=== PATIENT | male | born 1930 | race Caucasian/White ===

== ENCOUNTER 2016-12-07 09:03 | Inpatient (IN) | payer BC ==
[~2016-12-07] VITALS: Ht 180.3 cm; Wt 75.2 kg
[~2016-12-07 09:03] MED LIST: ACAR25TA7 PO; ALLO100T PO; ALLO300T2 PO; ATOR20TA38 PO; CLON-379 PO; COU5 PO; CYAN100080 PO; FERR-55 PO; OMEP20CA16 PO; OXCA150T43 PO; POTA8CAP PO; TRIA1CAP PO; WARF6TAB35 PO; [UNRECOGNIZED DRUG - CODE] PO; [UNRECOGNIZED DRUG - CODE] PO
[2016-12-07] MEDS ORDERED: ONDANSETRON (ODT) 4 MG TAB ODT STA (09:20)
[2016-12-07] MEDS ORDERED: traMADol 50 MG TAB PO ONE (09:30)
[2016-12-07] MEDS ORDERED: LOSA50TA6 PO (09:57)
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
[2016-12-07 11:30] LABS: ADD SCAN DIFF NO
[2016-12-07 11:34] LABS: ABNORMAL IP MESSAGE 1; HEMATOCRIT 34.5 % (42.0-52.0); MEAN CORPUSCULAR HEMOGLOBIN 31.6 pg (29.0-33.0); MEAN CORPUSCULAR HGB CONC 31.9 g/dl (32.0-37.0); MEAN CORPUSCULAR VOLUME 99.1 fl (82.0-101.0); MEAN PLATELET VOLUME 8.6 fl (7.4-10.4); PLATELET COUNT 335 10^3/UL (140-415); RED BLOOD COUNT 3.48 10^6/ul (4.70-6.10); RED CELL DISTRIBUTION WIDTH 13.6 % (11.5-14.5); WHITE BLOOD COUNT 8.9 10^3/ul (4.8-10.8)
[2016-12-07 11:46] LABS: INR 1.03; PROTIME 13.5 Sec (12.2-14.2); PT RATIO 1.1
[2016-12-07 11:47] LABS: ANION GAP 11 (8-16); BLOOD UREA NITROGEN 33 mg/dl (7-20); CARBON DIOXIDE 30 mmol/L (21-31); CHLORIDE 103 mmol/L (97-110); CREATININE 1.83 mg/dl (0.61-1.24); GLUCOSE 109 mg/dl (70-220); PARTIAL THROMBOPLASTIN TIME 32.3 Sec (25.0-35.0); POTASSIUM 4.9 mmol/L (3.5-5.1); SODIUM 139 mmol/L (135-144)
[2016-12-07 12:00] LABS: TROPONIN-I < 0.012 ng/ml (0.00-0.12)
[2016-12-07] MEDS ORDERED: ACETAMINOPHEN 325 MG TAB PO PRN (12:30)
[2016-12-07] MEDS ORDERED: ONDANSETRON 4 MG INJ IV PRN (12:30)
[2016-12-07] MEDS ORDERED: SOD CHLORIDE 0.9% 1,000 ML IV STA (12:33)
[2016-12-07 12:40] LABS: EOSINOPHILS # 0.3 10^3/ul (0.0-0.5); LYMPHOCYTES # 0.4 10^3/ul (0.8-2.9); MONOCYTE # 0.7 10^3/ul (0.3-0.9); NEUTROPHIL # 7.5 10^3/ul (1.6-7.5)
[2016-12-07] MEDS ORDERED: SOD CHLORIDE 0.9% 100 ML ONE (12:43)
[2016-12-07] MEDS ORDERED: IODIXANOL LOCM 100 ML BTL ONE (12:43)
--- NOTE | 2016-12-07 12:48 | RADRPT ---
PROCEDURE: XR 1 view Chest. CLINICAL INDICATION: Abdominal pain. TECHNIQUE: Portable Single frontal view of the chest was obtained. COMPARISON: May 10, 2015. FINDINGS: The heart is normal in size. There are moderate aortic calcifications. There is no focal consolidation. There are chronic interstitial markings. There is a probable 2 mm r ight upper lobe granuloma. There is no pleural effusion. No pneumothorax is identified. The osseous structures are intact.There are mild degenerative changes within the thoracic spine. IMPRESSION: No significant change. No evidence for acute cardiopulmonary disease. Aortic calcifications. Probable 2 mm right upper lobe granuloma. Further findings as detailed above. RPTAT: PP .Dario Turner MD, MD Date Time Electronically viewed and signed by .Dario Turner MD, on 12/07/2016 12:48 .F/
--- NOTE | 2016-12-07 13:21 | ERA ---
ER Documentation Chief Complaint Date/Time DATE: 12/07/16 TIME: 13:16 Chief Complaint NECK PAIN POSSIBLY SLEPT WRONG PER PT HPI Patient is a 86-year-old male with hypertension and diabetes who presents with back pain. The patient says that he fell asleep last night while watching TV sitting up and that his head fell down and touched his chest. When he woke up he had neck pain. The neck pain persisted today. He feels bilateral neck pain in the posterior portion of his neck. He denies chest pain. He has had no treatment as of yet. Upon review of old medical records the patient has multiple visits to the ER for various complaints. His primary doctor is Dr. Ruth Dennison. ROS All systems reviewed and are negative except as per history of present illness. Medications Home Meds Reported Medications Losartan Potassium* (Losartan Potassium*) 50 Mg Tablet, 50 MG PO DAILY, TAB 12/07/16 Diltiazem Hcl* (Cartia XT*) 180 Mg Cap.sr.24h, 180 MG PO BID, CAP 05/10/15 Acarbose* (Acarbose*) 25 Mg Tablet, 25 MG PO TID, TAB 05/10/15 Potassium Chloride* (Potassium Chloride*) 8 Meq Capsule.er, 8 MEQ PO DAILY, CAP 01/24/15 Allopurinol* (Allopurinol*) 300 Mg Tablet, 300 MG PO AM, TAB 01/24/15 Triamterene-HCTZ* (Triamterene-HCTZ*) 37.5 - 25 Mg Capsule, 1 CAP PO DAILY, CAP 01/24/15 Nitroglycerin* (Nitroglycerin*) 6.5 Mg Capsr, 6.5 MG PO BID, CAP 01/24/15 Cyanocobalamin* (Vitamin B-12*) 1,000 Mcg Tablet.sa, 1000 MCG PO DAILY, TAB 01/24/15 Oxcarbazepine* (Oxcarbazepine*) 150 Mg Tablet, 150 MG PO BID, TAB 01/24/15 Omeprazole* (Omeprazole*) 20 Mg Capsule.dr, 20 MG PO DAILY, CAP 05/30/14 Atorvastatin Calcium* (Atorvastatin Calcium*) 20 Mg Tablet, 20 MG PO HS, TAB 05/30/14 Discontinued Reported Medications Clonidine Hcl* (Clonidine Hcl*) 0.1 Mg Tab, 0.1 MG PO Q4H Y for BLOOD PRESSURE SUPPORT, TAB 05/10/15 Allopurinol* (Allopurinol*) 100 Mg Tablet, 100 MG PO PM, TAB 05/10/15 Warfarin Sodium* (Warfarin Sodium*) 6 Mg Tablet, 6 MG PO MON/SAT/SAT/SAT/SUN, TAB 01/24/15 Warfarin Sod (Coumadin) 5 Mg Tablet, 5 MG PO THURS/SAT, TAB 01/24/15 Ferrous Sulfate* (Ferrous Sulfate*) 325 Mg Tablet, 325 MG PO DAILY, TAB 01/24/15 Allergies Allergies: Coded Allergies: morphine (Verified Allergy, Mild, N&V, 05/10/15) Penicillins (Verified Allergy, Unknown, DOES NOT FEEL LIKED, 01/24/15) PMhx/Soc History of Surgery: Yes Anesthesia Reaction: No Hx Neurological Disorder: No Hx Respiratory Disorders: Yes (COPD) Hx Cardiac Disorders: Yes Hx Psychiatric Problems: No Hx Miscellaneous Medical Probl: Yes (cataract,COPD, GERD) Hx Alcohol Use: No Hx Substance Use: No Hx Tobacco Use: Yes Smoking Status: Former smoker FmHx Family History: No diabetes Physical Exam Vitals Vital Signs Date Time Temp Pulse Resp B/P Pulse Ox O2 Delivery O2 Flow Rate FiO2 12/07/16 11:55 98.0 64 18 134/63 99 Room Air 12/07/16 09:07 98.0 78 18 107/60 99 Physical Exam Const: Mild distress secondary to pain Head: Atraumatic Eyes: Normal Conjunctiva ENT: Normal External Ears, Nose and Mouth. Neck: Patient has pain over the strap muscles of the posterior neck bilaterally Resp: Clear to auscultation bilaterally Cardio: Regular rate and rhythm, no murmurs Abd: Soft, non tender, non distended. Normal bowel sounds Skin: No petechiae or rashes Back: No midline or flank tenderness Ext: No cyanosis, or edema Neur: Awake and alert, excellent rn informatics strength bilaterally, strength is 5 out of 5 in the upper and lower extremities bilaterally, able to give a thumbs up and okay sign bilaterally Psych: Normal Mood and Affect Result Diagram: 12/07/16 1120 12/07/16 1120 Results 24 hrs Laboratory Tests Test 12/07/16 11:20 White Blood Count 8.910^3/ul Red Blood Count 3.4810^6/ul Hemoglobin 11.0g/dl Hematocrit 34.5% Mean Corpuscular Volume 99.1fl Mean Corpuscular Hemoglobin 31.6pg Mean Corpuscular Hemoglobin Concent 31.9g/dl Red Cell Distribution Width 13.6% Platelet Count 53686^3/UL Mean Platelet Volume 8.6fl Neutrophils % 84.0% Lymphocytes % 5.0% Monocytes % 8.0% Eosinophils % 3.0% Neutrophils # 7.510^3/ul Lymphocytes # 0.410^3/ul Monocytes # 0.710^3/ul Eosinophils # 0.310^3/ul Differential Comment MANUAL DIFF Prothrombin Time 13.5Sec Prothrombin Time Ratio 1.1 INR International Normalized Ratio 1.03 Activated Partial Thromboplast Time 32.3Sec Sodium Level 139mmol/L Potassium Level 4.9mmol/L Chloride Level 103mmol/L Carbon Dioxide Level 30mmol/L Anion Gap 11 Blood Urea Nitrogen 33mg/dl Creatinine 1.83mg/dl Glucose Level 109mg/dl Calcium Level 10.0mg/dl Troponin I < 0.012ng/ml Current Medications Medications (Trade) Dose Ordered Sig/Jimenez Route PRN Reason Start Time Stop Time Status Last Admin Dose Admin Tramadol HCl (Ultram) 50 mg ONCE ONCE PO 12/07/16 09:30 12/07/16 09:31 DC 12/07/16 09:35 Ondansetron HCl (Zofran Odt) 4 mg ONCE STAT ODT 12/07/16 09:20 12/07/16 09:21 DC 12/07/16 09:34 Ondansetron HCl (Zofran Inj) 4 mg BRIDGE ORDER PRN IV NAUSEA AND/OR VOMITING 12/07/16 12:30 12/08/16 12:29 Acetaminophen 650 mg 650 mg ER BRIDGE PRN PO MILD PAIN/FEVER 12/07/16 12:30 12/08/16 12:29 Sodium Chloride (NS) 1,000 ml @ 1,000 mls/hr Q1H STAT IV 12/07/16 12:33 12/07/16 13:32 12/07/16 12:38 IV Flush 10 ml 10 ml STK-MED ONCE .ROUTE 12/07/16 12:43 12/07/16 12:44 DC Sodium Chloride (NS) 100 ml @ ud STK-MED ONCE .ROUTE 12/07/16 12:43 12/07/16 12:44 DC Iodixanol (Visipaque Locm) 100 ml STK-MED ONCE .ROUTE 12/07/16 12:43 12/07/16 12:44 DC Procedures/MDM EKG read by me: Rate/Rhythm: Regular rate and rhythm at a rate of 60 Intervals: Normal Impression: No evidence of ischemia or arrhythmia Chest x-ray shows chronic changes per radiology. CT of the head is negative per radiology. CT of the cervical spine shows type II odontoid fracture with lytic lesion per radiology. Patient is a 86-year-old male with hypertension and diabetes who presents with a type II odontoid fracture. The patient has a lytic lesion and will need further workup for this. I spoke with Dr. Gannon who is the neurosurgeon extension service specialist. He will see the patient in consultation. A c-collar was placed. The patient is neurologically intact at this time. MRI of the cervical spine was ordered by Dr. Gannon with contrast. The patient's creatinine was elevated at 1.8 and I spoke with Dr. Gannon who want to continue with the contrast study given the concern for possible cancer. I have ordered 1 L of normal saline for fluid resuscitation to protect the kidneys. The patient will be admitted to the care of Dr. Ruth Dennison who is the patient's primary doctor. The patient will be admitted to a medical surgical bed. Critical Care: Time: 35 minutes excluding all billable procedures. Treatments/Evaluations: Close monitoring and treatment of unstable vital signs, cardiorespiratory, and neurologic status, while maintaining tight balance of fluid, respiratory, and cardiac interventions. Departure Diagnosis: Primary Impression: Odontoid fracture Qualified Code: S12.100A - Odontoid fracture, closed, initial encounter Additional Impressions: Neck pain Anemia Qualified Code: D64.9 - Anemia, unspecified type Renal failure Condition: Serious LEN LOPEZ MD Dec 07, 2016 13:21
[2016-12-07] MEDS ORDERED: ONDANSETRON 4 MG INJ IV STA (13:57)
[2016-12-07] MEDS ORDERED: HYDROmorphONE 1 MG/ML SYG IV STA (13:57)
--- NOTE | 2016-12-07 13:58 | RADRPT ---
PROCEDURE: CT Chest abdomen and pelvis with contrast. CLINICAL INDICATION: ruloe out mets TECHNIQUE: CT scan of the chest abdomen pelvis with contrast was performed on a multidetector high -resolution CT scan. The patient was scanned chest abdomen pelvis following the uncomplicated intra venous administration of 100 ml of Visipaque 320. Coronal and sagittal reformatted images were obtai rena from the axial source images. CT chest abdomen pelvis with contrast protocols were performed. The total exam CTDI equals 13.90 mGy and the total exam DLP equals 1068.85 mGy-cm. One or more of the following dose reduction techniques were used: - Automated exposure control. - Adjustment of the mA and/or kV according to patient size. Use of iterative reconstruction technique. COMPARISON: None. FINDINGS: In the left upper lobe is a 2.3 x 1.4 x 1.7 cm spiculated mass consistent with malignancy. There ar e no other pulmonary masses bilaterally. There is minimal chronic basilar and apical interstitial l edwige disease. There is bilateral minimal apical pleural thickening. No evidence of pleural or peric ardial effusions . No evidence pneumothorax. No evidence of mediastinal, hilar or axillary lymphad enopathy. The heart is within normal limits in size. There is coronary artery disease present. The patient is status post prostatectomy with numerous surgical clips along the inferior right left urinary bladder region. Urinary bladder is there is no evidence of pelvic mass. The urinary bladde r is distended but otherwise unremarkable. The kidneys are normal in size without hydronephrosis bilaterally. There are numerous bilateral mya al cysts the largest involving the inferior left kidney measuring 3 cm. No solid intra renal masses bilaterally. The liver spleen pancreas and adrenal glands are normal in size configuration without focal lesions. The gallbladder is distended but otherwise unremarkable. No evidence of biliary ductal dilation. The stomach, small bowel and large bowel are unremarkable. The appendix is unremarkable. Negative for intra-abdominal free air, free fluid or lymphadenopathy. There is extends atherosclerotic vascular disease of the aorta but no aneurysm or dissection. No pe riaortic fluid collections. There is a mild S-shaped thoracic lumbar scoliosis. There is extensive degenerative changes of the lower cervical thoracic and lumbar spine. Note that the bones are diffu sely inhomogeneously demineralized. In the right L2 vertebral body is a more localized approximatel y 2.5 cm low with occlusion. In the superior T9 vertebral body is an ill-defined approximately 1.5 cm loose lesion that may represent a lytic metastasis. There is destructive lytic lesion of the mid to posterior T4 vertebral body and left T4 pedicle and transverse process. There is patchy lytic l esions involving the T3 vertebral body. There is 2.6-1.5 cm lytic lesion involving the right ilium. There is a lytic lesion involving the left posterior acetabulum. IMPRESSION: 1. In the left upper lobe there is a 2.3 x 1.4 x 1.7 cm spiculated mass consistent with malignancy. No other pulmonary masses. 2. Numerous lytic lesions involving the thoracic and lumbar spine and pelvis as described above con sistent with metastatic disease. A bone scan is suggested for further evaluation. 3. Status post previous prostatectomy. 4. No evidence of thoracic abdominopelvic lymphadenopathy. 6. No evidence of thoracic effusions or intra-abdominal free air fluid. 7. Multiple bilateral renal cysts. No obstructive uropathy. RPTAT:AAJJ Physician Samantha Date Time Electronically viewed and signed by Physician Samantha on 12/07/2016 13:57 /
[2016-12-07 15:09] VITALS: TEMP 98.7
[2016-12-07 15:43] VITALS: Ht 180.3 cm; Wt 75.2 kg
[2016-12-07 16:01] VITALS: BP 147/65; PULSE 58; RESP 18
[2016-12-07] MEDS: DEXTROSE 5%-0.45% NACL 1,000 ML IV SCH (16:30)
--- NOTE | 2016-12-07 18:22 | HP ---
DATE OF ADMISSION: 12/07/2016 CHIEF COMPLAINT: Neck pain and discomfort. HISTORY OF PRESENT ILLNESS: This 86-year-old man with history of hypertension, coronary artery disease, prostate cancer, and skin cancer has been having progressive and intermittent neck discomfort for about 4 weeks after falling without head trauma about 4 weeks ago. However, all night last night, the patient has been having trouble finding a comfortable spot on his pillow for his head to rest and came in today for neck discomfort. X-rays in the emergency room showed a pathological fracture of the C2 vertebra at the odontoid process, and subsequent chest, abdominal, and pelvic CT showed multiple lesions in vertebral body of thoracic spine, lumbar spine, pelvis, and hip. The patient is thus admitted for further workup of possible metastatic lung cancer as well as a fracture of the cervical vertebra. PAST MEDICAL HISTORY: 1. Coronary artery disease. 2. Hypertension. 3. Prediabetes. 4. Remote history of prostate cancer. 5. Precancerous lesions of the skin/actinic keratoses. 6. GERD. 7. Generalized anxiety disorder. 8. Gouty arthropathy. 9. Single episode of epilepsy many decades ago. 10. Single episode of atrial fibrillation during pneumonia many years ago. 11. Chronic anemia 12. Stage 1 chronic kidney disease. ALLERGIES: 1. MORPHINE. 2. PENICILLIN. MEDICATIONS: 1. Losartan 100 mg daily. 2. Diltiazem ER 180 mg p.o. daily. 3. Dyazide 37.5/25 p.o. every day. 4. Allopurinol 300 mg p.o. at bedtime. 5. Acarbose 25 mg p.o. b.i.d. 6. Paroxetine 20 mg p.o. every day. 7. Atorvastatin 20 mg p.o. daily. 8. Nitroglycerin 0.3 mg as needed sublingually. 9. Omeprazole 20 mg p.o. q. a.m. 10. Gemfibrozil 600 mg p.o. b.i.d. SOCIAL HISTORY: The patient used to smoke 1 to 2 packs a day for 40+ years. He quit when he was 62 years old. He now only drinks beer or wine occasionally. 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 He is and lives alone. REVIEW OF SYSTEMS: GENERAL: Denies any fever, chills, fatigue, or headache. HEENT: The patient denies any blurry vision, double vision, eye pain, congestion of the nose, or sore throat. RESPIRATORY: No coughing, wheezing, or shortness of breath. CARDIOVASCULAR: No chest pain, palpitation, no edema. GASTROINTESTINAL: No abdominal pain, nausea, vomiting, diarrhea, or constipation. MUSCULOSKELETAL: Neck discomfort as above. EXTREMITIES: No other joint pain or inflammation. SKIN: No itching or rashes. NEUROLOGIC: Denies any blackouts, fainting spells, or loss of consciousness. PSYCHIATRIC: The patient does have persistent nervousness and anxiety. Denies current depression or behavior changes. GENITOURINARY: The patient does have nocturia but no pain on urination, no blood in the urine. No penile discharge. PHYSICAL EXAMINATION: GENERAL: Well developed, well nourished white male lying in bed in no acute distress VITAL SIGNS: Temperature 97.0, blood pressure 147/65, pulse of 58, respiration rate 18, O2 saturation 99% on room air. HEENT: Pupils equally round, reactive to light. Oropharynx clear. LUNGS: Clear to auscultation anteriorly. CARDIAC: Regular rate and rhythm. Normal S1, S2. ABDOMEN: Active bowel sounds, soft, nondistended, nontender. EXTREMITIES: No clubbing, cyanosis, or edema. LABORATORY: WBC 8.9, hemoglobin 11.0, hematocrit 34.5, platelet count 335,000. Sodium 139, potassium 4.9, chloride 103, carbon dioxide 30, BUN 33, creatinine 1.83, glucose 109. PT 13.5, PTT 32.3. RADIOLOGY: The patient's chest x-ray shows probable 2 mm right upper lobe granuloma, no pleural effusion, no pneumothorax. The head CT shows no intracranial hemorrhage or abnormality. The cervical spine CT shows a lytic lesion within the odontoid and body of C2 with nondisplaced pathological fracture through the base of the odontoid compatible with type II fracture. There is mild prevertebral soft tissue swelling anterior to the fracture. There is marked multilevel degenerative disk disease throughout the cervical spine without foraminal or S1 central canal stenosis. The chest, abdominal, and pelvic CT scan shows a left upper lobe spiculated mass consistent with malignancy. There are numerous lytic lesions involving the thoracic and lumbar spine, hip and pelvis consistent with metastatic disease. A bone scan is suggested for further evaluation. There is evidence of previous prostatectomy. No evidence of thoracic, abdominal, or pelvic lymphadenopathy. No evidence of thoracic effusion or intra-abdominal free air or fluid. There are multiple bilateral renal cysts and no obstructive uropathy. ASSESSMENT AND PLAN: 1. C2 cervical fracture. Place the patient on cervical spine neck brace and consult Neurosurgery Dr. Gannon for further management. Obtain MRI of the neck, thoracic and lumbar spine to clarify extent of lesions. Obviously, another relevant question is the possible cause of his pathologic fracture, especially in light of multiple other lytic lesions that are quite suggestive of metastatic disease. I have consulted manager of distribution/oncologist, Dr. Sharma also for further workup and management of possible metastatic disease. 2. Hypertension, stable. Continue current medications. 3. Gastroesophageal reflux disease. Continue PPI. 4. Hyperlipidemia. Continue statin. 5. Generalized anxiety disorder. Continue paroxetine. The patient may need Clonazepam as needed for anxiety, particularly as he is going through this new workup for cancer. Dictated By: DESI MCLAIN MD DP/MARTINA Conf#: [id number] DID#: [id number]
--- NOTE | 2016-12-07 19:03 | RADRPT ---
PROCEDURE: MRI thoracic spine without contrast CLINICAL INDICATION: Back pain and follow-up type 2 odontoid fracture TECHNIQUE: An MRI of the thoracic spine was performed on a hi-definition high-resolution 3.0 [place] MR scanner utilizing the following sequences: Sagittal T1 weighted, sagittal and axial T2 weighted , axial GRE, and sagittal T2 fat saturation. COMPARISON: No prior thoracic spine MRIs or CTs available for comparison. FINDINGS: There is a normal kyphosis of the thoracic spine. Heterogeneous lesions are noted throughout the cer vical spine compatible with diffuse metastatic disease. Small subtle lesions are noted in the T1, T2 , at T6 through T8, T10 through T12 levels. Right pedicular lesion is noted at the T12 level. Larg er metastatic foci are noted in the posterior T3, T4, and T7, T9 and, and the L1 vertebral bodies. Complete marrow replacement is noted at the T4 vertebral level with pathologic compression fracture noted at this level and approximately 60% vertebral body height loss. Retropulsion into the spinal canal is noted at this level and moderate canal stenosis and cord compression is noted. The cord is compressed along its anterior portion without evidence for abnormal cord signal at this time. The i ntervertebral discs demonstrate diffuse disk desiccation throughout the thoracic spine with severe d isk space height loss at T2-3 and T3-4 levels as well as T6-7 through T8-9 levels. Other than at the T4 , the remainder of the thoracic cord is normal with normal conus termination at T12-L1. The bilateral paravertebral soft tissues imaged appear normal. The specific axial levels are as follow s: C7-T1: Disk desiccation is present. The central canal, subarticular recess and neural foramen are patent. T1-2: Disk desiccation is present. The central canal, subarticular recess and neural foramen are p atent. T2-3: Disk desiccation is present. The appearance of the involvement of the right T3 vertebral bod y and pedicle is noted with appearance of soft tissue neoplastic extension into the right subarticul ar recess at this level. The remainder of the central canal , left subarticular recess and bilateral neural foramen are patent . T3-4: Appearance of soft tissue neoplastic extension is noted in the anterior epidural space at thi s level. Mild central canal stenosis is present with bilateral subarticular recess stenosis. The r ight neural foramen is patent. However, the left neural foramen demonstrates mild to moderate left neural foraminal stenosis secondary to the appearance of soft tissue neoplastic extension from the s uperior facet of the inferior T4 level. Contrast would help further evaluate neoplastic bony expansi on from soft-tissue neoplastic extension. T4-5: Complete marrow replacement with metastatic involvement of the T4 vertebral body at this leve l is noted with involvement of the left pedicle and transverse process and posterior element. Soft- tissue neoplastic extension is noted and suspected into the anterior epidural space at this level. AP canal dimension is 7.7 mm contributing to a moderate central, bilateral subarticular recess steno sis and moderate bilateral neural foraminal stenosis. No abnormal cord signal is noted. T5-6: Disk desiccation and mild disk space height loss is present at this level. A small 1 mm cent ral disk protrusion is present at this level. The central canal, subarticular recess and neural for amen are patent. T6-7: Severe disk space height loss and disk desiccation is present. A mild annular bulge is prese nt. The central canal, subarticular recess and neural foramen are patent. T7-8: Severe disk space height loss and disk desiccation is present. A metastasis again noted of t he right posterior vertebral body with either a mild annular bulge and soft tissue neoplastic extens ion into the spinal canal anteriorly and the right subarticular recess. The central canal, subartic ular recess and neural foramen are patent. T8-9: Severe disk space height loss and disk desiccation is present. The central canal, subarticul ar recess and neural foramen are patent. T9-10: Mild disk desiccation and disk space height loss is present. A mild annular bulge is presen t. The central canal, subarticular recess and neural foramen are patent. T10-11: Disk desiccation is present. The central canal, subarticular recess and neural foramen are patent. T11-12: The intervertebral discs is normal. The central canal, subarticular recess and neural fora men are patent. T12-L1: A mild annular bulge is present. The central canal, subarticular recess and neural foramen are patent. A large 1 cm right perineural cyst is present. Mild bilateral facet arthropathy and f acet effusions are present. IMPRESSION: 1. Diffuse metastatic disease throughout the thoracic spine as described above. Recommend follow-up thoracic spine MRI with contrast to better evaluate soft-tissue neoplastic extension into the epidu ral space at the T3 and T4 levels. 2. Retropulsion of pathologic T4 vertebral body compression fracture with soft-tissue neoplastic ex tension suspected in the anterior epidural space and cord compression without abnormal cord signal a t this level. Moderate stenosis is present at this level. 3. Normal conus termination. 4. Mild subarticular recess and neural foraminal stenosis as indicated above at the T2-3, T3-4, and T4-5. A call report was made to Carmine Rhodes at 12/07/2016 6:44:43 PM following the completion of th e examination by the undersigned. RPTAT: [facility] Critical finding: Cord compression .Virginia Torrez MD, MD Date Time Electronically viewed and signed by .Virginia Torrez MD, MD on 12/07/2016 19:02 .C/
--- NOTE | 2016-12-07 19:24 | RADRPT ---
PROCEDURE: MRI Cervical Spine. CLINICAL INDICATION: Type 2 odontoid fracture TECHNIQUE: An MRI of the cervical spine was performed on a hi-definition high-resolution MRI scanbanner utilizing the following sequences: Sagittal T1 weighted, sagittal and axial T2 weighted, sagittal STIR, sagittal T2 weighted with fat saturation, and axial GRE. COMPARISON: CT cervical spine dated 12/07 FINDINGS: There is straightening of the normal cervical lordosis. Again noted is a type 2 odontoid fracture w hich appears pathologic with a 2 cm lesion noted in the C2 vertebral body. No significant retropuls ion into the spinal canal is noted at this time. The remainder of the vertebral bodies demonstrate chronic appearing compression fracture deformities with approximately 25% vertebral body height loss at C5 and C6 levels. Again noted is approximately 4 mm anterior subluxation of C4 on C5, 3 mm post erior subluxation of C5 and C6 and 2 mm anterior subluxation of C7 on T1. The remainder of the vert ebral bodies demonstrate T1 hypointensity corresponding to T2 hyperintensity and STIR hyperintensity in the posterior T3 and T4 vertebral bodies and left pedicles and posterior elements . An acute pa thologic compression fracture of T4 is noted with approximately 60% vertebral body height loss. Ret ropulsion of the spinal canal is noted with moderate central canal stenosis and cord compression at the T4 level. No abnormal cord signal is present. The appearance of soft tissue neoplastic extensi on into the epidural space is noted at the T3 and T4 levels. Follow-up MRI is recommended with cont rast. The signal intensities of the discs are remarkable for disk desiccation throughout the cervi lidia and thoracic spine with the exception of the C3-4 level which demonstrates disk edema at this le jovanna. The cervical cord is normal in caliber and signal intensity. The thoracic cord image demonstrat es cord compression at T4 level without definite evidence for abnormal cord signal. The visualized p aravertebral soft tissues are unremarkable. The specific axial levels are as follows: Occiput to C2: The visualized posterior fossa demonstrates age appropriate volume loss. Degenerati ve changes are noted of the atlanto-axial articulation. Again noted is the pathologic lytic lesion previously described in the C2 vertebral body with a type 2 odontoid nondisplaced fracture. Posteri or soft tissue measuring 6 mm in thickness is noted posterior to the dens and contributing to a mild canal stenosis. This may represent soft-tissue neoplastic extension or pannus formation. C2-3: Disk desiccation is present. A mild annular bulge is present. The central canal, subarticula r recess and neural foramen are patent. Mild bilateral facet arthropathy and uncovertebral osteophy chantal are present padmini C3-4: Edema is noted within the discs with marked disk space height loss. The central canal, subart icular recess and neural foramen are patent. Moderate to severe right greater than left facet arthr opathy is present. C4-5: Disk desiccation is present with anterior subluxation of C4 and C5. Moderate disk space height loss and mild osteophytic bar and bulge is present measuring 2 mm. Mild bilateral uncovertebral ost eophytes and facet arthropathy is present. AP canal dimension is 9.3 mm. Mild central canal stenosi s is present with mild bilateral subarticular recess stenosis and moderate to severe right and moder ate left neural foraminal stenosis is present. Mild bilateral facet arthropathy is present. C5-6: Severe disk space height loss degenerative plate changes and posterior subluxation of 3 mm is again noted. Moderate broad-based bulge and osteophyte is present. Mild bilateral uncovertebral os teophytes and facet arthropathy is present. AP canal dimension is 9.5 mm. This results in a mild c entral canal stenosis without subarticular recess stenosis. Severe bilateral neural foraminal steno sis is present. C6-7: Severe disk space height loss and degenerative changes are present. Mild broad-based bulge is present. The central canal, subarticular recess, and neural foramen are patent. Moderate to sever e left facet arthropathy is present. C7-T1: Disk desiccation and severe degenerative endplate changes and disk disease is noted with 2 mm anterior subluxation. A mild broad-based bulge is present. The central canal, subarticular recess and neural foramen demonstrate mild left neural foraminal stenosis and patent right neural foramen. IMPRESSION: 1. Pathologic nondisplaced type 2 odontoid and C2 fracture. 2. Metastatic disease involving the cervical and thoracic spine as noted above. 3. T4 cord compression without evidence for abnormal cord signal at this time. 4. Multilevel broad-based disk bulges at the C2-3, C4-5 through C7-T1 levels with mild central aleida l stenosis at C4-5 and C5-6 5. Multilevel subarticular recess and neural foraminal stenosis at the C4-5, C5-6, and C7-T1 levels as indicated above. A call report was made to Carmine Rhodes at 12/07/2016 6:44: 43 p.m. PM following the completion of the examination by the undersigned. Critical finding: Cord compression without cord hyperintensity at this time. RPTAT: [facility] .Virginia Torrez MD, MD Date Time Electronically viewed and signed by .Virginia Torrez MD, on 12/07/2016 19:23 .C/
[2016-12-07 19:28] VITALS: BP 158/67; RESP 18
[2016-12-07 19:58] LABS: ALBUMIN 3.9 g/dl (3.3-4.9); POTASSIUM 4.7 mmol/L (3.5-5.1)
[2016-12-07 20:00] LABS: ALBUMIN/GLOBULIN RATIO 1.34; BILIRUBIN,INDIRECT 0.2 mg/dl (0-1.1); BILIRUBIN,TOTAL 0.2 mg/dl (0.2-1.3); CREATININE 1.59 mg/dl (0.61-1.24); TOTAL PROTEIN 6.8 g/dl (6.1-8.1)
[2016-12-07 20:01] LABS: CALCIUM 9.8 mg/dl (8.4-10.2)
[2016-12-07 20:29] LABS: CARCINOEMBRYONIC ANTIGEN 10.9 ng/ml (0.0-5.0)
--- NOTE | 2016-12-07 20:56 | RADRPT ---
PROCEDURE: MRI lumbar spine CLINICAL INDICATION: Low back pain and history of metastasis. TECHNIQUE: An MRI of the lumbar spine was performed on a high resolution high definition, MRI scan ner utilizing the following sequences: Sagittal T1 weighted, sagittal and dual echo axial T2 weighte d, and sagittal T2 weighted with fat saturation. COMPARISON: No relevant priors other than cervical and thoracic spine MRI on same date. And CT abd omen and pelvis on 09/22/2013 FINDINGS: Straightening of the normal lumbar lordosis is present. The vertebral body heights are well maintai rena. T1 hypointensity corresponding to T2 and T2 fat saturation hyperintensity is noted in the T11 through sacral levels compatible with diffuse metastatic disease. the most significant lesion is in the L2 vertebral body. No definite evidence for acute pathologic compression fractures or retropul mikey into the spinal canal is noted. Degenerative ankylosis or effusion is noted of the L4-5 verteb ral bodies. The remainder of the intervertebral discs demonstrate disk desiccation from the T10-11 through to the L5-S1 levels with severe disk space height loss at the L1-2 through L3-4 levels and m oderate disk space height loss at L5-S1. Degenerative appearing grade 1 spondylolisthesis of L5 on S1 is present without evidence for spondylolysis. The visualized thoracic cord is normal and termin ates at the T12-L1 level. The visualized paravertebral soft tissues imaged demonstrates bilateral renal cortical cysts. The s pecific axial levels are as follows: T12 - L1: Disk desiccation is present without disk space height loss. The central canal, subarticu lar recess, and neural foramen are patent. A 1 cm right perineural cyst is present. L1 - L2: Disk desiccation is present with severe disk space height loss . A mild osteophytic bar an d bulge is present. Mild bilateral facet arthropathy and facet effusions are present. The central c anal, bilateral subarticular recesses are patent. Mild bilateral neural foraminal stenosis is prese nt. L2 - L3: Disk desiccation is present with severe disk space height loss. A mild eccentric osteophy tic bar and bulge to the left is present. This contributes to a moderate to severe left subarticula r recess stenosis and posterior displacement of the left L3 nerve root within the lateral recess. R ecommend correlation with the left L3 radiculopathy. Moderate to severe left and mild to moderate r ight neural foraminal stenosis is present. L3 - L4: Severe degenerative endplate and disk desiccation is present with a 5 mm moderate osteophy tic bar and bulge. Mild bilateral facet arthropathy and facet effusions are present. The central c anal, bilateral subarticular recesses are patent. Mild bilateral neural foraminal stenosis is prese nt. L4 - L5: Complete loss of disk bias height is noted at this level secondary to ankylosis which appe ars degenerative and etiology. A mild 3 mm broad-based bulge is present with bilateral facet arthro mary and ligamentum hypertrophy. The central canal, bilateral subarticular recesses are patent. M ild bilateral neural foraminal stenosis is present. L5 - S1: Grade 1 spondylolisthesis of L5 and S1 without evidence for spondylolysis is noted. A 4 m m eccentric bulge to the left is present. Mild bilateral facet arthropathy is present. The centra l canal, bilateral subarticular recesses are patent. Moderate to severe left and mild right neural f oraminal stenosis is present. Recommend correlation with a left greater than right L5 radiculopathy . IMPRESSION: 1. Diffuse metastatic disease as described above without evidence for acute pathologic compression fractures. 2. Multilevel broad-based disk osteophyte complexes at the L1-2 through L5-S1 levels without centra l canal stenosis. 3. Multilevel neural foraminal stenosis at the L1-2 through L5-S1 levels and correlate with respect parth radiculopathy. 4. Multilevel facet osteoarthropathy as noted . A call report was made to Carmnie Rhodes at 12/07/2016 at approximately 06:44 PM following the c ompletion of the examination by the undersigned. RPTAT: [facility] .Virginia Torrez MD, MD Date Time Electronically viewed and signed by .Virginia Torrez MD, on 12/07/2016 20:56 .C/
[2016-12-07] MEDS: NITROGLYCERIN 6.5 MG PO SCH (21:00)
[2016-12-07] MEDS: ATORVASTATIN 20 MG TAB PO SCH (21:10)
[2016-12-07] MEDS: HYDROCODONE/APAP (10/325) TAB PO PRN (21:11)
[2016-12-07] MEDS: DILTIAZEM (CD) 180 MG CAP PO SCH (21:13)
[2016-12-08] MEDS: DEXTROSE 5%-0.45% NACL 1,000 ML IV SCH ×3 (02:30→22:30)
[2016-12-08] MEDS: PANTOPRAZOLE (EC) 40 MG TAB PO SCH (05:58)
[2016-12-08 07:00] VITALS: BP 129/61; RESP 20
[2016-12-08] MEDS: DILTIAZEM (CD) 180 MG CAP PO SCH ×2 (08:57→20:50)
[2016-12-08] MEDS: TRIAMTERENE/HCTZ (37.5-25) CAP PO SCH (08:58)
[2016-12-08] MEDS: LOSARTAN 50 MG TAB PO SCH (08:58)
[2016-12-08] MEDS: NITROGLYCERIN 6.5 MG PO SCH ×2 (09:00→21:00)
[2016-12-08] MEDS ORDERED: NON-FORMULARY/PATIENT OWN MED (Omeprazole* 20 MG) PO SCH (09:00)
[2016-12-08] MEDS: HYDROCODONE/APAP (10/325) TAB PO PRN ×2 (10:07→14:01)
[2016-12-08] MEDS ORDERED: DEXAMETHASONE 4 MG TAB PO ONE (11:00)
--- NOTE | 2016-12-08 12:05 | CONS ---
DATE OF ADMISSION: 12/07/2016 DATE OF CONSULTATION: 12/08/2016 TYPE OF CONSULTATION: Medical Oncology REQUESTING PHYSICIAN: Ruth Dennison MD. REASON FOR CONSULTATION: Metastatic carcinoma. Dear Dr. Dennison: Thank you very much for asking me to see this very interesting and pleasant gentleman in oncologic c onsultation. As you may be aware, I am somewhat familiar with Mr. 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 The patient is now admitted to [facility] with complaints of some neck discomfort for approximately the past week. The patient did have studies in the emergency room, which included a CT of the cervical spine which did show evidence of a lytic lesion within the odontoid process of C2. This appeared to be a pathologic fracture. There were other changes, however, found on lumbar and thoracic spine MRIs which did reveal further evidence of bone metastases. This includes an are a of T4 in which there is complete marrow replacement of the T4 vertebral body. Soft tissue neoplas tic extension is noted in the anterior epidural space. There is some cord compression in this area. The cord itself, however, is intact. A CT scan of the chest has also demonstrated numerous lytic lesions along the thoracic and lumbar sp ine and pelvis consistent with metastatic disease. There was no evidence of thoracic or abdominopel gabriele lymphadenopathy. There was, however, a 2.3 x 1.4 x 1.7 cm spiculated mass in the left upper lob e. There were no hepatic, splenic, pancreatic or adrenal abnormalities noted. On further questioning, the patient denies any cough or shortness of breath. He does state, howeve r, that he has had some generalized body aching. He does feel that this is related to a fall that h e took 2 or 3 weeks ago. The patient apparently has had a few falls in the past 2 or 3 weeks. He d enies any numbness or tingling in the lower extremities. He denies any difficulty with urination or bowel movements. Laboratory on admission includes a white count of 8900, hemoglobin 11, hematocrit 35.5, and platelet count 355,000. Pro time 13.5 seconds, INR 1.03, PTT 32.3 seconds. Chemistry panel includes a sodi um 140, potassium 4.7, creatinine 1.59, BUN 30, total bilirubin 0.2, direct bilirubin 0, AST 16, ALT 22, and alkaline phosphatase 190. PAST MEDICAL HISTORY: The patient's past history does include a history of hypertension. The patie nt has also had a history of coronary artery disease. Has had gouty arthropathy. Also has had an e pisode of atrial fibrillation in the past. Also had a grand mal seizure in the past. The patient d oes also have a history of prostatic carcinoma in the past, which was treated by radical prostatecto my. This was greater than 10 years ago. The patient has never had any known recurrences. MEDICATIONS: Include: 1. Atorvastatin 20 mg daily. 2. Paroxetine 20 mg daily. 3. Omeprazole 30 mg every morning. 4. Gemfibrozil 600 mg. 5. Allopurinol 300 mg. 6. Diltiazem 180 mg daily. 7. Losartan 100 mg daily. 8. Dyazide 37.5/25 mg every day. 9. Acarbose 25 mg twice a day. ALLERGIES 1. MORPHINE. 2. PENICILLIN. SOCIAL HISTORY: The patient is . He previously worked at [employer] in [employer]. He has not knowingly been exposed to any industrial toxins or ionizing radiation. The patient state s he has not smoked now for at least 20 years, but does admit to having been a greater than 50-year pack smoker prior to that. He does drink beer or wine occasionally. PHYSICAL EXAMINATION: GENERAL: At this time reveals a well-developed, well-nourished male who is in no acute distress. VITAL SIGNS: Temperature 97.8, pulse 60 per minute and regular, respirations 20, blood pressure 129 /61, and pulse oximetry is 97% on room air. SKIN: No ecchymoses, petechiae or rashes except for 1 ecchymotic area just under the left orbit. HEENT: Evidence of recent fall with a small laceration on the left frontal area and ecchymosis over the zygomatic arch of the face on the left side. Pupils equal, round, reactive to light and accomm odation. Sclerae nonicteric. Oral mucosa is moist without lesions. Tongue is well papillated. No gingival hyperplasia, no hypertrophy of Waldeyer's ring, no mucosal telangiectasias. NECK: Supple, no jugular venous distention or thyroid enlargement. CHEST: Clear to auscultation and percussion. No rhonchi, wheezes, rales or rubs. NODES: No palpable lymphadenopathy in lymph node bearing area. No pain on percussion of the sternu m, clavicles or ribs. BREASTS: No gynecomastia. HEART: Regular sinus rhythm. No S3, S4 or murmurs. ABDOMEN: Soft. No masses or ascites. Bowel sounds are active. EXTREMITIES: Good range of motion, no clubbing, edema or cyanosis. No palpable cords or Homans sig n. NEUROLOGIC: Normal except for very brisk reflexes of the lower extremities. There is no clonus not ed. There is a marked difference between reflexes in the upper extremities versus lower numbers low er extremities. DISCUSSION: This patient has metastatic lesions which are likely related to the spiculated mass in the left upper lobe, which is likely lung primary. The patient has been a smoker in the past with a greater than 40-[id number] smoking history, although has not smoked now in 20 years. 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 The patient does have a history of prostatic carcinoma. We will r equest a PSA. Also, a CEA and CA 19-9, but it should be noted that there are no subdiaphragmatic ab normalities other than the bony abnormalities. Although this patient's disease is not curable, his main symptom at this time are the symptoms which I feel are caused by the T4 lesion. If this is not corrected, I fear the patient will develop para plegia and therefore any other treatment would become less practical. I do feel that decompression is indicated. The patient, of course, will require radiation therapy a s well as systemic therapy following this. The decompression will also likely provide us with tissue in order to determine the actual primary t ype and perhaps do other genomic studies. I do feel the patient should be started on dexamethasone at this time to help relieve some of the co rd compression symptoms. Once again, thank you very much for the opportunity of participating in the medical care of this terry y interesting and pleasant patient. I will be happy to follow this patient with you and assist in h is oncologic evaluation and followup as necessary. Dictated By: JENNIFFER PEREZ MD, SR/MARTINA Conf#: [id number] [facility]#: [id number]
[2016-12-08] MEDS: DEXAMETHASONE 4 MG TAB PO SCH ×2 (16:30→20:49)
[2016-12-08 19:20] VITALS: BP 131/61; RESP 18
[2016-12-08] MEDS: ATORVASTATIN 20 MG TAB PO SCH (20:49)
--- NOTE | 2016-12-08 21:08 | CONS ---
DATE OF ADMISSION: 12/07/2016 DATE OF CONSULTATION: 12/08/2016 REQUESTING PHYSICIAN: Vinay Diana MD/Emergency Department. CONSULTING SERVICE: Neurosurgery. HISTORY OF PRESENT ILLNESS: This is an 86-year-old male with past medical history significant for h ypertension, coronary artery disease, gout, atrial fibrillation, reported history of seizure episode in the past, as well as history of prostate cancer treated with radical prostatectomy in the past, without known recurrences, approximately 10 years ago, who presented to the emergency department for mild neck pain. The patient apparently had a very soft fall from his chair approximately 2-3 days ago. Upon asking the patient further questions, initially the patient denied any prior falls, but o nce I asked him several more detailed questions, he tells me that he has actually had multiple falls in the past month to month and a half. The patient lives on his own, he is , he enjoys chen ening, and he tells me that he has had several falls. As a matter of fact, the patient has started using a cane for the past month because of decreased balance. The patient has been attributing this mostly to his older age. The patient does complain of feeling fatigued overall. He denies any foc al weakness of his upper or lower extremities. He also denies any numbness of his upper or lower ex tremities. He denies bowel or bladder incontinence. He denies any pain throughout his spine, excep t the mild neck pain that he is having. He has not had any new loss of consciousness. He denies an y diplopia. SOCIAL HISTORY: Of note, the patient had a [id number] history of smoking cigarettes, but quit smo dana 20 years ago. The patient denies use of illicit or recreational drugs. He does drink alcoholi c beverages occasionally. The patient is . PAST MEDICAL/SURGICAL HISTORY: As noted above. ALLERGIES: 1. MORPHINE? 2. PENICILLIN. REVIEW OF SYSTEMS: Please see above. The patient denies shortness of breath or chest pain. He den ies coughing. MEDICATIONS: The patient's medications have been reviewed and attached to the chart. PHYSICAL EXAMINATION: The patient is a very pleasant, elderly male, who is lying in bed. He is com fortable. He is awake, alert, oriented x4. His language is fluent. His face is symmetric. Tongue is midline. Extraocular movements are intact. Pupils are equally round and reactive to light. To ngue is midline. Muscle bulk is normal, bilateral upper and lower extremities. Muscle tone is incr eased, bilateral lower extremities, when compared to bilateral upper extremities. Deep tendon refle xes are 1+, bilateral upper extremities, and 3+ bilateral lower extremities. The patient has 4-beat ankle clonus bilaterally. There is no pronator drift. Motor strength is of 5-/5, bilateral upper extremities proximally and distally. Motor strength bilateral lower extremities is 4+/5, proximally and distally. The patient does not have gross saddle anesthesia. Rectal examination has been defe rred per patient request. The gait testing has also been deferred per patient request. The patient has mild tenderness involving the posterior part of his neck diffusely. The patient is able to fle x and extend his neck, and rotate his neck from [id number] with mild discomfort only. His range o f motion in all 4 directions is limited by about 25% compared to normal. The patient does not have gross tenderness involving the thoracic or lumbar spine. IMAGING STUDIES: The patient has received a CT of the head, as well as a CT of the cervical spine w ithout contrast, as well as an MRI of the cervical, thoracic, and lumbar spine; that was ordered at my request with and without contrast, but contrast could not be given, give the patient's elevated c reatinine. The imaging study does not reveal a gross intracranial lesion. The CT does show lucency and hypodensity within the C2 vertebral body and the odontoid process, and an anterior and posterio r linear defect in the cortex that is consistent with a lytic lesion secondary to a mass. The C1-C2 facets are completely inline and there is no subluxation noted. The area of the osteolysis of the odontoid process does not show any evidence of displacement of the odontoid process. Also, it does not appear that the transverse ligament has been disrupted, as best as I can see on the MRI of the c ervical spine that was done. The MRI of the cervical spine does show probably soft-tissue mass at t he area of the osteolysis with some extension posteriorly behind the odontoid process causing only m ild canal stenosis at best. The patient also has severe degenerative multilevel disease of the cerv ical spine with autofusion of the cervical facets below C2 and some listhesis that all appear chroni c in nature subaxially. The MRI of the thoracic and lumbar spine also shows multiple other areas of bone marrow replacement with what is most likely tumor secondary to metastases. Of most concern is the T4 vertebral body that has a soft tissue mass within it, extending posteriorly into the epidura l space causing at least moderate, if not severe, cord compression at T4 secondary to an extradural mass. There is no other cord compression throughout the cervical, thoracic, or lumbar spine. ASSESSMENT AND PLAN: This is an elderly male with a known history above, who has been developing mu ltiple falls in the past month or so, who presented for mild neck pain, and I was consulted for a carroll spected pathological odontoid fracture; however, after I had ordered further imaging studies of his spine, the area of more concern to me is the patient's T4 extradural mass that is most likely the sa me process that is causing the osteolysis at the C2 level. The T4 extradural mass is most likely wh at is responsible for the patient's symptoms of hypertonia, hyperreflexia, and his spasticity, and i s most likely also responsible for the patient's decreased balance and falls that have been happenin g to the patient most recently, also explaining why the patient is requiring the use of a cane more recently. In regard to the patient's C2 osteolytic lesion, what appears to have happened is that t his lesion has caused lysis of this odontoid process that has further extended into the anterior and posterior cortex of the odontoid process and the C2 vertebral body. I would not per say call this fracture rather than a defect within the odontoid process. The C1-C2 facets are completely intact, and to the best of what I can see, the transverse ligament is also intact. The fact that the patien t only has mild neck pain, also further indicates a low likelihood of significant cervical instabili ty. I have had a detailed discussion with Dr. Sharma, the oncologist who has been asked to consult on the patient, and he is also very concerned about the patient's T4 extradural mass, and I have as ked him whether he also believes that the patient would benefit from debulking and decompression of the thoracic tumor. Dr. Sharma also has told me that he also believes that the patient would benef it from the debulking, as he tells me that if the patient does develop further neurologic decline an d paraplegia, any type of treatment aimed at treating the underlying cancer, such as chemotherapy an d radiation, would be much less given the patient being paraplegic. Therefore, he also believes tory t surgical decompression would be of benefit to the patient. I also attempted to discuss this case with the patient's primary care physician, Dr. Ruth Dennison; however, Dr. Dennison, given the fact that i t is the weekend has another doctor covering for her, and I was unable to get a hold of Dr. Dennison mys elf. The patient may get out of bed with assistance or with physical therapy. I would like the pat ient to wear an Kirby collar, more for the fact that I feel that the patient may have further falls and may be in danger of hurting himself given the osteolytic lesion in the odontoid process. Theref ore, the Kirby collar should be worn when the patient is up and ambulating. Also, if the patient ag apryl to proceed with the decompression and debulking of the T4 tumor, we will obtain medical and car diac clearance for the patient given the fact that he also does have significant coronary artery dis ease history, and if the patient is cleared, and if the patient wishes to do so, we will schedule th e patient for T4 partial corpectomy and debulking of tumor, and the patient would most likely also r equire posterior stabilization and fusion given the fact that there is a significant ventral epidura l mass, which will require most likely significant resection of the thoracic facets and further dest abilization of the patient's thoracic spine by the T4 area. The area of stabilization will most lik sabino be from T2-T6. I will further discuss the risks and benefits of the above operation with the patient as well. In t he meantime, the patient has also been started on Decadron. Dictated By: RAHEL COELHO MD, SA/MARTINA Conf#: [id number] DID#: [id number]
[2016-12-09] MEDS ORDERED: HALOPERIDOL 5 MG INJ IM ONE ×2 (00:30→01:30)
[2016-12-09] MEDS ORDERED: HALOPERIDOL 1 MG TAB PO PRN (01:30)
--- NOTE | 2016-12-09 03:29 | RADRPT ---
PROCEDURE: CT Thoracic Spine without contrast. CLINICAL INDICATION: Trauma TECHNIQUE: Noncontrast CT of the thoracic spine was performed with axial images. Coronal and sagitta l images were also performed. The administered radiation dose was CTDI vol = 27 mGy, DLP = 1315 mG y-cm. COMPARISON: Prior MRI of 12/07/2016 FINDINGS: Lytic lesions are noted throughout the visualized osseous structures, compatible with metastatic dis ease. Again noted is a lytic lesion within the dens and C2 vertebral body with pathologic fracture. This is without displacement. There is moderate compression deformity of the T4 vertebral body with extensive tumor within the pos terior aspect of the vertebral body, extending into the pedicle. There is extensive epidural extens ion of tumor with spinal canal narrowing better seen on MRI. The degree of compression deformity is without change. A spiculated nodule within the left upper lobe is noted. There is trace left pleural effusion. IMPRESSION: Diffuse osseous metastatic disease. Pathologic fractures of C2 and T4 as described above. Contrast enhanced MRI is again suggested for f urther evaluation of the T4 lesion. RPTAT: HIKT .Magnus Zaragoza MD, MD Date Time Electronically viewed and signed by .Magnus Zaragoza MD, MD on 12/09/2016 03:28 .T/
[2016-12-09 04:09] LABS: PROTEIN, TOTAL 6.2 g/dL (6.1-8.1)
[2016-12-09] MEDS: clonAZEPAM 0.5 MG TAB PO PRN (05:27)
[2016-12-09] MEDS: PANTOPRAZOLE (EC) 40 MG TAB PO SCH (05:27)
[2016-12-09 05:58] LABS: ADD SCAN DIFF NO
[2016-12-09 06:21] LABS: ABNORMAL IP MESSAGE 1; HEMATOCRIT 33.8 % (42.0-52.0); HEMOGLOBIN 10.5 g/dl (14.0-18.0); LYMPHOCYTES # 0.2 10^3/ul (0.8-2.9); LYMPHOCYTES % 1.8 % (15.0-51.0); MEAN CORPUSCULAR HEMOGLOBIN 30.5 pg (29.0-33.0); MEAN CORPUSCULAR HGB CONC 31.1 g/dl (32.0-37.0); MEAN CORPUSCULAR VOLUME 98.3 fl (82.0-101.0); MEAN PLATELET VOLUME 9.8 fl (7.4-10.4); MONOCYTE # 0.2 10^3/ul (0.3-0.9); MONOCYTES % 1.6 % (0.0-11.0); NEUTROPHIL # 12.2 10^3/ul (1.6-7.5); NEUTROPHILS % 95.7 % (39.0-77.0); PLATELET COUNT 394 10^3/UL (140-415); RED BLOOD COUNT 3.44 10^6/ul (4.70-6.10); RED CELL DISTRIBUTION WIDTH 13.5 % (11.5-14.5); WHITE BLOOD COUNT 12.7 10^3/ul (4.8-10.8)
--- NOTE | 2016-12-09 06:29 | PN ---
DATE: 12/08/2016 SUBJECTIVE: I was called to the lizama today because the patient is very agitated and very paranoid. He felt that he was being held in the hospital just to make money from him. I have known this man for over 30 years, he is normally a very pleasant and cooperative gentleman, but he was given [place] this afternoon which is a possible cause of his psychosis or also, he has been placed on Decadron be cause of the metastatic tumor of the spine. He has a lesion at T4 which was compressing his thoraci c spine and neurosurgical consultation has been called. He may need a debulking procedure to preven t paraplegia if his physical condition allows. The patient now has been pacing the levine, he wants to go home. He does not believe this is [facility]. He thinks that everybody is ou t to just take his money away. The patient is having an acute psychotic episode which I feel is pro bably due to the Decadron, although the [place] can also do it or cerebral metastasis. However, a rec ent CAT scan of the brain revealed no evidence of metastases to the brain. So the most likely possi bility now is a psychotic reaction to steroids. The possibility of [place] being the cause must also be kept in mind and both medications will be discontinued, and we will consult with Dr. Sharma in t he morning as far what to give him to decompress his tumor partially. OBJECTIVE: GENERAL: The patient is a well-developed white male. HEART: Normal sinus rhythm. CHEST: Clear to A and P. ABDOMEN: Liver, kidneys, spleen are not palpable. Bowel sounds are normal. The patient is extremely agitated and suspicious. We have had to call security to keep him from wa lking off the lizama. He thinks he is near his home and has a friend outside waiting to pick him up a nd take him home. If the patient was given 3 mg of Haldol IM, if this is not sufficient another 2 m g will be given and the patient will be placed on Haldol 3 mg every 4 hours orally. If he will not take it orally then will be given IM. The patient will also need a sitter to see that he does not t ry to walk out of the hospital. VITAL SIGNS: Temperature is 98.7, blood pressure is 131/61, pulse is 60 per minute regular. INTAKE AND OUTPUT: Intake 630 mL, output 780 mL. LABORATORY DATA: White blood cell count 8900, hemoglobin 11, hematocrit 34.5%, platelet count is no rmal. INR is 1.03, PTT is 32.3. Electrolytes: Sodium is 140, potassium is 4.7, chloride is 101, c arbon dioxide is 29 and BUN is 30, creatinine is 1.59, calcium is 9.8, alkaline phosphatase is eleva ondina at 190. CEA is elevated at 10.9. CA 19-9 is elevated at 142. PSA is less than 0.1. The patient has a history of prostatic cancer. We will attempt to sedate the patient with Haldol if this is not sufficient, we will call 911 and have the patient transported to [facility]. Dictated By: AMANDA SIMON/MARTINA Conf#: [id number] DID#: [id number]
[2016-12-09 07:15] LABS: POTASSIUM 4.9 mmol/L (3.5-5.1)
[2016-12-09 07:18] LABS: CREATININE 2.01 mg/dl (0.61-1.24)
[2016-12-09 07:19] LABS: CALCIUM 10.1 mg/dl (8.4-10.2)
[2016-12-09] MEDS: DEXTROSE 5%-0.45% NACL 1,000 ML IV SCH ×2 (08:30→18:30)
[2016-12-09] MEDS: LOSARTAN 50 MG TAB PO SCH ×2 (09:00→13:13)
[2016-12-09] MEDS: DILTIAZEM (CD) 180 MG CAP PO SCH ×2 (09:00→20:53)
[2016-12-09] MEDS: NITROGLYCERIN 6.5 MG PO SCH ×2 (09:00→21:00)
[2016-12-09] MEDS: TRIAMTERENE/HCTZ (37.5-25) CAP PO SCH ×2 (09:00→13:14)
--- NOTE | 2016-12-09 10:34 | PN ---
DATE: 12/09/2016 MEDICAL ONCOLOGY PROGRESS NOTE SUBJECTIVE: The patient has no new complaints. Does not experience numbness or tingling in lower e xtremities. No difficulty with sphincter control. OBJECTIVE: VITAL SIGNS: Temperature 98.2, pulse 60, respirations 18, blood pressure 131/61, pulse oximetry 98% on room air. GENERAL: Otherwise unchanged. EXTREMITIES: Only finding is the hyperreflexia in the lower extremities. LABORATORY DATA: White count 12,700, hemoglobin 10.5, hematocrit 33.8, platelet count 294,000. Sod ium 136, potassium 4.9, creatinine 2.01, BUN 31, PSA is less than 0.1. ASSESSMENT: 1. Metastatic carcinoma of unknown primary. 2. Spinal cord compression secondary to #1. 3. Left upper lobe mass, probable lung carcinoma. PLAN: The patient has been seen by Dr. Gannon in neurosurgical consultation. He does agree that dec ompression of the T4 lesion is indicated. As noted, this will likely give information regarding the primary source of tumor and allow further genomic studies to help direct future therapy. Dictated By: JENNIFFER PEREZ MD SR/NTS Conf#: [id number] DID#: [id number]
[2016-12-09 13:17] VITALS: BP 127/61; PULSE 55; RESP 18
--- NOTE | 2016-12-09 16:13 | CONS ---
Date/Time of Note Date/Time of Note DATE: 12/09/16 TIME: 15:54 INPATIENT CONSULTATION REQUESTING PHYSICIAN: Dr. Dennison REASON FOR CONSULT: Preoperative clearance for cervical and thoracic spine surgery HISTORY OF PRESENT ILLNESS: Patient is an 86-year-old white male with: 1. Coronary artery disease status post 3.5 x 12 mm distal right coronary artery stenting in April 2010 with moderate disease in the proximal right coronary artery and LAD. Repeat angiography June 2010 patent stent and unchanged anatomy treated medically. 2. Hypertension. 3. Hyperlipidemia. 4. Type 2 diabetes. 5. Renal insufficiency. 6. Gout. 7. Gastroesophageal reflux disease. 8. Prostate cancer status post prostatectomy 10 years ago. 9. History of TIA 01/31 small meningioma incidentally noted. Patient admitted several days ago with significant neck pain and was found to have a pathologic fracture at C2 and also on workup to have left upper lung spiculated mass consistent with lung cancer and metastatic bone disease. He now is being scheduled for stabilization of his C2 fracture as well as resection of T4 lesion which is compressing his spine. The patient has been living alone is does care for himself walks about 4-5 blocks a day without any complaints of chest pain dyspnea palpitations denies any PND orthopnea syncope near syncope or leg edema. He is really not had any cardiac problems since 2009. RISK FACTORS Former smoker 50 pack years quit 20 years ago, coronary artery disease, age, hypertension, hyperlipidemia, type 2 diabetes, gout, there is no family history of early heart disease. PAST MEDICAL HISTORY: 1. As above PAST SURGICAL HISTORY: Radical prostatectomy in 2006, and coronary stent placement in the distal right coronary artery drug-eluting 2009. MEDICATIONS: Cozaar 50 mg a day, Dyazide once a day, Protonix 40 mg a day, Lipitor 20 mg a day, Cardizem CD 180 a day, nitroglycerin 6.5 long-acting twice daily, Dilaudid as needed. ALLERGIES: Penicillin and morphine SOCIAL HISTORY: , retired auto worker, lives alone without children but does have a sister and [place]. FAMILY HISTORY: Negative for premature coronary disease per patient. REVIEW OF SYSTEMS: Patient denied any fevers, chills, weight loss, nausea, vomiting, diarrhea, constipation, cough, hemoptysis, dysuria, hematuria, nocturia, any neurologic symptoms, headache, any chest pains, dyspnea, PND, orthopnea, leg edema, or palpitations. All other review of systems were normal. Is complaining of significant neck pain when he sits up even with neck brace on. PHYSICAL EXAMINATION: The patient appeared well nourished and normally developed. Patient with a soft neck brace in place Vital signs: as documented. Head exam: is unremarkable. No scleral icterus or corneal arcus noted. Neck: is without jugular venous distension, thyromegaly, or carotid bruits. Carotid upstrokes are brisk bilaterally. Lungs :are clear to auscultation and percussion. Cardiac; exam reveals the PMI to be normally sized and situated. Rhythm is regular. First and second heart sounds normal. 1/6sem, no rubs or gallops. Abdominal exam: reveals normal bowel sounds, no masses, no organomegaly and no aortic enlargement. Extremities :are nonedematous and both femoral and pedal pulses are normal. ADDITIONAL DATA: Hemoglobin 10.5, hematocrit 33.8, white count 12.7, platelets 394,000, electrolytes normal, BUN 37, creatinine 2.01, normal calcium level liver enzymes normal alkaline phosphatase elevated 190, elevated CA 19-9 142, elevated CEA, 10.9, PSA less than 0.1. Chest x-ray revealed no heart failure calcified aortic knob no cardiomegaly. CT of the chest revealed a left upper lung spiculated mass consistent with cancer. CT of the spine reveal T4 compression, metastatic disease, and C2 fracture. Prior echocardiogram from 2013 revealed preserved left ventricular function without any significant valvular disease with ejection fraction of 60%. EKG reviewed by myself today reveals sinus bradycardia at 60 normal tracing. ASSESSMENT: 1. 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 2. History of coronary artery disease distant distal right coronary artery stent drug-eluting in 2009 with patent stent 2 months later in June 2010. 3. Hypertension. 4. Hyperlipidemia. On statin 5. Gastroesophageal reflux disease. 6. Type 2 diabetes. 7. Gout. 8. History of prostate cancer with prostatectomy negative PSA this admission. 9. History of prior TIA 01/31 with small meningioma incidentally noted on workup. At this time the patient appears clinically stable from a cardiac standpoint clearly needs to have surgical intervention to prevent paraplegia and also for tissue diagnosis and better treatment of his metastatic cancer possibly bronchogenic in etiology. However we will check an echocardiogram on him prior to final clearance and patient should receive his Cardizem, nitroglycerin, and Cozaar with sips of water prior to surgery in the morning. It would be most prudent to monitor the patient postoperatively. Patient clearly at somewhat increased risk from a cardiac standpoint with age and multiple comorbidities but see little option and to proceed at some point with surgery once echocardiogram done and patient would not be candidate for stress testing at this point to postpone his surgery prognostically. PLAN: 1. Will check 2D echocardiogram without any new structural or valvular heart disease evaluate pulmonary pressures. 2. Patient to receive his Protonix, Cardizem and Cozaar and nitroglycerin with sips of water the morning of his surgery. 3. Patient to be cleared from a cardiac standpoint after echocardiogram done by my associate Dr. Powell in the morning. 4. Even with echocardiogram revealing no significant structural valvular heart disease patient clearly at increased risk of cardiac complications but see little option and to proceed with needed neurosurgical intervention to prevent paraplegia and also for tissue diagnosis for metastatic cancer possibly bronchogenic. COY MUELLER MD Dec 09, 2016 16:12
[2016-12-09 19:28] VITALS: BP 105/51; RESP 18
[2016-12-09 20:21] VITALS: BP 117/57; RESP 20
[2016-12-09] MEDS: ATORVASTATIN 20 MG TAB PO SCH (20:52)
--- NOTE | 2016-12-10 00:49 | PN ---
DATE: 12/09/2016 The patient now calm and is normal. No more paranoid delusions. The patient is lying in bed comfor tably without a neck brace on. It was felt that yesterday's episode of confusion, paranoia and agit ation was probably due to Decadron, and it is advisable that the patient not be placed on steroids i n the future. [place] is also a possibility as the cause of his temporary psychosis yesterday but is much less likely than the Decadron. PHYSICAL EXAMINATION: HEART: Normal sinus rhythm. Grade I/ systolic ejection murmur. CHEST: Clear to A and P. ABDOMEN: Liver, kidneys, spleen are not palpable. Bowel sounds are normal. IMPRESSION: 1. The patient has a fracture of C2 and also has a tumor at the T4 level. This will require debulk ing if the patient's physical condition allows. He is being worked up for cardiology consent for [facility] by his post partum nurse, Dr. Thorpe, and will undergo an echocardiogram tomorrow. It is felt th at even though he is at increased risk because of his heart problem that if something is not done ab out debulking the tumor at T4 he will become paraplegic, and so it is felt that the increased risk i s justified. The patient has metastatic bone tumor with T4 compression and a C2 fracture due to a f all. 2. He has a left upper lung mass. 3. He has a history of coronary artery disease, and he had a stent placed in 2009. 4. Hypertension. 5. Hyperlipidemia. 6. Gastroesophageal reflux disease. 7. Type 2 diabetes. 8. Gout. 9. History of prostate cancer. 10. History of transient ischemic attacks. VITAL SIGNS: He is afebrile. Blood pressure is 127/61, pulse is 60, respiratory rate is 20, pulse oximetry is 98%. INTAKE AND OUTPUT: Intake 2430, output 1450 mL. LABORATORY DATA: White blood cell count 12,700, hemoglobin 10.5, hematocrit 33.8, platelet count no rmal. INR 1.03, PTT 32.3. Electrolytes: Sodium 136, potassium 4.9, chloride 96, carbon dioxide 24 , BUN 37, creatinine 2.01, glucose 154, calcium 10.1. Serum immunofixation is pending. IMAGING: CAT scan of thoracic spine shows diffuse osseous metastatic disease; pathological fracture , C2; tumor invasion of T4. MRI of T4 is advised. Dictated By: AMANDA SIMON/MARTINA Conf#: [id number] DID#: [id number]
[2016-12-10] MEDS: DEXTROSE 5%-0.45% NACL 1,000 ML IV SCH ×2 (04:21→14:41)
[2016-12-10 05:13] LABS: ADD SCAN DIFF NO
[2016-12-10 05:22] LABS: ABNORMAL IP MESSAGE 1; BASOPHILS % 0.1 % (0.0-2.0); HEMATOCRIT 30.6 % (42.0-52.0); HEMOGLOBIN 9.8 g/dl (14.0-18.0); LYMPHOCYTES # 0.3 10^3/ul (0.8-2.9); LYMPHOCYTES % 1.8 % (15.0-51.0); MEAN CORPUSCULAR VOLUME 96.8 fl (82.0-101.0); MEAN PLATELET VOLUME 9.6 fl (7.4-10.4); MONOCYTE # 0.5 10^3/ul (0.3-0.9); MONOCYTES % 3.3 % (0.0-11.0); NEUTROPHIL # 15.3 10^3/ul (1.6-7.5); NEUTROPHILS % 94.3 % (39.0-77.0); PLATELET COUNT 342 10^3/UL (140-415); RED BLOOD COUNT 3.16 10^6/ul (4.70-6.10); RED CELL DISTRIBUTION WIDTH 13.6 % (11.5-14.5); WHITE BLOOD COUNT 16.2 10^3/ul (4.8-10.8)
[2016-12-10 05:33] LABS: CHOL/HDL RATIO 2.1 RATIO; MAGNESIUM 2.5 mg/dl (1.7-2.5)
[2016-12-10 05:36] LABS: CREATININE 1.93 mg/dl (0.61-1.24)
[2016-12-10 05:37] LABS: CALCIUM 9.2 mg/dl (8.4-10.2)
[2016-12-10] MEDS: PANTOPRAZOLE (EC) 40 MG TAB PO SCH (05:41)
[2016-12-10 07:53] VITALS: BP 128/60; RESP 18
[2016-12-10] MEDS: DILTIAZEM (CD) 180 MG CAP PO SCH ×2 (08:28→21:00)
[2016-12-10] MEDS: TRIAMTERENE/HCTZ (37.5-25) CAP PO SCH (08:29)
--- NOTE | 2016-12-10 08:54 | RADRPT ---
Echocardiogram Report Patient Name: ARABELLA CURRY Gender: Male Date: 1930 Study Date: 09-Dec-2016 Associate Pastor: AMEENA PASCAL Location: 429 Ref. Physician: COY MUELLER Quality: Adequate Procedures: Transthoracic echocardiogram with complete 2D, M-Mode, and doppler examination. Indications: Pre-op. 2D/M Mode Doppler Measurement Value Normal Ranges Measurement Value Normal Ranges LVIDd 2D 4.0 3.5 - 5.6 cm MARÍA Vmax 1.8 cm2 LVIDs 2D 3.0 2.1 - 4.1 cm MARÍA VTI 1.8 cm2 LVPWd 2D 1.0 0.6 - 1.1 cm AV Mean [place] 1.2 m/sec IVSd 2D 1.1 0.6 - 1.1 cm AV Mean PG 8.3 mmHg AoR Diam 2D 2.2 2.0 - 3.7 cm AV Peak [place] 2.3 m/sec EDV 2D 72.0 cm3 AV Peak PG 21.8 mmHg ESV 2D 27.1 cm3 AV VTI 46.0 cm LVOT Diam 2.0 cm LVOT Mean [place] 0.7 m/sec LVOT Mean PG 3.0 mmHg LVOT Peak [place] 1.4 m/sec LVOT Peak PG 7.7 mmHg LVOT VTI 29.9 cm MV E Peak [place] 1.0 m/sec MV A Peak [place] 1.2 m/sec MV E/A 0.9 MV Decel Time 387 msec MV Decel [place] 3 MV E/A 0.9 Findings Left Ventricle: Normal left ventricular systolic function. Normal left ventricular cavity size. Normal left ventricular wall thickness. Ejection fraction is visually estimated at 65 %. Tissue Doppler/Mitral Doppler indices are consistent with impaired relaxation (Stage I diastolic dysfunction). Right Ventricle: Normal right ventricular size. Normal right ventricular systolic function. Left Atrium: The left atrium is normal in size. Right Atrium: The right atrium is normal in size. RA Pressure=8. Mitral Valve: Mitral valve leaflets appear mildly thickened. Mild mitral annular calcification. Trace mitral regurgitation. Aortic Valve: Aortic valve not well visualized. Mild aortic stenosis. Aortic valve Max velocity 2.33 m/sec. Max PG 21.80 mmHg. Mean PG 8.30 mmHg. Aortic valve area 1.80 cm2. Aortic cusps appear moderately calcified. Tricuspid Valve: Tricuspid valve not well visualized. Unable to obtain RVSP due to minimal presence of tricuspid regurgitation. There is trace tricuspid regurgitation. Pulmonic Valve: Pulmonic valve not well visualized. Pericardium: Normal pericardium with no significant pericardial effusion. Aorta: Normal aortic root. IVC: Normal size and normal respiratory collapse consistent with normal right atrial pressure. Conclusions Very technically difficult study. Normal left ventricular systolic function. Normal left ventricular cavity size. Normal left ventricular wall thickness. Ejection fraction is visually estimated at 65 %. Tissue Doppler/Mitral Doppler indices are consistent with impaired relaxation (Stage I diastolic dysfunction). Normal right ventricular size. Normal right ventricular systolic function. The left atrium is normal in size. Aortic valve not well visualized. Mild aortic stenosis. Aortic valve Max velocity 2.33 m/sec. Max PG 21.80 mmHg. Mean PG 8.30 mmHg. Aortic valve area 1.80 cm2. Aortic cusps appear moderately calcified. Mitral valve leaflets appear mildly thickened. Mild mitral annular calcification. Trace mitral regurgitation. Tricuspid valve not well visualized. Unable to obtain RVSP due to minimal presence of tricuspid regurgitation. There is trace tricuspid regurgitation. Normal pericardium with no significant pericardial effusion. Normal size and normal respiratory collapse consistent with normal right atrial pressure. Electronically Signed By: Karthik Sterling 10-Dec-2016 08:54:23 -0700 Patient Name: ARABELLA CURRY Study Date: 09-Dec-2016 [id number]
--- NOTE | 2016-12-10 09:06 | CONS ---
Date/Time of Note Date/Time of Note DATE: 12/10/16 TIME: 09:00 Assessment/Plan Assessment/Plan Chief Complaint/Hosp Course ASSESSMENT: 1. 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 2. History of coronary artery disease distant distal right coronary artery stent drug-eluting in 2009 with patent stent 2 months later in June 2010. 3. Hypertension. 4. Hyperlipidemia. On statin 5. Gastroesophageal reflux disease. 6. Type 2 diabetes. 7. Gout. 8. History of prostate cancer with prostatectomy negative PSA this admission. 9. History of prior TIA 01/31 with small meningioma incidentally noted on workup. PLAN: 1. Patient is low to intermediate cardiac risk for intermediate risk urgent neurosurgical procedure of spine. Ok to proceed without further cardiac testing. echo with normal LVEF/systolic function, no significant valvular disease. continue statin in periop period to minimize cardiac risk, restart asa when safe from surgical perspective. Problems: Consultation Date/Type/Reason Admit Date/Time Dec 07, 2016 at 12:13 Initial Consult Date 12/09/2016 Type of Consultation: Cardiology Reason for Consultation Preop CV Exam Referring Provider: AMANDA PRATER MD 24 HR Interval Summary Free Text/Dictation no acute events. pt denies, cp/sob. has been in bed. has neck brace on, reports pain controlled. Constitutional: no complaints Detailed Summary Respiratory: no complaints Cardiovascular: no complaints Gastrointestinal: no complaints Exam/Review of Systems Vital Signs Vitals Vital Signs Date Time Temp Pulse Resp B/P Pulse Ox O2 Delivery O2 Flow Rate FiO2 12/10/16 07:53 97.6 63 18 128/60 96 12/09/16 13:17 Room Air Intake and Output 12/09/16 12/09/16 12/10/16 15:00 23:00 07:00 Intake Total 520 ml 400 ml Output Total 550 ml 250 ml Balance -30 ml 150 ml Exam Constitutional: alert, oriented, other (eledrly) Psych: nl mood/affect, no complaints Eyes: EOMI, nl lids ENMT: nl nasal mucosa & septum Neck: other (neck brace in place), No jvd Respiratory: clear to auscultation, normal air movement Cardiovascular: regular rate and rhythm, systolic murmur, No S3, No S4, No edema, No irregular rhythm, No jugular venous distention ( JVD) Gastrointestinal: non-tender, soft Musculoskeletal: nl extremities to inspection Extremities: normal pulses Neurological: other (see nsg evalutaion) Results Result Diagram: 12/10/1642412/10/16424 Results 24 hrs Laboratory Tests Test 12/10/16 04:25 White Blood Count 16.2 #H Red Blood Count 3.16 L Hemoglobin 9.8 L Hematocrit 30.6 L Mean Corpuscular Volume 96.8 Mean Corpuscular Hemoglobin 31.0 Mean Corpuscular Hemoglobin Concent 32.0 Red Cell Distribution Width 13.6 Platelet Count 342 Mean Platelet Volume 9.6 Neutrophils % 94.3 H Lymphocytes % 1.8 L Monocytes % 3.3 Eosinophils % 0.0 Basophils % 0.1 Nucleated Red Blood Cells % 0.0 Neutrophils # 15.3 H Lymphocytes # 0.3 L Monocytes # 0.5 Eosinophils # 0.0 Basophils # 0.0 Nucleated Red Blood Cells # 0.0 Sodium Level 135 Potassium Level 4.0 Chloride Level 98 Carbon Dioxide Level 27 Anion Gap 14 # Blood Urea Nitrogen 53 H Creatinine 1.93 H Glucose Level 141 Calcium Level 9.2 Magnesium Level 2.5 Triglycerides Level 73 Cholesterol Level 120 LDL Cholesterol, Calculated 50 HDL Cholesterol 55 Cholesterol/HDL Ratio 2.1 Medications Medications Current Medications Dextrose/Sodium Chloride (D5-1/2ns) 1,000 ml @ 100 mls/hr Q10H IV Last administered on 12/10/16 04:21; Admin Dose 100 MLS/HR; Start 12/07/16 at 16:30 Atorvastatin Calcium (Lipitor) 20 mg HS PO Last administered on 12/09/16 20:52 ; Admin Dose 20 MG; Start 12/07/16 at 21:00 Diltiazem HCl (Cardizem Cd) 180 mg BID PO Last administered on 12/10/16 08:28 ; Admin Dose 180 MG; Start 12/07/16 at 21:00 Losartan Potassium (Cozaar) 50 mg DAILY PO Last administered on 12/09/16 13:13 ; Admin Dose 50 MG; Start 12/08/16 at 09:00 Nitroglycerin (Nitroglycerin (Sr)) 6.5 mg BID PO ; Start 12/07/16 at 21:00 Triamterene/HCTZ (Dyazide) 1 cap DAILY PO Last administered on 12/10/16 08:29 ; Admin Dose 1 CAP; Start 12/08/16 at 09:00 Pantoprazole (Protonix Tab) 40 mg DAILY@06 PO Last administered on 12/10/16 05 :41; Admin Dose 40 MG; Start 12/08/16 at 06:00 Clonazepam (Klonopin) 1 mg Q8H PRN PO ANXIETY Last administered on 12/09/16 05 :27; Admin Dose 1 MG; Start 12/07/16 at 18:00 Hydromorphone HCl (Dilaudid) 2 mg Q4H PRN PO PAIN; Start 12/09/16 at 01:30 Haloperidol (Haldol) 3 mg Q4 PRN PO AGITATION; Start 12/09/16 at 01:30 Haloperidol (Haldol) 3 mg Q4 PRN IM AGITATION; Start 12/09/16 at 01:30 Procedures Procedures cxr images reviewed: no edema, moderate aortic calcifications ct reports reviewed in [facility] DONA LÓPEZ Dec 10, 2016 09:06
--- NOTE | 2016-12-10 10:19 | PN ---
DATE: 12/10/2016 SUBJECTIVE: The patient states that he is feeling well, is not complaining of any neck pain or numb ness or tingling in lower extremities. The agitation attributed to dexamethasone has resolved. OBJECTIVE: VITAL SIGNS: Temperature 97.6, pulse 63 per minute and regular, respirations 18, blood pressure 128 /60, pulse oximetry 96% on room air. SKIN: No petechiae or rashes. There is the fading ecchymotic area over the left zygomatic arch. HEENT: No mucosal lesions. No scleral icterus. NECK: Supple, no jugular venous distention or thyroid enlargement. He is in a soft cervical collar . CHEST: Clear to auscultation and percussion. No rhonchi, wheezes, rales or rubs. NODES: No palpable lymphadenopathy in any lymph node bearing area. ABDOMEN: Soft, no masses, no ascites. EXTREMITIES: No clubbing, edema or cyanosis. NEUROLOGIC: The patient is alert and oriented at this time. Still is hyporeflexic in the lower ext remities. LABORATORIES: White count 16,200, hemoglobin 9.8, hematocrit 30.6 and platelet count 342,000. Crea tinine 1.93, BUN 53, sodium 135, potassium 4. ASSESSMENT: 1. Metastatic carcinoma, probable lung primary. 2. Spinal cord compression secondary to #1. 3. Leukocytosis, likely attributable to the patient's recent use of corticosteroids. PLAN: Awaiting cardiac clearance for patient to undergo decompressive surgery. Dictated By: JENNIFFER PEREZ MD, SR/MARTINA Conf#: [id number] DID#: [id number]
[2016-12-10] MEDS: LOSARTAN 50 MG TAB PO SCH (12:27)
[2016-12-10] MEDS: NITROGLYCERIN 6.5 MG PO SCH ×2 (12:28→21:47)
[2016-12-10] MEDS: HYDROmorphONE 2 MG TAB PO PRN (17:10)
[2016-12-10] MEDS: POTASSIUM CHLORIDE 10 MEQ in SOD CHLORIDE 0.9% 1,000 ML IV SCH (18:52)
[2016-12-10 19:11] VITALS: BP 125/58; RESP 18
--- NOTE | 2016-12-10 19:28 | CONS ---
DATE OF ADMISSION: 12/07/2016 DATE OF CONSULTATION: 12/10/2016 The patient is neurologically unchanged. He is sitting in bed wearing a soft neck collar. When the patient is up and walking with physical therapy using a front-wheel walker, he is using the rigid A spen collar per my instructions. The patient has subsequently been seen by both oncology, Dr. Onelia albarado, as well as 2 different cardiologists for a preoperative cardiac clearance. The patient has been cleared from a cardiac standpoint and also from the point of internal medicine. I have discussed w ith the patient in detail about the T4 vertebral body tumor extending into the extradural space caus ing significant compression of his thoracic spinal cord leading to bilateral lower extremity spastic ity and most likely also the patient's decreased balance and reported falls. I have discussed with the patient, similar to what Dr. Sharma had explained to the patient, that he can benefit from isma shah a debulking operation done at the thoracic level. This operation is not curative in nature, but is done in order to allow the patient to maintain his ability to walk and move his legs. 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 The patient will require subsequent chemotherapy and/or radiation therapy depending on the pathology obtained during the surgery. I have also discussed the risks an d benefits of the above operation with the risks including bleeding, infection, weakness, numbness, paralysis, bowel or bladder dysfunction, cerebrospinal fluid leak, injury to nearby tissues includin g the lung, heart, great vessels, abdomen and intestine, and any of the other adjacent tissue struct ures as well as a chance of failure of improvement of symptoms or need for further surgeries includi ng redo decompression laminectomy or need for revision or extension of the fusion as well as those r isks associated with surgery and general anesthesia including deep venous thrombosis, pulmonary embo lism, pneumonia, heart attack, stroke, and . The operation would be multilevel thoracic jinny ctomy with partial T4 corpectomy for resection of the extradural tumor as well as posterior thoracic instrumented fusion, probably from T4 to T6, in order to prevent further instability of the patient 's upper thoracic spine, given the need for a decompressive surgery and probable need for facetectom ies bilaterally in order to debulk the ventral epidural space. I have also tried to update the sinan ent's sister, Catherine, who lives in [place]. Unfortunately, despite my attempt to talk to her, she h as a hard time hearing me and I have told her that we will try to call her from an outside number wi th the hopes that he will be able to hear me from a more quiet environment. The patient fully under stands the above operation and wishes to proceed with the surgery. We had initially made attempts t o add the patient on for surgery for today; however, given the fact that he is an add on surgery, th e time we were given and was later this afternoon. I would like to try to perform this operation as early in the day as possible in order to allow for the best outcome. The earliest time that I have been able to get is around 12 to 1 p.m. for this . The patient will be made n.p.o. ay and we will try to proceed with the surgery. Dictated By: RAHEL COELHO MD SA/NTS Conf#: [id number] DID#: [id number] CC: DESI MCLAIN MD;*EndCC*
--- NOTE | 2016-12-10 20:30 | PN ---
DATE: 12/10/2016 SUBJECTIVE: The patient awake, alert, oriented x4. Complains from mild occipital discomfort with the neck brace and left arm weakness and discomfort at the left shoulder with elevation. OBJECTIVE: VITAL SIGNS: Temperature 97.6, blood pressure 128/60, pulse of 63, respiration rate 18, O2 saturation 96% on room air. HEENT: Pupils equally round, reactive to light. Oropharynx clear. CHEST: Lungs are clear to auscultation. CARDIAC: Regular rate and rhythm. Normal S1, S2. ABDOMEN: Active bowel sounds. Soft, nondistended, nontender. EXTREMITIES: No clubbing, cyanosis or edema. Left shoulder without point tenderness. Good range of motion passively. Fair range of motion actively. LABORATORY DATA: WBC 16.2, hemoglobin 9.8, hematocrit 30.6, platelet count 342, 000. Sodium 135, potassium 4.0, chloride 98, carbon dioxide 27, BUN 53, creatinine 1.93. IMAGING: Thoracic spine CT shows diffuse osseous metastatic disease, pathologic fractures of C2 and T4 as described previously. ____ C2 and T4 lytic disease with spinal canal compression. ASSESSMENT AND PLAN: 1. 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 Cosmetics Supervisor has cleared the patient for surgery. Await T4 decompressive surgery per Dr. Mark Gannon. 2. Leukocytosis, most likely secondary to Decadron use recently. 3. Recent episode of altered mental status, also most likely due to psychosis from steroid. 4. Azotemia, BUN/ creatinine increased from baseline, may be due to dehydration. Start IV fluid hydration and follow BMP. 5. Anemia, worse than baseline and may be due to progressive oncologic disease. 6. Left shoulder pain. May be radiculopathy from C2 lesion. Add pain medicine Dilaudid IV. 7. Hypertension, GERD, stable at this time on current medications. Will continue. Dictated By: DESI MCLAIN MD DP/NTS Conf#: [id number] DID#: [id number] MTDD
[2016-12-10] MEDS: ATORVASTATIN 20 MG TAB PO SCH (21:47)
[2016-12-11] MEDS: POTASSIUM CHLORIDE 10 MEQ in SOD CHLORIDE 0.9% 1,000 ML IV SCH ×3 (01:50→21:23)
[2016-12-11 05:00] LABS: ABNORMAL IP MESSAGE 1; ADD SCAN DIFF NO; BASOPHILS % 0.1 % (0.0-2.0); EOSINOPHILS % 0.1 % (0.0-7.0); HEMATOCRIT 30.3 % (42.0-52.0); HEMOGLOBIN 9.8 g/dl (14.0-18.0); LYMPHOCYTES # 0.6 10^3/ul (0.8-2.9); MEAN CORPUSCULAR HEMOGLOBIN 31.5 pg (29.0-33.0); MEAN CORPUSCULAR HGB CONC 32.3 g/dl (32.0-37.0); MEAN CORPUSCULAR VOLUME 97.4 fl (82.0-101.0); MEAN PLATELET VOLUME 9.3 fl (7.4-10.4); MONOCYTE # 0.9 10^3/ul (0.3-0.9); MONOCYTES % 7.7 % (0.0-11.0); NEUTROPHILS % 86.6 % (39.0-77.0); PLATELET COUNT 372 10^3/UL (140-415); RED BLOOD COUNT 3.11 10^6/ul (4.70-6.10); RED CELL DISTRIBUTION WIDTH 13.7 % (11.5-14.5); WHITE BLOOD COUNT 11.5 10^3/ul (4.8-10.8)
[2016-12-11 05:24] LABS: POTASSIUM 3.9 mmol/L (3.5-5.1)
[2016-12-11 05:26] LABS: CREATININE 1.48 mg/dl (0.61-1.24)
[2016-12-11] MEDS: PANTOPRAZOLE (EC) 40 MG TAB PO SCH (05:37)
[2016-12-11 07:39] VITALS: BP 159/75; RESP 18
[2016-12-11] MEDS: DILTIAZEM (CD) 180 MG CAP PO SCH ×2 (09:00→21:22)
[2016-12-11] MEDS: LOSARTAN 50 MG TAB PO SCH (09:52)
[2016-12-11] MEDS: TRIAMTERENE/HCTZ (37.5-25) CAP PO SCH (09:52)
[2016-12-11] MEDS: NITROGLYCERIN 6.5 MG PO SCH ×2 (09:52→21:22)
[2016-12-11] MEDS: HYDROmorphONE 2 MG TAB PO PRN (10:30)
--- NOTE | 2016-12-11 13:34 | PN ---
Date/Time of Note Date/Time of Note DATE: 12/11/16 TIME: 13:29 Assessment/Plan VTE Prophylaxis VTE Prophylaxis Intervention: other (per primary) Lines/Catheters IV Catheter Type (from Nrs): Peripheral IV Urinary Cath still in place: No Assessment/Plan Assessment/Plan Surgical intervention at the cervical level is tentatively planned for 12/13. Continue current plans while awaiting the operation. Subjective 24 Hr Interval Summary Free Text/Dictation Pt is alert and conversant today. No changes that he is aware of. Exam/Review of Systems Vital Signs Vitals Vital Signs Date Time Temp Pulse Resp B/P Pulse Ox O2 Delivery O2 Flow Rate FiO2 12/11/16 07:39 97.4 61 18 159/75 98 12/09/16 13:17 Room Air Intake and Output 12/10/16 12/10/16 12/11/16 15:00 23:00 07:00 Intake Total 900 ml 1420 ml 1785 ml Output Total 1450 ml 800 ml Balance 900 ml -30 ml 985 ml Exam Constitutional: alert Head: normocephalic Neck: other (soft collar in place) Respiratory: clear to auscultation Cardiovascular: regular rate and rhythm Gastrointestinal: non-tender, soft Results Result Diagram: 12/11/16 0435 12/11/16 0435 Results 24 hrs Laboratory Tests Test 12/11/16 04:35 White Blood Count 11.5 #H Red Blood Count 3.11 L Hemoglobin 9.8 L Hematocrit 30.3 L Mean Corpuscular Volume 97.4 Mean Corpuscular Hemoglobin 31.5 Mean Corpuscular Hemoglobin Concent 32.3 Red Cell Distribution Width 13.7 Platelet Count 372 Mean Platelet Volume 9.3 Neutrophils % 86.6 H Lymphocytes % 5.0 L Monocytes % 7.7 Eosinophils % 0.1 Basophils % 0.1 Nucleated Red Blood Cells % 0.0 Neutrophils # 10.0 H Lymphocytes # 0.6 L Monocytes # 0.9 Eosinophils # 0.0 Basophils # 0.0 Nucleated Red Blood Cells # 0.0 Sodium Level 136 Potassium Level 3.9 Chloride Level 101 Carbon Dioxide Level 26 Anion Gap 13 Blood Urea Nitrogen 49 H Creatinine 1.48 H Glucose Level 108 Calcium Level 9.0 Medications Medications Current Medications Atorvastatin Calcium (Lipitor) 20 mg HS PO Last administered on 12/10/16t 21:47 ; Admin Dose 20 MG; Start 12/07/16 at 21:00 Diltiazem HCl (Cardizem Cd) 180 mg BID PO Last administered on 12/10/16 08:28 ; Admin Dose 180 MG; Start 12/07/16 at 21:00 Losartan Potassium (Cozaar) 50 mg DAILY PO Last administered on 12/11/16 09:52 ; Admin Dose 50 MG; Start 12/08/16 at 09:00 Nitroglycerin (Nitroglycerin (Sr)) 6.5 mg BID PO Last administered on 09:52; Admin Dose 6.5 MG; Start 12/07/16 at 21:00 Triamterene/HCTZ (Dyazide) 1 cap DAILY PO Last administered on 12/11/16 09:52 ; Admin Dose 1 CAP; Start 12/08/16 at 09:00 Pantoprazole (Protonix Tab) 40 mg DAILY@06 PO Last administered on 12/11/16 05 :37; Admin Dose 40 MG; Start 12/08/16 at 06:00 Clonazepam (Klonopin) 1 mg Q8H PRN PO ANXIETY Last administered on 12/09/16 05 :27; Admin Dose 1 MG; Start 12/07/16 at 18:00 Hydromorphone HCl (Dilaudid) 2 mg Q4H PRN PO PAIN Last administered on 10:30; Admin Dose 2 MG; Start 12/09/16 at 01:30 Haloperidol (Haldol) 3 mg Q4 PRN PO AGITATION; Start 12/09/16 at 01:30 Haloperidol 3 mg 3 mg Q4 PRN IM AGITATION; Start 12/09/16 at 01:30 Potassium Chloride/Sodium Chloride (KCl/NS) 1,005 ml @ 100 mls/hr Q10H3M IV Last administered on 12/11/16 12:09; Admin Dose 100 MLS/HR; Start 12/10/16 at 18:00 CASA ANAND MD Dec 11, 2016 13:34
--- NOTE | 2016-12-11 18:37 | PN ---
DATE: 12/11/2016 SUBJECTIVE: The patient is awake and alert, oriented to person, place and time, but is confused abo ut events. The patient thought that he has visitors and that he is going to visit someone in the spital. He also complained of right hip and back pain earlier this morning requiring a dose of Dila udid IV. OBJECTIVE: VITAL SIGNS: Temperature 97.4, blood pressure 159/75, pulse of 61, respiration rate 18, O2 saturati on 98% on room air. HEENT: Pupils equally round, reactive to light. Oropharynx clear. CHEST: Lungs are clear to auscultation. CARDIAC: Regular rate and rhythm, normal S1, S2. ABDOMEN: Active bowel sounds, soft, nondistended, nontender. EXTREMITIES: Good range of motion. Mild left posterior deltoid tenderness with left arm elevation. LABORATORY DATA: WBC 11.5, hemoglobin 9.8, hematocrit 30.3, platelet count 372,000. Sodium is 136, potassium 3.9, chloride 101, carbon dioxide 26, BUN 49, creatinine 1.48, glucose 108, calcium 9.0. PSA less than 0.1. Lipid panel shows low cholesterol of 120 with an LDL of 50, triglycerides of 73 . The carcinoembryonic antigen was elevated at 10.9 and CA 19-9 antigen was elevated at 142. His s vladimir immunofixation shows a normal pattern without monoclonal proteins detected. ASSESSMENT AND PLAN: 1. Compression deformity of T4 vertebral body due to extensive tumor. Await tumor debulking and la minectomy on under the direction of Dr. Mark Gannon. 2. Metastatic cancer. Continue workup per hematology/oncology and await biopsy of the thoracic reg ion. 3. Altered mental status may be due to medications versus hospital psychosis. The patient did have head CT on 12/07/2016 that did not show any acute intracranial pathology. The patient has been get ting clonazepam as needed for anxiety and the last use was 12/09/2016, and he got a dose of Dilaudid this morning at 10:30. 4. Dehydration. BUN and creatinine improving gradually on IV fluid. Continue gentle hydration. 5. Left shoulder pain may be radiculopathy from C2 lesion, but examination is more consistent with localized muscle strain. Continue symptomatic treatment with IV medication. 6. Right pelvis pain. This is consistent with previous report of a lytic lesion on the right ilium . Continue Dilaudid use for now. 7. Other problems stable at this time. Continue current meds. Dictated By: DESI MCLAIN MD DP/NTS Conf#: [id number] DID#: [id number]
[2016-12-11 19:18] VITALS: BP 114/56; RESP 18
[2016-12-11] MEDS: ATORVASTATIN 20 MG TAB PO SCH (21:22)
[2016-12-11] MEDS ORDERED: HYDROmorphONE 2 MG TAB PO PRN (21:30)
--- NOTE | 2016-12-11 22:00 | RADRPT ---
Vent Rate: 56 bpm RR Interval: 0 msec [place] Interval: 188 msec QRS Duration: 90 msec QT Interval: 416 msec QTC Interval: 401 msec P-R-T Girard: 85 - 62 - 67 degrees Sinus bradycardia Otherwise normal ECG Electronically Signed By: Ricardo Patino [id number]
[2016-12-11 22:58] LABS: ALBUMIN 3.6 g/dL (3.8-4.8)
[2016-12-12] MEDS: clonAZEPAM 0.5 MG TAB PO PRN (01:47)
[2016-12-12 05:19] LABS: ADD SCAN DIFF NO
[2016-12-12 05:20] LABS: BASOPHILS % 0.1 % (0.0-2.0); EOSINOPHILS # 0.1 10^3/ul (0.0-0.5); EOSINOPHILS % 0.8 % (0.0-7.0); HEMATOCRIT 32.3 % (42.0-52.0); HEMOGLOBIN 10.3 g/dl (14.0-18.0); LYMPHOCYTES # 0.6 10^3/ul (0.8-2.9); LYMPHOCYTES % 6.8 % (15.0-51.0); MEAN CORPUSCULAR HEMOGLOBIN 31.3 pg (29.0-33.0); MEAN CORPUSCULAR HGB CONC 31.9 g/dl (32.0-37.0); MEAN CORPUSCULAR VOLUME 98.2 fl (82.0-101.0); MEAN PLATELET VOLUME 9.5 fl (7.4-10.4); MONOCYTE # 0.9 10^3/ul (0.3-0.9); MONOCYTES % 9.3 % (0.0-11.0); NEUTROPHIL # 7.6 10^3/ul (1.6-7.5); NEUTROPHILS % 82.4 % (39.0-77.0); PLATELET COUNT 338 10^3/UL (140-415); RED BLOOD COUNT 3.29 10^6/ul (4.70-6.10); RED CELL DISTRIBUTION WIDTH 13.4 % (11.5-14.5); WHITE BLOOD COUNT 9.2 10^3/ul (4.8-10.8)
[2016-12-12 05:40] LABS: POTASSIUM 4.2 mmol/L (3.5-5.1)
[2016-12-12 05:43] LABS: CALCIUM 9.2 mg/dl (8.4-10.2); CREATININE 1.18 mg/dl (0.61-1.24)
[2016-12-12] MEDS: POTASSIUM CHLORIDE 10 MEQ in SOD CHLORIDE 0.9% 1,000 ML IV SCH ×2 (06:45→17:03)
[2016-12-12] MEDS: PANTOPRAZOLE (EC) 40 MG TAB PO SCH (06:45)
[2016-12-12 09:56] VITALS: BP 175/75; RESP 20
[2016-12-12] MEDS: DILTIAZEM (CD) 180 MG CAP PO SCH ×2 (10:00→20:13)
[2016-12-12] MEDS: NITROGLYCERIN 6.5 MG PO SCH ×2 (10:00→20:13)
[2016-12-12] MEDS: TRIAMTERENE/HCTZ (37.5-25) CAP PO SCH (10:01)
[2016-12-12] MEDS: LOSARTAN 50 MG TAB PO SCH (10:01)
--- NOTE | 2016-12-12 10:27 | CONS ---
DATE OF ADMISSION: 12/07/2016 DATE OF CONSULTATION: 12/12/2016 TYPE OF CONSULTATION: Medical oncology progress note. SUBJECTIVE: Mr. Fiore is basically unchanged. He is not complaining of any new weakness in lower e xtremities. He has had no difficulty with sphincter control. OBJECTIVE VITAL SIGNS: Temperature 97.6, pulse 71 per minute and regular, respirations 18, blood pressure is 114/56 and pulse oximetry 98% on room air. SKIN: No ecchymosis, no petechiae or rashes. HEENT: No mucosal lesions. No scleral icterus. NECK: Stabilized in a soft cervical collar. CHEST: Clear to auscultation and percussion. No rhonchi, wheezes, rales or rubs. NODES: No palpable lymphadenopathy in any lymph node bearing area. ABDOMEN: Soft, no masses, no ascites. Bowel sounds are active. EXTREMITIES: No clubbing, edema or cyanosis. No palpable cords or Homans sign. LABORATORY DATA: White count is 9200 with an absolute neutrophil count of 7600, hemoglobin 10.3 and hematocrit 23.3, and platelet count 338,000. BUN 37, creatinine 1.18, sodium 139, potassium 4.2. ASSESSMENT: 1. Metastatic carcinoma, probable lung primary, histology unknown. 2. Spinal cord compression at T4 level secondary to #1. PLAN: The patient is cleared from my standpoint for surgical decompression of the T4 lesion. This will also provide information regarding the histology of the tumor. If indicated other genomic studi es will be performed in order to help direct future chemotherapy. The patient will also require radiation therapy to the area of cord compression. Dictated By: JENNIFFER PEREZ MD SR/NTS Conf#: [id number] DID#: [id number]
[2016-12-12] MEDS ORDERED: LORAZEPAM 2 MG INJ IV PRN (18:00)
--- NOTE | 2016-12-12 18:06 | PN ---
DATE: 12/12/2016 SUBJECTIVE: The patient is awake and alert, appears anxious and confused as to the sequence of even ts. OBJECTIVE: VITAL SIGNS: Temperature 98.0, blood pressure was 175/75, pulse of 78, respiration rate 20, O2 satu ration 99% on room air. HEENT: Pupils equally round, reactive to light. Oropharynx clear. NECK: Stable in a neck brace. LUNGS: Clear to auscultation. CARDIAC: Regular rate and rhythm, normal S1, S2. ABDOMEN: Active bowel sounds. EXTREMITIES: No clubbing, cyanosis, or edema. LABORATORY DATA: WBC 9.2, hemoglobin 10.3, hematocrit 32.3, platelet count 338,000. His sodium is 139, potassium is 4.2, chloride 103, carbon dioxide 28, BUN 37, creatinine 1.18, glucose 95, calcium is 9.2. ASSESSMENT AND PLAN: 1. 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 Await surgical decompression, scheduled for tomorrow morning. T he patient has no complaints at this time. 2. Metastatic carcinoma. Await pathology from the surgical decompression of T4. 3. Hypertension may be related to patient's ongoing anxiety. I will add clonidine for when systoli c blood pressure is greater than 160. I will also change his Klonopin to Ativan IV in anticipation of surgery tomorrow. Dictated By: DESI MCLAIN MD DP/MARTINA Conf#: [id number] DID#: [id number]
[2016-12-12] MEDS: ATORVASTATIN 20 MG TAB PO SCH (20:13)
--- NOTE | 2016-12-12 20:21 | RADRPT ---
PROCEDURE: MRI thoracic spine with and without IV contrast CLINICAL INDICATION: Metastatic disease.. TECHNIQUE: An MRI of the thoracic spine was performed on a 1.5 sadi scanner utilizing the followi ng sequences: Pre and postcontrast sagittal and axial T1 weighted, sagittal and axial T2 weighted, a nd sagittal STIR. Postcontrast sagittal and axial fat suppressed T1 weighted images were performed w ith 10 ml Magnevist. intravenous contrast administered without complication. COMPARISON: Noncontrast MR thoracic spine 12/07/2016. FINDINGS: Vertebral body lesions throughout the entire visualized thoracic spine with low signal on T1, mixed signal on T2, and postcontrast enhancement compatible with diffuse metastatic disease. There is pathologic compression fracture deformity of T4 with retropulsion of the posterior vertebra l body into the spinal canal with avidly enhancing tumor soft tissue extending posteriorly into the epidural space on the right and left as well as infiltration and expansion of the left pedicle and t ransverse process. Tumor narrows the central canal displacing the thoracic spinal cord posteriorly w ith greatest central canal narrowing of the thecal sac measuring approximately 8 x13 mm in AP and tr ansverse dimensions respectively. Mild cord compression. Craniocaudal extension does not extend sign ificantly above or below the T4 level. Tumor fills the left T3-T4 neural foramen resulting in severe left and moderate right foraminal maribel nosis and extends anterolaterally into the paraspinal soft tissues. The paraspinal soft tissue comp onent measures approximately 3 x 1 x 3.4 cm in AP, transverse, and craniocaudal dimensions respectiv sabino. Minimal paraspinal extension is noted on the right measuring 7 mm in greatest thickness at the mid T4 level. Mild exaggerated kyphosis is noted at T4. There is an enhancement of tumor within the T3 vertebral body with vertebral body expansion and exte nsion into the left pedicle. No evidence of pathologic fracture. The cervical spinal cord is normal in caliber without pathologic enhancement. Please refer to the precontrast thoracic MRI of 12/07/2016 for detailed evaluation of the individual disk levels which are unchanged compared to prior examination. IMPRESSION: 1. 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 2. Pathologic fracture deformity and diffuse 2 mg infiltration of T4 extending into the posterior e pidural space, left pedicle and bilateral paraspinal soft tissues greater on the left as detailed ab ove. This results in central canal stenosis with mild cord compression and bilateral foraminal steno sis at T3-T4, severe left and moderate right secondary to tumor extension and vertebral body deformi ty. 3. Expansion of the T3 vertebral body with to extending into the left pedicle and posterior elements without evidence of paraspinal or epidural extension. 4. No evidence of intramedullary postcontrast enhancement. RPTAT:AAJJ Physician Randal Date Time Electronically viewed and signed by Physician Randal on 12/12/2016 20:21 SANA/
[2016-12-12 20:52] VITALS: BP 127/61; RESP 19
[2016-12-13] MEDS ORDERED: THROMBIN 5000 UNIT VIAL TOP ONE
[2016-12-13] MEDS: POTASSIUM CHLORIDE 10 MEQ in SOD CHLORIDE 0.9% 1,000 ML IV SCH ×2 (04:42→12:31)
[2016-12-13 05:32] LABS: CALCIUM 9.2 mg/dl (8.4-10.2); CREATININE 1.13 mg/dl (0.61-1.24); POTASSIUM 4.1 mmol/L (3.5-5.1)
[2016-12-13] MEDS: PANTOPRAZOLE (EC) 40 MG TAB PO SCH (05:32)
[2016-12-13 07:37] VITALS: BP 129/60; RESP 19
--- NOTE | 2016-12-13 08:50 | PN ---
Date/Time of Note Date/Time of Note DATE: 12/13/16 TIME: 08:48 Assessment/Plan VTE Prophylaxis VTE Prophylaxis Intervention: other (surgery to be done) Lines/Catheters IV [facility] Peripheral IV Urinary Cath still in place: No Assessment/Plan Assessment/Plan Pt to have surgery later today. Pathology will be needed to plan the type of chemotherapy that would be offered. RT is likely to be needed postoperatively. Subjective 24 Hr Interval Summary Free Text/Dictation Pt sleeping. Surgery pending. Exam/Review of Systems Vital Signs Vitals Vital Signs Date Time Temp Pulse Resp B/P Pulse Ox O2 Delivery O2 Flow Rate FiO2 12/13/16 07:37 98.0 70 19 129/60 98 12/09/16 13:17 Room Air Intake and Output 12/12/16 12/12/16 12/13/16 15:00 23:00 07:00 Intake Total 1800 ml 1460 ml Output Total 1050 ml Balance 1800 ml 410 ml Results Result Diagram: 12/12/16 0425 12/13/16 0500 Results 24 hrs Laboratory Tests Test 12/13/16 05:00 Sodium Level 134 L Potassium Level 4.1 Chloride Level 105 Carbon Dioxide Level 28 Anion Gap 5 L Blood Urea Nitrogen 31 H Creatinine 1.13 Glucose Level 99 Calcium Level 9.2 Medications Medications Current Medications Atorvastatin Calcium (Lipitor) 20 mg HS PO Last administered on 12/12/16 20:13 ; Admin Dose 20 MG; Start 12/07/16 at 21:00 Diltiazem HCl (Cardizem Cd) 180 mg BID PO Last administered on 12/12/16 20:13 ; Admin Dose 180 MG; Start 12/07/16 at 21:00 Nitroglycerin (Nitroglycerin (Sr)) 6.5 mg BID PO Last administered on 20:13; Admin Dose 6.5 MG; Start 12/07/16 at 21:00 Triamterene/HCTZ (Dyazide) 1 cap DAILY PO Last administered on 12/12/16 10:01 ; Admin Dose 1 CAP; Start 12/08/16 at 09:00 Pantoprazole (Protonix Tab) 40 mg DAILY@06 PO Last administered on 12/12/16 06 :45; Admin Dose 40 MG; Start 12/08/16 at 06:00 Haloperidol (Haldol) 3 mg Q4 PRN PO AGITATION; Start 12/09/16 at 01:30 Haloperidol 3 mg 3 mg Q4 PRN IM AGITATION; Start 12/09/16 at 01:30 Potassium Chloride/Sodium Chloride (KCl/NS) 1,005 ml @ 100 mls/hr Q10H3M IV Last administered on 12/13/16 04:42; Admin Dose 100 MLS/HR; Start 12/10/16 at 18:00 Hydromorphone HCl (Dilaudid) 1 mg Q4H PRN PO PAIN Last administered on 12:17; Admin Dose 1 MG; Start 12/11/16 at 21:30 Losartan Potassium (Cozaar) 100 mg DAILY PO Last administered on 12/12/16 10: 01; Admin Dose 100 MG; Start 12/12/16 at 09:00 Clonidine (Catapres) 0.1 mg Q6H PRN PO sbp >160; Start 12/12/16 at 18:00 Lorazepam (Ativan) 1 mg Q6H PRN IV anxiety, agitation; Start 12/12/16 at 18:00 CASA ANAND MD Dec 13, 2016 08:50
[2016-12-13] MEDS: TRIAMTERENE/HCTZ (37.5-25) CAP PO SCH (09:00)
[2016-12-13] MEDS: NITROGLYCERIN 6.5 MG PO SCH ×2 (09:42→21:00)
[2016-12-13] MEDS: DILTIAZEM (CD) 180 MG CAP PO SCH ×2 (09:42→21:00)
[2016-12-13] MEDS: LOSARTAN 50 MG TAB PO SCH (09:42)
[2016-12-13 09:45] VITALS: BP 159/68; PULSE 64; RESP 20
[2016-12-13] MEDS ORDERED: BUPIVACAINE 0.5% (SDV) 30 ML INJ ONE ×2 (12:53→16:21)
[2016-12-13] MEDS ORDERED: LIDOCAINE 0.5%/EPI (MDV) 50 ML INJ ONE (12:53)
[2016-12-13] MEDS ORDERED: THROMBIN 5000 UNIT VIAL ONE ×2 (12:54→18:26)
[2016-12-13] MEDS ORDERED: SURGIFOAM POWDER 1 GM KIT ONE ×2 (12:56→18:26)
[2016-12-13] MEDS ORDERED: GELATIN SIZE 100 SPONGE ONE (12:56)
[2016-12-13] MEDS ORDERED: MIDAZOLAM 1 MG/ML 2 ML INJ ONE (13:10)
[2016-12-13] MEDS ORDERED: PHENYLephrine (100 MCG/ML) 5ML SYG ONE ×2 (13:13→21:57)
[2016-12-13] MEDS ORDERED: POLYMYXIN/BACITRACIN 1L IRRIG ONE (13:50)
[2016-12-13] MEDS ORDERED: FENTAnyl 50 MCG/ML VIAL IV PRN (14:00)
[2016-12-13] MEDS ORDERED: ONDANSETRON 4 MG INJ IV PRN (14:00)
[2016-12-13] MEDS ORDERED: MEPERIDINE 25 MG INJ IV PRN (14:00)
[2016-12-13] MEDS ORDERED: DIPHENHYDRAMINE 50 MG INJ IV PRN (14:00)
--- NOTE | 2016-12-13 15:36 | CONS ---
DATE OF ADMISSION: 12/07/2016 DATE OF CONSULTATION: 12/13/2016 The patient has been scheduled to undergo partial thoracic corpectomy and multilevel thoracic jinny ctomy for debulking of epidural tumor and decompression of the spinal cord as well as probable poste rior instrumented fusion from T2 to T6. I have spoken to the patient's sister, Catherine as well as her son, who is the patient's nephew, Regis, both on the phone as well as in-person just now. Gus guzman was accompanied by his at bedside. I have answered all the patient's questions and his nephe w's and the patient's sister in detail. I have explained to them that the goal of this operation is not curative in nature, but rather debulking and to allow the patient to be able to maintain lower extremity sensory motor function. Once we obtained the pathology specimen and we find out the sourc e of the tumor then the patient can be further evaluated and treated by Dr. Sharma, oncologist. The patient's neurologic function is unchanged. The patient continues to have bilateral lower extre mity spasticity with hypertonicity, hyperreflexia and unsteady gait. The patient is wearing an Aspe n collar right now because of the odontoid lesion that is also most likely another site of metastase s. Dictated By: RAHEL COELHO MD, SA/MARTINA Conf#: [id number] DID#: [id number]
[2016-12-13] MEDS ORDERED: GELATIN SIZE 100 SPONGE TOP ONE (16:18)
[2016-12-13] MEDS ORDERED: BUPIVACAINE 0.5% (SDV) 30 ML INJ INJ ONE (16:18)
[2016-12-13] MEDS ORDERED: POLYMYXIN/BACITRACIN 1L IRRIG IRR ONE (16:18)
[2016-12-13] MEDS ORDERED: LIDOCAINE 1%/EPI 30 ML INJ ONE (16:22)
[2016-12-13] MEDS ORDERED: DEXAMETHASONE 4 MG/ML 1 ML INJ ONE (17:26)
[2016-12-13] MEDS ORDERED: FENTAnyl 50 MCG/ML VIAL ONE ×2 (17:27→19:39)
[2016-12-13] MEDS ORDERED: hydrALAzine 20 MG INJ ONE ×2 (17:55→20:15)
[2016-12-13 20:00] VITALS: PULSE 100
[2016-12-13] MEDS: ATORVASTATIN 20 MG TAB PO SCH (21:00)
[2016-12-13] MEDS ORDERED: ETOMIDATE 20 MG INJ ONE (23:08)
[2016-12-13] MEDS ORDERED: LIDOCAINE 2% (SDV) 5 ML INJ ONE (23:08)
[2016-12-13] MEDS ORDERED: ROCURONIUM 50 MG INJ ONE (23:08)
[2016-12-13] MEDS ORDERED: CEFAZOLIN 1 GM INJ ONE ×2 (23:09)
[2016-12-14] VITALS (49 sets, daily range): BP systolic 80–145; BP diastolic 42–83; PULSE 64–100; RESP 14–26
--- NOTE | 2016-12-14 00:30 | OPR ---
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 Operation Performed T3 to T5 laminectomy, lateral extracavitary approach for T4 corpectomy, T3-T5 interbody arthrodesis, Resection fo extradural tumor, placement of structural allograft, T2 to T6 posterior instrumentated fusion Surgeon: RAHEL COELHO MD Anesthesia: general Anesthesiologist: MARIANELA WALTERS MD Estimated Blood Loss: other (400 CC) Specimens T4 extradural tumor, left T4 transverse process Tubes/Drains Hemovac x2 Complications: None Pt Condition Post Procedure: stable Disposition: other (ICU) Indications See inpatient consultation Operative\Procedure Findings large extradural T4 tumor destroyed T4 vertebral body Procedure Description see dictated OP repert RAHEL COELHO MD Dec 14, 2016 00:30
[2016-12-14] MEDS: CEFAZOLIN 1 GM/50 ML (PMX) 50 ML IVPB SCH ×4 (00:49→21:04)
[2016-12-14 01:08] LABS: ADD SCAN DIFF NO
[2016-12-14 01:11] LABS: ABNORMAL IP MESSAGE 1; BASOPHILS % 0.1 % (0.0-2.0); HEMATOCRIT 31.2 % (42.0-52.0); HEMOGLOBIN 10.4 g/dl (14.0-18.0); LYMPHOCYTES # 0.2 10^3/ul (0.8-2.9); LYMPHOCYTES % 0.9 % (15.0-51.0); MEAN CORPUSCULAR HEMOGLOBIN 31.5 pg (29.0-33.0); MEAN CORPUSCULAR HGB CONC 33.3 g/dl (32.0-37.0); MEAN CORPUSCULAR VOLUME 94.5 fl (82.0-101.0); MEAN PLATELET VOLUME 8.9 fl (7.4-10.4); MONOCYTE # 0.4 10^3/ul (0.3-0.9); NEUTROPHIL # 20.9 10^3/ul (1.6-7.5); NEUTROPHILS % 96.3 % (39.0-77.0); PLATELET COUNT 258 10^3/UL (140-415); RED CELL DISTRIBUTION WIDTH 14.6 % (11.5-14.5); WHITE BLOOD COUNT 21.7 10^3/ul (4.8-10.8)
[2016-12-14] MEDS: POTASSIUM CHLORIDE 10 MEQ in SOD CHLORIDE 0.9% 1,000 ML IV SCH ×5 (01:25→21:51)
[2016-12-14 01:32] LABS: CREATININE 1.22 mg/dl (0.61-1.24); POTASSIUM 3.9 mmol/L (3.5-5.1)
[2016-12-14] MEDS: PANTOPRAZOLE (EC) 40 MG TAB PO SCH (05:23)
[2016-12-14] MEDS: HALOPERIDOL 5 MG INJ IM PRN (05:38)
[2016-12-14] MEDS: NITROGLYCERIN 6.5 MG PO SCH ×2 (09:32→21:03)
[2016-12-14] MEDS: DILTIAZEM (CD) 180 MG CAP PO SCH ×2 (09:33→21:03)
[2016-12-14] MEDS: TRIAMTERENE/HCTZ (37.5-25) CAP PO SCH (09:33)
[2016-12-14] MEDS: LOSARTAN 50 MG TAB PO SCH (09:33)
--- NOTE | 2016-12-14 09:45 | RADRPT ---
PROCEDURE: Intraoperative fluoroscopic examination, RESECTION T4 EXTRADURAL TUMOR T2-T6 POST-FUSIO N CLINICAL INDICATION: RESECTION T4 EXTRADURAL TUMOR T2-T6 POST-FUSION TECHNIQUE: Multiple fluoroscopic views of the thoracic spine were obtained intraoperatively COMPARISON: none FINDINGS: 10 fluoroscopic views are stored demonstrating posterior fixation through the upper thoracic spine. There is a vertebral body compression deformity in the upper thoracic spine. 32 seconds of fluorosc opic time was utilized. IMPRESSION: Fluoroscopic guidance for thoracic spine surgery including posterior fixation. RPTAT: DD .Vinay Lantigua MD, Date Time Electronically viewed and signed by .Vinay Lantigua MD, on 12/14/2016 09:45 .T/
--- NOTE | 2016-12-14 10:31 | PN ---
DATE: 12/14/2016 HEMATOLOGY/ONCOLOGY PROGRESS NOTE SUBJECTIVE: Mr. Fiore denies any pain at this time. Apparently, he has been confused and has take n out his arterial line. The patient is not requiring any analgesia, but has been given Haldol. OBJECTIVE: VITAL SIGNS: Temperature is 98.3, pulse 80 and regular, respirations 16, blood pressure is 101/44. Pulse oximetry is 100% on 2 liters of oxygen via nasal cannula. SKIN: No ecchymosis, no petechiae or rashes. HEENT: No mucosal lesions. No scleral icterus. There is nasal oxygen in place. NECK: Supple, no jugular venous distention or thyroid enlargement. There is an internal jugular ca theter in place on the right side. CHEST: Clear to auscultation and percussion. No rhonchi, wheezes, rales or rubs. Only able to exa mine from the anterior. HEART: Regular sinus rhythm, no S3 or S4 or murmurs. ABDOMEN: Soft, no masses, no ascites. EXTREMITIES: No clubbing, edema or cyanosis. No palpable cords or Homans sign. NEUROLOGIC: There are no focal neurologic abnormalities. The patient, however, is confused. LABORATORY DATA: White count 21,700 with an absolute neutrophil count of 20,900, hemoglobin 10.4, h ematocrit 31.2 and platelet count 258,000. Sodium 135, potassium 3.9, BUN 29, creatinine 1.22. IMPRESSION: 1. Metastatic carcinoma, primary site unknown. 2. Status post T3 to T5 laminectomy and resection of extradural tumor at the T4 area. PLAN: Awaiting results of pathology in order to determine the primary site of malignancy. This, of course, most likely is metastatic carcinoma of the lung. Therapy will depend upon the cell type. Regardless of cell type, the patient will require radiation therapy to the area of spinal cord compr ession and debulking. The patient will also be a candidate for either denosumab or zoledronic acid on a monthly basis. Dictated By: JENNIFFER PEREZ MD SR/NTS Conf#: [id number] DID#: [id number]
--- NOTE | 2016-12-14 14:33 | RADRPT ---
PROCEDURE: MRI thoracic spine with and without IV contrast CLINICAL INDICATION: Metastatic disease and tumor resection with posterior thoracic spine stabili zation and fusion. TECHNIQUE: An MRI of the thoracic spine was performed on a 1.5 sadi scanner utilizing the follow ing sequences: Pre and postcontrast sagittal and axial T1 weighted, sagittal and axial T2 weighted, and sagittal STIR. 10 ml ProHance COMPARISON: MRI thoracic spine 12/12/2016. FINDINGS: There has been tumor resection at T4 with posterior corpectomy and fibular strut graft spanning T3 a nd T4 posteriorly in the midline. Decompression laminectomy from T3 through T6. Evaluation is some what limited due to magnetic susceptibility artifact from posterior stabilizing rods spanning T1-T7. Normal alignment of the thoracic spine or the length of the compression is seen. Suboptimal evaluation of the neural foramina on the left at the T3-T4. Paraspinal soft tissue mass compatible with tumor is again noted from T3-T5 within the limits of this study and artifact, CSF is noted surrounding the spinal cord at the level of decompression and tumor debulking. The thecal sac measures approximately 6 mm in AP dimension at the level of the superior aspect of the strut graft. Given the extent of artifact from hardware, follow-up imaging with myelography may be considered. Again noted are diffuse and metastatic lesions throughout the thoracic spine. The spinal cord is gr ossly normal in signal without pathologic enhancement. IMPRESSION: 1. A decompression and tumor debulking of the thoracic spine centered at T4 with posterior stabilizi ng rods in place and posterior fibular strut graft at T3-T4. Normal thoracic spine alignment is obt ained over the level of decompression and stabilization. 2. Despite limitations secondary to magnetic susceptibility artifact from fusion hardware, there ap pears to be decompression and debulking of the T4 tumor with persistent narrowing of the thecal sac at the level of T4 with CSF demonstrated surrounding the thoracic spinal cord. No evidence of intram edullary spinal cord signal abnormality or pathologic enhancement. 3. Again noted is a redemonstration of diffuse metastatic disease. 4. Myelography may be considered for follow up imaging given the degree of artifact from hardware RPTAT:AAJJ J Port, Physician Date Time Electronically viewed and signed by Patrizia Gonzales Physician on 12/14/2016 14:33 SANA/
--- NOTE | 2016-12-14 17:48 | PN ---
DATE: 12/14/2016 SUBJECTIVE: Patient is status post thoracic spine decompression surgery last night. Currently, elbert ke and alert, apparently had 1 episode of confusion earlier this morning requiring Haldol and a soft restraint since he was pulling out his lines. OBJECTIVE VITAL SIGNS: Temperature 98.0, blood pressure 110/60, pulse of 75, respiration rate 20, O2 saturati on 98% to 100% on 2 liters nasal cannula. HEENT: Pupils equally round, reactive to light. Oropharynx clear. CHEST: Lungs are clear to auscultation. CARDIAC: Regular rate and rhythm, normal S1, S2. ABDOMEN: Active bowel sounds, soft, nondistended, nontender. EXTREMITIES: No clubbing, cyanosis, or edema. LABORATORY DATA: WBC 21.7, hemoglobin 10.4, hematocrit 31.2, platelet count is 258,000. Sodium 135 , potassium 3.9, chloride 109, carbon dioxide 20, BUN 29, creatinine 1.2, glucose 197, calcium 8.0. IMAGING STUDIES: MRI of thoracic spine showed a decompression and tumor debulking of the thoracic s [place] at the T4 level with posterior stabilizing rods in place and posterior fibula strut man t at T3-T4. Normal thoracic spine alignment is obtained over the level decompression and stabilizat ion despite limitation secondary to magnetic susceptibility artifact from fusion hardware. There ap pears to be decompression and debulking of the T4 tumor with persistent narrowing of the thecal sac at the level of T4 with CSF demonstrated surrounding the thoracic spinal cord. There is no evidence of intramedullary spinal cord signal abnormality or pathologic enhancement. Again noted is a redem onstration of diffuse metastatic disease. ASSESSMENT AND PLAN: 1. Spinal cord compression at the T4 level, status post surgery and biopsy. The patient appears to be doing well postoperatively. Anticipate transfer from ICU to med/surg floor later on today once cleared by Dr. Gannon. 2. Confusion, most likely due to ICU psychosis and anesthesia medications. Continue to use Haldol as needed while patient is in the hospital. 3. Metastatic carcinoma. Await pathology result but most likely primary site is the lung nodule. A gree with Dr. Sharma's plan for radiation palliative treatment while awaiting pathology report and further treatment plans. Dictated By: DESI MCLAIN MD DP/MARTINA Conf#: [id number] [facility]#: [id number]
[2016-12-14] MEDS: ATORVASTATIN 20 MG TAB PO SCH (21:03)
[2016-12-15] VITALS (20 sets, daily range): BP systolic 115–147; BP diastolic 50–85; PULSE 60–165; RESP 18–22
[2016-12-15 05:27] LABS: ADD SCAN DIFF NO
[2016-12-15] MEDS: CEFAZOLIN 1 GM/50 ML (PMX) 50 ML IVPB SCH (05:52)
[2016-12-15] MEDS: PANTOPRAZOLE (EC) 40 MG TAB PO SCH (05:53)
[2016-12-15 05:58] LABS: ABNORMAL IP MESSAGE 1; BASOPHILS % 0.1 % (0.0-2.0); EOSINOPHILS % 0.1 % (0.0-7.0); HEMATOCRIT 27.8 % (42.0-52.0); HEMOGLOBIN 8.7 g/dl (14.0-18.0); LYMPHOCYTES # 0.5 10^3/ul (0.8-2.9); LYMPHOCYTES % 3.2 % (15.0-51.0); MEAN CORPUSCULAR HEMOGLOBIN 30.2 pg (29.0-33.0); MEAN CORPUSCULAR HGB CONC 31.3 g/dl (32.0-37.0); MEAN CORPUSCULAR VOLUME 96.5 fl (82.0-101.0); MEAN PLATELET VOLUME 9.4 fl (7.4-10.4); MONOCYTE # 0.9 10^3/ul (0.3-0.9); NEUTROPHIL # 12.8 10^3/ul (1.6-7.5); NEUTROPHILS % 89.8 % (39.0-77.0); PLATELET COUNT 236 10^3/UL (140-415); RED BLOOD COUNT 2.88 10^6/ul (4.70-6.10); RED CELL DISTRIBUTION WIDTH 14.6 % (11.5-14.5); WHITE BLOOD COUNT 14.2 10^3/ul (4.8-10.8)
[2016-12-15 06:04] LABS: POTASSIUM 3.5 mmol/L (3.5-5.1)
[2016-12-15 06:06] LABS: CREATININE 1.06 mg/dl (0.61-1.24)
[2016-12-15 06:07] LABS: CALCIUM 8.3 mg/dl (8.4-10.2)
[2016-12-15] MEDS: DILTIAZEM (CD) 180 MG CAP PO SCH ×2 (08:50→21:52)
[2016-12-15] MEDS: ALLOPURINOL 300 MG TAB PO SCH (08:50)
[2016-12-15] MEDS: NITROGLYCERIN 6.5 MG PO SCH ×2 (08:51→21:51)
[2016-12-15] MEDS: TRIAMTERENE/HCTZ (37.5-25) CAP PO SCH (08:51)
[2016-12-15] MEDS: LOSARTAN 50 MG TAB PO SCH (08:51)
--- NOTE | 2016-12-15 09:22 | CONS ---
Date/Time of Note Date/Time of Note DATE: 12/15/16 TIME: 09:19 Consult Date/Type/Reason Admit Date/Time Dec 07, 2016 at 12:13 Initial Consult Date Type of Consultation: Cardiology Ordering Provider: AMANDA PRATER MD Subjective No overnight events. Feels well this am. No trouble breathing. Neck feels ok. Objective Vital Signs Date Time Temp Pulse Resp B/P Pulse Ox O2 Delivery O2 Flow Rate FiO2 12/15/16 08:00 98.4 76 22 131/58 100 Nasal Cannula 4.0 Intake and Output 12/14/16 12/14/16 12/15/16 15:00 23:00 07:00 Intake Total 630 ml 1650 ml 850 ml Output Total 610 ml 570 ml 450 ml Balance 20 ml 1080 ml 400 ml Exam NCAT, PERRLA Neck in [place] collar OP clear Bronchial breath sounds, otherwise clear RRR no m/g/r Soft, nt, nd, + bs, no HSM No c/c/e Venodynes in place Results/Medications Result Diagram: 12/15/16 0455 12/15/16 0455 Results 24 hrs Laboratory Tests Test 12/14/16 19:26 12/14/16 21:10 12/15/16 04:55 12/15/16 08:21 Bedside Glucose 79 86 93 White Blood Count 14.2 #H Red Blood Count 2.88 L Hemoglobin 8.7 L Hematocrit 27.8 L Mean Corpuscular Volume 96.5 Mean Corpuscular Hemoglobin 30.2 Mean Corpuscular Hemoglobin Concent 31.3 L Red Cell Distribution Width 14.6 H Platelet Count 236 Mean Platelet Volume 9.4 Neutrophils % 89.8 H Lymphocytes % 3.2 L Monocytes % 6.0 Eosinophils % 0.1 Basophils % 0.1 Nucleated Red Blood Cells % 0.0 Neutrophils # 12.8 H Lymphocytes # 0.5 L Monocytes # 0.9 Eosinophils # 0.0 Basophils # 0.0 Nucleated Red Blood Cells # 0.0 Sodium Level 141 Potassium Level 3.5 Chloride Level 110 Carbon Dioxide Level 25 Anion Gap 10 Blood Urea Nitrogen 25 H Creatinine 1.06 Glucose Level 93 # Calcium Level 8.3 L Medications Current Medications Atorvastatin Calcium (Lipitor) 20 mg HS PO Last administered on 12/14/16t 21:03 ; Admin Dose 20 MG; Start 12/07/16 at 21:00 Diltiazem HCl (Cardizem Cd) 180 mg BID PO Last administered on 12/15/16 08:50 ; Admin Dose 180 MG; Start 12/07/16 at 21:00 Nitroglycerin (Nitroglycerin (Sr)) 6.5 mg BID PO Last administered on 08:51; Admin Dose 6.5 MG; Start 12/07/16 at 21:00 Triamterene/HCTZ (Dyazide) 1 cap DAILY PO Last administered on 12/15/16 08:51 ; Admin Dose 1 CAP; Start 12/08/16 at 09:00 Pantoprazole (Protonix Tab) 40 mg DAILY@06 PO Last administered on 12/15/16 05 :53; Admin Dose 40 MG; Start 12/08/16 at 06:00 Haloperidol (Haldol) 3 mg Q4 PRN PO AGITATION; Start 12/09/16 at 01:30 Haloperidol 3 mg 3 mg Q4 PRN IM AGITATION Last administered on 12/14/16 05:38 ; Admin Dose 3 MG; Start 12/09/16 at 01:30 Potassium Chloride/Sodium Chloride (KCl/NS) 1,005 ml @ 100 mls/hr Q10H3M IV Last administered on 12/14/16 21:51; Admin Dose 100 MLS/HR; Start 12/10/16 at 18:00 Losartan Potassium (Cozaar) 100 mg DAILY PO Last administered on 12/15/16 08: 51; Admin Dose 100 MG; Start 12/12/16 at 09:00 Clonidine 0.1 mg 0.1 mg Q6H PRN PO sbp >160; Start 12/12/16 at 18:00 Cefazolin Sodium (Ancef 1 Gm/50 ml (Pmx)) 50 ml @ 100 mls/hr Q8 IVPB Last administered on 12/15/16 05:52; Admin Dose 100 MLS/HR; Start 12/14/16 at 00:00 Allopurinol (Zyloprim) 300 mg AM PO Last administered on 12/15/16 08:50; Admin Dose 300 MG; Start 12/15/16 at 09:00 Assessment/Plan Problems: (1) Altered level of consciousness (2) Vomiting (3) Neck pain (4) Odontoid fracture (5) Anemia (6) Renal failure Additional Assessment/Plan Pt with met cancer involving the upper thoracic vertebrae. S/p debulking of tumor and laminectomy/fusion of that region. Awaiting pathology. Likely lung tumor. For now, continue supportive care. Can be transferred out of unit from my standpoint. DVT ppx PEPPER BOND Dec 15, 2016 09:22
[2016-12-15] MEDS ORDERED: LEVALBUTEROL (HFA) 15 GM INHALER INH PRN (12:00)
--- NOTE | 2016-12-15 12:29 | HP ---
DATE OF ADMISSION: 12/07/2016 Status post spinal cord decompression at the level of T4. Patient after surgery was mildly confused . Currently the patient is wide awake, alert, appropriate, family at the bedside. He reports that he is doing very well and normal mentation, is doing fine. The patient has been transferred out of the ICU and no complaints. Does have a mild congested sounding cough during discussion. PHYSICAL EXAMINATION: VITAL SIGNS: Blood pressure is 115/58, respirations 18, pulse 76, temperature is 98.0, pulse ox is 95%. HEENT: Normocephalic, atraumatic. NECK: In a brace. CARDIOVASCULAR: Regular rate and rhythm. LUNGS: No crackles, no rhonchi. LABORATORY DATA: Demonstrate a WBC 14, hemoglobin at 8.7, platelets 236, creatinine 1.0. Potassium 3.5. ASSESSMENT AND PLAN: 1. Spinal cord compression and decompression, status post surgery. Patient is doing very well. It is noted that the hemoglobin has suddenly dropped from the high 10s to currently at 8.7. Unclear i f this is an error, but will repeat his hemoglobin and make sure that it is not decreasing any furth er. If it continues to drop, will transfuse. The patient did receive blood inside the OR. Elevate d white count currently has been decreasing and at this time is 14. 2. Metastatic carcinoma, awaiting pathology. Heme is on the case 3. Cough. Will start the patient on inhalers at the bedside. Dictated By: ELY MANSFIELD/MARTINA Conf#: [id number] DID#: [id number]
[2016-12-15 12:40] LABS: ADD SCAN DIFF NO
[2016-12-15 12:56] LABS: ABNORMAL IP MESSAGE 1; BASOPHILS % 0.1 % (0.0-2.0); EOSINOPHILS % 0.1 % (0.0-7.0); HEMATOCRIT 27.4 % (42.0-52.0); HEMOGLOBIN 8.8 g/dl (14.0-18.0); LYMPHOCYTES # 0.4 10^3/ul (0.8-2.9); LYMPHOCYTES % 2.5 % (15.0-51.0); MEAN CORPUSCULAR HEMOGLOBIN 30.8 pg (29.0-33.0); MEAN CORPUSCULAR HGB CONC 32.1 g/dl (32.0-37.0); MEAN CORPUSCULAR VOLUME 95.8 fl (82.0-101.0); MEAN PLATELET VOLUME 9.4 fl (7.4-10.4); MONOCYTE # 0.8 10^3/ul (0.3-0.9); MONOCYTES % 5.3 % (0.0-11.0); NEUTROPHIL # 13.6 10^3/ul (1.6-7.5); NEUTROPHILS % 91.3 % (39.0-77.0); PLATELET COUNT 259 10^3/UL (140-415); RED BLOOD COUNT 2.86 10^6/ul (4.70-6.10); RED CELL DISTRIBUTION WIDTH 14.4 % (11.5-14.5); WHITE BLOOD COUNT 14.9 10^3/ul (4.8-10.8)
[2016-12-15] MEDS: POTASSIUM CHLORIDE 10 MEQ in SOD CHLORIDE 0.9% 1,000 ML IV SCH (14:19)
[2016-12-15] MEDS: ATORVASTATIN 20 MG TAB PO SCH (21:50)
[2016-12-16] VITALS (14 sets, daily range): BP systolic 95–136; BP diastolic 51–88; PULSE 90–134; RESP 16–20
[2016-12-16] MEDS: POTASSIUM CHLORIDE 10 MEQ in SOD CHLORIDE 0.9% 1,000 ML IV SCH ×4 (02:39→21:49)
[2016-12-16] MEDS: HALOPERIDOL 5 MG INJ IM PRN (04:36)
[2016-12-16] MEDS: PANTOPRAZOLE (EC) 40 MG TAB PO SCH (05:47)
[2016-12-16 06:43] LABS: ADD SCAN DIFF NO
[2016-12-16 06:49] LABS: ABNORMAL IP MESSAGE 1; BASOPHILS % 0.2 % (0.0-2.0); EOSINOPHILS % 0.1 % (0.0-7.0); HEMATOCRIT 27.6 % (42.0-52.0); HEMOGLOBIN 8.8 g/dl (14.0-18.0); LYMPHOCYTES # 0.4 10^3/ul (0.8-2.9); LYMPHOCYTES % 3.3 % (15.0-51.0); MEAN CORPUSCULAR HEMOGLOBIN 30.4 pg (29.0-33.0); MEAN CORPUSCULAR HGB CONC 31.9 g/dl (32.0-37.0); MEAN CORPUSCULAR VOLUME 95.5 fl (82.0-101.0); MEAN PLATELET VOLUME 9.4 fl (7.4-10.4); MONOCYTE # 0.8 10^3/ul (0.3-0.9); MONOCYTES % 7.3 % (0.0-11.0); NEUTROPHIL # 9.7 10^3/ul (1.6-7.5); NEUTROPHILS % 88.4 % (39.0-77.0); PLATELET COUNT 222 10^3/UL (140-415); RED BLOOD COUNT 2.89 10^6/ul (4.70-6.10); RED CELL DISTRIBUTION WIDTH 13.9 % (11.5-14.5); WHITE BLOOD COUNT 10.9 10^3/ul (4.8-10.8)
[2016-12-16 07:00] LABS: POTASSIUM 3.2 mmol/L (3.5-5.1)
[2016-12-16 07:03] LABS: CREATININE 0.87 mg/dl (0.61-1.24)
[2016-12-16 07:04] LABS: CALCIUM 8.4 mg/dl (8.4-10.2)
[2016-12-16] MEDS: TRIAMTERENE/HCTZ (37.5-25) CAP PO SCH (09:17)
[2016-12-16] MEDS: ALLOPURINOL 300 MG TAB PO SCH (09:17)
[2016-12-16] MEDS: NITROGLYCERIN 6.5 MG PO SCH ×2 (09:17→20:19)
[2016-12-16] MEDS: DILTIAZEM (CD) 180 MG CAP PO SCH ×2 (09:17→20:19)
[2016-12-16] MEDS: LOSARTAN 50 MG TAB PO SCH (09:18)
[2016-12-16] MEDS ORDERED: POTASSIUM CHLORIDE (SR) 20 MEQ TAB PO STA (11:50)
--- NOTE | 2016-12-16 14:01 | PN ---
DATE: 12/16/2016 SUBJECTIVE: The patient is resting comfortably, no acute changes. During the night, the patient ap pears to undergo owning. He is very lucid during the day and as night progresses then he become s more agitated. This patient is still in soft restraints p.r.n., usually is replaced in the evenin g time. PHYSICAL EXAMINATION: VITAL SIGNS: Blood pressure is 108/55, temperature is 98.3, pulse is 76, respirations are 18. HEAD : Normocephalic, atraumatic. EYES: Pupils equal, round, react to light and accommodation. CARDIOVASCULAR: Regular rate and rhythm. LUNGS: Clear to auscultation bilaterally. LABORATORY TESTS: Demonstrates a hemoglobin of 8.8, WBC of 10.9, potassium 3.2, creatinine 0.87. ASSESSMENT AND PLAN: 1. Spinal cord decompression, status post surgery, doing well. IV will be decreased. Hemoglobin s tayed steady at 8.8. The patient did not need to be transfused yesterday. Elevated white count con tinues to improve, today is now down from 14 to 10. 2. Hypokalemia. We will replace by oral potassium today 40 mEq. 3. Metastatic carcinoma. 4. Cough. The patient has inhalers at bedside. Dictated By: ELY MANSFIELD/MARTINA Conf#: [id number] DID#: [id number]
[2016-12-16] MEDS: ATORVASTATIN 20 MG TAB PO SCH (20:19)
[2016-12-17] VITALS (15 sets, daily range): BP systolic 90–107; BP diastolic 50–60; PULSE 66–101; RESP 18–20
[2016-12-17] MEDS: POTASSIUM CHLORIDE 10 MEQ in SOD CHLORIDE 0.9% 1,000 ML IV SCH ×2 (04:48→05:33)
[2016-12-17] MEDS: PANTOPRAZOLE (EC) 40 MG TAB PO SCH (05:32)
[2016-12-17] MEDS: NITROGLYCERIN 6.5 MG PO SCH ×2 (08:40→21:00)
[2016-12-17] MEDS: DILTIAZEM (CD) 180 MG CAP PO SCH (08:41)
[2016-12-17] MEDS: TRIAMTERENE/HCTZ (37.5-25) CAP PO SCH (08:41)
[2016-12-17] MEDS: LOSARTAN 50 MG TAB PO SCH (08:41)
[2016-12-17] MEDS: ALLOPURINOL 300 MG TAB PO SCH (08:41)
[2016-12-17 10:20] LABS: ADD SCAN DIFF NO
[2016-12-17 10:26] LABS: ABNORMAL IP MESSAGE 1; BASOPHILS % 0.1 % (0.0-2.0); EOSINOPHILS % 0.5 % (0.0-7.0); HEMATOCRIT 28.5 % (42.0-52.0); HEMOGLOBIN 8.9 g/dl (14.0-18.0); LYMPHOCYTES # 0.3 10^3/ul (0.8-2.9); LYMPHOCYTES % 3.7 % (15.0-51.0); MEAN CORPUSCULAR HGB CONC 31.2 g/dl (32.0-37.0); MEAN PLATELET VOLUME 9.2 fl (7.4-10.4); MONOCYTE # 0.6 10^3/ul (0.3-0.9); MONOCYTES % 7.2 % (0.0-11.0); NEUTROPHIL # 6.9 10^3/ul (1.6-7.5); NEUTROPHILS % 87.6 % (39.0-77.0); PLATELET COUNT 223 10^3/UL (140-415); RED BLOOD COUNT 2.97 10^6/ul (4.70-6.10); RED CELL DISTRIBUTION WIDTH 13.7 % (11.5-14.5); WHITE BLOOD COUNT 7.9 10^3/ul (4.8-10.8)
[2016-12-17 10:33] LABS: POTASSIUM 3.6 mmol/L (3.5-5.1)
--- NOTE | 2016-12-17 10:33 | RADRPT ---
PROCEDURE: CHEST 1VW CLINICAL INDICATION: Shortness of breath TECHNIQUE: Single frontal view of the chest was obtained COMPARISON: 12/07/2016 FINDINGS: Interval postsurgical changes from the upper thoracic fusion is seen with a right neck central venou s catheter. The cardiac size is normal. Aortic vascular calcifications are demonstrated. There is no pulmonary vascular congestion. The lungs are clear. No consolidation, effusion, or pneumothorax. Mild degenerative changes of the visualized osseous structures are visualized. IMPRESSION: 1. Interval postsurgical changes from the upper thoracic fusion is seen with a right neck central ve nous catheter. 2. Atherosclerosis. RPTAT:PP .Josemanuel Bower MD, MD Date Time Electronically viewed and signed by .Josemanuel Bower MD, on 12/17/2016 10:32 .V/
--- NOTE | 2016-12-17 10:34 | PN ---
DATE: 12/17/2016 SUBJECTIVE: Mr. Fiore has no complaints but does seem mildly confused today. OBJECTIVE: VITAL SIGNS: Temperature 98.8, pulse 91 per minute and regular, respirations 18, blood pressure 93/ 51, pulse oximetry is 100% on 2 liters. NECK: No jugular venous distention or thyroid enlargement. CHEST: Clear to auscultation and percussion. No rhonchi, wheezes, rales or rubs. NODES: No palpable lymphadenopathy in lymph node bearing area. There is evidence of recent thoracic spine decompression. The wound is covered with dressing with no drainage. HEART: Regular sinus rhythm, no S3, S4 or murmurs. ABDOMEN: Soft, no masses or ascites. EXTREMITIES: No clubbing, edema or cyanosis. No palpable cords or Homans sign. NEUROLOGIC: Reveals no focal neurologic abnormalities, although the patient is mildly confused. IMPRESSION: 1. Metastatic carcinoma primary site unknown. 2. Spinal cord compression secondary to #1 status post decompression. PLAN: Tissue obtained during the decompression should be available today and will help to determine the primary site of tumor and therefore what therapy will be indicated besides radiation therapy to the area of cord compression. Dictated By: JENNIFFER PEREZ MD SR/NTS Conf#: [id number] DID#: [id number]
[2016-12-17 10:35] LABS: CREATININE 0.92 mg/dl (0.61-1.24)
[2016-12-17 10:36] LABS: CALCIUM 8.5 mg/dl (8.4-10.2)
[2016-12-17] MEDS: ATORVASTATIN 20 MG TAB PO SCH (21:09)
--- NOTE | 2016-12-17 21:39 | PN ---
DATE: 12/17/2016 SUBJECTIVE: The patient is awake, alert, oriented times name, not place and time or event. OBJECTIVE: VITAL SIGNS: Temperature 98.4, blood pressure 92/53, pulse of 84, respiration rate 20, O2 saturatio n 100% on 2 liters. HEENT: Pupils equally round, reactive to light. Oropharynx clear. CHEST: Lungs are clear to auscultation. CARDIAC: Regular rate and rhythm. Normal S1, S2. ABDOMEN: Active bowel sounds, soft, nondistended, nontender. EXTREMITIES: No clubbing, cyanosis, or edema. Marked diffuse atrophy of the lower extremities. LABORATORY DATA: WBC 7.9, hemoglobin 8.9, hematocrit 28.5, platelet count 223,000. Sodium 137, pot assium 3.6, carbon dioxide 105, bicarbonate 23, BUN 22, creatinine 0.92, glucose 89, calcium 8.5. ASSESSMENT AND PLAN: 1. Spinal cord compression at T4 level, status post decompression and biopsy. Doing well postopera tively. We will start patient back on very gentle physical therapy. The patient is to wear a neck brace when he is walking due to risk of falls and cervical spine fracture. 2. Metastatic carcinoma. Await pathology report to determine the course of treatment. 3. Disposition. I discussed with patient and other physicians. The patient will benefit from a st ay at the senior care facility for physical therapy for deconditioning, stabilization of the gai t, as well as assisting with transportation for outpatient treatment if it involves radiation and ou tpatient chemotherapy. The patient is agreeable to a senior care facility stay upon discharge f rom here. Dictated By: DESI MCLAIN MD DP/MARTINA Conf#: [id number] DID#: [id number]
[2016-12-18] VITALS (17 sets, daily range): BP systolic 97–132; BP diastolic 54–80; PULSE 80–149; RESP 18–20
[2016-12-18] MEDS: PANTOPRAZOLE (EC) 40 MG TAB PO SCH (06:17)
[2016-12-18 08:39] LABS: ADD SCAN DIFF NO
[2016-12-18 08:48] LABS: ABNORMAL IP MESSAGE 1; BASOPHILS % 0.2 % (0.0-2.0); EOSINOPHILS % 0.4 % (0.0-7.0); HEMATOCRIT 30.3 % (42.0-52.0); HEMOGLOBIN 9.7 g/dl (14.0-18.0); LYMPHOCYTES # 0.4 10^3/ul (0.8-2.9); MEAN CORPUSCULAR HEMOGLOBIN 29.8 pg (29.0-33.0); MEAN CORPUSCULAR VOLUME 93.2 fl (82.0-101.0); MEAN PLATELET VOLUME 9.6 fl (7.4-10.4); MONOCYTE # 0.7 10^3/ul (0.3-0.9); MONOCYTES % 8.6 % (0.0-11.0); NEUTROPHIL # 7.1 10^3/ul (1.6-7.5); PLATELET COUNT 265 10^3/UL (140-415); RED BLOOD COUNT 3.25 10^6/ul (4.70-6.10); RED CELL DISTRIBUTION WIDTH 13.4 % (11.5-14.5); WHITE BLOOD COUNT 8.4 10^3/ul (4.8-10.8)
[2016-12-18] MEDS ORDERED: DILTIAZEM (CD) 180 MG CAP PO SCH (09:00)
[2016-12-18] MEDS ORDERED: LOSARTAN 50 MG TAB PO SCH (09:00)
[2016-12-18] MEDS: ALLOPURINOL 300 MG TAB PO SCH (09:24)
[2016-12-18] MEDS: NITROGLYCERIN 6.5 MG PO SCH ×2 (09:24→21:00)
[2016-12-18 09:28] LABS: CREATININE 0.96 mg/dl (0.61-1.24); POTASSIUM 3.6 mmol/L (3.5-5.1)
[2016-12-18 09:29] LABS: ALBUMIN 2.8 g/dl (3.3-4.9); ALBUMIN/GLOBULIN RATIO 1.07; BILIRUBIN,INDIRECT 0.4 mg/dl (0-1.1); BILIRUBIN,TOTAL 0.4 mg/dl (0.2-1.3); TOTAL PROTEIN 5.4 g/dl (6.1-8.1); URIC ACID 3.2 mg/dl (3.1-7.9)
--- NOTE | 2016-12-18 13:19 | PN ---
Date/Time of Note Date/Time of Note DATE: 12/18/16 TIME: 13:17 Assessment/Plan VTE Prophylaxis VTE Prophylaxis Intervention: other (per primary) Lines/Catheters IV Catheter Type (from Nrs): Peripheral IV Urinary Cath still in place: No Assessment/Plan Assessment/Plan Path is not yet available but should be tomorrow. Continue present plans. Subjective 24 Hr Interval Summary Free Text/Dictation Pt alert. Denies pain. Exam/Review of Systems Vital Signs Vitals Vital Signs Date Time Temp Pulse Resp B/P Pulse Ox O2 Delivery O2 Flow Rate FiO2 12/18/16 12:13 98.9 64 18 100/68 99 12/18/16 08:06 Nasal Cannula 12/18/16 02:00 2.0 Intake and Output 12/17/16 12/17/16 12/18/16 15:00 23:00 07:00 Intake Total 520 ml 450 ml Output Total 800 ml 900 ml Balance -280 ml -450 ml Exam Head: atraumatic Respiratory: clear to auscultation Cardiovascular: regular rate and rhythm Gastrointestinal: soft Results Result Diagram: 12/18/16 0734 12/18/16 0734 Results 24 hrs Laboratory Tests Test 12/18/16 07:34 White Blood Count 8.4 Red Blood Count 3.25 L Hemoglobin 9.7 L Hematocrit 30.3 L Mean Corpuscular Volume 93.2 Mean Corpuscular Hemoglobin 29.8 Mean Corpuscular Hemoglobin Concent 32.0 Red Cell Distribution Width 13.4 Platelet Count 265 Mean Platelet Volume 9.6 Neutrophils % 85.0 H Lymphocytes % 5.0 L Monocytes % 8.6 Eosinophils % 0.4 Basophils % 0.2 Nucleated Red Blood Cells % 0.0 Neutrophils # 7.1 Lymphocytes # 0.4 L Monocytes # 0.7 Eosinophils # 0.0 Basophils # 0.0 Nucleated Red Blood Cells # 0.0 Erythrocyte Sedimentation Rate 102 H Sodium Level 136 Potassium Level 3.6 Chloride Level 107 Carbon Dioxide Level 24 Anion Gap 9 Blood Urea Nitrogen 26 H Creatinine 0.96 Glucose Level 103 Uric Acid 3.2 Calcium Level 9.0 Total Bilirubin 0.4 Direct Bilirubin 0.00 Indirect Bilirubin 0.4 Aspartate Amino Transf (AST/SGOT) 40 Alanine Aminotransferase (ALT/SGPT) 38 Alkaline Phosphatase 131 H Total Protein 5.4 L Albumin 2.8 L Globulin 2.60 Albumin/Globulin Ratio 1.07 Medications Medications Current Medications Atorvastatin Calcium (Lipitor) 20 mg HS PO Last administered on 12/17/16 21:09 ; Admin Dose 20 MG; Start 12/07/16 at 21:00 Nitroglycerin (Nitroglycerin (Sr)) 6.5 mg BID PO Last administered on 12/18/16 09:24; Admin Dose 6.5 MG; Start 12/07/16 at 21:00 Pantoprazole (Protonix Tab) 40 mg DAILY@06 PO Last administered on 12/18/16 06: 17; Admin Dose 40 MG; Start 12/08/16 at 06:00 Haloperidol (Haldol) 3 mg Q4 PRN PO AGITATION; Start 12/09/16 at 01:30 Haloperidol (Haldol) 3 mg Q4 PRN IM AGITATION Last administered on 12/16/16 04 :36; Admin Dose 3 MG; Start 12/09/16 at 01:30 Clonidine (Catapres) 0.1 mg Q6H PRN PO sbp >160; Start 12/12/16 at 18:00 Allopurinol (Zyloprim) 300 mg AM PO Last administered on 12/18/16 09:24; Admin Dose 300 MG; Start 12/15/16 at 09:00 Diltiazem HCl (Cardizem Cd) 180 mg DAILY PO Last administered on 12/18/16 09:24 ; Admin Dose 180 MG; Start 12/18/16 at 09:00 Losartan Potassium (Cozaar) 50 mg DAILY PO Last administered on 12/18/16 09:24 ; Admin Dose 50 MG; Start 12/18/16 at 09:00 CASA ANAND MD December 18, 2016 13:19
--- NOTE | 2016-12-18 19:51 | PN ---
DATE: 12/18/2016 SUBJECTIVE: The patient is awake and alert, oriented to name but is confused as to events, asking f or help to get out of bed so he can go get his car keys and his car. OBJECTIVE: VITAL SIGNS: Temperature 98.4, blood pressure 126/75, pulse of 106, respiration rate 18, O2 saturat ion 99%. HEENT: Pupils equally round, reactive to light. Oropharynx clear. CHEST: Lungs are clear to auscultation. CARDIAC: Regular rate and rhythm. Normal S1, S2. ABDOMEN: Active bowel sounds. Soft, nondistended, nontender. EXTREMITIES: No clubbing, cyanosis or edema. LABORATORY DATA: WBC 8.4, hemoglobin 9.7, hematocrit 30.3, platelet count 265,000. ESR is 102. So dium 136, potassium 3.6, chloride 107, carbon dioxide 24, BUN 26, creatinine 0.96, glucose 103. Samaria er enzymes notable for elevated alkaline phosphatase and a decreased total protein of 5.4, decreased albumin 2.8. Pathology for the T4 tumor is still pending at this time. ASSESSMENT AND PLAN: 1. Metastatic carcinoma. Await pathology to determine course of treatment. 2. Spinal cord compression at T4 due to tumor load, status post decompression and biopsy, doing wel l postoperatively. 3. 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 The patient does have a history of an xiety. I will start him on some [id number] medications for his acute stress reaction. 4. Mild tachycardia, may be due to recent decrease in diltiazem dosage. His blood pressure is bett er today. I will increase the diltiazem back up to the twice a day and discontinue losartan if nece ssary. Will also check an EKG for recurrence of atrial fibrillation which he gets during time of ac zuni physical stress. Dictated By: DESI MCLAIN MD DP/NTS Conf#: [id number] DID#: [id number]
[2016-12-18] MEDS: ATORVASTATIN 20 MG TAB PO SCH (20:50)
[2016-12-18] MEDS: DILTIAZEM (CD) 180 MG CAP PO SCH (21:00)
[2016-12-18] MEDS: clonAZEPAM 0.5 MG TAB PO SCH (22:29)
[2016-12-19] VITALS (13 sets, daily range): BP systolic 88–149; BP diastolic 51–71; PULSE 64–128; RESP 17–20
[2016-12-19] MEDS: PANTOPRAZOLE (EC) 40 MG TAB PO SCH (06:13)
[2016-12-19] MEDS: clonAZEPAM 0.5 MG TAB PO SCH ×3 (06:13→21:06)
[2016-12-19] MEDS: ALLOPURINOL 300 MG TAB PO SCH (08:57)
[2016-12-19] MEDS: NITROGLYCERIN 6.5 MG PO SCH ×2 (08:57→21:00)
[2016-12-19] MEDS: DILTIAZEM (CD) 180 MG CAP PO SCH (08:57)
[2016-12-19] MEDS ORDERED: LOSARTAN 25 MG TAB PO SCH (09:00)
--- NOTE | 2016-12-19 10:05 | PN ---
DATE: 12/19/2016 SUBJECTIVE: The patient has no new complaints. Still seems mildly confused. OBJECTIVE: VITAL SIGNS: Temperature 97.6, pulse 110, respirations 19, blood pressure 195/58, pulse oximetry 10 0% on 2 liters nasal oxygen. SKIN: No ecchymosis, petechiae or rashes. HEENT: No mucosal lesions. No scleral icterus. There is nasal oxygen in place. NECK: Supple, no jugular venous distention or thyroid enlargement. CHEST: Clear to auscultation and percussion. No rhonchi, wheezes, rales or rubs. NODES: No palpable lymphadenopathy in any lymph node bearing area. ABDOMEN: Soft, no masses, no ascites. EXTREMITIES: No clubbing, edema or cyanosis. No palpable cords or Homans sign. NEUROLOGIC: Difficult to assess at this time. LABORATORY: White count 8400, hemoglobin 9.7, hematocrit 30.3 and platelet count 265,000. Sodium 1 36, potassium 3.6, creatinine 0.96, BUN 26, total bilirubin 0.4, AST 40, ALT 38, alkaline phosphatas e 131. Pathology report from specimen following thoracic spine decompression demonstrates a metastatic paula gnancy. Primary site is not obvious. There is some suggestion of urothelial primary. ASSESSMENT: 1. Spinal cord compression secondary to metastatic carcinoma status post decompression surgery. 2. Left upper lobe lesion measuring 2.3 x 4.1 x 1.7 cm. PLAN: The surgical specimen is being further analyzed with various immunohistochemical stains. We will obtain a urine for cytology. Previous scanning does not show any type of renal or urinary t ract abnormality. I still feel that the most likely source for his metastatic carcinoma is the left upper lobe lesion. Dictated By: JENNIFFER PEREZ MD, SR/NTS Conf#: [id number] DID#: [id number]
--- NOTE | 2016-12-19 20:00 | RADRPT ---
Vent Rate: 105 bpm RR Interval: 0 msec PA Interval: 0 msec QRS Duration: 78 msec QT Interval: 320 msec QTC Interval: 422 msec P-R-T [place]: 0 - 75 - 0 degrees Atrial fibrillation with rapid ventricular response Nonspecific T wave abnormality , probably digitalis effect Abnormal ECG Electronically Signed By: Carlos Ruano [id number]
--- NOTE | 2016-12-19 20:05 | PN ---
DATE: 12/19/2016 SUBJECTIVE: The patient is awake but still confused. OBJECTIVE: VITAL SIGNS: Temperature 98.3, pulse 69, respiration rate 18, blood pressure 92 /51. Pulse oximetry shows 98% to 100% on 2 L nasal cannula. Of note is that patient's heart rate has been fluctuating from between 64 up to 95 today. HEENT: Pupils equally round, reactive to light. Oropharynx clear. LUNGS: Clear to auscultation. CARDIAC: Irregularly irregular. ABDOMEN: Active bowel sounds. Soft, nondistended, nontender. EXTREMITIES: No clubbing, cyanosis or edema. EKG shows atrial fibrillation with rapid ventricular response. Pathology report shows solid nascent clusters of tumor cells containing pale round oval or irregular pale nuclei with a fine chromatin pattern and prominent nucleoli and clear to pale eosinophilic cytoplasm with distinct border. Mucicarmine with an appropriate control shows rare mucin secretion by tumor cells. ASSESSMENT AND PLAN: 1. 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 Agree with Dr. Sharma's plan to check a urine for cytology and await further immunohistochemical stains to clarify the primary origin of the tumor. 2. Atrial fibrillation. The patient does have history of atrial fibrillation under stress. He is better rate controlled on Cardizem, but his blood pressure is on the low side. I will switch his medication to short-acting Cardizem and request cardiology consultation. 3. Anemia, probably due to underlying metastatic disease. Continue to monitor. Dictated By: DESI MCLAIN MD DP/NTS Conf#: [id number] DID#: [id number]
[2016-12-19] MEDS: DILTIAZEM 60 MG TAB PO SCH (21:00)
[2016-12-19] MEDS: ATORVASTATIN 20 MG TAB PO SCH (21:07)
[2016-12-19] MEDS: D5-NS + KCL 20 MEQ 1,000 ML IV SCH (21:10)
[2016-12-20] VITALS (12 sets, daily range): BP systolic 91–111; BP diastolic 52–62; PULSE 70–135; RESP 18–20
[2016-12-20] MEDS: D5-NS + KCL 20 MEQ 1,000 ML IV SCH (07:42)
[2016-12-20] MEDS: PANTOPRAZOLE (EC) 40 MG TAB PO SCH (07:44)
[2016-12-20 08:08] LABS: ADD SCAN DIFF NO
[2016-12-20 08:10] LABS: ABNORMAL IP MESSAGE 1; BASOPHILS % 0.2 % (0.0-2.0); EOSINOPHILS # 0.1 10^3/ul (0.0-0.5); EOSINOPHILS % 0.8 % (0.0-7.0); HEMATOCRIT 29.5 % (42.0-52.0); HEMOGLOBIN 9.5 g/dl (14.0-18.0); LYMPHOCYTES # 0.6 10^3/ul (0.8-2.9); LYMPHOCYTES % 6.3 % (15.0-51.0); MEAN CORPUSCULAR HEMOGLOBIN 30.4 pg (29.0-33.0); MEAN CORPUSCULAR HGB CONC 32.2 g/dl (32.0-37.0); MEAN CORPUSCULAR VOLUME 94.6 fl (82.0-101.0); MEAN PLATELET VOLUME 9.2 fl (7.4-10.4); MONOCYTE # 0.6 10^3/ul (0.3-0.9); MONOCYTES % 6.8 % (0.0-11.0); NEUTROPHIL # 7.7 10^3/ul (1.6-7.5); NEUTROPHILS % 85.2 % (39.0-77.0); PLATELET COUNT 255 10^3/UL (140-415); RED BLOOD COUNT 3.12 10^6/ul (4.70-6.10); RED CELL DISTRIBUTION WIDTH 13.5 % (11.5-14.5); WHITE BLOOD COUNT 9.1 10^3/ul (4.8-10.8)
[2016-12-20 08:57] LABS: CALCIUM 8.9 mg/dl (8.4-10.2); CREATININE 0.91 mg/dl (0.61-1.24); POTASSIUM 3.7 mmol/L (3.5-5.1)
[2016-12-20] MEDS: ALLOPURINOL 300 MG TAB PO SCH (09:28)
[2016-12-20] MEDS: DILTIAZEM 60 MG TAB PO SCH ×3 (09:30→21:36)
[2016-12-20] MEDS: clonAZEPAM 0.5 MG TAB PO SCH ×2 (09:31→21:36)
[2016-12-20] MEDS: NITROGLYCERIN 6.5 MG PO SCH ×2 (09:32→21:35)
--- NOTE | 2016-12-20 13:07 | PN ---
Date/Time of Note Date/Time of Note DATE: 12/20/16 TIME: 13:04 Assessment/Plan VTE Prophylaxis VTE Prophylaxis Intervention: other (per primary) Lines/Catheters IV Catheter Type (from Nrsg): Peripheral IV Urinary Cath still in place: Yes Reason Cath still needed: other (indicate) (confusion and weakness) Assessment/Plan Assessment/Plan Awaiting path, which is being sent out for second opinion. Probable carcinoma, but urothelial origin seems less likely clinically than lung as a source. Pt may go to SNF while path is pending. If so, f/u with Dr. Sharma as an outpatient can be arranged. Subjective 24 Hr Interval Summary Free Text/Dictation Pt is alert but still seems confused about what is going on. No pain or dyspnea. Exam/Review of Systems Vital Signs Vitals Vital Signs Date Time Temp Pulse Resp B/P Pulse Ox O2 Delivery O2 Flow Rate FiO2 12/20/16 12:10 112 12/20/16 11:07 98.3 18 91/52 100 12/20/16 08:05 Nasal Cannula 2.0 Intake and Output 12/19/16 12/19/16 12/20/16 15:00 23:00 07:00 Intake Total 800 ml 800 ml Output Total 400 ml Balance 400 ml 800 ml Exam Constitutional: alert Psych: no complaints Head: normocephalic Neck: supple Respiratory: clear to auscultation Cardiovascular: regular rate and rhythm Gastrointestinal: non-tender, soft Results Result Diagram: 12/20/16 0750 12/20/16 0750 Results 24 hrs Laboratory Tests Test 12/20/16 07:50 White Blood Count 9.1 Red Blood Count 3.12 L Hemoglobin 9.5 L Hematocrit 29.5 L Mean Corpuscular Volume 94.6 Mean Corpuscular Hemoglobin 30.4 Mean Corpuscular Hemoglobin Concent 32.2 Red Cell Distribution Width 13.5 Platelet Count 255 Mean Platelet Volume 9.2 Neutrophils % 85.2 H Lymphocytes % 6.3 L Monocytes % 6.8 Eosinophils % 0.8 Basophils % 0.2 Nucleated Red Blood Cells % 0.0 Neutrophils # 7.7 H Lymphocytes # 0.6 L Monocytes # 0.6 Eosinophils # 0.1 Basophils # 0.0 Nucleated Red Blood Cells # 0.0 Sodium Level 138 Potassium Level 3.7 Chloride Level 109 Carbon Dioxide Level 27 Anion Gap 6 L Blood Urea Nitrogen 28 H Creatinine 0.91 Glucose Level 125 Calcium Level 8.9 Prealbumin 9.1 L Medications Medications Current Medications Atorvastatin Calcium (Lipitor) 20 mg HS PO Last administered on 12/19/16 21:07 ; Admin Dose 20 MG; Start 12/07/16 at 21:00 Nitroglycerin (Nitroglycerin (Sr)) 6.5 mg BID PO Last administered on 12/20/16 09:32; Admin Dose 6.5 MG; Start 12/07/16 at 21:00 Pantoprazole (Protonix Tab) 40 mg DAILY@06 PO Last administered on 12/20/16 07: 44; Admin Dose 40 MG; Start 12/08/16 at 06:00 Haloperidol (Haldol) 3 mg Q4 PRN PO AGITATION; Start 12/09/16 at 01:30 Haloperidol (Haldol) 3 mg Q4 PRN IM AGITATION Last administered on 12/16/16 04 :36; Admin Dose 3 MG; Start 12/09/16 at 01:30 Clonidine (Catapres) 0.1 mg Q6H PRN PO sbp >160; Start 12/12/16 at 18:00 Allopurinol (Zyloprim) 300 mg AM PO Last administered on 12/20/16 09:28; Admin Dose 300 MG; Start 12/15/16 at 09:00 Clonazepam (Klonopin) 0.5 mg Q12 PO Last administered on 12/20/16 09:31; Admin Dose 0.5 MG; Start 12/19/16 at 21:00 Diltiazem HCl 30 mg 30 mg TID PO Last administered on 12/20/16 09:30; Admin Dose 30 MG; Start 12/19/16 at 21:00 Potassium Chloride/Dextrose/ Sod Cl (D5-NS + KCl 20 Meq) 1,000 ml @ 100 mls/hr Q10H IV Last administered on 12/19/16 21:10; Admin Dose 100 MLS/HR; Start at 19:00 CASA ANAND MD December 20, 2016 13:07
--- NOTE | 2016-12-20 16:43 | PN ---
DATE: 12/15/2016 SUBJECTIVE: The patient is postop day 2 now. He is in the intensive care unit. He is awake, alert . The patient has been intermittently confused. He does know his first and last name, but appears to be confused as to where he is. He is overall very comfortable. He is not complaining of signifi cant incisional pain. He is able to move his upper and lower extremities with at least 5-/5 strengt h proximally and distally. The patient's thoracic incision is clean, dry and intact. The patient's Hemovac drains have been putting out less than 50 mL overnight. The patient has not been eating ye t. He has had a postop MRI of the thoracic spine that shows good debulking of the T4 extradural ayaka or. The patient's spinal cord is freed. There is significant artifact from the posterior hardware, but there is no significant residual tumor in the epidural space causing compression of the spinal cord. There is some artifact from the structural allograft that was put in from T3 to T5 as well. ASSESSMENT AND PLAN: The patient is postop day 2. Overall, he seems to be doing well. I have mike yesenia the patient's 2 Hemovac drains. The patient now can be transferred from the intensive care unit to telemetry from a neurosurgery perspective. His central line can also be removed from a neurosur tyson perspective. The patient glo are to be removed on postop day 14. At this point, the patie nt will need aggressive physical therapy to get him back on his feet and ambulate. 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 The patient is to have th e [place] collar when up and ambulating as a precaution. He is also to wear the TLSO brace when up an d ambulating. I would like the patient to follow up with me in clinic in 2 to 3 weeks for further f ollowup. Most likely the patient will benefit from a nursing home facility/acute rehab facility given the fact that he lives by himself and will benefit from aggressive physical therapy. The sinan ent's pathology at this point is pending. The patient is being followed by Dr. Sharma, the oncolog ist. Dictated By: RAHEL COELHO MD, SA/MARTINA Conf#: [id number] DID#: [id number]
--- NOTE | 2016-12-20 18:04 | OPR ---
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 PROCEDURE PERFORMED: 1. T3 to T5 decompressive laminectomy. 2. T3 to T4 left complete and right partial facetectomy and T4 to T5 bilateral partial facetectomie s and foraminotomies. 3. Left lateral extracavitary approach for T4 partial corpectomy for resection of extradural tumor. 4. Placement of intervertebral structural allograft from T3 to T5. 5. T3 to T5 posterior interbody arthrodesis. 6. T2 to T6 posterior instrumentation (combination of Orthofix pedicle screw and pedicle and transv erse process hooks. 7. T2 to T6 posterior arthrodesis. 8. Morcellized allograft, demineralized bone matrix and cancellous bone chips. 9. Intraoperative fluoroscopy with professional interpretation. 10. Intraoperative neurophysiologic monitoring including SSEP, MEP, and EMG testing. OPERATING SURGEON: Mark Coelho MD INDICATION FOR PROCEDURE: Please look at the inpatient consultation note and progress notes for a f ull set of indications. DESCRIPTION OF OPERATIVE PROCEDURE: The patient was brought to the operating room. After general a nesthesia was obtained, the patient was placed prone with his [place] collar still in place on top of 2 chest rolls. His neck was kept in a neutral position and the [place] collar was removed. His arms were then tucked by his side. All pressure points were noted and padded appropriately. Then, a mid line upper thoracic incision was marked. After the skin was prepped and draped under standard steri le fashion, the skin was then incised down to the level of the fascia. Subperiosteal dissection was carried down the spinous processes and lamina from T2 to T6. Lamina and transverse process defect at left T6 level as was shown on the patient's MRI was noted. This level was then confirmed with AP fluoroscopy. Then, a decompressive T3 to T5 laminectomy was done. The ligamentum flavum was remov ed. The dura and the spinal cord that was under pressure was completely decompressed. We then perf ormed complete left T3 to T4 facetectomy and partial right T3 to T4 facetectomy as well as partial b ilateral T4 to T5 facetectomies. The left T4 to T5 facet complex was heavily infiltrated and destro yed by the extradural mass. The left T4 transverse processes was also heavily infiltrated by the ma ss. The extradural tumor was also noted that was putting pressure on the patient's spinal cord from the left lateral gutter more than the right, as well as severe pressure ventrally. Extra lateral c avitary approach was used in order to reach the ventral epidural space and the T4 vertebral body. T he T4 vertebral body was also almost fully destroyed by the tumor and was heavily infiltrated. The exiting left T4 nerve root was also heavily infiltrated by the tumor. Multiple pieces of tumor were sent off the table as 2 specimens, with specimen #1 including the extradural tumor and specimen 2 i ncluding the left T4 transverse process. Both frozen section pathology as well as permanent patholo gy specimen were sent. The frozen pathology showed probable metastatic cancer. In order to further and fully decompress the ventral epidural space, the exiting left T4 nerve root was then ligated pr oximally and distally with multiple sutures and cut. We then performed partial T4 corpectomy. All the tumor that was in the ventral epidural space was then completely removed and decompressed. Down Pushing curettes were used to further make sure that the ventral epidural space was completely deco mpressed. Part of the T3 vertebral body was also infiltrated and the ventral epidural space by T3 a elis was also infiltrated. This was all decompressed. The wound was copiously irrigated with antibi otic solution. Since a significant part of the T4 vertebral body was infiltrated by tumor and destroyed and we had to do partial corpectomy, we then decided to use tricortical structural allograft. The bone was the n cut to the appropriate size. It was then inserted laterally without retracting the spinal cord. It was then inserted and countersunk with Down Pushing curettes against the T3 and T5 endplates and appeared to be snug in place. Complete hemostasis was obtained. Pieces of some demineralized bone matrix allograft putty was also placed filling in the defects around the allograft that was placed a nd in the corpectomy defect for further interbody arthrodesis. Given the fact that the patient's nat ny elements were extremely soft probably related to his age and secondary related to further infiltr ation by tumor of the rest of the patient's thoracic spine, we decided to use hooks. The Orthofix t horacic pedicle hooks were able to be inserted inferiorly at T5 and T6 levels between the facet comp lexes and snug in place. We then tried to insert left-sided transverse process hooks at the left T2 and T3 levels. They were inserted, but as we contoured the titanium pablo in place and as we inserti ng the set screws just by the very process of mild reduction, the transverse processes broke. We th en tried to cannulate the pedicles at left T2 and T3 and 5 mm diameter pedicle screws were inserted at the 2 levels. After each of the pedicles were probed and no violation of the pedicles was noted and both of the holes were sounded, again as we tried to insert the rods, given the fact that the pa tient's bone was very soft, the left T3 pedicle screw would not hold and it came out. Therefore, we decided to just use the left T2 pedicle screw that seemed to be fairly robust in place. The pablo wa s inserted and the set screws were inserted and tightened, but not tightened with the counter torque screwdriver. On the right side, we were able to insert right T2 and T3 transverse process hooks w ith the transverse process reduction hooks. The pablo was also contoured appropriately at this level and we were able to insert all the set screws. All the set screws were then tightened with the torq ue wrench and counter torque wrench device. Both rods appeared to be robust in place and achieved a s best of a robust construct as possible. The reduction hooks were able to be broken off at the rig ht T2 and T3 level laterally, but medially because there were pressed against the spinous processes they could not be removed. In order to prevent further agitation of the transverse process hooks an d possible breakage of these hooks, we decided to leave the medial part of the reduction screws in p lace as they were sitting just by the transverse processes of T2 and T3 without protruding above the patient's spinous processes. The wound was copiously irrigated with antibiotic solution. Complete hemostasis was obtained. Then, the posterior bony elements including the facet complexes from T2 to T6 were completely decort icated. A combination of demineralized bone matrix putty, morcellized allograft and cancellous bone chips were placed over the posterior bony elements for posterior arthrodesis. Final AP and lateral x-ray showed good positioning of the hardware. The patient's autologous bone could not be used giv en the fact that the patient's bone was infiltrated by tumor. Two medium Hemovac drains were placed in the epidural space and brought out the skin away from the i ncision site. The muscle and fascial layers were then reapproximated with interrupted sutures. The dermal layer was reapproximated with interrupted sutures and the skin was reapproximated with stapl es. The Hemovac drains were secured at their exit sites with a suture and connected to Hemovac bags and activated. A sterile dressing was placed on top of the incision site. All neurophysiologic mo nitoring signals including SSEP, MEP, and EMG signals were stable throughout the procedure. The pat ient was then placed supine on the hospital bed. He was then woken up, extubated, and transported t o the intensive care unit in stable condition. ESTIMATED BLOOD LOSS: 400 mL. BLOOD PRODUCTS ADMINISTERED: Packed RBC x2. PATIENT'S CONDITION: Stable. PROGNOSIS: Good. WOUND CLASSIFICATION: Clean. PACKS AND DRAINS: Hemovac drain x2. ANESTHESIA: General. Dictated By: MARK COELHO MD, SA/MARTINA Conf#: [id number] DID#: [id number]
[2016-12-20] MEDS: ATORVASTATIN 20 MG TAB PO SCH (21:35)
--- NOTE | 2016-12-20 23:11 | PN ---
DATE: 12/20/2016 SUBJECTIVE: The patient is awake, alert, oriented to name, but appears confused , and was having difficulty feeding himself. OBJECTIVE VITAL SIGNS: Temperature 98.5, blood pressure 92/56, pulse of 83-135, respiratory rate 18, O2 saturation 100%. HEENT: Pupils equally round, reactive to light. Oropharynx: Clear. LUNGS: Clear to auscultation. CARDIAC: Irregularly irregular. ABDOMEN: Active bowel sounds, soft, nondistended, nontender. EXTREMITIES: No clubbing, cyanosis, or edema. LABORATORY DATA: WBC 9.1, hemoglobin 9.5, hematocrit 29.5, platelet count is 255,000. Sodium 138, potassium 3.7, chloride 109, carbon dioxide 27, BUN 28, creatinine 0.9, glucose 125. Prealbumin is 9.1. Pathology: immunohistochemical staining is suggestive of uroepithelial origin. Urine cytology is negative for malignant cells. ASSESSMENT AND PLAN: 1. 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 Await further pathology analysis. 2. Thoracic spine compression, status post debulking and doing well. The neck lesion can be managed with a neck brace when patient is out of bed. 3. Atrial fibrillation, not controlled on diltiazem, will consult Cardiology for further treatment plan. I do not think anticoagulation is indicated in this terminal metastatic cancer. DISPOSITION: Plan to discharge the patient to a halfway facility and for outpatient followup with Dr. Sharma once patient's cardiac status is stable. I would prefer that patient be placed at either [facility], [facility], or [facility]. Dictated By: DESI MCLAIN MD DP/MARTINA Conf#: [id number] DID#: [id number] COURTNEY
[2016-12-21] VITALS (18 sets, daily range): BP systolic 92–135; BP diastolic 49–78; PULSE 87–160; RESP 16–18
[2016-12-21] MEDS: PANTOPRAZOLE (EC) 40 MG TAB PO SCH (06:32)
[2016-12-21 07:08] LABS: CREATININE 0.96 mg/dl (0.61-1.24); POTASSIUM 3.7 mmol/L (3.5-5.1)
[2016-12-21] MEDS: NITROGLYCERIN 6.5 MG PO SCH ×2 (09:13→22:07)
[2016-12-21] MEDS: ALLOPURINOL 300 MG TAB PO SCH (09:13)
[2016-12-21] MEDS: DILTIAZEM 60 MG TAB PO SCH (09:13)
[2016-12-21] MEDS: clonAZEPAM 0.5 MG TAB PO SCH ×2 (09:15→22:07)
--- NOTE | 2016-12-21 11:11 | PN ---
Date/Time of Note Date/Time of Note DATE: 12/21/16 TIME: 11:09 Assessment/Plan VTE Prophylaxis VTE Prophylaxis Intervention: anti-embolic stocking Lines/Catheters IV Catheter Type (from Nrs): Peripheral IV Urinary Cath still in place: No Assessment/Plan Assessment/Plan Awaiting final path. It may not be back until next week. Continue recovery per surgeon. Subjective 24 Hr Interval Summary Free Text/Dictation no new issues Exam/Review of Systems Vital Signs Vitals Vital Signs Date Time Temp Pulse Resp B/P Pulse Ox O2 Delivery O2 Flow Rate FiO2 12/21/16 10:56 Nasal Cannula 2.0 12/21/16 10:00 98.5 94 18 98/54 94 Intake and Output 12/20/16 12/20/16 12/21/16 15:00 23:00 07:00 Intake Total 300 ml 700 ml Output Total 500 ml Balance -200 ml 700 ml Exam Constitutional: alert, other (slightly confused) Musculoskeletal: other (diffusely weak) Results Result Diagram: 12/20/16 0750 12/21/16 0545 Results 24 hrs Laboratory Tests Test 12/21/16 05:45 Sodium Level 138 Potassium Level 3.7 Chloride Level 106 Carbon Dioxide Level 28 Anion Gap 8 Blood Urea Nitrogen 26 H Creatinine 0.96 Glucose Level 109 Calcium Level 9.0 Medications Medications Current Medications Atorvastatin Calcium (Lipitor) 20 mg HS PO Last administered on 12/20/16 21:35 ; Admin Dose 20 MG; Start 12/07/16 at 21:00 Nitroglycerin (Nitroglycerin (Sr)) 6.5 mg BID PO Last administered on 12/21/16 09:13; Admin Dose 6.5 MG; Start 12/07/16 at 21:00 Pantoprazole (Protonix Tab) 40 mg DAILY@06 PO Last administered on 12/21/16 06: 32; Admin Dose 40 MG; Start 12/08/16 at 06:00 Haloperidol (Haldol) 3 mg Q4 PRN PO AGITATION Last administered on 12/21/16 03: 16; Admin Dose 3 MG; Start 12/09/16 at 01:30 Haloperidol (Haldol) 3 mg Q4 PRN IM AGITATION Last administered on 12/16/16 04 :36; Admin Dose 3 MG; Start 12/09/16 at 01:30 Clonidine (Catapres) 0.1 mg Q6H PRN PO sbp >160; Start 12/12/16 at 18:00 Allopurinol (Zyloprim) 300 mg AM PO Last administered on 12/21/16 09:13; Admin Dose 300 MG; Start 12/15/16 at 09:00 Clonazepam (Klonopin) 0.5 mg Q12 PO Last administered on 12/21/16 09:15; Admin Dose 0.5 MG; Start 12/19/16 at 21:00 Diltiazem HCl (Cardizem) 30 mg TID PO Last administered on 12/21/16 09:13; Admin Dose 30 MG; Start 12/19/16 at 21:00 CASA ANAND MD December 21, 2016 11:11
[2016-12-21] MEDS ORDERED: DILTIAZEM 30 MG TAB PO ONE (15:30)
--- NOTE | 2016-12-21 16:13 | DS ---
DATE OF ADMISSION: 12/07/2016 DATE OF DISCHARGE: 12/21/2016 DISCHARGE DIAGNOSES: 1. 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 2. Thoracic spine compression, status post debulking surgery. 3. Atrial fibrillation 4. Malnutrition. 5. Hypertension. 6. Hospital psychosis. 7. Gastroesophageal reflux disease. 8. Weakness / deconditioning. 9. Anxiety. 10. Remote history of seizure. 11. Chronic anemia. 12. Stage I chronic kidney disease. 13. Prediabetes. 14. Remote history of prostate cancer. 15. Precancerous lesions of the skin. 16. History of gout. HOSPITAL COURSE: This 86-year-old male was admitted for neck discomfort after a series of minor falls at home over the previous 4 weeks. X- rays in the emergency room showed a pathological fracture of the C2 vertebra at the odontoid process, but the subsequent chest, abdominal, pelvic CT showed multiple lesions in the vertebral bodies of the thoracic spine, lumbar spine, pelvis and hip. The followup MRI of the thoracic spine, cervical spine and lumbar spine showed diffuse metastatic disease with a retropulsion of pathological T4 vertebral body compression fracture with soft tissue neoplastic extension suspected anterior to epidural space and cord compression. Neurosurgical consultation was obtained and Dr. Mark Gannon recommended urgent surgery of the T4 thoracic spine lesion, which the patient underwent on 2016 after being cleared from medical and cardiac point of view by Dr. Hernández and Dr. Mclain. The patient was also seen by oncologist, Dr. Brayan Sharma and Dr. Darren Devi before and after the surgery. Preoperative complications included an episode of severe confusion and psychosis following administration of Decadron steroid for the cord compression. The patient cleared up immediately with Haldol usage. Postoperatively, the patient was noted to have decreasing blood pressure into the 90s systolic, but when we held his blood pressure medicine Cardizem, he went into atrial fibrillation with rapid ventricular response. Since patient has a history of paroxysmal AFib and the preoperative echocardiogram showed no serious cardiac pathology, we started the patient back on a lower dosage of Cardizem which served to control the rate better, but he was still in atrial fibrillation at the time of discharge. I did talk to patient's application development specialist, Dr. Patterson, who agreed that nothing more needs to be done except for rate control and that aggressive anticoagulation is not indicated in this patient who has a history of falling and is at risk of neck fracture if he falls. He did recommend that we place the patient on low dose aspirin 81 mg a day. As far as patient's neck lesion is concerned, neurosurgeon, Dr. Gannon, does not see this as a serious life-threatening lesion at this time unless the patient falls, then he is at higher risk of fracture of the neck than usual. Therefore , we will recommend the patient continues to wear a neck brace whenever he is out of bed and walking around. The pathology report following the surgery is suggestive of a uroepithelial origin, but a urine cytology did not show any cancer cells and the previous CT scan did show a left upper lobe lung nodule. Further immunohistochemical staining will need to be done to clarify the primary source of cancer. In the meantime, the patient is agreeable to be transferred to [facility] facility for further physical therapy due to his deconditioning from prolonged hospitalization. DISPOSITION: The patient is discharged to [facility] facility in fair condition. FOLLOWUP: The patient will be seen at the halfway by Dr. Ruth Mclain. He will need to be scheduled for outpatient appointment with Dr. Brayan Sharma within a week or two, to follow up on the pathology report and for further treatment plan of his metastatic disease upon returning to home. I had talked to the patient's niece, Tayler Heller, and they are aware of the patient's diagnosis and prognosis as well as treatment plan. Dictated By: RUTH MCLAIN MD DP/MARTINA Conf#: [id number] DID#: [id number] MTDD
[2016-12-21] MEDS: ATORVASTATIN 20 MG TAB PO SCH (22:08)
[2016-12-21] MEDS: DILTIAZEM (CD) 120 MG CAP PO SCH (22:08)
[2016-12-21] MEDS: PROMETHAZINE/CODEINE 5ML CUP PO PRN (22:37)
[2016-12-22] VITALS (11 sets, daily range): BP systolic 109–136; BP diastolic 60–96; PULSE 90–110; RESP 17–19
[2016-12-22] MEDS: PROMETHAZINE/CODEINE 5ML CUP PO PRN ×3 (02:55→21:59)
[2016-12-22] MEDS: PANTOPRAZOLE (EC) 40 MG TAB PO SCH (06:07)
[2016-12-22] MEDS: ALLOPURINOL 300 MG TAB PO SCH (09:15)
[2016-12-22] MEDS: DILTIAZEM (CD) 120 MG CAP PO SCH ×2 (09:16→21:57)
[2016-12-22] MEDS: clonAZEPAM 0.5 MG TAB PO SCH ×2 (09:16→21:57)
[2016-12-22] MEDS: NITROGLYCERIN 6.5 MG PO SCH ×2 (09:16→21:56)
--- NOTE | 2016-12-22 09:18 | RADRPT ---
PROCEDURE: XR Chest 1 View. CLINICAL INDICATION: Cough TECHNIQUE: AP view of the chest was obtained. COMPARISON: December 17, 2016 FINDINGS: The heart size is within normal limits. Calcified atherosclerosis is noted in the aorta. Diffuse mi ld interstitial prominence in both lungs is unchanged. Atelectasis is identified at the left lung b ase. No consolidations are identified. No pneumothorax is seen. Spinal rods are unchanged. Skin s taples in the midline over the upper chest are stable. Right neck central line has been removed. IMPRESSION: Calcified atherosclerosis in the aorta. Stable mild interstitial prominence in both lungs. Interstitial prominence may be chronic. Atelectasis at the lung bases. RPTAT: AA .Santiago Dolan MD, Date Time Electronically viewed and signed by .Santiago Dolan MD, MD on 12/22/2016 09:18 .P/
--- NOTE | 2016-12-22 09:26 | CONS ---
Date/Time of Note Date/Time of Note DATE: 12/22/16 TIME: 09:11 Assessment/Plan Assessment/Plan Chief Complaint/Hosp Course ASSESSMENT: 1. 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 2. Paroxysmal atrial fibrillation- non valvular, previous hx in 2013. given metastatic CA would cont on asa alone for stroke prophy. will need titration of meds for improved rate control 3. History of coronary artery disease distant distal right coronary artery stent drug-eluting in 2009 with patent stent 2 months later in June 2010. 4. Hypertension. 5. Hyperlipidemia. On statin 6. Gastroesophageal reflux disease. 7. Type 2 diabetes. 8. Gout. 9. History of prostate cancer with prostatectomy negative PSA this admission. PLAN: - start asa 81mg daily when safe post op - can increase dilt cd to 240mg q am 120mg q pm, titrate as needed to keep hr < 100s @ rest - cont statin given cad hx for now Problems: Consultation Date/Type/Reason Admit Date/Time Dec 07, 2016 at 12:13 Initial Consult Date 12/09/2016 Type of Consultation: Cardiology Referring Provider: AMANDA PRATER MD 24 HR Interval Summary Free Text/Dictation pt doing well, post op now on floor plan for discharge to rehab. pt has gone into afib rhythm, asymptomatic. rates 100s-120s. no cp/sob/palpations, dizziness , fainting. tele reviewed as above Detailed Summary ENT: no complaints Respiratory: no complaints Cardiovascular: no complaints Gastrointestinal: no complaints Exam/Review of Systems Vital Signs Vitals Vital Signs Date Time Temp Pulse Resp B/P Pulse Ox O2 Delivery O2 Flow Rate FiO2 12/22/16 08:14 90 12/22/16 07:11 98.0 18 118/63 99 12/22/16 05:48 2.0 12/21/16 21:04 Nasal Cannula Intake and Output 12/21/16 12/21/16 12/22/16 15:00 23:00 07:00 Intake Total 600 ml 500 ml Balance 600 ml 500 ml Exam Constitutional: alert, oriented, other (elderly) Psych: nl mood/affect, no complaints Eyes: EOMI, nl lids ENMT: nl nasal mucosa & septum Neck: other (neck brace in place), No jvd Respiratory: clear to auscultation, normal air movement Cardiovascular: irregularly irregualr, nl s1s2, systolic murmur, No S3, No S4, No edema, No jugular venous distention (JVD) Gastrointestinal: non-tender, soft Musculoskeletal: nl extremities to inspection Extremities: normal pulses Results Result Diagram: 12/20/16 0750 12/21/16 0545 Medications Medications Current Medications Atorvastatin Calcium (Lipitor) 20 mg HS PO Last administered on 12/21/16 22:08 ; Admin Dose 20 MG; Start 12/07/16 at 21:00 Nitroglycerin (Nitroglycerin (Sr)) 6.5 mg BID PO Last administered on 12/21/16 22:07; Admin Dose 6.5 MG; Start 12/07/16 at 21:00 Pantoprazole (Protonix Tab) 40 mg DAILY@06 PO Last administered on 12/22/16 06: 07; Admin Dose 40 MG; Start 12/08/16 at 06:00 Clonidine (Catapres) 0.1 mg Q6H PRN PO sbp >160; Start 12/12/16 at 18:00 Allopurinol (Zyloprim) 300 mg AM PO Last administered on 12/21/16 09:13; Admin Dose 300 MG; Start 12/15/16 at 09:00 Clonazepam (Klonopin) 0.5 mg Q12 PO Last administered on 12/21/16 22:07; Admin Dose 0.5 MG; Start 12/19/16 at 21:00 Diltiazem HCl (Cardizem Cd) 120 mg BID PO Last administered on 12/21/16 22:08; Admin Dose 120 MG; Start 12/21/16 at 21:00 Promethazine HCl/ Codeine (Phenergan/ Codeine) 5 ml Q4H PRN PO COUGH Last administered on 12/22/16 02:55; Admin Dose 5 ML; Start 12/21/16 at 22:30 Procedures Procedures cxr reviewed from 12/17, no acute pulm process DONA LÓPEZ December 22, 2016 09:23
[2016-12-22] MEDS: DILTIAZEM (CD) 240 MG CAP PO SCH (09:30)
--- NOTE | 2016-12-22 10:47 | PN ---
DATE: 12/22/2016 SUBJECTIVE: The patient without complaints. OBJECTIVE: VITAL SIGNS: Temperature 98.0, pulse 64 to 90, respirations 18, blood pressure 118/63, oxygen satur ation 99% on 2 liter nasal cannula oxygen. GENERAL: Well-developed, thin male in no acute distress, lying in bed. CHEST: Increased adventitious sounds. Otherwise clear. No dullness to percussion test. HEART: Regular. No murmurs, rubs, gallops. ABDOMEN: Soft, nontender. NEUROLOGIC: Patient is lethargic but easily arousable, otherwise nonfocal. IMPRESSION: 1. Metastatic cancer with multiple bony mets. The patient remains stable, status post thoracic dec ompression and is awaiting transfer to detention facility for further rehabilitation and care. 2. Atrial fibrillation, hypertension, remains stable on medications. Continue this and aspirin for anticoagulation due to high risk with other medications. Dictated By: BRITTANI MIX MD, SR/NTS Conf#: [id number] DID#: [id number]
--- NOTE | 2016-12-22 16:58 | PN ---
Date/Time of Note Date/Time of Note DATE: 12/22/16 TIME: 16:54 Assessment/Plan VTE Prophylaxis VTE Prophylaxis Intervention: anti-embolic stocking, SCD's Lines/Catheters [facility] ([facility] Peripheral IV Urinary Cath still in place: No Assessment/Plan Assessment/Plan Patient is an 86 year old man with noted odontoid fracture s/p surgery with pathology initially noted to be urothelial in etiology >Bone metastasis Pathology on immunohistochemistry points to possible urothelial origin. Currently plans are for continue rehabilitation with consideration of treatment depending upon second opinion of pathology as well as patient clinical condition >S/p thoracic decompression Continue physical therapy and supportive care >Atrial fibrillation Stable Continue rate control with calcium channel blockade Subjective 24 Hr Interval Summary Free Text/Dictation Patient awake alert and responsive No events noted overnight. Exam/Review of Systems Vital Signs Vitals Vital Signs Date Time Temp Pulse Resp B/P Pulse Ox O2 Delivery O2 Flow Rate FiO2 12/22/16 16:14 91 12/22/16 15:31 98.3 19 116/63 96 12/22/16 08:25 Nasal Cannula 2.0 Intake and Output 12/21/16 12/21/16 12/22/16 15:00 23:00 07:00 Intake Total 600 ml 500 ml Balance 600 ml 500 ml Exam Constitutional: alert, oriented, well developed Psych: nl mood/affect, no complaints Head: atraumatic, normocephalic Eyes: EOMI, nl sclera Neck: non-tender, supple Respiratory: clear to auscultation, normal air movement Cardiovascular: nl pulses, regular rate and rhythm Gastrointestinal: ascites, non-tender, soft Musculoskeletal: joint tenderness, nl extremities to inspection, nl gait and stance Extremities: normal pulses Results Result Diagram: 12/20/16 0750 12/21/16 0545 Medications Medications Current Medications Atorvastatin Calcium (Lipitor) 20 mg HS PO Last administered on 12/21/16 22:08 ; Admin Dose 20 MG; Start 12/07/16 at 21:00 Nitroglycerin (Nitroglycerin (Sr)) 6.5 mg BID PO Last administered on 12/22/16 09:16; Admin Dose 6.5 MG; Start 12/07/16 at 21:00 Pantoprazole (Protonix Tab) 40 mg DAILY@06 PO Last administered on 12/22/16 06: 07; Admin Dose 40 MG; Start 12/08/16 at 06:00 Clonidine (Catapres) 0.1 mg Q6H PRN PO sbp >160; Start 12/12/16 at 18:00 Allopurinol (Zyloprim) 300 mg AM PO Last administered on 12/22/16 09:15; Admin Dose 300 MG; Start 12/15/16 at 09:00 Clonazepam (Klonopin) 0.5 mg Q12 PO Last administered on 12/22/16 09:16; Admin Dose 0.5 MG; Start 12/19/16 at 21:00 Promethazine HCl/ Codeine (Phenergan/ Codeine) 5 ml Q4H PRN PO COUGH Last administered on 12/22/16 12:43; Admin Dose 5 ML; Start 12/21/16 at 22:30 Diltiazem HCl (Cardizem Cd) 120 mg QPM PO ; Start 12/22/16 at 21:00 Diltiazem HCl (Cardizem Cd) 240 mg QAM PO ; Start 12/22/16 at 09:30 KELSEA BRENNAN MD December 22, 2016 16:57
[2016-12-22] MEDS: ATORVASTATIN 20 MG TAB PO SCH (21:56)
[2016-12-23] VITALS (13 sets, daily range): BP systolic 110–132; BP diastolic 56–86; PULSE 70–134; RESP 16–20
[2016-12-23] MEDS: PANTOPRAZOLE (EC) 40 MG TAB PO SCH (06:23)
[2016-12-23] MEDS: NITROGLYCERIN 6.5 MG PO SCH ×2 (09:03→21:00)
[2016-12-23] MEDS: DILTIAZEM (CD) 240 MG CAP PO SCH (09:03)
[2016-12-23] MEDS: clonAZEPAM 0.5 MG TAB PO SCH ×2 (09:03→21:47)
[2016-12-23] MEDS: ALLOPURINOL 300 MG TAB PO SCH (09:03)
[2016-12-23] MEDS: ACETAMINOPHEN 325 MG TAB PO PRN (14:29)
[2016-12-23] MEDS: PROMETHAZINE/CODEINE 5ML CUP PO PRN (14:29)
--- NOTE | 2016-12-23 16:15 | PN ---
Date/Time of Note Date/Time of Note DATE: 12/23/16 TIME: 16:13 Assessment/Plan VTE Prophylaxis VTE Prophylaxis Intervention: SCD's Lines/Catheters [facility] Type (from [facility]): Peripheral IV Urinary Cath still in place: No Assessment/Plan Assessment/Plan Patient is an 86 year old man with noted odontoid fracture s/p surgery with pathology initially noted to be urothelial in etiology >Bone metastasis Pathology on immunohistochemistry points to possible urothelial origin. Currently plans are for continue rehabilitation with consideration of treatment depending upon second opinion of pathology as well as upon patient clinical condition >S/p thoracic decompression Continue physical therapy and supportive care >Atrial fibrillation Stable Continue rate control with calcium channel blockade Subjective 24 Hr Interval Summary Free Text/Dictation Patient lethargic, somnolent, but arousable to verbal stimulus. No events noted overnight Exam/Review of Systems Vital Signs Vitals Vital Signs Date Time Temp Pulse Resp B/P Pulse Ox O2 Delivery O2 Flow Rate FiO2 12/23/16 16:07 79 12/23/16 15:58 98.6 20 121/59 91 12/23/16 08:15 Nasal Cannula 2.0 Intake and Output 12/22/16 12/22/16 12/23/16 15:00 23:00 07:00 Intake Total 800 ml 700 ml 400 ml Output Total 600 ml 450 ml Balance 800 ml 100 ml -50 ml Exam Constitutional: other (somnolent), well developed Head: atraumatic, normocephalic Eyes: nl conjunctiva, nl sclera Neck: non-tender, supple Respiratory: clear to auscultation, normal air movement Cardiovascular: irregular rhythm, nl pulses Gastrointestinal: non-tender, soft Musculoskeletal: nl extremities to inspection Extremities: normal pulses Results Result Diagram: 12/20/16 0750 12/21/16 0545 Medications Medications Current Medications Atorvastatin Calcium (Lipitor) 20 mg HS PO Last administered on 12/22/16 21:56 ; Admin Dose 20 MG; Start 12/07/16 at 21:00 Nitroglycerin (Nitroglycerin (Sr)) 6.5 mg BID PO Last administered on 12/23/16 09:03; Admin Dose 6.5 MG; Start 12/07/16 at 21:00 Pantoprazole (Protonix Tab) 40 mg DAILY@06 PO Last administered on 12/23/16 06: 23; Admin Dose 40 MG; Start 12/08/16 at 06:00 Clonidine (Catapres) 0.1 mg Q6H PRN PO sbp >160; Start 12/12/16 at 18:00 Allopurinol (Zyloprim) 300 mg AM PO Last administered on 12/23/16 09:03; Admin Dose 300 MG; Start 12/15/16 at 09:00 Clonazepam (Klonopin) 0.5 mg Q12 PO Last administered on 12/23/16 09:03; Admin Dose 0.5 MG; Start 12/19/16 at 21:00 Promethazine HCl/ Codeine (Phenergan/ Codeine) 5 ml Q4H PRN PO COUGH Last administered on 12/23/16 14:29; Admin Dose 5 ML; Start 12/21/16 at 22:30 Diltiazem HCl (Cardizem Cd) 120 mg QPM PO Last administered on 12/22/16 21:57; Admin Dose 120 MG; Start 12/22/16 at 21:00 Diltiazem HCl (Cardizem Cd) 240 mg QAM PO Last administered on 12/23/16 09:03; Admin Dose 240 MG; Start 12/22/16 at 09:30 Acetaminophen (Tylenol Tab) 650 mg Q6H PRN PO PAIN AND OR ELEVATED TEMP Last administered on 12/23/16 14:29; Admin Dose 650 MG; Start 12/22/16 at 19:00 Acetaminophen/ Hydrocodone Bitart ([place] (5/325)) 1 tab Q4H PRN PO moderate- severe pain; Start 12/22/16 at 19:00 KELSEA BRENNAN MD December 23, 2016 16:15
[2016-12-23] MEDS: ATORVASTATIN 20 MG TAB PO SCH (21:47)
[2016-12-23] MEDS: HYDROCODONE/APAP (5/325) TAB PO PRN (21:47)
[2016-12-23] MEDS: DILTIAZEM (CD) 120 MG CAP PO SCH (21:47)
[2016-12-24] VITALS (10 sets, daily range): BP systolic 101–126; BP diastolic 58–84; PULSE 60–123; RESP 18–19
--- NOTE | 2016-12-24 03:38 | PN ---
DATE: 12/23/2016 SUBJECTIVE: The patient is feeling better, less neck pain, has mild cough. OBJECTIVE VITAL SIGNS: Temperature 98.5, pulse 65 and irregular, respiratory rate 19, blood pressure 132/64, pulse oximetry 97% on 2 liter nasal cannula oxygen. GENERAL: Well-developed, well-nourished male in no acute distress, lying in bed. CHEST: Bilateral rhonchi that clear slightly with cough. HEART: Irregularly irregular. ABDOMEN: Soft, nontender. NEUROLOGIC: Nonfocal. IMPRESSION: 1. Metastatic cancer to bone, unknown primary, possible lung, still waiting full pathology results and staining. The patient will be transferred to a half-way facility for further rehabilitat ion and care. Continue with p.r.n. analgesia. 2. Atrial fibrillation with rapid ventricular rate. This remains stable on medications. 3. Hypertension, stable. Continue with medications. 4. Cough. Chest x-ray was negative. The patient has rhonchorous cough that may be related to trou ble handling secretions. We will continue to monitor and repeat chest x-ray if indicated. We will continue with supplemental oxygen. Dictated By: BRITTANI MIX MD, SR/MARTINA Conf#: [id number] DID#: [id number]
[2016-12-24 06:01] LABS: ADD SCAN DIFF NO
[2016-12-24 06:18] LABS: ABNORMAL IP MESSAGE 1; BASOPHILS % 0.1 % (0.0-2.0); EOSINOPHILS # 0.1 10^3/ul (0.0-0.5); EOSINOPHILS % 0.7 % (0.0-7.0); HEMATOCRIT 28.9 % (42.0-52.0); HEMOGLOBIN 9.3 g/dl (14.0-18.0); LYMPHOCYTES # 0.4 10^3/ul (0.8-2.9); LYMPHOCYTES % 3.4 % (15.0-51.0); MEAN CORPUSCULAR HEMOGLOBIN 30.2 pg (29.0-33.0); MEAN CORPUSCULAR HGB CONC 32.2 g/dl (32.0-37.0); MEAN CORPUSCULAR VOLUME 93.8 fl (82.0-101.0); MEAN PLATELET VOLUME 9.3 fl (7.4-10.4); MONOCYTE # 0.7 10^3/ul (0.3-0.9); MONOCYTES % 5.8 % (0.0-11.0); NEUTROPHIL # 10.2 10^3/ul (1.6-7.5); NEUTROPHILS % 89.2 % (39.0-77.0); PLATELET COUNT 318 10^3/UL (140-415); RED BLOOD COUNT 3.08 10^6/ul (4.70-6.10); RED CELL DISTRIBUTION WIDTH 13.2 % (11.5-14.5); WHITE BLOOD COUNT 11.5 10^3/ul (4.8-10.8)
[2016-12-24 06:44] LABS: CALCIUM 9.7 mg/dl (8.4-10.2); CREATININE 1.03 mg/dl (0.61-1.24); POTASSIUM 4.2 mmol/L (3.5-5.1)
[2016-12-24] MEDS: PANTOPRAZOLE (EC) 40 MG TAB PO SCH (06:44)
[2016-12-24] MEDS: DILTIAZEM (CD) 240 MG CAP PO SCH (08:20)
[2016-12-24] MEDS: NITROGLYCERIN 6.5 MG PO SCH ×2 (08:20→21:01)
[2016-12-24] MEDS: clonAZEPAM 0.5 MG TAB PO SCH ×2 (08:20→21:01)
[2016-12-24] MEDS: ALLOPURINOL 300 MG TAB PO SCH (08:21)
--- NOTE | 2016-12-24 14:44 | CONS ---
Date/Time of Note Date/Time of Note DATE: 12/24/16 TIME: 14:38 Assessment/Plan Assessment/Plan Chief Complaint/Hosp Course ASSESSMENT: 1. 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 2. Paroxysmal atrial fibrillation- non valvular, previous hx in 2013. given metastatic CA would cont on asa alone for stroke prophy. will need titration of meds for improved rate control 3. History of coronary artery disease distant distal right coronary artery stent drug-eluting in 2009 with patent stent 2 months later in June 2010. 4. Hypertension. 5. Hyperlipidemia. On statin 6. Gastroesophageal reflux disease. 7. Type 2 diabetes. 8. Gout. 9. History of prostate cancer with prostatectomy negative PSA this admission. PLAN: - start asa 81mg daily when safe post op - rates currently controlled with dilt cd to 240mg q am 120mg q pm, titrate as needed to keep hr < 100s @ rest - ok to give prn dilt if sustained HR > 120s - cont statin given cad hx for now Problems: Consultation Date/Type/Reason Admit Date/Time Dec 07, 2016 at 12:13 Initial Consult Date 12/09/2016 Type of Consultation: Cardiology Referring Provider: AMANDA PRATER MD 24 HR Interval Summary Free Text/Dictation no acute events. pt confused has sitter, but now improved. alert, pleasant. no cp/sob/palpitaitons. does have cough. standing, but not walking with pt tele reviewed: afib hrs 70s, variable earlier up to 120s Constitutional: no complaints Detailed Summary Respiratory: no complaints Cardiovascular: no complaints Gastrointestinal: no complaints Exam/Review of Systems Vital Signs Vitals Vital Signs Date Time Temp Pulse Resp B/P Pulse Ox O2 Delivery O2 Flow Rate FiO2 12/24/16 12:10 79 12/24/16 11:57 97.6 18 101/63 Room Air 12/24/16 11:53 2.0 12/24/16 08:00 100 Intake and Output 12/23/16 12/23/16 12/24/16 15:00 23:00 07:00 Intake Total 200 ml 300 ml Output Total 500 ml Balance 200 ml -200 ml Exam Constitutional: alert, oriented, other (elderly) Psych: nl mood/affect, no complaints Eyes: EOMI, nl lids ENMT: nl nasal mucosa & septum Neck: other (neck brace in place), No jvd Respiratory: clear to auscultation, normal air movement Cardiovascular: irregularly irregular, nl s1s2, systolic murmur, No S3, No S4, No edema, No jugular venous distention (JVD) Gastrointestinal: non-tender, soft Musculoskeletal: nl extremities to inspection Extremities: normal pulses Results Result Diagram: 12/24/16 0534 12/24/16 0524 Results 24 hrs Laboratory Tests Test 12/24/16 05:24 12/24/16 05:34 Sodium Level 138 Potassium Level 4.2 Chloride Level 104 Carbon Dioxide Level 30 Anion Gap 8 Blood Urea Nitrogen 23 H Creatinine 1.03 Glucose Level 115 Calcium Level 9.7 White Blood Count 11.5 #H Red Blood Count 3.08 L Hemoglobin 9.3 L Hematocrit 28.9 L Mean Corpuscular Volume 93.8 Mean Corpuscular Hemoglobin 30.2 Mean Corpuscular Hemoglobin Concent 32.2 Red Cell Distribution Width 13.2 Platelet Count 318 # Mean Platelet Volume 9.3 Neutrophils % 89.2 H Lymphocytes % 3.4 L Monocytes % 5.8 Eosinophils % 0.7 Basophils % 0.1 Nucleated Red Blood Cells % 0.0 Neutrophils # 10.2 H Lymphocytes # 0.4 L Monocytes # 0.7 Eosinophils # 0.1 Basophils # 0.0 Nucleated Red Blood Cells # 0.0 Medications Medications Current Medications Atorvastatin Calcium (Lipitor) 20 mg HS PO Last administered on 12/23/16 21:47 ; Admin Dose 20 MG; Start 12/07/16 at 21:00 Nitroglycerin (Nitroglycerin (Sr)) 6.5 mg BID PO Last administered on 12/24/16 08:20; Admin Dose 6.5 MG; Start 12/07/16 at 21:00 Pantoprazole (Protonix Tab) 40 mg DAILY@06 PO Last administered on 12/24/16 06: 44; Admin Dose 40 MG; Start 12/08/16 at 06:00 Clonidine (Catapres) 0.1 mg Q6H PRN PO sbp >160; Start 12/12/16 at 18:00 Allopurinol (Zyloprim) 300 mg AM PO Last administered on 12/24/16 08:21; Admin Dose 300 MG; Start 12/15/16 at 09:00 Clonazepam (Klonopin) 0.5 mg Q12 PO Last administered on 12/24/16 08:20; Admin Dose 0.5 MG; Start 12/19/16 at 21:00 Promethazine HCl/ Codeine (Phenergan/ Codeine) 5 ml Q4H PRN PO COUGH Last administered on 12/23/16 14:29; Admin Dose 5 ML; Start 12/21/16 at 22:30 Diltiazem HCl (Cardizem Cd) 120 mg QPM PO Last administered on 12/23/16 21:47; Admin Dose 120 MG; Start 12/22/16 at 21:00 Diltiazem HCl (Cardizem Cd) 240 mg QAM PO Last administered on 12/24/16 08:20; Admin Dose 240 MG; Start 12/22/16 at 09:30 Acetaminophen (Tylenol Tab) 650 mg Q6H PRN PO PAIN AND OR ELEVATED TEMP Last administered on 12/23/16 14:29; Admin Dose 650 MG; Start 12/22/16 at 19:00 Acetaminophen/ Hydrocodone Bitart ([place] (5/325)) 1 tab Q4H PRN PO moderate- severe pain Last administered on 12/23/16 21:47; Admin Dose 1 TAB; Start at 19:00 Procedures Procedures CXR reviewed Calcified atherosclerosis in the aorta. Stable mild interstitial prominence in both lungs. Interstitial prominence may be chronic. Atelectasis at the lung bases. DONA LÓPEZ December 24, 2016 14:44
--- NOTE | 2016-12-24 15:40 | PN ---
Date/Time of Note Date/Time of Note DATE: 12/24/16 TIME: 15:38 Assessment/Plan VTE Prophylaxis VTE Prophylaxis Intervention: ambulation Lines/Catheters [facility]from [facility]): Peripheral IV Urinary Cath still in place: No Assessment/Plan Assessment/Plan Awaiting pathology second opinion. Continue present post op care. Subjective 24 Hr Interval Summary Free Text/Dictation Pt is resting. Attendant says he has been stable. Exam/Review of Systems Vital Signs Vitals Vital Signs Date Time Temp Pulse Resp B/P Pulse Ox O2 Delivery O2 Flow Rate FiO2 12/24/16 12:10 79 12/24/16 11:57 97.6 18 101/63 Room Air 12/24/16 11:53 2.0 12/24/16 08:00 100 Intake and Output 12/23/16 12/23/16 12/24/16 15:00 23:00 07:00 Intake Total 200 ml 300 ml Output Total 500 ml Balance 200 ml -200 ml Exam Pt not fully examined today. He appears to be comfortable and attendant says there have been no significant issues. Results Result Diagram: 12/24/16 0534 12/24/16 0524 Results 24 hrs Laboratory Tests Test 12/24/16 05:24 12/24/16 05:34 Sodium Level 138 Potassium Level 4.2 Chloride Level 104 Carbon Dioxide Level 30 Anion Gap 8 Blood Urea Nitrogen 23 H Creatinine 1.03 Glucose Level 115 Calcium Level 9.7 White Blood Count 11.5 #H Red Blood Count 3.08 L Hemoglobin 9.3 L Hematocrit 28.9 L Mean Corpuscular Volume 93.8 Mean Corpuscular Hemoglobin 30.2 Mean Corpuscular Hemoglobin Concent 32.2 Red Cell Distribution Width 13.2 Platelet Count 318 # Mean Platelet Volume 9.3 Neutrophils % 89.2 H Lymphocytes % 3.4 L Monocytes % 5.8 Eosinophils % 0.7 Basophils % 0.1 Nucleated Red Blood Cells % 0.0 Neutrophils # 10.2 H Lymphocytes # 0.4 L Monocytes # 0.7 Eosinophils # 0.1 Basophils # 0.0 Nucleated Red Blood Cells # 0.0 Medications Medications Current Medications Atorvastatin Calcium (Lipitor) 20 mg HS PO Last administered on 12/23/16t 21:47 ; Admin Dose 20 MG; Start 12/07/16 at 21:00 Nitroglycerin (Nitroglycerin (Sr)) 6.5 mg BID PO Last administered on 12/24/16 08:20; Admin Dose 6.5 MG; Start 12/07/16 at 21:00 Pantoprazole (Protonix Tab) 40 mg DAILY@06 PO Last administered on 12/24/16 06: 44; Admin Dose 40 MG; Start 12/08/16 at 06:00 Clonidine (Catapres) 0.1 mg Q6H PRN PO sbp >160; Start 12/12/16 at 18:00 Allopurinol (Zyloprim) 300 mg AM PO Last administered on 12/24/16 08:21; Admin Dose 300 MG; Start 12/15/16 at 09:00 Clonazepam (Klonopin) 0.5 mg Q12 PO Last administered on 12/24/16 08:20; Admin Dose 0.5 MG; Start 12/19/16 at 21:00 Promethazine HCl/ Codeine (Phenergan/ Codeine) 5 ml Q4H PRN PO COUGH Last administered on 12/23/16 14:29; Admin Dose 5 ML; Start 12/21/16 at 22:30 Diltiazem HCl (Cardizem Cd) 120 mg QPM PO Last administered on 12/23/16 21:47; Admin Dose 120 MG; Start 12/22/16 at 21:00 Diltiazem HCl (Cardizem Cd) 240 mg QAM PO Last administered on 12/24/16 08:20; Admin Dose 240 MG; Start 12/22/16 at 09:30 Acetaminophen (Tylenol Tab) 650 mg Q6H PRN PO PAIN AND OR ELEVATED TEMP Last administered on 12/23/16 14:29; Admin Dose 650 MG; Start 12/22/16 at 19:00 Acetaminophen/ Hydrocodone Bitart ([place] (5/325)) 1 tab Q4H PRN PO moderate- severe pain Last administered on 12/23/16 21:47; Admin Dose 1 TAB; Start at 19:00 CASA ANAND MD December 24, 2016 15:40
[2016-12-24] MEDS: DILTIAZEM (CD) 120 MG CAP PO SCH (21:01)
[2016-12-24] MEDS: ATORVASTATIN 20 MG TAB PO SCH (21:01)
[2016-12-24] MEDS: PROMETHAZINE/CODEINE 5ML CUP PO PRN (21:06)
--- NOTE | 2016-12-24 23:26 | PN ---
DATE: 12/24/2016 SUBJECTIVE: The patient is awake and alert. He is oriented to place and person today, but still has episodic confusions requiring 1:1 sitter. Apparently, the patient almost fell when he tried to get out of bed by himself earlier today. OBJECTIVE: VITAL SIGNS: Temperature 97.6, blood pressure 101/63, pulse of 84, respiration rate of 18, O2 saturation 100% on 2 liters nasal cannula. HEENT: Pupils equally round, reactive to light. Oropharynx clear. CHEST: Scattered upper airway rhonchi, mild bibasilar crackles. CARDIAC: Irregular irregular. ABDOMEN: Active bowel sounds, soft, nondistended, nontender. EXTREMITIES: No clubbing, cyanosis, or edema. LABORATORY DATA: WBC 11.5, hemoglobin 9.3, hematocrit 28.9, platelet count 318, 000. Sodium 138, potassium 4.2, chloride 104, bicarbonate 30, BUN 23, creatinine 1.03, glucose 115. ASSESSMENT AND PLAN: 1. T4 cord compression, status post surgery, doing well postoperatively. Awaiting transfer to a [facility] for continued physical therapy. 2. Metastatic carcinoma to the bones. Awaiting second opinion on pathology with plans for outpatient follow up with Oncology. 3. Atrial fibrillation, rate controlled on current dose of Cardizem-CD. 4. 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 It is intermittent and does not require any medications at this time. 5. For generalized anxiety, the patient seems to be stable on low dose clonazepam 0.5 mg p.o. q.12h. We will start him on Lexapro today. Dictated By: DESI MCLAIN MD DP/MARTINA Conf#: [id number] DID#: [id number] MTDD
[2016-12-25] VITALS (12 sets, daily range): BP systolic 102–137; BP diastolic 51–64; PULSE 64–100; RESP 16–19
[2016-12-25] MEDS: PANTOPRAZOLE (EC) 40 MG TAB PO SCH (06:06)
[2016-12-25 06:27] LABS: ADD SCAN DIFF NO
[2016-12-25 06:33] LABS: ABNORMAL IP MESSAGE 1; BASOPHILS % 0.1 % (0.0-2.0); EOSINOPHILS # 0.1 10^3/ul (0.0-0.5); EOSINOPHILS % 0.8 % (0.0-7.0); HEMATOCRIT 26.7 % (42.0-52.0); HEMOGLOBIN 8.3 g/dl (14.0-18.0); LYMPHOCYTES # 0.5 10^3/ul (0.8-2.9); LYMPHOCYTES % 6.3 % (15.0-51.0); MEAN CORPUSCULAR HEMOGLOBIN 29.5 pg (29.0-33.0); MEAN CORPUSCULAR HGB CONC 31.1 g/dl (32.0-37.0); MEAN PLATELET VOLUME 9.4 fl (7.4-10.4); MONOCYTE # 0.6 10^3/ul (0.3-0.9); MONOCYTES % 6.5 % (0.0-11.0); NEUTROPHIL # 7.4 10^3/ul (1.6-7.5); NEUTROPHILS % 85.5 % (39.0-77.0); PLATELET COUNT 302 10^3/UL (140-415); RED BLOOD COUNT 2.81 10^6/ul (4.70-6.10); RED CELL DISTRIBUTION WIDTH 13.4 % (11.5-14.5); WHITE BLOOD COUNT 8.6 10^3/ul (4.8-10.8)
[2016-12-25] MEDS: HYDROCODONE/APAP (5/325) TAB PO PRN (07:32)
[2016-12-25] MEDS: DILTIAZEM (CD) 240 MG CAP PO SCH (08:30)
[2016-12-25] MEDS: clonAZEPAM 0.5 MG TAB PO SCH ×2 (08:30→20:31)
[2016-12-25] MEDS: NITROGLYCERIN 6.5 MG PO SCH ×2 (08:30→20:34)
[2016-12-25] MEDS: ALLOPURINOL 300 MG TAB PO SCH (08:30)
[2016-12-25] MEDS: ESCITALOPRAM 10 MG TAB PO SCH (08:31)
--- NOTE | 2016-12-25 16:48 | PN ---
Date/Time of Note Date/Time of Note DATE: 12/25/16 TIME: 16:44 Assessment/Plan VTE Prophylaxis VTE Prophylaxis Intervention: anti-embolic stocking Lines/Catheters IV Catheter Type (from [facility]): Peripheral IV Urinary Cath still in place: No Assessment/Plan Assessment/Plan Pt is recovering from surgery. Path sent to reference lab is still pending. After path is confirmed, further RT/chemo plans can be made. Subjective 24 Hr Interval Summary Free Text/Dictation Pt is alert but still a bit confused. Exam/Review of Systems Vital Signs Vitals Vital Signs Date Time Temp Pulse Resp B/P Pulse Ox O2 Delivery O2 Flow Rate FiO2 12/25/16 15:28 98.2 85 16 117/61 97 12/25/16 07:47 Nasal Cannula 2.0 Intake and Output 12/24/16 12/24/16 12/25/16 14:59 22:59 06:59 Intake Total 1020 ml 500 ml Balance 1020 ml 500 ml Exam Constitutional: alert, oriented Head: normocephalic Respiratory: clear to auscultation Cardiovascular: regular rate and rhythm Gastrointestinal: soft Results Result Diagram: 12/25/16 0603 12/24/16 0524 Results 24 hrs Laboratory Tests Test 12/25/16 06:03 White Blood Count 8.6 # Red Blood Count 2.81 L Hemoglobin 8.3 L Hematocrit 26.7 L Mean Corpuscular Volume 95.0 Mean Corpuscular Hemoglobin 29.5 Mean Corpuscular Hemoglobin Concent 31.1 L Red Cell Distribution Width 13.4 Platelet Count 302 Mean Platelet Volume 9.4 Neutrophils % 85.5 H Lymphocytes % 6.3 L Monocytes % 6.5 Eosinophils % 0.8 Basophils % 0.1 Nucleated Red Blood Cells % 0.0 Neutrophils # 7.4 Lymphocytes # 0.5 L Monocytes # 0.6 Eosinophils # 0.1 Basophils # 0.0 Nucleated Red Blood Cells # 0.0 Medications Medications Current Medications Atorvastatin Calcium (Lipitor) 20 mg HS PO Last administered on 12/24/16 21:01 ; Admin Dose 20 MG; Start 12/07/16 at 21:00 Nitroglycerin (Nitroglycerin (Sr)) 6.5 mg BID PO Last administered on 12/25/16 08:30; Admin Dose 6.5 MG; Start 12/07/16 at 21:00 Pantoprazole (Protonix Tab) 40 mg DAILY@06 PO Last administered on 12/25/16 06: 06; Admin Dose 40 MG; Start 12/08/16 at 06:00 Clonidine (Catapres) 0.1 mg Q6H PRN PO sbp >160; Start 12/12/16 at 18:00 Allopurinol (Zyloprim) 300 mg AM PO Last administered on 12/25/16 08:30; Admin Dose 300 MG; Start 12/15/16 at 09:00 Clonazepam (Klonopin) 0.5 mg Q12 PO Last administered on 12/25/16 08:30; Admin Dose 0.5 MG; Start 12/19/16 at 21:00 Promethazine HCl/ Codeine (Phenergan/ Codeine) 5 ml Q4H PRN PO COUGH Last administered on 12/24/16 21:06; Admin Dose 5 ML; Start 12/21/16 at 22:30 Diltiazem HCl (Cardizem Cd) 120 mg QPM PO Last administered on 12/24/16 21:01; Admin Dose 120 MG; Start 12/22/16 at 21:00 Diltiazem HCl (Cardizem Cd) 240 mg QAM PO Last administered on 12/25/16 08:30; Admin Dose 240 MG; Start 12/22/16 at 09:30 Acetaminophen (Tylenol Tab) 650 mg Q6H PRN PO PAIN AND OR ELEVATED TEMP Last administered on 12/23/16 14:29; Admin Dose 650 MG; Start 12/22/16 at 19:00 Acetaminophen/ Hydrocodone Bitart ([place] (5/325)) 1 tab Q4H PRN PO moderate- severe pain Last administered on 12/25/16 07:32; Admin Dose 1 TAB; Start at 19:00 Escitalopram Oxalate (Lexapro) 5 mg DAILY PO Last administered on 12/25/16 08: 31; Admin Dose 5 MG; Start 12/25/16 at 09:00 CASA ANAND MD December 25, 2016 16:48
--- NOTE | 2016-12-25 18:10 | PN ---
DATE: 12/25/2016 SUBJECTIVE: The patient is awake and alert, but forgetful and confused. OBJECTIVE: VITAL SIGNS: Temperature 98.2, blood pressure 117/61, pulse 85, respiration rate 16, O2 saturation 97% on 2 liters nasal cannula. HEENT: Pupils equally round, reactive to light. Oropharynx clear. CHEST: Scattered upper airway rhonchi. CARDIAC: Irregularly irregular. ABDOMEN: Active bowel sounds, soft, nondistended, nontender. EXTREMITIES: No clubbing, cyanosis, or edema. LABORATORY DATA: WBC 8.6, hemoglobin 8.3, hematocrit 26.7, platelet count 302, 000. Sodium 138, potassium 4.2, chloride 104, carbon dioxide 30, BUN 23, creatinine 1.03. ASSESSMENT AND PLAN: 1. Anemia. The patient's hemoglobin and hematocrit have been drifting gradually down. Will need to continue to monitor and consider blood transfusion if necessary. 2. Metastatic bone carcinoma. Awaiting final pathology with plans for possible outpatient palliative radiation. Of note, is that he does not have much pain despite bony metastasis of tumor and has not required much pain medications so far. 3. Atrial fibrillation, rate controlled on current medications. 4. Weakness/deconditioning. The patient will need a short course of physical therapy prior to returning to his own home. Dictated By: DESI MCLAIN MD DP/MARTINA Conf#: [id number] DID#: [id number] MTDD
[2016-12-25] MEDS: ATORVASTATIN 20 MG TAB PO SCH (20:30)
[2016-12-25] MEDS: DILTIAZEM (CD) 120 MG CAP PO SCH (20:34)
[2016-12-26] VITALS (14 sets, daily range): BP systolic 107–138; BP diastolic 52–83; PULSE 85–108; RESP 18–20
[2016-12-26] MEDS: PANTOPRAZOLE (EC) 40 MG TAB PO SCH (05:55)
[2016-12-26] MEDS: NITROGLYCERIN 6.5 MG PO SCH ×2 (08:54→20:54)
[2016-12-26] MEDS: DILTIAZEM (CD) 240 MG CAP PO SCH (08:55)
[2016-12-26] MEDS: ESCITALOPRAM 10 MG TAB PO SCH (08:55)
[2016-12-26] MEDS: ALLOPURINOL 300 MG TAB PO SCH (08:55)
[2016-12-26] MEDS: clonAZEPAM 0.5 MG TAB PO SCH ×2 (08:55→20:53)
--- NOTE | 2016-12-26 09:25 | PN ---
DATE: 12/26/2016 MEDICAL ONCOLOGY PROGRESS NOTE SUBJECTIVE: The patient has no specific complaints. He has no complaints of pain. No nausea or vo miting. OBJECTIVE: VITAL SIGNS: Temperature 98.1, pulse 65 per minute, respirations 18, blood pressure 138/83, pulse o ximetry 95% on room air. SKIN: Pale. No ecchymosis, no petechiae or rashes. HEENT: No mucosal lesions. No scleral icterus. NECK: Supple, no jugular venous distention or thyroid enlargement. CHEST: Clear to auscultation and percussion. No rhonchi, wheezes, rales, or rubs. ABDOMEN: Soft, no masses, no ascites. EXTREMITIES: No clubbing, edema, or cyanosis. No palpable cords or Homans sign. NEUROLOGIC: No focal neurologic abnormalities. The patient appears oriented this morning. LABORATORY DATA: Urine for cytology collected last week demonstrated numerous acute inflammatory ce lls, bacterial colonies, red blood cells, and some reactive urothelial cells. There was no evidence of malignancy. Cancer type ID is pending at this time in an attempt to identify the primary tumor type. ASSESSMENT: 1. Metastatic carcinoma of unknown primary site. 2. Spinal cord compression secondary to #1 status post decompression. 3. Left upper lobe lesion. PLAN: As noted, awaiting results of cancer type ID testing to help determine the primary source of the metastatic malignancy. The previous immunohistochemical studies were negative. As far as a gold g primary. TTF-1 was negative. 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 If information cannot be obtained from the specimen obtained from spinal decompression, will conside r a biopsy of the left upper lobe lesion. Dictated By: JENNIFFER PEREZ MD, SR/NTS Conf#: [id number] DID#: [id number]
[2016-12-26] MEDS: HYDROCODONE/APAP (5/325) TAB PO PRN (11:06)
--- NOTE | 2016-12-26 12:07 | CONS ---
Date/Time of Note Date/Time of Note DATE: 12/26/16 TIME: 12:04 Assessment/Plan Assessment/Plan Chief Complaint/Hosp Course ASSESSMENT: 1. 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 2. Paroxysmal atrial fibrillation- non valvular, previous hx in 2013. given metastatic CA would cont on asa alone for stroke prophy. will need titration of meds for improved rate control 3. History of coronary artery disease distant distal right coronary artery stent drug-eluting in 2009 with patent stent 2 months later in June 2010. 4. Hypertension. 5. Hyperlipidemia. On statin 6. Gastroesophageal reflux disease. 7. Type 2 diabetes. 8. Gout. 9. History of prostate cancer with prostatectomy negative PSA this admission. PLAN: - hold off on asa 81mg daily given lower hgb today - rates currently controlled with dilt cd to 240mg q am 120mg q pm, titrate as needed to keep hr < 100s @ rest - ok to give prn dilt if sustained HR > 120s - cont statin given cad hx for now Problems: Consultation Date/Type/Reason Admit Date/Time Dec 07, 2016 at 12:13 Initial Consult Date 12/09/2016 Type of Consultation: Cardiology Referring Provider: AMANDA PRATER MD 24 HR Interval Summary Free Text/Dictation no acute events. remains alert, but confused. pt asked me if i could give him a ride home. he denies any cp/sob/palpitations. still with cough, tolerating po. tele reviewed: afib rates controlled 80s-90s, up to 100s-110s this am Constitutional: disoriented Detailed Summary Eyes: no complaints ENT: no complaints Respiratory: cough Cardiovascular: no complaints Gastrointestinal: no complaints Exam/Review of Systems Vital Signs Vitals Vital Signs Date Time Temp Pulse Resp B/P Pulse Ox O2 Delivery O2 Flow Rate FiO2 12/26/16 11:13 97.5 72 18 124/62 97 12/26/16 02:48 21 12/25/16 21:00 Nasal Cannula 2.0 Intake and Output 12/25/16 12/25/16 12/26/16 15:00 23:00 07:00 Intake Total 600 ml 300 ml Balance 600 ml 300 ml Exam Constitutional: alert, oriented, other (elderly) Psych: nl mood/affect, no complaints Eyes: EOMI, nl lids ENMT: nl nasal mucosa & septum Neck: other (neck brace in place), No jvd Respiratory: fine crackles posterior melvin Cardiovascular: irregularly irregular, nl s1s2, systolic murmur, No S3, No S4, No edema, No jugular venous distention (JVD) Gastrointestinal: non-tender, soft Musculoskeletal: nl extremities to inspection Extremities: normal pulses Results Result Diagram: 12/25/16 0603 12/24/16 0524 Medications Medications Current Medications Atorvastatin Calcium (Lipitor) 20 mg HS PO Last administered on 12/25/16 20:30 ; Admin Dose 20 MG; Start 12/07/16 at 21:00 Nitroglycerin (Nitroglycerin (Sr)) 6.5 mg BID PO Last administered on 08:54; Admin Dose 6.5 MG; Start 12/07/16 at 21:00 Pantoprazole (Protonix Tab) 40 mg DAILY@06 PO Last administered on 12/26/16 05 :55; Admin Dose 40 MG; Start 12/08/16 at 06:00 Clonidine (Catapres) 0.1 mg Q6H PRN PO sbp >160; Start 12/12/16 at 18:00 Allopurinol (Zyloprim) 300 mg AM PO Last administered on 12/26/16 08:55; Admin Dose 300 MG; Start 12/15/16 at 09:00 Clonazepam (Klonopin) 0.5 mg Q12 PO Last administered on 12/26/16 08:55; Admin Dose 0.5 MG; Start 12/19/16 at 21:00 Promethazine HCl/ Codeine (Phenergan/ Codeine) 5 ml Q4H PRN PO COUGH Last administered on 12/24/16 21:06; Admin Dose 5 ML; Start 12/21/16 at 22:30 Diltiazem HCl (Cardizem Cd) 120 mg QPM PO Last administered on 12/25/16 20:34; Admin Dose 120 MG; Start 12/22/16 at 21:00 Diltiazem HCl (Cardizem Cd) 240 mg QAM PO Last administered on 12/26/16 08:55 ; Admin Dose 240 MG; Start 12/22/16 at 09:30 Acetaminophen (Tylenol Tab) 650 mg Q6H PRN PO PAIN AND OR ELEVATED TEMP Last administered on 12/23/16 14:29; Admin Dose 650 MG; Start 12/22/16 at 19:00 Acetaminophen/ Hydrocodone Bitart ([place] (5/325)) 1 tab Q4H PRN PO moderate- severe pain Last administered on 12/26/16 11:06; Admin Dose 1 TAB; Start at 19:00 Escitalopram Oxalate (Lexapro) 5 mg DAILY PO Last administered on 12/26/16 08: 55; Admin Dose 5 MG; Start 12/25/16 at 09:00 Procedures Procedures notes reviewed in emr DONA LÓPEZ December 26, 2016 12:07
--- NOTE | 2016-12-26 18:02 | PN ---
DATE: 12/26/2016 SUBJECTIVE: The patient is able to tolerate sitting in chair for an hour or so, and only has very m ild confusion throughout the day. OBJECTIVE: VITAL SIGNS: Temperature 98.0, blood pressure 112/57, pulse of 67, respiratory rate 18, O2 saturati on 93%. HEENT: Pupils equally round, reactive to light. Oropharynx clear. CHEST: Lungs are clear to auscultation. CARDIAC: Irregularly irregular. ABDOMEN: Active bowel sounds, soft, nondistended, nontender. ASSESSMENT AND PLAN: 1. Metastatic cancer to the bones, await second opinion pathology, most likely will require outpati ent radiation for palliative purposes only. 2. Weakness and debility status post thoracic spine decompression surgery and history of frequent f alls prior to hospitalization. [facility]. T he patient lives in his own home and would like to be discharged to home if possible after his cours e of rehabilitation. 3. Atrial fibrillation. The patient is on Cardizem 240/120. If blood pressure continues to be in the normal range tomorrow, we can increase Cardizem back to 240 mg b.i.d., which is what he was on p rior to hospitalization. Dictated By: DESI MCLAIN MD DP/NTS Conf#: [id number] DID#: [id number]
[2016-12-26] MEDS: ATORVASTATIN 20 MG TAB PO SCH (20:53)
[2016-12-26] MEDS: DILTIAZEM (CD) 120 MG CAP PO SCH (20:54)
[2016-12-27] VITALS (11 sets, daily range): BP systolic 112–137; BP diastolic 56–75; PULSE 78–101; RESP 17–20
[2016-12-27] MEDS: PANTOPRAZOLE (EC) 40 MG TAB PO SCH (06:05)
[2016-12-27 08:20] LABS: ADD SCAN DIFF NO
[2016-12-27 08:31] LABS: ABNORMAL IP MESSAGE 1; BASOPHILS % 0.1 % (0.0-2.0); EOSINOPHILS # 0.1 10^3/ul (0.0-0.5); HEMATOCRIT 28.2 % (42.0-52.0); HEMOGLOBIN 8.9 g/dl (14.0-18.0); LYMPHOCYTES # 0.5 10^3/ul (0.8-2.9); LYMPHOCYTES % 5.8 % (15.0-51.0); MEAN CORPUSCULAR HEMOGLOBIN 29.6 pg (29.0-33.0); MEAN CORPUSCULAR HGB CONC 31.6 g/dl (32.0-37.0); MEAN CORPUSCULAR VOLUME 93.7 fl (82.0-101.0); MEAN PLATELET VOLUME 9.5 fl (7.4-10.4); MONOCYTE # 0.6 10^3/ul (0.3-0.9); MONOCYTES % 6.7 % (0.0-11.0); NEUTROPHIL # 7.1 10^3/ul (1.6-7.5); NEUTROPHILS % 85.6 % (39.0-77.0); PLATELET COUNT 388 10^3/UL (140-415); RED BLOOD COUNT 3.01 10^6/ul (4.70-6.10); RED CELL DISTRIBUTION WIDTH 13.2 % (11.5-14.5); WHITE BLOOD COUNT 8.3 10^3/ul (4.8-10.8)
[2016-12-27 09:02] LABS: ALBUMIN 2.8 g/dl (3.3-4.9); BILIRUBIN,INDIRECT 0.4 mg/dl (0-1.1); BILIRUBIN,TOTAL 0.4 mg/dl (0.2-1.3); CALCIUM 9.3 mg/dl (8.4-10.2); CREATININE 0.9 mg/dl (0.61-1.24); POTASSIUM 3.4 mmol/L (3.5-5.1); TOTAL PROTEIN 5.6 g/dl (6.1-8.1)
[2016-12-27] MEDS: ESCITALOPRAM 10 MG TAB PO SCH (09:13)
[2016-12-27] MEDS: DILTIAZEM (CD) 240 MG CAP PO SCH ×2 (09:13→21:03)
[2016-12-27] MEDS: NITROGLYCERIN 6.5 MG PO SCH ×2 (09:14→21:02)
[2016-12-27] MEDS: clonAZEPAM 0.5 MG TAB PO SCH ×2 (09:14→21:03)
[2016-12-27] MEDS: ALLOPURINOL 300 MG TAB PO SCH (09:14)
--- NOTE | 2016-12-27 13:08 | PN ---
Date/Time of Note Date/Time of Note DATE: 12/27/16 TIME: 13:07 Assessment/Plan VTE Prophylaxis VTE Prophylaxis Intervention: SCD's Lines/Catheters IV Catheter Type (from Nrs): Peripheral IV Urinary Cath still in place: No Assessment/Plan Assessment/Plan Path to identify primary site of origin of the malignancy is still pending. Continue current postop care. Subjective 24 Hr Interval Summary Free Text/Dictation Pt is alert but still a bit confused. Exam/Review of Systems Vital Signs Vitals Vital Signs Date Time Temp Pulse Resp B/P Pulse Ox O2 Delivery O2 Flow Rate FiO2 12/27/16 12:00 101 12/27/16 11:57 97.8 20 112/71 94 12/27/16 11:46 2.0 12/26/16 02:48 21 12/25/16 21:00 Nasal Cannula Exam Constitutional: alert, other (wearing brace) Head: normocephalic Respiratory: clear to auscultation Cardiovascular: regular rate and rhythm Gastrointestinal: non-tender, soft Results Result Diagram: 12/27/16 0700 12/27/16 0700 Results 24 hrs Laboratory Tests Test 12/27/16 07:00 12/27/16 08:07 White Blood Count 8.3 Red Blood Count 3.01 L Hemoglobin 8.9 L Hematocrit 28.2 L Mean Corpuscular Volume 93.7 Mean Corpuscular Hemoglobin 29.6 Mean Corpuscular Hemoglobin Concent 31.6 L Red Cell Distribution Width 13.2 Platelet Count 388 # Mean Platelet Volume 9.5 Neutrophils % 85.6 H Lymphocytes % 5.8 L Monocytes % 6.7 Eosinophils % 1.0 Basophils % 0.1 Nucleated Red Blood Cells % 0.0 Neutrophils # 7.1 Lymphocytes # 0.5 L Monocytes # 0.6 Eosinophils # 0.1 Basophils # 0.0 Nucleated Red Blood Cells # 0.0 Sodium Level 136 Potassium Level 3.4 L Chloride Level 103 Carbon Dioxide Level 29 Anion Gap 7 L Blood Urea Nitrogen 22 H Creatinine 0.90 Glucose Level 99 Calcium Level 9.3 Total Bilirubin 0.4 Direct Bilirubin 0.00 Indirect Bilirubin 0.4 Aspartate Amino Transf (AST/SGOT) 26 Alanine Aminotransferase (ALT/SGPT) 37 Alkaline Phosphatase 156 H Total Protein 5.6 L Albumin 2.8 L Globulin 2.80 Albumin/Globulin Ratio 1.00 Bedside Glucose 107 Medications Medications Current Medications Atorvastatin Calcium (Lipitor) 20 mg HS PO Last administered on 12/26/16 20:53 ; Admin Dose 20 MG; Start 12/07/16 at 21:00 Nitroglycerin (Nitroglycerin (Sr)) 6.5 mg BID PO Last administered on 09:14; Admin Dose 6.5 MG; Start 12/07/16 at 21:00 Pantoprazole (Protonix Tab) 40 mg DAILY@06 PO Last administered on 12/27/16 06 :05; Admin Dose 40 MG; Start 12/08/16 at 06:00 Clonidine (Catapres) 0.1 mg Q6H PRN PO sbp >160; Start 12/12/16 at 18:00 Allopurinol (Zyloprim) 300 mg AM PO Last administered on 12/27/16 09:14; Admin Dose 300 MG; Start 12/15/16 at 09:00 Clonazepam (Klonopin) 0.5 mg Q12 PO Last administered on 12/27/16 09:14; Admin Dose 0.5 MG; Start 12/19/16 at 21:00 Promethazine HCl/ Codeine (Phenergan/ Codeine) 5 ml Q4H PRN PO COUGH Last administered on 12/24/16 21:06; Admin Dose 5 ML; Start 12/21/16 at 22:30 Diltiazem HCl (Cardizem Cd) 120 mg QPM PO Last administered on 12/26/16 20:54 ; Admin Dose 120 MG; Start 12/22/16 at 21:00 Diltiazem HCl (Cardizem Cd) 240 mg QAM PO Last administered on 12/27/16 09:13 ; Admin Dose 240 MG; Start 12/22/16 at 09:30 Acetaminophen (Tylenol Tab) 650 mg Q6H PRN PO PAIN AND OR ELEVATED TEMP Last administered on 12/23/16 14:29; Admin Dose 650 MG; Start 12/22/16 at 19:00 Acetaminophen/ Hydrocodone Bitart ([place] (5/325)) 1 tab Q4H PRN PO moderate- severe pain Last administered on 12/26/16 11:06; Admin Dose 1 TAB; Start at 19:00 Escitalopram Oxalate (Lexapro) 5 mg DAILY PO Last administered on 12/27/16t 09: 13; Admin Dose 5 MG; Start 12/25/16 at 09:00 CASA ANAND MD December 27, 2016 13:08
--- NOTE | 2016-12-27 17:38 | PN ---
DATE: 12/27/2016 SUBJECTIVE: The patient is awake, alert, oriented to name and place. OBJECTIVE: VITAL SIGNS: Temperature 97.5, blood pressure 123/58, pulse of 92, respiration rate 18, O2 saturati on 95% on 2 liters nasal cannula. HEENT: Pupils equally round, reactive to light. Oropharynx clear. CHEST: Lungs are clear to auscultation. CARDIAC: Irregularly irregular. ABDOMEN: Active bowel sounds, soft, nondistended, nontender. EXTREMITIES: No clubbing, cyanosis, or edema. LABORATORY DATA: WBC 8.3, hemoglobin 8.9, hematocrit 28.2, platelet count 388,000. Sodium 136, pot assium 3.4, BUN 22, creatinine 0.9, glucose 99. ASSESSMENT AND PLAN 1. Bony metastases. Second opinion on pathology is pending. I discussed the course of treatment w jeniffer Sharma. The patient does not seem to require palliative radiation at this time and may not require chemotherapy depending on the results of the pathology. He is also not ready for chemo or radiation until his debility and weakness have been addressed, which would be as an outpatient 3 to 4 weeks from now at least. In the meantime, we should continue physical therapy and rehabilitation for his postoperative deconditioning status. 2. Atrial fibrillation, rate is controlled on diltiazem, but will increase back to 240 b.i.d. since his blood pressure is normal the past couple of days. Dictated By: DESI MCLAIN MD DP/NTS Conf#: [id number] DID#: [id number]
[2016-12-27] MEDS ORDERED: POTASSIUM CHLORIDE 20 MEQ in SOD CHLORIDE 0.9% 100 ML IVPB ONE (18:00)
[2016-12-27] MEDS ORDERED: POTASSIUM CHLORIDE (SR) 20 MEQ TAB PO STA (18:50)
[2016-12-27] MEDS: ATORVASTATIN 20 MG TAB PO SCH (21:02)
[2016-12-28] VITALS (11 sets, daily range): BP systolic 114–134; BP diastolic 55–73; PULSE 54–89; RESP 17–20
[2016-12-28] MEDS: PANTOPRAZOLE (EC) 40 MG TAB PO SCH (05:38)
[2016-12-28] MEDS: PROMETHAZINE/CODEINE 5ML CUP PO PRN ×2 (05:46→20:54)
[2016-12-28] MEDS: NITROGLYCERIN 6.5 MG PO SCH ×2 (07:56→20:54)
[2016-12-28 07:58] LABS: ADD SCAN DIFF NO
[2016-12-28] MEDS: DILTIAZEM (CD) 240 MG CAP PO SCH ×2 (07:58→20:53)
[2016-12-28] MEDS: clonAZEPAM 0.5 MG TAB PO SCH ×2 (07:58→20:51)
[2016-12-28] MEDS: ALLOPURINOL 300 MG TAB PO SCH (07:58)
[2016-12-28] MEDS: ESCITALOPRAM 10 MG TAB PO SCH (08:01)
[2016-12-28 08:06] LABS: ABNORMAL IP MESSAGE 1; BASOPHILS % 0.3 % (0.0-2.0); EOSINOPHILS # 0.1 10^3/ul (0.0-0.5); EOSINOPHILS % 0.6 % (0.0-7.0); HEMATOCRIT 28.4 % (42.0-52.0); HEMOGLOBIN 8.9 g/dl (14.0-18.0); LYMPHOCYTES # 0.6 10^3/ul (0.8-2.9); MEAN CORPUSCULAR HEMOGLOBIN 29.3 pg (29.0-33.0); MEAN CORPUSCULAR HGB CONC 31.3 g/dl (32.0-37.0); MEAN CORPUSCULAR VOLUME 93.4 fl (82.0-101.0); MEAN PLATELET VOLUME 9.3 fl (7.4-10.4); MONOCYTE # 0.7 10^3/ul (0.3-0.9); MONOCYTES % 7.4 % (0.0-11.0); NEUTROPHIL # 8.3 10^3/ul (1.6-7.5); NEUTROPHILS % 84.2 % (39.0-77.0); PLATELET COUNT 417 10^3/UL (140-415); RED BLOOD COUNT 3.04 10^6/ul (4.70-6.10); RED CELL DISTRIBUTION WIDTH 13.4 % (11.5-14.5); WHITE BLOOD COUNT 9.8 10^3/ul (4.8-10.8)
[2016-12-28 09:05] LABS: CALCIUM 9.6 mg/dl (8.4-10.2); POTASSIUM 3.7 mmol/L (3.5-5.1)
--- NOTE | 2016-12-28 09:07 | CONS ---
DATE OF ADMISSION: 12/07/2016 DATE OF CONSULTATION: 12/28/2016 ONCOLOGY PROGRESS NOTE SUBJECTIVE: The patient denies any pain at this time. It is not clear whether the patient has been ambulating. Appetite seems good. He has not had nausea or vomiting. Denies any fevers or night sweats. OBJECTIVE: VITAL SIGNS: Temperature 98.2, pulse 80 per minute and regular, respirations 18, blood pressure 116 /57, pulse oximetry 94% on room air. SKIN: No ecchymosis, no petechiae or rashes. HEENT: No mucosal lesions. No scleral icterus. NECK: Supple. No jugular venous distention or thyroid enlargement. CHEST: Diffuse rhonchi. They do not clear with cough. There is a surgical dressing over the thora cic spine. No evidence of drainage or infection. ABDOMEN: Soft. No masses, no ascites. EXTREMITIES: Good range of motion. No clubbing, edema or cyanosis. No palpable cords or Hom[place] si gn. NEUROLOGIC: Does not reveal focal neurologic abnormalities. The patient is diffusely weak. Less b risk deep tendon reflexes below the knees. White count 9,800, hemoglobin 8.9, hematocrit 24.8, and platelet count 417,000. ASSESSMENT: 1. Metastatic carcinoma, unknown primary site. 2. Spinal cord compression secondary to #1, status post decompression. 3. Left upper lobe lesion. I have inquired again about the availability of cancer type ID. The results are still not available . Plans are being made for this patient to be transferred to another level of care. Although the patient ultimately will likely receive radiation therapy and chemotherapy, this will de pend upon the results of the cancer ID study, as well as healing of the spinal area before radiation can be started. I have no objection to the patient being transferred to a lower level of care. It is understood tory t any of the above therapies will not be able to be administered if the patient is at an extended pr re facility. Dictated By: JENNIFFER PEREZ MD SR/NTS Conf#: [id number] DID#: [id number]
--- NOTE | 2016-12-28 19:59 | PN ---
DATE: 12/28/2016 SUBJECTIVE: Patient is awake, alert, and oriented to people and time but not events. OBJECTIVE: VITAL SIGNS: Temperature 98.5, blood pressure 134/73, pulse 79, O2 saturation 96% on room air. HEENT: Pupils equally round and reactive to light. Oropharynx clear. LUNGS: Clear to auscultation. CARDIAC: Irregularly irregular. ABDOMEN: Active bowel sounds. Soft, nondistended, nontender. EXTREMITIES: No clubbing, cyanosis, or edema. LABORATORY DATA: WBC 9.8, hemoglobin 8.9, hematocrit 28.4, platelet count 417,000. Sodium 137, pot assium 3.7, chloride 103, bicarbonate 31, BUN 25, creatinine 1.0, glucose 113. ASSESSMENT AND PLAN: 1. Thoracic spine compression, status post debulking and stabilization with transfer to a rehab [facility] for physical therapy. 2. Altered mental status. The patient still has intermittent confusion, which is most likely due t o hospital psychosis since this happens more in the afternoon. He does not need restraint since he is not violent or pulling out lines. Will discontinue 1:[address] patient on med/surg for close monitoring by nursing and see if the patient remains stable for transfer to rehab facility. 3. Bony metastasis. Await final pathology report, with plans for treatment as an outpatient with Mariaa Sharma. 4. Atrial fibrillation. Rate is well controlled on Cardizem-CD 240 every day. Anticoagulation is not indicated in this patient, who had a history of falling. He is on a baby aspirin a day. Dictated By: DESI MCLAIN MD DP/MARTINA Conf#: [id number] DID#: [id number]
[2016-12-28] MEDS: ATORVASTATIN 20 MG TAB PO SCH (20:51)
[2016-12-29] MEDS: PANTOPRAZOLE (EC) 40 MG TAB PO SCH (05:29)
[2016-12-29 07:28] VITALS: BP 118/65; RESP 16
[2016-12-29] MEDS: clonAZEPAM 0.5 MG TAB PO SCH ×2 (09:00→21:23)
[2016-12-29] MEDS: NITROGLYCERIN 6.5 MG PO SCH ×2 (09:52→21:23)
[2016-12-29] MEDS: ALLOPURINOL 300 MG TAB PO SCH (09:53)
[2016-12-29] MEDS: ESCITALOPRAM 10 MG TAB PO SCH (09:53)
[2016-12-29] MEDS: DILTIAZEM (CD) 240 MG CAP PO SCH ×2 (09:54→21:22)
--- NOTE | 2016-12-29 16:24 | PN ---
Date/Time of Note Date/Time of Note DATE: 12/29/16 TIME: 16:21 Assessment/Plan VTE Prophylaxis VTE Prophylaxis Intervention: LMWH Lines/Catheters IV Catheter Type (from [facility]): Peripheral IV Urinary Cath still in place: No Assessment/Plan Chief Complaint/Hosp Course 86 year old male with > Carcinoma of unknown primary with mets to bone and lung. > Spine mets post decompression, recovering well. > Anemia. So far recovering well. Cancer ID pending and no treatment planned until its available. Continue PT and rehab. Problems: Subjective 24 Hr Interval Summary Free Text/Dictation He has no new c/o. Per the aide, he is walking on the lizama and eating well. Denies pain. He is confused and poorly oriented, thinks he is home. Exam/Review of Systems Vital Signs Vitals Vital Signs Date Time Temp Pulse Resp B/P Pulse Ox O2 Delivery O2 Flow Rate FiO2 12/29/16 07:28 98.1 78 16 118/65 96 12/27/16 11:46 2.0 12/26/16 02:48 21 12/25/16 21:00 Nasal Cannula Intake and Output 12/28/16 12/28/16 12/29/16 15:00 23:00 07:00 Intake Total 420 ml Output Total 800 ml Balance -380 ml Exam NAD Pale Clear bilaterally. Abd is soft No edema. Results Result Diagram: 12/28/16 0712/28/16 0706 Medications Medications Current Medications Atorvastatin Calcium (Lipitor) 20 mg HS PO Last administered on 12/28/16 20:51 ; Admin Dose 20 MG; Start 12/07/16 at 21:00 Nitroglycerin (Nitroglycerin (Sr)) 6.5 mg BID PO Last administered on 09:52; Admin Dose 6.5 MG; Start 12/07/16 at 21:00 Pantoprazole (Protonix Tab) 40 mg DAILY@06 PO Last administered on 12/29/16 05 :29; Admin Dose 40 MG; Start 12/08/16 at 06:00 Clonidine (Catapres) 0.1 mg Q6H PRN PO sbp >160; Start 12/12/16 at 18:00 Allopurinol (Zyloprim) 300 mg AM PO Last administered on 12/29/16 09:53; Admin Dose 300 MG; Start 12/15/16 at 09:00 Clonazepam (Klonopin) 0.5 mg Q12 PO Last administered on 12/28/16 20:51; Admin Dose 0.5 MG; Start 12/19/16 at 21:00 Promethazine HCl/ Codeine (Phenergan/ Codeine) 5 ml Q4H PRN PO COUGH Last administered on 12/28/16 20:54; Admin Dose 5 ML; Start 12/21/16 at 22:30 Acetaminophen (Tylenol Tab) 650 mg Q6H PRN PO PAIN AND OR ELEVATED TEMP Last administered on 12/23/16 14:29; Admin Dose 650 MG; Start 12/22/16 at 19:00 Acetaminophen/ Hydrocodone Bitart ([place] (5/325)) 1 tab Q4H PRN PO moderate- severe pain Last administered on 12/26/16 11:06; Admin Dose 1 TAB; Start at 19:00 Diltiazem HCl (Cardizem Cd) 240 mg BID PO Last administered on 12/29/16 09:54 ; Admin Dose 240 MG; Start 12/27/16 at 21:00 Escitalopram Oxalate (Lexapro) 10 mg DAILY PO Last administered on 12/29/16 09 :53; Admin Dose 10 MG; Start 12/28/16 at 09:00 MYCHAL CHANG MD December 29, 2016 16:24
[2016-12-29] MEDS: PROMETHAZINE/CODEINE 5ML CUP PO PRN (16:53)
[2016-12-29 20:17] VITALS: BP 123/62; RESP 20
[2016-12-29] MEDS: ATORVASTATIN 20 MG TAB PO SCH (21:23)
[2016-12-29] MEDS: FERROUS SULFATE (EC) 325 MG TAB PO SCH (21:24)
[2016-12-30] MEDS: PROMETHAZINE/CODEINE 5ML CUP PO PRN (00:25)
[2016-12-30] MEDS: PANTOPRAZOLE (EC) 40 MG TAB PO SCH (05:54)
[2016-12-30 06:41] LABS: HEMATOCRIT 29.2 % (42.0-52.0); HEMOGLOBIN 9.1 g/dl (14.0-18.0)
[2016-12-30 07:16] VITALS: BP 133/63; RESP 19
[2016-12-30] MEDS: ALLOPURINOL 300 MG TAB PO SCH (09:00)
[2016-12-30] MEDS: ESCITALOPRAM 10 MG TAB PO SCH (09:00)
[2016-12-30] MEDS: MEMANTINE 10 MG TAB PO SCH (09:00)
[2016-12-30] MEDS: NITROGLYCERIN 6.5 MG PO SCH ×2 (09:00→21:16)
[2016-12-30] MEDS: DILTIAZEM (CD) 240 MG CAP PO SCH ×2 (09:00→21:15)
[2016-12-30] MEDS: FERROUS SULFATE (EC) 325 MG TAB PO SCH ×3 (09:00→21:15)
[2016-12-30] MEDS: clonAZEPAM 0.5 MG TAB PO SCH ×2 (09:00→21:15)
[2016-12-30 11:22] VITALS: BP 119/65; RESP 20
[2016-12-30] MEDS: ACETAMINOPHEN 325 MG TAB PO PRN (14:32)
[2016-12-30 16:06] VITALS: BP 134/72; RESP 19
--- NOTE | 2016-12-30 17:27 | PN ---
Date/Time of Note Date/Time of Note DATE: 12/29/16 TIME: 20:23 Assessment/Plan VTE Prophylaxis VTE Prophylaxis Intervention: other (ASA) Lines/Catheters IV Catheter Type (from Nrsg): Peripheral IV Central line still needed: No Urinary Cath still in place: No Assessment/Plan Assessment/Plan 1. S/P T SPINE COMPRESS DEBULK 2. UNKNOWN ORIGIN, BONE & LUNG METS 3. AMS--NEEDING 11/03 SITTER 4. ANEMIA ---PER ONC ---PER SPINE ORTHO ---INC FE ---AWAIT SNF BED Subjective 24 Hr Interval Summary Free Text/Dictation IN BED, SLEEPING, WITH SITTER CIRILO TAVARES MD December 30, 2016 17:26
--- NOTE | 2016-12-30 17:35 | PN ---
Date/Time of Note Date/Time of Note DATE: 12/30/16 TIME: 17:32 Assessment/Plan VTE Prophylaxis VTE Prophylaxis Intervention: other (ASA) Lines/Catheters IV [facility]ter Type (from [facility]): Peripheral IV Central line still needed: No Urinary Cath still in place: No Assessment/Plan Assessment/Plan 1. S/P T SPINE COMPRESS FX DEBULK 2. BONE & LUNG METS 3. ANEMIA 4. AMS--DEMENTIA ---PER SPINE ORTHO ---PER ONC ---CONT ALL SUPPORTIVE CARES ---AWAITS SNF OR [facility] TRANSFER Subjective 24 Hr Interval Summary Free Text/Dictation QUIET, DID NOT COMPREHEND MY QUESTIONS Exam/Review of Systems Vital Signs Vitals Vital Signs Date Time Temp Pulse Resp B/P Pulse Ox O2 Delivery O2 Flow Rate FiO2 12/30/16 16:06 98.5 71 19 134/72 99 12/30/16 08:30 Nasal Cannula 2.0 Intake and Output 12/29/16 12/29/16 12/30/16 15:00 23:00 07:00 Intake Total 860 ml 400 ml Output Total 600 ml Balance 860 ml -200 ml Exam DEC BS+ IRREG IRREG+ NO EDEMA LYING IN BED NO SITTER Results Result Diagram: 12/30/16 0545 12/28/16 0706 Results 24 hrs Laboratory Tests Test 12/30/16 05:45 Hemoglobin 9.1 L Hematocrit 29.2 L Medications Medications Current Medications Atorvastatin Calcium (Lipitor) 20 mg HS PO Last administered on 12/29/16 21:23 ; Admin Dose 20 MG; Start 12/07/16 at 21:00 Nitroglycerin (Nitroglycerin (Sr)) 6.5 mg BID PO Last administered on 21:23; Admin Dose 6.5 MG; Start 12/07/16 at 21:00 Pantoprazole (Protonix Tab) 40 mg DAILY@06 PO Last administered on 12/30/16 05 :54; Admin Dose 40 MG; Start 12/08/16 at 06:00 Clonidine (Catapres) 0.1 mg Q6H PRN PO sbp >160; Start 12/12/16 at 18:00 Allopurinol (Zyloprim) 300 mg AM PO Last administered on 12/30/16 09:00; Admin Dose 300 MG; Start 12/15/16 at 09:00 Clonazepam (Klonopin) 0.5 mg Q12 PO Last administered on 12/29/16 21:23; Admin Dose 0.5 MG; Start 12/19/16 at 21:00 Promethazine HCl/ Codeine (Phenergan/ Codeine) 5 ml Q4H PRN PO COUGH Last administered on 12/30/16 00:25; Admin Dose 5 ML; Start 12/21/16 at 22:30 Acetaminophen (Tylenol Tab) 650 mg Q6H PRN PO PAIN AND OR ELEVATED TEMP Last administered on 12/30/16 14:32; Admin Dose 650 MG; Start 12/22/16 at 19:00 Acetaminophen/ Hydrocodone Bitart ([place] (5/325)) 1 tab Q4H PRN PO moderate- severe pain Last administered on 12/26/16 11:06; Admin Dose 1 TAB; Start at 19:00 Diltiazem HCl (Cardizem Cd) 240 mg BID PO Last administered on 12/29/16 21:22 ; Admin Dose 240 MG; Start 12/27/16 at 21:00 Escitalopram Oxalate (Lexapro) 10 mg DAILY PO Last administered on 12/30/16 09 :00; Admin Dose 10 MG; Start 12/28/16 at 09:00 Ferrous Sulfate (Ferrous Sulfate (Ec)) 325 mg TID PO Last administered on 14:29; Admin Dose 325 MG; Start 12/29/16 at 21:00 Memantine (Namenda) 10 mg DAILY PO Last administered on 12/30/16 09:00; Admin Dose 10 MG; Start 12/30/16 at 09:00 CIRILO TAVARES MD December 30, 2016 17:35
[2016-12-30 19:17] VITALS: BP 116/52; RESP 20
[2016-12-30] MEDS: ATORVASTATIN 20 MG TAB PO SCH (21:15)
[2016-12-31] MEDS: PANTOPRAZOLE (EC) 40 MG TAB PO SCH (05:22)
[2016-12-31] MEDS: PROMETHAZINE/CODEINE 5ML CUP PO PRN ×2 (05:22→21:58)
[2016-12-31 07:44] VITALS: BP 127/68; RESP 20
[2016-12-31] MEDS: clonAZEPAM 0.5 MG TAB PO SCH ×2 (09:48→21:56)
[2016-12-31] MEDS: ALLOPURINOL 300 MG TAB PO SCH (09:48)
[2016-12-31] MEDS: DILTIAZEM (CD) 240 MG CAP PO SCH ×2 (09:49→22:05)
[2016-12-31] MEDS: MEMANTINE 10 MG TAB PO SCH (09:49)
[2016-12-31] MEDS: NITROGLYCERIN 6.5 MG PO SCH ×2 (09:49→21:56)
[2016-12-31] MEDS: ESCITALOPRAM 10 MG TAB PO SCH (09:49)
[2016-12-31] MEDS: FERROUS SULFATE (EC) 325 MG TAB PO SCH ×3 (09:49→21:56)
--- NOTE | 2016-12-31 10:06 | PN ---
DATE: 12/31/2016 HEMATOLOGY AND ONCOLOGY PROGRESS NOTE SUBJECTIVE: The patient is lying quietly in bed. He has no particular complaints. Does answer que stions, but seems somewhat confused. OBJECTIVE: VITAL SIGNS: Temperature 97, pulse 87 per minute, respirations 20, blood pressure 127/68, pulse oxi metry 100% on 3 L of oxygen via nasal cannula. SKIN: No ecchymosis, no petechiae or rashes. HEENT: No mucosal lesions. No scleral icterus. There is nasal oxygen in place. NECK: Supple, no jugular venous distention or thyroid enlargement. CHEST: Clear to auscultation and percussion. No rhonchi, wheezes, rales, or rubs. The surgical dr essing over the spinal incision which is well healed. HEART: Regular sinus rhythm, no S3, S4 or murmurs. ABDOMEN: Soft, no masses, no ascites. EXTREMITIES: No clubbing, edema, or cyanosis. NEUROLOGIC: There are no focal neurologic abnormalities. There is mild confusion. LABORATORY DATA: No recent laboratory. Still awaiting the cancer-type ID evaluation of the surgical specimen to help identify the primary t umor. Dictated By: JENNIFFER PEREZ MD SR/NTS Conf#: [id number] DID#: [id number]
[2016-12-31 13:10] VITALS: BP 105/65; RESP 20
[2016-12-31 15:32] VITALS: BP 108/57; RESP 20
[2016-12-31 18:01] VITALS: BP 114/68; PULSE 82; RESP 20
[2016-12-31 19:16] LABS: INR 1.1; PROTIME 14.2 Sec (12.2-14.2); PT RATIO 1.1
[2016-12-31 19:17] LABS: PARTIAL THROMBOPLASTIN TIME 33.2 Sec (25.0-35.0)
[2016-12-31 19:47] VITALS: BP 105/60; RESP 20
[2016-12-31] MEDS: ATORVASTATIN 20 MG TAB PO SCH (21:55)
--- NOTE | 2016-12-31 22:01 | RADRPT ---
PROCEDURE: CT Head without. CLINICAL INDICATION: Confusion, metastatic disease. TECHNIQUE: The study was performed utilizing a multi-slice, multidetector CT scanner. Direct spira l 1 mm axial sections were obtained through the head without the use of intravenous contrast materia l. 1 or more of the following dose reduction techniques were utilized: Automated exposure control, adjustment of the mA and/or kV according to patient's size, iterative reconstruction technique. Co brendan and sagittal reformations were obtained. The images were reviewed on a PACS workstation. RADIATION DOSE: CTDIvol: 43.4 mGyDLP: 720.2 mGy-cm COMPARISON: 12/07/2016, MRI cervical thoracic and lumbar spine 12/07/2016 FINDINGS: There is no intracranial hemorrhage, extra-axial fluid collection, midline shift or hydrocephalus. There is a left para falcine calcified extra-axial mass (coronal series and 69), measuring approxima tely 12 x 11 x 10 mm(AP x TR x CC), suggestive of small parafalcine meningioma. This is stable comp ared to the prior examination on 12/07/2016. There is mild prominence of the cerebral sulci, lateral and third ventricles. There is mild periventricular and subcortical white matter hypodensity. The re is moderate arteriosclerotic calcification of the parasellar internal carotid arteries. The vieyra -white matter differentiation is preserved. The basal cisterns are patent. The midline structures are intact. There is bilateral aphakia. The calvarium is intact without definite evidence of infil trative or destructive lesion. The orbits, calvarium and extracranial soft tissues are normal in ap pearance. The visualized paranasal sinuses, mastoid air cells and middle ear cavities are normally aerated. IMPRESSION: 1. No acute intracranial abnormality. No intracranial hemorrhage, extra-axial fluid collection, ma ss lesion or hydrocephalous. 2. Stable mild peripheral and central cerebral volume loss. 3. Stable mild periventricular and subcortical white matter hypodensity, likely related to chronic microangiopathic changes. 4. Stable appearance of calcified extra-axial 12 x 11 x 10 mm lesion, suggestive of small parafalci ne meningioma. 5. The calvarium appears intact without evidence of lytic or destructive metastasis at this time. RPTAT: HGAS .Lazaro Bennett MD, MD Date Time Electronically viewed and signed by .Lazaro Bennett MD, on 12/31/2016 22:00 .S/
--- NOTE | 2016-12-31 23:50 | PN ---
DATE: 12/31/2016 SUBJECTIVE: Patient is awake, alert, oriented to name and place, but not time and event. OBJECTIVE VITAL SIGNS: Temperature 97.7, blood pressure 108/57, pulse of 65, respiration rate 20, O2 saturation 97% on 2 liters nasal cannula. HEENT: Pupils equally round, reactive to light. Oropharynx clear. CARDIAC: Regular rate and rhythm. Distant heart sounds. CHEST: Lungs are clear to auscultation. ABDOMEN: Active bowel sounds, soft, nondistended, nontender. EXTREMITIES: No clubbing, cyanosis, or edema. ASSESSMENT AND PLAN: 1. Atrial fibrillation, rate controlled on Cardizem might even be regular rhythm at this time. The patient is transferred to med/surg off telemetry. I will obtain an EKG to ensure that his heart rhythm is in sinus at this time. 2. Cord compression, status post T4 debulking and laminectomy. Doing well postoperatively but still very weak and requires further physical therapy. 3. Confusion. The patient still has intermittent confusion, mostly related to orientation will continue close nursing monitor as physical therapy works on patient's motor strength. The patient has been started on Namenda for possible dementia but patient was very functional prior to current hospitalization. 4. Bony metastatic disease. Await final pathology for determination on treatment options. I will also consider biopsy of pulmonary lesion, will discuss with radiologist regarding CT guided biopsy. Dictated By: DESI MCLAIN MD DP/MARTINA Conf#: [id number] DID#: [id number] MTDD
[2017-01-01] VITALS (28 sets, daily range): BP systolic 87–160; BP diastolic 57–99; PULSE 92–125; RESP 12–27
[2017-01-01] MEDS: PANTOPRAZOLE (EC) 40 MG TAB PO SCH (05:45)
[2017-01-01] MEDS: PROMETHAZINE/CODEINE 5ML CUP PO PRN (05:50)
[2017-01-01 06:12] LABS: ALBUMIN 2.7 g/dl (3.3-4.9); ALBUMIN/GLOBULIN RATIO 1.03; BILIRUBIN,INDIRECT 0.1 mg/dl (0-1.1); BILIRUBIN,TOTAL 0.1 mg/dl (0.2-1.3); CALCIUM 9.1 mg/dl (8.4-10.2); CREATININE 0.88 mg/dl (0.61-1.24); POTASSIUM 3.7 mmol/L (3.5-5.1); TOTAL PROTEIN 5.3 g/dl (6.1-8.1)
[2017-01-01 06:13] LABS: ADD SCAN DIFF NO
[2017-01-01 06:15] LABS: BASOPHILS % 0.3 % (0.0-2.0); EOSINOPHILS # 0.1 10^3/ul (0.0-0.5); EOSINOPHILS % 1.1 % (0.0-7.0); HEMOGLOBIN 8.6 g/dl (14.0-18.0); LYMPHOCYTES # 0.7 10^3/ul (0.8-2.9); LYMPHOCYTES % 6.4 % (15.0-51.0); MEAN CORPUSCULAR HEMOGLOBIN 29.1 pg (29.0-33.0); MEAN CORPUSCULAR HGB CONC 30.7 g/dl (32.0-37.0); MEAN CORPUSCULAR VOLUME 94.6 fl (82.0-101.0); MEAN PLATELET VOLUME 9.4 fl (7.4-10.4); MONOCYTE # 0.8 10^3/ul (0.3-0.9); MONOCYTES % 7.5 % (0.0-11.0); NEUTROPHIL # 8.5 10^3/ul (1.6-7.5); NEUTROPHILS % 83.7 % (39.0-77.0); PLATELET COUNT 365 10^3/UL (140-415); RED BLOOD COUNT 2.96 10^6/ul (4.70-6.10); RED CELL DISTRIBUTION WIDTH 14.2 % (11.5-14.5); WHITE BLOOD COUNT 10.1 10^3/ul (4.8-10.8)
[2017-01-01] MEDS: MEMANTINE 10 MG TAB PO SCH (09:00)
[2017-01-01] MEDS: ESCITALOPRAM 10 MG TAB PO SCH (09:00)
[2017-01-01] MEDS: NITROGLYCERIN 6.5 MG PO SCH ×2 (09:00→22:36)
[2017-01-01] MEDS: clonAZEPAM 0.5 MG TAB PO SCH ×2 (09:00→22:08)
[2017-01-01] MEDS: FERROUS SULFATE (EC) 325 MG TAB PO SCH ×3 (09:00→22:08)
[2017-01-01] MEDS: ALLOPURINOL 300 MG TAB PO SCH (09:00)
[2017-01-01] MEDS: DILTIAZEM (CD) 240 MG CAP PO SCH ×2 (09:00→22:35)
[2017-01-01] MEDS ORDERED: SOD CHLORIDE 0.9% 500 ML ONE (14:19)
[2017-01-01] MEDS ORDERED: MIDAZOLAM 1 MG/ML 2 ML INJ ONE (14:19)
[2017-01-01] MEDS ORDERED: LIDOCAINE 1% (MDV) 20 ML INJ ONE (14:19)
[2017-01-01] MEDS ORDERED: FENTAnyl 50 MCG/ML VIAL ONE (14:19)
--- NOTE | 2017-01-01 17:01 | RADRPT ---
PROCEDURE: CT guided biopsy of left lung mass. CLINICAL INDICATION: Left lung mass. TECHNIQUE: Prior to the procedure, informed consent was obtained. Risks including bleeding, infec tion, and pneumothorax were explained to the patient. The patient understood was willing to proceed . A procedural pause was performed. The patient's name, date of , and procedure to be perform ed were verified. Using local anesthetic, sterile technique, and CT guidance, a 22-gauge spinal needle was used to bio psy the mass in the left upper lobe. Multiple passes were made. Adequate tissue was obtained accor ding to the pathologist present during the procedure. The needle was removed. A post biopsy scan w as performed. The patient tolerated the procedure well. One or more of the following dose reductio n techniques were used: Automated exposure control, adjustment of the mA and/or kV according to sinan ent size, use of iterative reconstruction technique. COMPARISON: CT scan of the chest dated 12/07/2016. FINDINGS: Images with the needle in place demonstrate the needle at the posterior margin of the lesion in ques tion. Post biopsy images demonstrate a small pneumothorax measuring approximately 5%. The patient was asymptomatic. IMPRESSION: 1. Satisfactory CT guided biopsy of the left lung mass. 2. There is a small pneumothorax following the biopsy. The patient is asymptomatic. Follow-up chris x-ray will be obtained. RPTAT: QQ .Edi Yun MD, Date Time Electronically viewed and signed by .Edi Yun MD, on 01/01/2017 17:00 .R/
[2017-01-01] MEDS ORDERED: LORAZEPAM 2 MG INJ IV STA (18:36)
[2017-01-01] MEDS ORDERED: LORAZEPAM 2 MG INJ ONE (18:38)
[2017-01-01] MEDS ORDERED: NITROGLYCERIN (SL) 0.4 MG TAB SL PRN (19:00)
[2017-01-01] MEDS ORDERED: NITROGLYCERIN AEROSOL (4.9 GM) SL PRN (19:00)
--- NOTE | 2017-01-01 19:26 | RADRPT ---
PROCEDURE: XR Chest. CLINICAL INDICATION: Chest pain. TECHNIQUE: Single frontal view of the chest. COMPARISON: None. FINDINGS: Cardiomegaly and atherosclerotic calcifications in the thoracic aorta. New 15-20% left apical likely hydropneumothorax. Mild pulmonary vascular congestion and bibasilar pleural effusions with atelectasis versus airspace disease. Likely hyperinflation of COPD in changes of centrolobular emphysema. New bilateral pablo fixators over the lower cervical and upper thoracic spine since 05/10/2015. Demin eralization limits evaluation of fine osseous detail. Otherwise, the osseous structures and soft ti ssues are unremarkable. IMPRESSION: 1. New 15-20% left apical likely hydropneumothorax. 2. Mild pulmonary vascular ingestion and new bilateral lung base pleural effusions with associated atelectasis versus airspace disease. These findings and impression were discussed with the patient's nurse Willa of the [address] telemetry unit for further communication to the requesting physician by the unders igned interpreting radiologist at the conclusion of this examination. RPTAT: UU Physician Julian Date Time Electronically viewed and signed by Physician Julian on 01/01/2017 19:26 RS/
[2017-01-01 20:29] LABS: AADO2 Arterial 45.1 mmHg (7.0-24.0); Arterial Base Excess 1.2 mmol/L (-3.0-3); Arterial COHb 0.3 % (0.0-3.0); Arterial Fraction of Oxyhgb 97.6 % (93.0-99.0); Arterial HCO3 25.7 mmol/L (22.0-26.0); Arterial MetHb 0.2 % (0.0-1.5); Arterial Total Hemglobin 10.2 g/dl (12.0-18.0); MODE NASAL CANNULA
[2017-01-01] MEDS: ATORVASTATIN 20 MG TAB PO SCH (22:08)
--- NOTE | 2017-01-01 23:42 | PN ---
DATE: 01/01/2017 SUBJECTIVE: The patient status post left upper lobe CT-guided needle biopsy and had an episode of s hortness of breath, chest pain with tachycardia. The patient's heart rate came down from about 140 down to 111 and subsequently to 80 after administration of the Cardizem-CD dosage that he missed ear lier this afternoon. His chest pain and shortness of breath resolved with nitroglycerin, but the est x-ray that was done for followup post-biopsy showed a hemopneumothorax that is about 15% to 20% in size compared to the 5% pneumothorax that was noted in the immediate post-biopsy CT. Thus, nancy gutierrez is transferred to a monitored bed, either to telemetry or ICU, for close observation for the next 24 hours. OBJECTIVE: VITAL SIGNS: Temperature 98.9, blood pressure 115/58, heart rate 91, O2 saturation is 100% on 3 lit ers nasal cannula. HEENT: Pupils equally round, reactive to light. GENERAL: The patient is awake, alert and oriented, mildly confused appearing to be in no acute dist ress. HEENT: Pupils equally round, reactive to light. Oropharynx clear. CHEST: Lungs are clear to auscultation anteriorly. CARDIAC: Irregularly irregular. ABDOMEN: Active bowel sounds, soft, nondistended, nontender. EXTREMITIES: No clubbing, cyanosis, or edema. LABORATORY DATA: WBC 10.1, hemoglobin 8.6, hematocrit 28.0, platelet count 365,000. Sodium 135, po tassium 3.7, BUN 23, creatinine 0.8. Liver enzymes notable for mildly elevated alkaline phosphatase of 160. Decreased total protein of 5.3, decreased albumin of 2.7. The patient had arterial blood gas that showed a pH of 7.42, pCO2 of 40, pO2 of 121, O2 saturation 98% on 30%. IMAGING: Chest x-ray shows a new 15% to 20% left apical hydropneumothorax. There is mild pulmonary vascular congestion and new bilateral lung base pleural effusions with associated atelectasis versu s airspace disease. ASSESSMENT AND PLAN: 1. Pneumothorax. The patient has stable vital signs at this time, but in the event that the pneumo thorax is expanding, will have to observe him in the monitored setting for the next 24 to 48 hours. Will recheck chest x-ray as well as a CBC in the morning. If the symptoms progress, we may need to place chest tube. Cardiothoracic surgeon, Dr. Hinton has been notified, but he is doing surgery tonight and will not be able to assist with a consult. So we have called the pulmonary team for ai d in monitoring this patient and the placement CT tube if necessary. 2. Metastatic carcinoma, status post lung nodule biopsy to see if this lung nodule may be a source of primary, since we are unable to locate the primary site for the vaguely urothelial appearance of the bone metastasis. 3. Atrial fibrillation worsened due to lack of the Cardizem dosing, but also due to the pneumothora x. We will continue the patient on his usual dose of Cardizem and monitor him on telemetry. 4. Chest pain, shortness of breath. Most likely due to ongoing pneumothorax and atrial fibrillatio n, but I will go ahead and do a series of enzymes to rule out acute myocardial infarction. Dictated By: DESI MCLAIN MD DP/MARTINA Conf#: [id number] DID#: [id number]
[2017-01-02] VITALS (24 sets, daily range): BP systolic 101–149; BP diastolic 55–95; PULSE 75–108; RESP 17–30
--- NOTE | 2017-01-02 00:11 | PN ---
DATE: 01/01/2017 SUBJECTIVE: Mr. Fiore today did have a percutaneous biopsy of left upper lobe lesion seen on chest x-ray and CT scan. The patient unfortunately has had a pneumothorax. He is now in intensive care unit. OBJECTIVE: VITAL SIGNS: The patient now has a pulse rate of 113. GENERAL: He is lethargic. CHEST: Decreased breath sounds on the left side. ABDOMEN: Soft. No masses, no ascites. EXTREMITIES: No clubbing, edema or cyanosis. No palpable cords or Homans sign. NEUROLOGIC: Reveals not reveal any focal neurologic abnormalities. The cancer ID analysis is now available and suggests that this most likely this was done on the spec imen obtained at the time of the thoracic spine decompression. 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 ASSESSMENT: Metastatic carcinoma, unknown primary site, probable lung with thoracic cord compressio n. PLAN: At this time, the patient is not a candidate for either radiation or chemotherapy. He has to be stabilized and the final tissue diagnosis confirmed. If this is felt to be a primary lung lesio n, then further genomic testing will be necessary including EGFR, ALK, and PD-L1 analyses. Dictated By: JENNIFFER PEREZ MD SR/NTS Conf#: [id number] DID#: [id number] CC: DESI MCLAIN MD;*EndCC*
[2017-01-02 04:57] LABS: ADD SCAN DIFF NO
[2017-01-02 05:06] LABS: ABNORMAL IP MESSAGE 1; BASOPHILS % 0.3 % (0.0-2.0); EOSINOPHILS # 0.1 10^3/ul (0.0-0.5); EOSINOPHILS % 0.8 % (0.0-7.0); HEMOGLOBIN 8.9 g/dl (14.0-18.0); LYMPHOCYTES # 0.5 10^3/ul (0.8-2.9); LYMPHOCYTES % 5.1 % (15.0-51.0); MEAN CORPUSCULAR HEMOGLOBIN 28.8 pg (29.0-33.0); MEAN CORPUSCULAR HGB CONC 30.7 g/dl (32.0-37.0); MEAN CORPUSCULAR VOLUME 93.9 fl (82.0-101.0); MEAN PLATELET VOLUME 9.7 fl (7.4-10.4); MONOCYTE # 0.8 10^3/ul (0.3-0.9); MONOCYTES % 7.5 % (0.0-11.0); NEUTROPHILS % 85.1 % (39.0-77.0); PLATELET COUNT 353 10^3/UL (140-415); RED BLOOD COUNT 3.09 10^6/ul (4.70-6.10); RED CELL DISTRIBUTION WIDTH 14.4 % (11.5-14.5); WHITE BLOOD COUNT 10.6 10^3/ul (4.8-10.8)
[2017-01-02 05:25] LABS: CHLORIDE 100 mmol/L (97-110); POTASSIUM 4.1 mmol/L (3.5-5.1); SODIUM 138 mmol/L (135-144)
[2017-01-02 05:28] LABS: BLOOD UREA NITROGEN 24 mg/dl (7-20); CARBON DIOXIDE 28 mmol/L (21-31); CREATININE 0.84 mg/dl (0.61-1.24)
[2017-01-02 05:29] LABS: CALCIUM 9.4 mg/dl (8.4-10.2); GLUCOSE 106 mg/dl (70-220)
[2017-01-02 05:32] LABS: ANION GAP 14 (8-16)
[2017-01-02 05:34] LABS: TROPONIN-I < 0.012 ng/ml (0.00-0.12)
--- NOTE | 2017-01-02 06:48 | RADRPT ---
PROCEDURE: XR Chest. CLINICAL INDICATION: Chest pain TECHNIQUE: An AP view of the chest was obtained. COMPARISON: None. FINDINGS: There is prominence of the interstitial and central pulmonary vascular markings a small left pleura l effusion. There is a small left apical pneumothorax. The cardiomediastinal silhouette is mildly e nlarged . Calcifications are seen within the aortic arch. The osseous structures demonstrate senesc ent changes. There are postsurgical changes from cervical thoracic fusion. IMPRESSION: 1. Small left apical pneumothorax, unchanged to mildly improved when compared to the prior examinat ion. 2. Findings suggestive of pulmonary vascular congestion. No significant interval change. 3. Stable, small left pleural effusion. 4. Mild cardiomegaly and aortic atherosclerosis. RPTAT: HH .Coral Chowdhury MD, Date Time Electronically viewed and signed by .Coral Chowdhury MD, MD on 01/02/2017 06:48 .G/
[2017-01-02] MEDS: PANTOPRAZOLE (EC) 40 MG TAB PO SCH (07:44)
[2017-01-02 08:14] LABS: AADO2 Arterial 351.9 mmHg (7.0-24.0); Allen Test ACCEPTAB; Arterial Base Excess 2.1 mmol/L (-3.0-3); Arterial COHb 0.3 % (0.0-3.0); Arterial Fraction of Oxyhgb 98.7 % (93.0-99.0); Arterial HCO3 26.7 mmol/L (22.0-26.0); Arterial MetHb 0.2 % (0.0-1.5); Arterial Total Hemglobin 10.1 g/dl (12.0-18.0); MODE MASK - NRB
[2017-01-02] MEDS: DILTIAZEM (CD) 240 MG CAP PO SCH ×2 (08:15→20:24)
[2017-01-02] MEDS: ESCITALOPRAM 10 MG TAB PO SCH (08:15)
[2017-01-02] MEDS: FERROUS SULFATE (EC) 325 MG TAB PO SCH ×3 (08:15→20:25)
[2017-01-02] MEDS: NITROGLYCERIN 6.5 MG PO SCH ×2 (08:15→20:24)
[2017-01-02] MEDS: ALLOPURINOL 300 MG TAB PO SCH (08:15)
[2017-01-02] MEDS: clonAZEPAM 0.5 MG TAB PO SCH ×2 (08:15→20:24)
[2017-01-02] MEDS: MEMANTINE 10 MG TAB PO SCH (08:15)
--- NOTE | 2017-01-02 10:30 | CONS ---
Date/Time of Note Date/Time of Note DATE: 01/02/17 TIME: 10:23 Assessment/Plan Assessment/Plan Additional Assessment/Plan CT chest was reviewed from last month which is showing spiculated left upper lobe lung lesion highly suspicious for bronchogenic carcinoma. Pathology reports were also reviewed from spinal mass done last month. Consistent with metastatic carcinoma. Chest x-ray was reviewed from yesterday which is showing a left plical 20% pneumothorax and chest x-ray from this morning is showing significant improvement. Next Assessment recommendations; 1. Widely metastatic malignancy likely primary lung. 2. Improving left apical pneumothorax. 3. Multiple other comorbidities which all appear fairly stable. Continue current treatment. Patient has very poor functional status and palliative care is recommended. Consultation Date/Type/Reason Admit Date/Time Dec 07, 2016 at 12:13 Date of Consultation: January 02, 2017 Type of Consultation: Pulmonary/critical care Reason for Consultation Consultation obtained for evaluation of postop pneumothorax on the left side. History of presenting any; patient is a pleasant 86-year-old white male who was admitted on last after sustaining a fall at home. Upon evaluation CT imaging of the body was done which showed a C-spine fracture however images of the spinal column revealed evidence of metastatic disease patient subsequently underwent spinal cord decompression between T3 and T5 with findings consistent with metastatic cancer. Patient subsequently underwent a CT biopsy of left upper lobe mass yesterday resulting in 20% pneumothorax requiring him to be admitted to ICU for further observation. However patient did not require any chest tube placement. By the time I saw the patient' this morning the patient is on nonrebreather mask, awake but somewhat somnolent. History was obtained from medical records. Past medical history; 1. Patient with a history of recent spinal surgery. 2. Coronary artery disease. 3. Diabetes. 4. Gout. 5. Acid reflux. 6. Hypertension. 7. Atrial fibrillation. Medications; reviewed. Allergies; penicillin and morphine. Social history; patient had a more than [id number]-[id number] smoking history. Most of alcohol use. Family history; patient is a . Lives alone. Next Occupational history; not available. Next Review of systems; currently unable to be obtained. Next General exam; elderly male, on 100% nonrebreather mask, awake and somnolent. Constitutional: disoriented Eyes: no complaints ENT: no complaints Respiratory: cough Cardiovascular: no complaints Gastrointestinal: no complaints Psychological: nl mood/affect, no complaints Social History Smoking Status: Former smoker Exam/Review of Systems Vital Signs Vitals Vital Signs Date Time Temp Pulse Resp B/P Pulse Ox O2 Delivery O2 Flow Rate FiO2 01/02/17 10:00 100 20 112/68 100 Non Rebreather 15.0 01/02/17 08:00 98.3 Intake and Output 01/01/17 01/01/17 01/02/17 14:59 22:59 06:59 Intake Total 550 ml 100 ml Output Total 350 ml Balance 200 ml 100 ml Exam HEENT exam is; supple neck, no JVD. No lymphadenopathy. Midline trachea. No thyromegaly. Patient has bilateral intraocular lens implants. Has multiple carious teeth. Chest examination; diminished but clear vessel. S1-S2 audible, irregular rhythm. No murmurs. Abdomen examination; soft, nondistended, nontender. No organomegaly. Bowel sounds audible. Extremity examination; no peripheral edema. GYM ATTENDANT examination; patient is awake, somnolent, moves all 4 extremities spontaneously. Results Result Diagram: 01/02/17 0426 01/02/17 0426 Results 24 hrs Laboratory Tests Test 01/01/17 20:10 01/01/17 22:10 01/02/17 04:26 01/02/17 05:12 Blood Gas Specimen Source Blood arterial Arterial Blood Date Drawn 01/01/2017 8:20:13 PM Arterial Blood pH (Temp corrected) 7.425 Arterial Blood pCO2 (Temp correct) 40.0 Arterial Blood pO2 (Temp corrected) 121.8 H Arterial Blood HCO3 25.7 Arterial Blood Base Excess 1.2 Arterial Blood Oxygen Saturation 98.1 Nguyễn Test N/A Arterial Blood Gas Puncture Site Right Brachial Arterial Blood Carboxyhemoglobin 0.3 Arterial Blood Methemoglobin 0.2 Blood Gas A-a O2 Differential 45.1 H Oxyhemoglobin Percent 97.6 Total Hemoglobin 10.2 L Blood Gas Temperature 37.0 Blood Gas Modality NASAL CANNULA FiO2 30.0 Blood Gas Notified Whom MM Blood Gas Notified Time 01/01/2017 8:28:50 PM Troponin I < 0.012 < 0.012 White Blood Count 10.6 Red Blood Count 3.09 L Hemoglobin 8.9 L Hematocrit 29.0 L Mean Corpuscular Volume 93.9 Mean Corpuscular Hemoglobin 28.8 L Mean Corpuscular Hemoglobin Concent 30.7 L Red Cell Distribution Width 14.4 Platelet Count 353 Mean Platelet Volume 9.7 Neutrophils % 85.1 H Lymphocytes % 5.1 L Monocytes % 7.5 Eosinophils % 0.8 Basophils % 0.3 Nucleated Red Blood Cells % 0.0 Neutrophils # 9.0 H Lymphocytes # 0.5 L Monocytes # 0.8 Eosinophils # 0.1 Basophils # 0.0 Nucleated Red Blood Cells # 0.0 Sodium Level 138 Potassium Level 4.1 Chloride Level 100 Carbon Dioxide Level 28 Anion Gap 14 # Blood Urea Nitrogen 24 H Creatinine 0.84 Glucose Level 106 Calcium Level 9.4 Lab Scanned Report BLOOD TRANSFUSION Test 01/02/17 08:00 Blood Gas Specimen Source Blood arterial Arterial Blood Date Drawn 01/02/2017 8:02:26 AM Arterial Blood pH (Temp corrected) 7.423 Arterial Blood pCO2 (Temp correct) 41.8 Arterial Blood pO2 (Temp corrected) 319.3 H Arterial Blood HCO3 26.7 H Arterial Blood Base Excess 2.1 Arterial Blood Oxygen Saturation 99.2 Nguyễn Test ACCEPTAB Arterial Blood Gas Puncture Site Left Radial Arterial Blood Carboxyhemoglobin 0.3 Arterial Blood Methemoglobin 0.2 Blood Gas A-a O2 Differential 351.9 H Oxyhemoglobin Percent 98.7 Total Hemoglobin 10.1 L Blood Gas Temperature 37.0 Blood Gas Modality MASK - NRB FiO2 100.0 Blood Gas Notified Whom JLD Blood Gas Notified Time 01/02/2017 8:14:05 AM Medications Medications Current Medications Atorvastatin Calcium (Lipitor) 20 mg HS PO Last administered on 01/01/17 22:08 ; Admin Dose 20 MG; Start 12/07/16 at 21:00 Nitroglycerin (Nitroglycerin (Sr)) 6.5 mg BID PO Last administered on 08:15; Admin Dose 6.5 MG; Start 12/07/16 at 21:00 Pantoprazole (Protonix Tab) 40 mg DAILY@06 PO Last administered on 01/02/17 07 :44; Admin Dose 40 MG; Start 12/08/16 at 06:00 Clonidine (Catapres) 0.1 mg Q6H PRN PO sbp >160; Start 12/12/16 at 18:00 Allopurinol (Zyloprim) 300 mg AM PO Last administered on 01/02/17 08:15; Admin Dose 300 MG; Start 12/15/16 at 09:00 Clonazepam (Klonopin) 0.5 mg Q12 PO Last administered on 01/02/17 08:15; Admin Dose 0.5 MG; Start 12/19/16 at 21:00 Promethazine HCl/ Codeine (Phenergan/ Codeine) 5 ml Q4H PRN PO COUGH Last administered on 01/01/17 05:50; Admin Dose 5 ML; Start 12/21/16 at 22:30 Acetaminophen (Tylenol Tab) 650 mg Q6H PRN PO PAIN AND OR ELEVATED TEMP Last administered on 12/30/16 14:32; Admin Dose 650 MG; Start 12/22/16 at 19:00 Acetaminophen/ Hydrocodone Bitart ([place] (5/325)) 1 tab Q4H PRN PO moderate- severe pain Last administered on 12/26/16 11:06; Admin Dose 1 TAB; Start at 19:00 Diltiazem HCl (Cardizem Cd) 240 mg BID PO Last administered on 01/02/17 08:15 ; Admin Dose 240 MG; Start 12/27/16 at 21:00 Escitalopram Oxalate (Lexapro) 10 mg DAILY PO Last administered on 01/02/17 08 :15; Admin Dose 10 MG; Start 12/28/16 at 09:00 Ferrous Sulfate (Ferrous Sulfate (Ec)) 325 mg TID PO Last administered on 08:15; Admin Dose 325 MG; Start 12/29/16 at 21:00 Memantine (Namenda) 10 mg DAILY PO Last administered on 01/02/17 08:15; Admin Dose 10 MG; Start 12/30/16 at 09:00 Nitroglycerin (Nitroglycerin (Sl Tab) 0.4 Mg) 1 tab Q5M PRN SL ANGINA; Start at 19:00 Nitroglycerin (Nitroglycerin ([place])) 1 spray Q5M PRN SL ANGINA; Start at 19:00 VANESSA IZAGUIRRE January 02, 2017 10:30
--- NOTE | 2017-01-02 10:54 | PN ---
DATE: 01/02/2017 SUBJECTIVE: Mr. Fiore appears to be comfortable at this time. He is less restless and confused th an when last seen. He is not short of breath. OBJECTIVE: GENERAL: The patient is a well-developed, well-nourished male who is in no acute distress. SKIN: No ecchymoses, no petechiae or rashes. HEENT: No mucosal lesions. No scleral icterus. Pupils equal, round, react to light and accommodat ion. Sclerae NECK: Supple, no jugular venous distention or thyroid enlargement. CHEST: Reveals decreased breath sounds, but no dullness to percussion on the left side. There are no rubs or wheezes heard. HEART: Sinus tachycardia. No S3, S4 or murmurs. There is no pain on percussion of spine, sternum, clavicles or ribs. NODES: No palpable lymphadenopathy in lymph node bearing area. GASTROINTESTINAL: Abdomen is soft, no masses, no ascites. Bowel sounds are active. EXTREMITIES: No clubbing, no edema or cyanosis. No palpable cords or Homans sign. LABORATORY: White count 10,600, hemoglobin 8.9, hematocrit 29, platelet count 353,000. Sodium 138, potassium 4.1, BUN 24, creatinine 0.8, calcium 9.4. ASSESSMENT: 1. Metastatic poorly differentiated carcinoma, primary unknown. 2. Cord compression due to #1. 3. Left upper lobe mass. 4. Pneumothorax status post left upper lobe biopsy. 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 Biopsy of the left upper lobe which led to the pneumothorax is pending. Discussions regarding the advisability of any therapy will be held once the tissue diagnosis is know n. Dictated By: JENNIFFER PEREZ MD SR/NTS Conf#: [id number] DID#: [id number]
--- NOTE | 2017-01-02 11:40 | CONS ---
Date/Time of Note Date/Time of Note DATE: 01/02/17 TIME: 11:30 Assessment/Plan Assessment/Plan Chief Complaint/Hosp Course ASSESSMENT: 1. 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 2. Paroxysmal atrial fibrillation- non valvular, previous hx in 2013. given metastatic CA would cont on asa alone for stroke prophy. rate controlled 3. History of coronary artery disease distant distal right coronary artery stent drug-eluting in 2009 with patent stent 2 months later in June 2010. 4. Hypertension. 5. Hyperlipidemia. On statin 6. Gastroesophageal reflux disease. 7. Type 2 diabetes. 8. Gout. 9. History of prostate cancer with prostatectomy negative PSA this admission. 10. pneumothorax s/p ct lung biopsy PLAN: - consider start asa 81mg daily when clinically stable - rates currently controlled with dilt cd to 240mg bid, titrate as needed to keep hr < 100s @ rest - ok to give prn dilt if sustained HR > 120s - cont statin given cad hx Problems: Consultation Date/Type/Reason Admit Date/Time Dec 07, 2016 at 12:13 Initial Consult Date 12/09/2016 Type of Consultation: Cardiology Referring Provider: AMANDA PRATER MD 24 HR Interval Summary Free Text/Dictation pt with pneumothorax s/p ct biopsy. doing better, in ICU. did not require thoracostomy tube. remains in afib on tele review, rate controlled 70s-90s currently, was tachy previously. remains confused, tired. Constitutional: disoriented Detailed Summary Respiratory: pleuritic pain Cardiovascular: no complaints Gastrointestinal: no complaints Exam/Review of Systems Vital Signs Vitals Vital Signs Date Time Temp Pulse Resp B/P Pulse Ox O2 Delivery O2 Flow Rate FiO2 01/02/17 11:00 77 21 101/65 98 Nasal Cannula 6.0 01/02/17 08:00 98.3 Intake and Output 01/01/17 01/01/17 01/02/17 15:00 23:00 07:00 Intake Total 550 ml 100 ml Output Total 350 ml 0 ml Balance 200 ml 100 ml Exam GENERAL: confused, fatigued SKIN: No ecchymoses, no petechiae or rashes. HEENT: no jvd, 2+ carotid. op clear CHEST: Reveals decreased breath sounds, but no dullness to percussion on the left side. There are no rubs or wheezes heard. HEART: irregulary irregular, nl s1s2 ii/vi ernestina GASTROINTESTINAL: soft ntnd EXTREMITIES: No clubbing, no edema or cyanosis. Results Result Diagram: 01/02/17 0426 01/02/17 0426 Results 24 hrs Laboratory Tests Test 01/01/17 20:10 01/01/17 22:10 01/02/17 04:26 01/02/17 05:12 Blood Gas Specimen Source Blood arterial Arterial Blood Date Drawn 01/01/2017 8:20:13 PM Arterial Blood pH (Temp corrected) 7.425 Arterial Blood pCO2 (Temp correct) 40.0 Arterial Blood pO2 (Temp corrected) 121.8 H Arterial Blood HCO3 25.7 Arterial Blood Base Excess 1.2 Arterial Blood Oxygen Saturation 98.1 Nguyễn Test N/A Arterial Blood Gas Puncture Site Right Brachial Arterial Blood Carboxyhemoglobin 0.3 Arterial Blood Methemoglobin 0.2 Blood Gas A-a O2 Differential 45.1 H Oxyhemoglobin Percent 97.6 Total Hemoglobin 10.2 L Blood Gas Temperature 37.0 Blood Gas Modality NASAL CANNULA FiO2 30.0 Blood Gas Notified Whom MM Blood Gas Notified Time 01/01/2017 8:28:50 PM Troponin I < 0.012 < 0.012 White Blood Count 10.6 Red Blood Count 3.09 L Hemoglobin 8.9 L Hematocrit 29.0 L Mean Corpuscular Volume 93.9 Mean Corpuscular Hemoglobin 28.8 L Mean Corpuscular Hemoglobin Concent 30.7 L Red Cell Distribution Width 14.4 Platelet Count 353 Mean Platelet Volume 9.7 Neutrophils % 85.1 H Lymphocytes % 5.1 L Monocytes % 7.5 Eosinophils % 0.8 Basophils % 0.3 Nucleated Red Blood Cells % 0.0 Neutrophils # 9.0 H Lymphocytes # 0.5 L Monocytes # 0.8 Eosinophils # 0.1 Basophils # 0.0 Nucleated Red Blood Cells # 0.0 Sodium Level 138 Potassium Level 4.1 Chloride Level 100 Carbon Dioxide Level 28 Anion Gap 14 # Blood Urea Nitrogen 24 H Creatinine 0.84 Glucose Level 106 Calcium Level 9.4 Lab Scanned Report BLOOD TRANSFUSION Test 01/02/17 08:00 Blood Gas Specimen Source Blood arterial Arterial Blood Date Drawn 01/02/2017 8:02:26 AM Arterial Blood pH (Temp corrected) 7.423 Arterial Blood pCO2 (Temp correct) 41.8 Arterial Blood pO2 (Temp corrected) 319.3 H Arterial Blood HCO3 26.7 H Arterial Blood Base Excess 2.1 Arterial Blood Oxygen Saturation 99.2 Nguyễn Test ACCEPTAB Arterial Blood Gas Puncture Site Left Radial Arterial Blood Carboxyhemoglobin 0.3 Arterial Blood Methemoglobin 0.2 Blood Gas A-a O2 Differential 351.9 H Oxyhemoglobin Percent 98.7 Total Hemoglobin 10.1 L Blood Gas Temperature 37.0 Blood Gas Modality MASK - NRB FiO2 100.0 Blood Gas Notified Whom JLD Blood Gas Notified Time 01/02/2017 8:14:05 AM Medications Medications Current Medications Atorvastatin Calcium (Lipitor) 20 mg HS PO Last administered on 01/01/17 22:08 ; Admin Dose 20 MG; Start 12/07/16 at 21:00 Nitroglycerin (Nitroglycerin (Sr)) 6.5 mg BID PO Last administered on 08:15; Admin Dose 6.5 MG; Start 12/07/16 at 21:00 Pantoprazole (Protonix Tab) 40 mg DAILY@06 PO Last administered on 01/02/17 07 :44; Admin Dose 40 MG; Start 12/08/16 at 06:00 Clonidine (Catapres) 0.1 mg Q6H PRN PO sbp >160; Start 12/12/16 at 18:00 Allopurinol (Zyloprim) 300 mg AM PO Last administered on 01/02/17 08:15; Admin Dose 300 MG; Start 12/15/16 at 09:00 Clonazepam (Klonopin) 0.5 mg Q12 PO Last administered on 01/02/17 08:15; Admin Dose 0.5 MG; Start 12/19/16 at 21:00 Promethazine HCl/ Codeine (Phenergan/ Codeine) 5 ml Q4H PRN PO COUGH Last administered on 01/01/17 05:50; Admin Dose 5 ML; Start 12/21/16 at 22:30 Acetaminophen (Tylenol Tab) 650 mg Q6H PRN PO PAIN AND OR ELEVATED TEMP Last administered on 12/30/16 14:32; Admin Dose 650 MG; Start 12/22/16 at 19:00 Acetaminophen/ Hydrocodone Bitart ([place] (5/325)) 1 tab Q4H PRN PO moderate- severe pain Last administered on 12/26/16 11:06; Admin Dose 1 TAB; Start at 19:00 Diltiazem HCl (Cardizem Cd) 240 mg BID PO Last administered on 01/02/17 08:15 ; Admin Dose 240 MG; Start 12/27/16 at 21:00 Escitalopram Oxalate (Lexapro) 10 mg DAILY PO Last administered on 01/02/17 08 :15; Admin Dose 10 MG; Start 12/28/16 at 09:00 Ferrous Sulfate (Ferrous Sulfate (Ec)) 325 mg TID PO Last administered on 08:15; Admin Dose 325 MG; Start 12/29/16 at 21:00 Memantine (Namenda) 10 mg DAILY PO Last administered on 01/02/17 08:15; Admin Dose 10 MG; Start 12/30/16 at 09:00 Nitroglycerin (Nitroglycerin (Sl Tab) 0.4 Mg) 1 tab Q5M PRN SL ANGINA; Start at 19:00 Nitroglycerin (Nitroglycerin ([place])) 1 spray Q5M PRN SL ANGINA; Start at 19:00 Procedures Procedures cxr images reviewed l apical ptx DONA LÓPEZ January 02, 2017 11:40
--- NOTE | 2017-01-02 18:30 | CONS ---
DATE OF ADMISSION: 12/07/2016 DATE OF CONSULTATION: 01/02/2017 REASON FOR CONSULTATION: Pneumothorax. Thank you, Dr. Dennison for asking me to see this patient. HISTORY OF PRESENT ILLNESS: This is an 86-year-old male with metastatic cancer to the bone and T4 c ompression fracture. Patient was admitted for a lung biopsy which subsequently revealed him to have a left-sided 20% pneumothorax. X-ray today shows significant improvement. His hemoglobin has also been stable in the range of 8. PAST MEDICAL HISTORY: Hypertension, hyperlipidemia, diabetes, acid reflux, atrial fibrillation, cor onary artery disease and metastatic adenocarcinoma. ALLERGIES: NONE. SOCIAL HISTORY: No smoking, drinking or drug use at the present time. PHYSICAL EXAMINATION VITAL SIGNS: Blood pressure is 121/68, pulse is 95, respirations 23, saturations 100% on 3 liters o f oxygen. CARDIOVASCULAR: Normal S1, S2. LUNGS: Have diminished breath sounds on the left side. ABDOMEN: Soft. EXTREMITIES: Warm. LABORATORY VALUES: Significant for a hemoglobin of 8.9, white count 10.6, platelet count of 353. IMPRESSION: Iatrogenic left pneumothorax, small at the present time, the patient is not in any dist ress. We will continue monitoring the pneumothorax and we will repeat the x-ray tomorrow. Dictated By: RICARDO PINEDA/MARTINA Conf#: [id number] DID#: [id number]
[2017-01-02] MEDS: ATORVASTATIN 20 MG TAB PO SCH (20:25)
--- NOTE | 2017-01-02 20:33 | RADRPT ---
Vent Rate: 83 bpm RR Interval: 0 msec MI Interval: 0 msec QRS Duration: 76 msec QT Interval: 346 msec QTC Interval: 406 msec P-R-T [place]: 0 - 57 - 77 degrees Atrial fibrillation Nonspecific ST and T wave abnormality , probably digitalis effect Abnormal ECG Electronically Signed By: Carlos Ruano [id number]
[2017-01-02] MEDS: PROMETHAZINE/CODEINE 5ML CUP PO PRN (23:45)
[2017-01-03] VITALS (12 sets, daily range): BP systolic 109–134; BP diastolic 56–77; PULSE 68–93; RESP 17–20
--- NOTE | 2017-01-03 03:44 | PN ---
DATE: 01/02/2017 SUBJECTIVE: The patient is awake, alert, oriented to time, place, and person. OBJECTIVE: VITAL SIGNS: Temperature 98.0, blood pressure 130/80, heart rate 86, respiration rate 23 to 30, O2 saturation 93 to 100% on 2 liter nasal cannula. HEENT: Pupils equally round, reactive to light. Oropharynx clear. CHEST: Lungs are clear to auscultation anteriorly. CARDIAC: Irregularly irregular. ABDOMEN: Active bowel sounds, soft, nondistended, nontender. EXTREMITIES: No clubbing, cyanosis, or edema. LABORATORY DATA: WBC 10.6, hemoglobin 8.9, hematocrit 29.0, platelet count 353,000. Sodium 138, po tassium 4.1, chloride 100, bicarbonate 28, BUN 24, creatinine 0.8, glucose 106, calcium 9.4. Tropon ins are less than 0.012. The chest x-ray this morning showed small left apical pneumothorax that is unchanged to mildly improved compared to the examination from last night. There are some findings suggestive of pulmonary vascular congestion. No change compared to yesterday. Stable small left pl eural effusion. ASSESSMENT AND PLAN: 1. Pneumothorax appears to be stable, clinically and radiologically. Should be able to transfer pa tient to telemetry to continue monitoring. Given the patient's history of confused status intermitt ently, would like to have a room in front of the nursing station if possible. 2. Atrial fibrillation, chronic, but went into rapid rate yesterday. It is now better controlled, back on Cardizem-CD b.i.d. Start the patient back on aspirin. 3. Metastatic bone cancer. Final pathology is consistent with poorly differentiated adenocarcinoma . The most likely primary is the lung, but the patient just had needle biopsy, and that result is p ending. 4. Deconditioning and mental status. We will check to see if the patient's mental status improves once he is transferred to the telemetry lizama. Once he is stable neurologically, he may be able to b e transferred to [facility] facility for his postoperative rehabilitation since he is not in an y condition to begin any treatment at this time. Dictated By: DESI HUDSON/MARTINA Conf#: [id number] DID#: [id number]
[2017-01-03] MEDS: HYDROCODONE/APAP (5/325) TAB PO PRN (03:46)
[2017-01-03] MEDS: PANTOPRAZOLE (EC) 40 MG TAB PO SCH (06:19)
[2017-01-03] MEDS: FERROUS SULFATE (EC) 325 MG TAB PO SCH ×3 (08:47→21:54)
[2017-01-03] MEDS: NITROGLYCERIN 6.5 MG PO SCH ×2 (08:47→21:55)
[2017-01-03] MEDS: DILTIAZEM (CD) 240 MG CAP PO SCH ×2 (08:48→21:55)
[2017-01-03] MEDS: ESCITALOPRAM 10 MG TAB PO SCH (08:48)
[2017-01-03] MEDS: MEMANTINE 10 MG TAB PO SCH (08:48)
[2017-01-03] MEDS: ALLOPURINOL 300 MG TAB PO SCH (08:48)
[2017-01-03] MEDS: clonAZEPAM 0.5 MG TAB PO SCH (08:49)
--- NOTE | 2017-01-03 11:23 | CONS ---
Date/Time of Note Date/Time of Note DATE: 01/03/17 TIME: 11:18 Consult Date/Type/Reason Admit Date/Time Dec 07, 2016 at 12:13 Initial Consult Date 01/02/17 Type of Consultation: Pulmonary Ordering Provider: AMANDA PRATER MD Subjective Patient appears comfortable this morning somewhat weak and lethargic Objective Vital Signs Date Time Temp Pulse Resp B/P Pulse Ox O2 Delivery O2 Flow Rate FiO2 01/03/17 11:16 98.6 93 20 109/60 99 01/03/17 01:02 2.0 01/03/17 00:01 Nasal Cannula 01/02/17 21:59 27 Intake and Output 01/02/17 01/02/17 01/03/17 15:00 23:00 07:00 Intake Total 720 ml 80 ml 360 ml Output Total 0 ml Balance 720 ml 80 ml 360 ml Exam GENERAL: Chronically ill-appearing gentleman VITAL SIGNS: per chart NECK: Supple. No JVD or lymphadenopathy. CARDIAC EXAM: S1, S2. No added sounds or murmurs. CHEST: clear bilaterally, No added sounds, rales or wheezes ABDOMEN: Soft, nontender. No guarding or rebound. EXTREMITIES: No cyanosis, clubbing or edema. NEUROLOGIC: Generalized weakness. No focal deficits. Results/Medications Result Diagram: 01/02/17 0426 01/02/17 0426 Medications Current Medications Atorvastatin Calcium (Lipitor) 20 mg HS PO Last administered on 01/02/17 20:25 ; Admin Dose 20 MG; Start 12/07/16 at 21:00 Nitroglycerin (Nitroglycerin (Sr)) 6.5 mg BID PO Last administered on 08:47; Admin Dose 6.5 MG; Start 12/07/16 at 21:00 Pantoprazole (Protonix Tab) 40 mg DAILY@06 PO Last administered on 01/03/17 06 :19; Admin Dose 40 MG; Start 12/08/16 at 06:00 Clonidine (Catapres) 0.1 mg Q6H PRN PO sbp >160; Start 12/12/16 at 18:00 Allopurinol (Zyloprim) 300 mg AM PO Last administered on 01/03/17 08:48; Admin Dose 300 MG; Start 12/15/16 at 09:00 Clonazepam (Klonopin) 0.5 mg Q12 PO Last administered on 01/03/17 08:49; Admin Dose 0.5 MG; Start 12/19/16 at 21:00 Promethazine HCl/ Codeine (Phenergan/ Codeine) 5 ml Q4H PRN PO COUGH Last administered on 01/02/17 23:45; Admin Dose 5 ML; Start 12/21/16 at 22:30 Acetaminophen (Tylenol Tab) 650 mg Q6H PRN PO PAIN AND OR ELEVATED TEMP Last administered on 12/30/16 14:32; Admin Dose 650 MG; Start 12/22/16 at 19:00 Acetaminophen/ Hydrocodone Bitart ([place] (5/325)) 1 tab Q4H PRN PO moderate- severe pain Last administered on 01/03/17 03:46; Admin Dose 1 TAB; Start at 19:00 Diltiazem HCl (Cardizem Cd) 240 mg BID PO Last administered on 01/03/17 08:48 ; Admin Dose 240 MG; Start 12/27/16 at 21:00 Escitalopram Oxalate (Lexapro) 10 mg DAILY PO Last administered on 01/03/17 08 :48; Admin Dose 10 MG; Start 12/28/16 at 09:00 Ferrous Sulfate (Ferrous Sulfate (Ec)) 325 mg TID PO Last administered on 08:47; Admin Dose 325 MG; Start 12/29/16 at 21:00 Memantine (Namenda) 10 mg DAILY PO Last administered on 01/03/17 08:48; Admin Dose 10 MG; Start 12/30/16 at 09:00 Nitroglycerin (Nitroglycerin (Sl Tab) 0.4 Mg) 1 tab Q5M PRN SL ANGINA; Start at 19:00 Nitroglycerin (Nitroglycerin ([place])) 1 spray Q5M PRN SL ANGINA; Start at 19:00 Assessment/Plan Chief Complaint/Hosp Course Assessment 1. Metastatic carcinoma 2. Failed to thrive 3. Improving left apical pneumothorax status post CT-guided biopsy Plan 1. Continue supplemental O2 2. Aspiration precautions 3. Consider palliative care approach Problems: JUWAN GIMENEZ MD, [facility] January 03, 2017 11:22
--- NOTE | 2017-01-03 11:37 | PN ---
Date/Time of Note Date/Time of Note DATE: 01/03/17 TIME: 11:35 Assessment/Plan VTE Prophylaxis VTE Prophylaxis Intervention: other (per primary MD) Lines/Catheters IV Catheter Type (from Nrs): Saline Lock Urinary Cath still in place: No Assessment/Plan Assessment/Plan Pt s/p lung biopsy complicated by pneumothorax but is stable and gradually improving. Path results are pending. Subjective 24 Hr Interval Summary Free Text/Dictation Pt resting quietly without respiratory discomfort Exam/Review of Systems Vital Signs Vitals Vital Signs Date Time Temp Pulse Resp B/P Pulse Ox O2 Delivery O2 Flow Rate FiO2 01/03/17 11:16 98.6 93 20 109/60 99 01/03/17 01:02 2.0 01/03/17 00:01 Nasal Cannula 01/02/17 21:59 27 Intake and Output 01/02/17 01/02/17 01/03/17 15:00 23:00 07:00 Intake Total 720 ml 80 ml 360 ml Output Total 0 ml Balance 720 ml 80 ml 360 ml Exam Constitutional: alert, other (mildly confused) Head: normocephalic Respiratory: clear to auscultation Cardiovascular: regular rate and rhythm Gastrointestinal: soft Results Result Diagram: 01/02/17 0426 01/02/17 0426 Medications Medications Current Medications Atorvastatin Calcium (Lipitor) 20 mg HS PO Last administered on 01/02/17 20:25 ; Admin Dose 20 MG; Start 12/07/16 at 21:00 Nitroglycerin (Nitroglycerin (Sr)) 6.5 mg BID PO Last administered on 08:47; Admin Dose 6.5 MG; Start 12/07/16 at 21:00 Pantoprazole (Protonix Tab) 40 mg DAILY@06 PO Last administered on 01/03/17 06 :19; Admin Dose 40 MG; Start 12/08/16 at 06:00 Clonidine (Catapres) 0.1 mg Q6H PRN PO sbp >160; Start 12/12/16 at 18:00 Allopurinol (Zyloprim) 300 mg AM PO Last administered on 01/03/17 08:48; Admin Dose 300 MG; Start 12/15/16 at 09:00 Clonazepam (Klonopin) 0.5 mg Q12 PO Last administered on 01/03/17 08:49; Admin Dose 0.5 MG; Start 12/19/16 at 21:00 Promethazine HCl/ Codeine (Phenergan/ Codeine) 5 ml Q4H PRN PO COUGH Last administered on 01/02/17 23:45; Admin Dose 5 ML; Start 12/21/16 at 22:30 Acetaminophen (Tylenol Tab) 650 mg Q6H PRN PO PAIN AND OR ELEVATED TEMP Last administered on 12/30/16 14:32; Admin Dose 650 MG; Start 12/22/16 at 19:00 Acetaminophen/ Hydrocodone Bitart ([place] (5/325)) 1 tab Q4H PRN PO moderate- severe pain Last administered on 01/03/17 03:46; Admin Dose 1 TAB; Start at 19:00 Diltiazem HCl (Cardizem Cd) 240 mg BID PO Last administered on 01/03/17 08:48 ; Admin Dose 240 MG; Start 12/27/16 at 21:00 Escitalopram Oxalate (Lexapro) 10 mg DAILY PO Last administered on 01/03/17 08 :48; Admin Dose 10 MG; Start 12/28/16 at 09:00 Ferrous Sulfate (Ferrous Sulfate (Ec)) 325 mg TID PO Last administered on 08:47; Admin Dose 325 MG; Start 12/29/16 at 21:00 Memantine (Namenda) 10 mg DAILY PO Last administered on 01/03/17 08:48; Admin Dose 10 MG; Start 12/30/16 at 09:00 Nitroglycerin (Nitroglycerin (Sl Tab) 0.4 Mg) 1 tab Q5M PRN SL ANGINA; Start at 19:00 Nitroglycerin (Nitroglycerin ([place])) 1 spray Q5M PRN SL ANGINA; Start at 19:00 CASA ANAND MD January 03, 2017 11:37
--- NOTE | 2017-01-03 12:27 | PN ---
Date/Time of Note Date/Time of Note DATE: 01/03/17 TIME: 12:25 Assessment/Plan Lines/Catheters IV Catheter Type (from Nrsg): Saline Lock Eric in Place (from Nrsg): No Assessment/Plan Chief Complaint/Hosp Course IMPRESSION: Iatrogenic left pneumothorax, small at the present time, the patient is not in any distress. PTX slightly smaller today. We will continue monitoring the pneumothorax. Problems: Subjective 24 Hr Interval Summary Constitutional: improved Pain Control: mild Exam/Review of Systems Vital Signs Vitals Vital Signs Date Time Temp Pulse Resp B/P Pulse Ox O2 Delivery O2 Flow Rate FiO2 01/03/17 12:17 68 01/03/17 11:16 98.6 20 109/60 99 01/03/17 01:02 2.0 01/03/17 00:01 Nasal Cannula 01/02/17 21:59 27 Intake and Output 01/02/17 01/02/17 01/03/17 15:00 23:00 07:00 Intake Total 720 ml 80 ml 360 ml Output Total 0 ml Balance 720 ml 80 ml 360 ml Exam ENMT: mucosa pink and moist, nl external ears & nose, nl lips & teeth, nl nasal mucosa & septum Neck: non-tender, supple Respiratory: clear to auscultation, normal air movement Cardiovascular: nl pulses, regular rate and rhythm Results Result Diagram: 01/02/17 0426 01/02/17 0426 RICARDO CANTOR MD January 03, 2017 12:27
--- NOTE | 2017-01-03 17:28 | CONS ---
Date/Time of Note Date/Time of Note DATE: 01/03/17 TIME: 17:23 Assessment/Plan Assessment/Plan Chief Complaint/Hosp Course ASSESSMENT: 1. 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 2. Paroxysmal atrial fibrillation- non valvular, previous hx in 2013. given metastatic CA would cont on asa alone for stroke prophy. rate controlled 3. History of coronary artery disease distant distal right coronary artery stent drug-eluting in 2009 with patent stent 2 months later in June 2010. 4. Hypertension. 5. Hyperlipidemia. On statin 6. Gastroesophageal reflux disease. 7. Type 2 diabetes. 8. Gout. 9. History of prostate cancer with prostatectomy negative PSA this admission. 10. pneumothorax s/p ct lung biopsy PLAN: - consider start asa 81mg daily when clinically stable - rates currently controlled with dilt cd to 240mg bid, titrate as needed to keep hr < 100s while resting - ok to give prn dilt if sustained HR > 120s - cont statin given cad hx Problems: Consultation Date/Type/Reason Admit Date/Time Dec 07, 2016 at 12:13 Initial Consult Date 12/09/2016 Type of Consultation: Cardiology Referring Provider: AMANDA PRATER MD 24 HR Interval Summary Free Text/Dictation pt transferred to floors. states still with some pain with inspiration. remains in afib, rates elevated this am, previous in 80s-90s. Detailed Summary ENT: no complaints Respiratory: no complaints Cardiovascular: chest pain Gastrointestinal: no complaints Genitourinary: no complaints Exam/Review of Systems Vital Signs Vitals Vital Signs Date Time Temp Pulse Resp B/P Pulse Ox O2 Delivery O2 Flow Rate FiO2 01/03/17 16:14 80 01/03/17 15:24 98.8 20 118/77 100 01/03/17 13:58 Nasal Cannula 3.0 01/02/17 21:59 27 Intake and Output 01/02/17 01/02/17 01/03/17 15:00 23:00 07:00 Intake Total 720 ml 80 ml 360 ml Output Total 0 ml Balance 720 ml 80 ml 360 ml Exam GENERAL: alert this am, eating breakfast SKIN: No ecchymoses, no petechiae or rashes. HEENT: no jvd, 2+ carotid. op clear CHEST: Reveals decreased breath sounds,no wheeze CV: irregulary irregular, nl s1s2 ii/vi ernestina GASTROINTESTINAL: soft ntnd EXTREMITIES: No clubbing, no edema or cyanosis. Results Result Diagram: 01/02/176 01/02/17425 Medications Medications Current Medications Atorvastatin Calcium (Lipitor) 20 mg HS PO Last administered on 01/02/17 20:25 ; Admin Dose 20 MG; Start 12/07/16 at 21:00 Nitroglycerin (Nitroglycerin (Sr)) 6.5 mg BID PO Last administered on 08:47; Admin Dose 6.5 MG; Start 12/07/16 at 21:00 Pantoprazole (Protonix Tab) 40 mg DAILY@06 PO Last administered on 01/03/17 06 :19; Admin Dose 40 MG; Start 12/08/16 at 06:00 Clonidine (Catapres) 0.1 mg Q6H PRN PO sbp >160; Start 12/12/16 at 18:00 Allopurinol (Zyloprim) 300 mg AM PO Last administered on 01/03/17 08:48; Admin Dose 300 MG; Start 12/15/16 at 09:00 Clonazepam (Klonopin) 0.5 mg Q12 PO Last administered on 01/03/17 08:49; Admin Dose 0.5 MG; Start 12/19/16 at 21:00 Promethazine HCl/ Codeine (Phenergan/ Codeine) 5 ml Q4H PRN PO COUGH Last administered on 01/02/17 23:45; Admin Dose 5 ML; Start 12/21/16 at 22:30 Acetaminophen (Tylenol Tab) 650 mg Q6H PRN PO PAIN AND OR ELEVATED TEMP Last administered on 12/30/16 14:32; Admin Dose 650 MG; Start 12/22/16 at 19:00 Acetaminophen/ Hydrocodone Bitart ([place] (5/325)) 1 tab Q4H PRN PO moderate- severe pain Last administered on 01/03/17 03:46; Admin Dose 1 TAB; Start at 19:00 Diltiazem HCl (Cardizem Cd) 240 mg BID PO Last administered on 01/03/17 08:48 ; Admin Dose 240 MG; Start 12/27/16 at 21:00 Escitalopram Oxalate (Lexapro) 10 mg DAILY PO Last administered on 01/03/17 08 :48; Admin Dose 10 MG; Start 12/28/16 at 09:00 Ferrous Sulfate (Ferrous Sulfate (Ec)) 325 mg TID PO Last administered on 13:12; Admin Dose 325 MG; Start 12/29/16 at 21:00 Memantine (Namenda) 10 mg DAILY PO Last administered on 01/03/17 08:48; Admin Dose 10 MG; Start 12/30/16 at 09:00 Nitroglycerin (Nitroglycerin (Sl Tab) 0.4 Mg) 1 tab Q5M PRN SL ANGINA; Start at 19:00 Nitroglycerin (Nitroglycerin ([place])) 1 spray Q5M PRN SL ANGINA; Start at 19:00 Procedures Procedures imaging reports reviewed in emr DONA LÓPEZ January 03, 2017 17:28
[2017-01-03] MEDS ORDERED: clonAZEPAM 0.5 MG TAB PO PRN (18:00)
--- NOTE | 2017-01-03 18:19 | PN ---
DATE: 01/03/2017 SUBJECTIVE: The patient is awake and alert, oriented to name, but not to the name of the hospital. Nursing reports that the patient gets confused at night and has had trouble sleeping; then, he gets sleepy and tries to fall asleep throughout the daytime. OBJECTIVE: HEENT: Pupils equally round, reactive to light. Oropharynx clear. CHEST: Lungs are clear to auscultation. CARDIAC: Regular rate and rhythm; normal S1, S2. ABDOMEN: Active bowel sounds, soft, nondistended, nontender. ASSESSMENT AND PLAN: 1. Status post pneumothorax, clinically improved. Recheck chest x-ray today to see if pneumothorax is improving in size radiologically. 2. Chronic atrial fibrillation, rate controlled on current dose of Cardizem. Will start the patien t on aspirin 81 mg p.o. every day at the recommendation of the expressive therapist. 3. Altered mental status. The patient tends to be more confused in the late afternoon and evening consistent with sundowning syndrome. Will increase antianxiety for the afternoon and evening and di scontinue the treatment for morning. 4. Metastatic bone cancer. Patient not ready to undergo with any treatment due to his weakened con dition. Will need short-term stay at rehabilitation facility prior to reevaluation by oncologist fo r further treatment. Dictated By: DESI MCLAIN MD DP/MARTINA Conf#: [id number] DID#: [id number]
--- NOTE | 2017-01-03 20:41 | RADRPT ---
PROCEDURE: XR Chest. CLINICAL INDICATION: Follow-up pneumothorax. TECHNIQUE: Single AP portable chest. COMPARISON: 01/02/2017 Chest x-ray FINDINGS: The cardiomediastinal silhouette is within normal limits of size. Atherosclerotic calcification of t he aorta. Normal decreased size and left apical pneumothorax now measuring approximately 10-15%. Le ft base atelectasis and pleural effusion. Left lung volume loss in the right lung is clear. Breastfeeding Program Coordinator ior cervical thoracic fusion in place. Mild vascular prior. The osseous structures and soft tissue s are unremarkable. IMPRESSION: 1. Decreased small apical left pneumothorax measuring approximately 10-15% 2. Small left pleural effusion with left base atelectasis and/or loss. 3. Mild vascular congestion. RPTAT:AAJJ Patrizia Gonzales Physician Date Time Electronically viewed and signed by Physician Randal on 01/03/2017 20:41 SANA/
[2017-01-03] MEDS ORDERED: LORAZEPAM 1 MG TAB PO SCH ×2 (21:00)
[2017-01-03] MEDS: ATORVASTATIN 20 MG TAB PO SCH (21:54)
[2017-01-04] VITALS (14 sets, daily range): BP systolic 100–133; BP diastolic 55–90; PULSE 49–99; RESP 17–19
[2017-01-04] MEDS: PANTOPRAZOLE (EC) 40 MG TAB PO SCH (05:39)
[2017-01-04 06:16] LABS: ADD SCAN DIFF NO
[2017-01-04 06:39] LABS: ABNORMAL IP MESSAGE 1; BASOPHILS % 0.1 % (0.0-2.0); EOSINOPHILS # 0.1 10^3/ul (0.0-0.5); EOSINOPHILS % 0.5 % (0.0-7.0); HEMATOCRIT 28.8 % (42.0-52.0); HEMOGLOBIN 8.9 g/dl (14.0-18.0); LYMPHOCYTES # 0.5 10^3/ul (0.8-2.9); LYMPHOCYTES % 4.5 % (15.0-51.0); MEAN CORPUSCULAR HEMOGLOBIN 28.9 pg (29.0-33.0); MEAN CORPUSCULAR HGB CONC 30.9 g/dl (32.0-37.0); MEAN CORPUSCULAR VOLUME 93.5 fl (82.0-101.0); MEAN PLATELET VOLUME 9.3 fl (7.4-10.4); MONOCYTE # 0.8 10^3/ul (0.3-0.9); MONOCYTES % 7.2 % (0.0-11.0); NEUTROPHILS % 86.9 % (39.0-77.0); PLATELET COUNT 305 10^3/UL (140-415); RED BLOOD COUNT 3.08 10^6/ul (4.70-6.10); RED CELL DISTRIBUTION WIDTH 14.4 % (11.5-14.5); WHITE BLOOD COUNT 10.4 10^3/ul (4.8-10.8)
[2017-01-04 07:10] LABS: ALBUMIN 2.7 g/dl (3.3-4.9); ALBUMIN/GLOBULIN RATIO 0.93; BILIRUBIN,INDIRECT 0.2 mg/dl (0-1.1); BILIRUBIN,TOTAL 0.2 mg/dl (0.2-1.3); CALCIUM 9.7 mg/dl (8.4-10.2); CREATININE 0.83 mg/dl (0.61-1.24); POTASSIUM 3.6 mmol/L (3.5-5.1); TOTAL PROTEIN 5.6 g/dl (6.1-8.1)
[2017-01-04] MEDS: ASPIRIN 81 MG TAB PO SCH (09:13)
[2017-01-04] MEDS: ALLOPURINOL 300 MG TAB PO SCH (09:14)
[2017-01-04] MEDS: FERROUS SULFATE (EC) 325 MG TAB PO SCH ×3 (09:14→20:26)
[2017-01-04] MEDS: DILTIAZEM (CD) 240 MG CAP PO SCH ×2 (09:14→21:25)
[2017-01-04] MEDS: MEMANTINE 10 MG TAB PO SCH (09:14)
[2017-01-04] MEDS: ESCITALOPRAM 10 MG TAB PO SCH (09:14)
[2017-01-04] MEDS: NITROGLYCERIN 6.5 MG PO SCH ×2 (09:14→20:26)
--- NOTE | 2017-01-04 09:47 | PN ---
DATE: 01/04/2017 TYPE OF CONSULTATION: Hematology/oncology. SUBJECTIVE: The patient has been transferred back to telemetry. He does not complain of any increa sed shortness of breath at this time. He denies chest pain, either pleuritic or nonpleuritic. He h as had no cough, no hemoptysis. OBJECTIVE: GENERAL: The patient is a well-developed, well-nourished male in no acute distress. VITAL SIGNS: Temperature 98.6, pulse 85 per minute and regular, respirations 18, blood pressure is 125/67, and pulse oximetry is 99% on 3 liters of oxygen via nasal cannula. SKIN: No ecchymosis, no petechiae or rashes. HEENT: No mucosal lesions. No scleral icterus. Pupils equal, round, reactive to light and accommo dation. NECK: Supple, no jugular venous distention or thyroid enlargement. CHEST: Decreased breath sounds throughout. There are no rhonchi, wheezes, rales, or rubs. NEUROLOGIC: No pain on percussion of spine, sternum, clavicles, or ribs. HEART: Regular sinus rhythm, no S3, S4, or murmurs. No rubs. ABDOMEN: Soft, no masses, no ascites. EXTREMITIES: No clubbing. No edema or cyanosis. No palpable cords or Homans sign. NEUROLOGIC: Does not reveal any focal neurologic abnormalities, although the patient still remains mildly confused. LABORATORY DATA: Sodium 137, potassium 3.6, creatinine 0.83, BUN 23, total bilirubin 0.2, indirect 0.2, AST 22, ALT 32, alkaline phosphatase 167. White count 10,400, hemoglobin 8.9, hematocrit 28.8, and platelet count 305,000. IMPRESSION: 1. 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 2. Spinal cord compression secondary to metastatic carcinoma status post decompressive surgery. 3. Pneumothorax status post percutaneous biopsy of the left upper lobe mass. DISCUSSION: The biopsy obtained on 01/01/2017 unfortunately he does not show any obvious malignant cells. There are atypical cells which are of lung origin but not diagnostic of malignancy. We will request that the original biopsy obtained at the time of the decompression spinal surgery be evaluated for "cement mixer driver mutations" such as EGFR, ALK, ROS1, as well as PD-L1. Dictated By: JENNIFFER PEREZ MD DEIDRE Conf#: [id number] [facility]#: [id number]
--- NOTE | 2017-01-04 14:33 | CONS ---
Date/Time of Note Date/Time of Note DATE: 01/04/17 TIME: 14:32 Consult Date/Type/Reason Admit Date/Time Dec 07, 2016 at 12:13 Initial Consult Date 01/02/17 Type of Consultation: Pulmonary ICU Ordering Provider: AMANDA PRATER MD Subjective Patient comfortable this morning no new events Objective Vital Signs Date Time Temp Pulse Resp B/P Pulse Ox O2 Delivery O2 Flow Rate FiO2 01/04/17 12:38 49 01/04/17 11:24 97.8 18 100/55 100 01/04/17 08:05 Nasal Cannula 3.0 01/02/17 21:59 27 Intake and Output 01/03/17 01/03/17 01/04/17 15:00 23:00 07:00 Intake Total 500 ml 360 ml Output Total 700 ml Balance -200 ml 360 ml Exam GENERAL: Chronically ill-appearing gentleman VITAL SIGNS: per chart NECK: Supple. No JVD or lymphadenopathy. CARDIAC EXAM: S1, S2. No added sounds or murmurs. CHEST: clear bilaterally, No added sounds, rales or wheezes ABDOMEN: Soft, nontender. No guarding or rebound. EXTREMITIES: No cyanosis, clubbing or edema. NEUROLOGIC: Generalized weakness. No focal deficits. Results/Medications Result Diagram: 01/04/17 0530 01/04/17 0525 Results 24 hrs Laboratory Tests Test 01/04/17 05:25 01/04/17 05:30 Sodium Level 137 Potassium Level 3.6 Chloride Level 102 Carbon Dioxide Level 31 Anion Gap 8 Blood Urea Nitrogen 23 H Creatinine 0.83 Glucose Level 114 Calcium Level 9.7 Total Bilirubin 0.2 Direct Bilirubin 0.00 Indirect Bilirubin 0.2 Aspartate Amino Transf (AST/SGOT) 22 Alanine Aminotransferase (ALT/SGPT) 32 Alkaline Phosphatase 167 H Total Protein 5.6 L Albumin 2.7 L Globulin 2.90 Albumin/Globulin Ratio 0.93 White Blood Count 10.4 Red Blood Count 3.08 L Hemoglobin 8.9 L Hematocrit 28.8 L Mean Corpuscular Volume 93.5 Mean Corpuscular Hemoglobin 28.9 L Mean Corpuscular Hemoglobin Concent 30.9 L Red Cell Distribution Width 14.4 Platelet Count 305 Mean Platelet Volume 9.3 Neutrophils % 86.9 H Lymphocytes % 4.5 L Monocytes % 7.2 Eosinophils % 0.5 Basophils % 0.1 Nucleated Red Blood Cells % 0.0 Neutrophils # 9.0 H Lymphocytes # 0.5 L Monocytes # 0.8 Eosinophils # 0.1 Basophils # 0.0 Nucleated Red Blood Cells # 0.0 Medications Current Medications Atorvastatin Calcium (Lipitor) 20 mg HS PO Last administered on 01/03/17 21:54 ; Admin Dose 20 MG; Start 12/07/16 at 21:00 Nitroglycerin (Nitroglycerin (Sr)) 6.5 mg BID PO Last administered on 09:14; Admin Dose 6.5 MG; Start 12/07/16 at 21:00 Pantoprazole (Protonix Tab) 40 mg DAILY@06 PO Last administered on 01/04/17 05 :39; Admin Dose 40 MG; Start 12/08/16 at 06:00 Clonidine (Catapres) 0.1 mg Q6H PRN PO sbp >160; Start 12/12/16 at 18:00 Allopurinol (Zyloprim) 300 mg AM PO Last administered on 01/04/17 09:14; Admin Dose 300 MG; Start 12/15/16 at 09:00 Promethazine HCl/ Codeine (Phenergan/ Codeine) 5 ml Q4H PRN PO COUGH Last administered on 01/02/17 23:45; Admin Dose 5 ML; Start 12/21/16 at 22:30 Acetaminophen (Tylenol Tab) 650 mg Q6H PRN PO PAIN AND OR ELEVATED TEMP Last administered on 12/30/16 14:32; Admin Dose 650 MG; Start 12/22/16 at 19:00 Acetaminophen/ Hydrocodone Bitart ([place] (5/325)) 1 tab Q4H PRN PO moderate- severe pain Last administered on 01/03/17 03:46; Admin Dose 1 TAB; Start at 19:00 Diltiazem HCl (Cardizem Cd) 240 mg BID PO Last administered on 01/04/17 09:14 ; Admin Dose 240 MG; Start 12/27/16 at 21:00 Escitalopram Oxalate (Lexapro) 10 mg DAILY PO Last administered on 01/04/17 09 :14; Admin Dose 10 MG; Start 12/28/16 at 09:00 Ferrous Sulfate (Ferrous Sulfate (Ec)) 325 mg TID PO Last administered on 13:53; Admin Dose 325 MG; Start 12/29/16 at 21:00 Memantine (Namenda) 10 mg DAILY PO Last administered on 01/04/17 09:14; Admin Dose 10 MG; Start 12/30/16 at 09:00 Nitroglycerin (Nitroglycerin (Sl Tab) 0.4 Mg) 1 tab Q5M PRN SL ANGINA; Start at 19:00 Nitroglycerin (Nitroglycerin ([place])) 1 spray Q5M PRN SL ANGINA; Start at 19:00 Aspirin (Aspirin) 81 mg DAILY PO Last administered on 01/04/17 09:13; Admin Dose 81 MG; Start 01/04/17 at 09:00 Clonazepam (Klonopin) 0.5 mg Q6H PRN PO agitation; Start 01/03/17 at 18:00 Lorazepam (Ativan) 2 mg HS PO Last administered on 01/03/17 22:24; Admin Dose 2 MG; Start 01/03/17 at 21:00 Assessment/Plan Chief Complaint/Hosp Course Assessment 1. Metastatic carcinoma probably lung primary 2. Failed to thrive 3. Improving left apical pneumothorax status post CT-guided biopsy Plan 1. Continue supplemental O2 2. Aspiration precautions 3. Consider palliative care approach 4. Hematology oncology recommendations Problems: JUWAN GIMENEZ MD, [facility] January 04, 2017 14:33
--- NOTE | 2017-01-04 15:29 | CONS ---
Date/Time of Note Date/Time of Note DATE: 01/04/17 TIME: 15:28 Assessment/Plan Assessment/Plan Chief Complaint/Hosp Course ASSESSMENT: 1. 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 2. Paroxysmal atrial fibrillation- non valvular, previous hx in 2013. given metastatic CA would cont on asa alone for stroke prophy. rate controlled 3. History of coronary artery disease distant distal right coronary artery stent drug-eluting in 2009 with patent stent 2 months later in June 2010. 4. Hypertension. 5. Hyperlipidemia. On statin 6. Gastroesophageal reflux disease. 7. Type 2 diabetes. 8. Gout. 9. History of prostate cancer with prostatectomy negative PSA this admission. 10. pneumothorax s/p ct lung biopsy improving PLAN: - consider start asa 81mg daily when clinically stable - rates currently controlled with dilt cd to 240mg bid, titrate as needed to keep hr < 100s while resting - ok to give prn dilt if sustained HR > 120s - cont statin given cad hx Problems: Consultation Date/Type/Reason Admit Date/Time Dec 07, 2016 at 12:13 Initial Consult Date 12/09/2016 Type of Consultation: cardiology Referring Provider: AMANDA PRATER MD 24 HR Interval Summary Free Text/Dictation no acute events. remains in afib rate controlled. denies any chest pain/ pressure. resp status stable tele reviewed: afib hrs 80s Detailed Summary Eyes: no complaints ENT: no complaints Respiratory: no complaints Gastrointestinal: no complaints Exam/Review of Systems Vital Signs Vitals Vital Signs Date Time Temp Pulse Resp B/P Pulse Ox O2 Delivery O2 Flow Rate FiO2 01/04/17 15:11 97.8 85 18 130/90 100 01/04/17 08:05 Nasal Cannula 3.0 01/02/17 21:59 27 Intake and Output 01/03/17 01/03/17 01/04/17 15:00 23:00 07:00 Intake Total 500 ml 360 ml Output Total 700 ml Balance -200 ml 360 ml Exam GENERAL: alert this am, eating breakfast SKIN: No ecchymoses, no petechiae or rashes. HEENT: no jvd, 2+ carotid. op clear CHEST:CTA CV: irregulary irregular, nl s1s2 ii/vi ernestina GASTROINTESTINAL: soft ntnd EXTREMITIES: No clubbing, no edema or cyanosis. Results Result Diagram: 01/04/17 0530 01/04/17 0525 Results 24 hrs Laboratory Tests Test 01/04/17 05:25 01/04/17 05:30 Sodium Level 137 Potassium Level 3.6 Chloride Level 102 Carbon Dioxide Level 31 Anion Gap 8 Blood Urea Nitrogen 23 H Creatinine 0.83 Glucose Level 114 Calcium Level 9.7 Total Bilirubin 0.2 Direct Bilirubin 0.00 Indirect Bilirubin 0.2 Aspartate Amino Transf (AST/SGOT) 22 Alanine Aminotransferase (ALT/SGPT) 32 Alkaline Phosphatase 167 H Total Protein 5.6 L Albumin 2.7 L Globulin 2.90 Albumin/Globulin Ratio 0.93 White Blood Count 10.4 Red Blood Count 3.08 L Hemoglobin 8.9 L Hematocrit 28.8 L Mean Corpuscular Volume 93.5 Mean Corpuscular Hemoglobin 28.9 L Mean Corpuscular Hemoglobin Concent 30.9 L Red Cell Distribution Width 14.4 Platelet Count 305 Mean Platelet Volume 9.3 Neutrophils % 86.9 H Lymphocytes % 4.5 L Monocytes % 7.2 Eosinophils % 0.5 Basophils % 0.1 Nucleated Red Blood Cells % 0.0 Neutrophils # 9.0 H Lymphocytes # 0.5 L Monocytes # 0.8 Eosinophils # 0.1 Basophils # 0.0 Nucleated Red Blood Cells # 0.0 Medications Medications Current Medications Atorvastatin Calcium (Lipitor) 20 mg HS PO Last administered on 01/03/17 21:54 ; Admin Dose 20 MG; Start 12/07/16 at 21:00 Nitroglycerin (Nitroglycerin (Sr)) 6.5 mg BID PO Last administered on 09:14; Admin Dose 6.5 MG; Start 12/07/16 at 21:00 Pantoprazole (Protonix Tab) 40 mg DAILY@06 PO Last administered on 01/04/17 05 :39; Admin Dose 40 MG; Start 12/08/16 at 06:00 Clonidine (Catapres) 0.1 mg Q6H PRN PO sbp >160; Start 12/12/16 at 18:00 Allopurinol (Zyloprim) 300 mg AM PO Last administered on 01/04/17 09:14; Admin Dose 300 MG; Start 12/15/16 at 09:00 Promethazine HCl/ Codeine (Phenergan/ Codeine) 5 ml Q4H PRN PO COUGH Last administered on 01/02/17 23:45; Admin Dose 5 ML; Start 12/21/16 at 22:30 Acetaminophen (Tylenol Tab) 650 mg Q6H PRN PO PAIN AND OR ELEVATED TEMP Last administered on 12/30/16 14:32; Admin Dose 650 MG; Start 12/22/16 at 19:00 Acetaminophen/ Hydrocodone Bitart ([place] (5/325)) 1 tab Q4H PRN PO moderate- severe pain Last administered on 01/03/17 03:46; Admin Dose 1 TAB; Start at 19:00 Diltiazem HCl (Cardizem Cd) 240 mg BID PO Last administered on 01/04/17 09:14 ; Admin Dose 240 MG; Start 12/27/16 at 21:00 Escitalopram Oxalate (Lexapro) 10 mg DAILY PO Last administered on 01/04/17 09 :14; Admin Dose 10 MG; Start 12/28/16 at 09:00 Ferrous Sulfate (Ferrous Sulfate (Ec)) 325 mg TID PO Last administered on 13:53; Admin Dose 325 MG; Start 12/29/16 at 21:00 Memantine (Namenda) 10 mg DAILY PO Last administered on 01/04/17 09:14; Admin Dose 10 MG; Start 12/30/16 at 09:00 Nitroglycerin (Nitroglycerin (Sl Tab) 0.4 Mg) 1 tab Q5M PRN SL ANGINA; Start at 19:00 Nitroglycerin (Nitroglycerin ([place])) 1 spray Q5M PRN SL ANGINA; Start at 19:00 Aspirin (Aspirin) 81 mg DAILY PO Last administered on 01/04/17 09:13; Admin Dose 81 MG; Start 01/04/17 at 09:00 Clonazepam (Klonopin) 0.5 mg Q6H PRN PO agitation; Start 01/03/17 at 18:00 Lorazepam (Ativan) 2 mg HS PO Last administered on 01/03/17 22:24; Admin Dose 2 MG; Start 01/03/17 at 21:00 Procedures Procedures cxr images reviewed small apical left pneumothorax DONA John January 04, 2017 15:29
--- NOTE | 2017-01-04 17:10 | PN ---
Date/Time of Note Date/Time of Note DATE: 01/04/17 TIME: 17:09 Assessment/Plan VTE Prophylaxis VTE Prophylaxis Intervention: SCD's Lines/Catheters IV Catheter Type (from Nrs): Central line still needed: No Urinary Cath still in place: No Assessment/Plan Chief Complaint/Hosp Course IMPRESSION: Iatrogenic left pneumothorax, small at the present time, the patient is not in any distress. PTX slightly smaller today. PTX 10 % We will continue monitoring the pneumothorax. Problems: Subjective 24 Hr Interval Summary Cardiovascular: no complaints Gastrointestinal: no complaints Genitourinary: no complaints Musculoskeletal: no complaints Skin: no complaints Exam/Review of Systems Vital Signs Vitals Vital Signs Date Time Temp Pulse Resp B/P Pulse Ox O2 Delivery O2 Flow Rate FiO2 01/04/17 16:00 77 01/04/17 15:11 97.8 18 130/90 100 01/04/17 08:05 Nasal Cannula 3.0 01/02/17 21:59 27 Intake and Output 01/03/17 01/03/17 01/04/17 15:00 23:00 07:00 Intake Total 500 ml 360 ml Output Total 700 ml Balance -200 ml 360 ml Exam Neck: non-tender, supple Respiratory: clear to auscultation, normal air movement Cardiovascular: nl pulses, regular rate and rhythm Gastrointestinal: nl liver, spleen, non-tender, soft Results Result Diagram: 01/04/17 0530 01/04/17 0525 Results 24 hrs Laboratory Tests Test 01/04/17 05:25 01/04/17 05:30 Sodium Level 137 Potassium Level 3.6 Chloride Level 102 Carbon Dioxide Level 31 Anion Gap 8 Blood Urea Nitrogen 23 H Creatinine 0.83 Glucose Level 114 Calcium Level 9.7 Total Bilirubin 0.2 Direct Bilirubin 0.00 Indirect Bilirubin 0.2 Aspartate Amino Transf (AST/SGOT) 22 Alanine Aminotransferase (ALT/SGPT) 32 Alkaline Phosphatase 167 H Total Protein 5.6 L Albumin 2.7 L Globulin 2.90 Albumin/Globulin Ratio 0.93 White Blood Count 10.4 Red Blood Count 3.08 L Hemoglobin 8.9 L Hematocrit 28.8 L Mean Corpuscular Volume 93.5 Mean Corpuscular Hemoglobin 28.9 L Mean Corpuscular Hemoglobin Concent 30.9 L Red Cell Distribution Width 14.4 Platelet Count 305 Mean Platelet Volume 9.3 Neutrophils % 86.9 H Lymphocytes % 4.5 L Monocytes % 7.2 Eosinophils % 0.5 Basophils % 0.1 Nucleated Red Blood Cells % 0.0 Neutrophils # 9.0 H Lymphocytes # 0.5 L Monocytes # 0.8 Eosinophils # 0.1 Basophils # 0.0 Nucleated Red Blood Cells # 0.0 Medications Medications Current Medications Atorvastatin Calcium (Lipitor) 20 mg HS PO Last administered on 01/03/17 21:54 ; Admin Dose 20 MG; Start 12/07/16 at 21:00 Nitroglycerin (Nitroglycerin (Sr)) 6.5 mg BID PO Last administered on 09:14; Admin Dose 6.5 MG; Start 12/07/16 at 21:00 Pantoprazole (Protonix Tab) 40 mg DAILY@06 PO Last administered on 01/04/17 05 :39; Admin Dose 40 MG; Start 12/08/16 at 06:00 Clonidine (Catapres) 0.1 mg Q6H PRN PO sbp >160; Start 12/12/16 at 18:00 Allopurinol (Zyloprim) 300 mg AM PO Last administered on 01/04/17 09:14; Admin Dose 300 MG; Start 12/15/16 at 09:00 Promethazine HCl/ Codeine (Phenergan/ Codeine) 5 ml Q4H PRN PO COUGH Last administered on 01/02/17 23:45; Admin Dose 5 ML; Start 12/21/16 at 22:30 Acetaminophen (Tylenol Tab) 650 mg Q6H PRN PO PAIN AND OR ELEVATED TEMP Last administered on 12/30/16 14:32; Admin Dose 650 MG; Start 12/22/16 at 19:00 Acetaminophen/ Hydrocodone Bitart ([place] (5/325)) 1 tab Q4H PRN PO moderate- severe pain Last administered on 01/03/17 03:46; Admin Dose 1 TAB; Start at 19:00 Diltiazem HCl (Cardizem Cd) 240 mg BID PO Last administered on 01/04/17 09:14 ; Admin Dose 240 MG; Start 12/27/16 at 21:00 Escitalopram Oxalate (Lexapro) 10 mg DAILY PO Last administered on 01/04/17 09 :14; Admin Dose 10 MG; Start 5/12/17 at 09:00 Ferrous Sulfate (Ferrous Sulfate (Ec)) 325 mg TID PO Last administered on 13:53; Admin Dose 325 MG; Start 12/29/16 at 21:00 Memantine (Namenda) 10 mg DAILY PO Last administered on 01/04/17 09:14; Admin Dose 10 MG; Start 12/30/16 at 09:00 Nitroglycerin (Nitroglycerin (Sl Tab) 0.4 Mg) 1 tab Q5M PRN SL ANGINA; Start at 19:00 Nitroglycerin (Nitroglycerin ([place])) 1 spray Q5M PRN SL ANGINA; Start at 19:00 Aspirin (Aspirin) 81 mg DAILY PO Last administered on 01/04/17 09:13; Admin Dose 81 MG; Start 01/04/17 at 09:00 Clonazepam (Klonopin) 0.5 mg Q6H PRN PO agitation; Start 01/03/17 at 18:00 Lorazepam (Ativan) 1 mg HS PO ; Start 01/04/17 at 19:00 RICARDO CANTOR MD January 04, 2017 17:10
--- NOTE | 2017-01-04 18:35 | PN ---
DATE: 01/04/2017 SUBJECTIVE: The patient is drowsy this morning and awake, arousable, and participates in physical t herapy, but is still mildly sedated and/or sleepy. He is oriented to name only. OBJECTIVE: HEENT: Pupils equally round, reactive to light. Oropharynx clear. CARDIAC: Distant heart sounds, irregular rhythm. CHEST: Lungs are clear to auscultation with rare rhonchi. ABDOMEN: Active bowel sounds, soft, nondistended, nontender. EXTREMITIES: No clubbing, cyanosis, or edema. LABORATORY DATA: WBC 10.4, hemoglobin 8.9, hematocrit 28.8, platelet count 305. Sodium 137, potass ium 3.6, BUN 23, creatinine 0.83, glucose 114. Liver enzymes are within normal limits except for a mildly elevated alkaline phosphatase of 167 and a decreased total protein of 5.6 and albumin of 2.7. Followup chest x-ray this morning shows decreased small apical left pneumothorax measuring about 1 0% to 15%. There is a small left pleural effusion with left base atelectasis. There is mild vascul ar congestion. ASSESSMENT AND PLAN: 1. Weakness and deconditioning, starting physical therapy. 2. Altered mental status. The patient has less nighttime agitation and confusion on medications, b ut he is still a little bit sedated in the daytime. We will reduce the dosage of Ativan but continu e low dose Ativan and Ambien for sleep and anxiety. 3. Status post thoracic spine debulking and laminectomy, doing well postoperatively, starting physi lidia therapy. 4. 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 Await further DNA mutation analysis of the biopsies. 5. Chronic atrial fibrillation. Rate is controlled on current dose of Cardizem. The patient is al so on aspirin and statin at this time. 6. Status post pneumothorax, stable clinically and radiologically. Anticipate discharge to custodial facility when bed available. Dictated By: DESI MCLAIN MD DP/MARTINA Conf#: [id number] DID#: [id number]
[2017-01-04] MEDS: ATORVASTATIN 20 MG TAB PO SCH (20:27)
[2017-01-04] MEDS: LORAZEPAM 1 MG TAB PO SCH (20:27)
[2017-01-04] MEDS ORDERED: LORAZEPAM 1 MG TAB PO SCH (21:00)
[2017-01-05] VITALS (12 sets, daily range): BP systolic 117–148; BP diastolic 57–78; PULSE 70–94; RESP 18–20
[2017-01-05] MEDS: PANTOPRAZOLE (EC) 40 MG TAB PO SCH (05:20)
[2017-01-05] MEDS: ESCITALOPRAM 10 MG TAB PO SCH (08:47)
[2017-01-05] MEDS: MEMANTINE 10 MG TAB PO SCH (08:47)
[2017-01-05] MEDS: ALLOPURINOL 300 MG TAB PO SCH (08:47)
[2017-01-05] MEDS: FERROUS SULFATE (EC) 325 MG TAB PO SCH ×3 (08:47→21:36)
[2017-01-05] MEDS: ASPIRIN 81 MG TAB PO SCH (08:47)
[2017-01-05] MEDS: NITROGLYCERIN 6.5 MG PO SCH ×2 (08:48→21:36)
[2017-01-05] MEDS: DILTIAZEM (CD) 240 MG CAP PO SCH ×2 (08:48→21:36)
--- NOTE | 2017-01-05 09:47 | PN ---
DATE: 01/05/2017 HEMATOLOGY/ONCOLOGY PROGRESS NOTE SUBJECTIVE: Patient denies any complaints. He is having no back pain. He complains of no radicula r pain in lower extremities, no numbness or tingling. Appetite is good. He has no abdominal pain o r nausea or vomiting. No complaints of chest pain or shortness of breath. OBJECTIVE: The patient is a well-developed, thin male who is in no acute distress and appears chron ically ill. VITAL SIGNS: Temperature 97.6, pulse 90 per minute and regular, respirations 20, blood pressure is 148/70 and pulse oximetry is 98% on 3 liters. SKIN: No ecchymosis, no petechiae or rashes. HEENT: No mucosal lesions. No scleral icterus. Pupils equal, round, react to light and accommodat ion. Extraocular movements are intact. NECK: Supple, no jugular venous distention or thyroid enlargement. CHEST: Clear to auscultation and percussion. No rhonchi, wheezes, rales or rubs. NODES: No palpable lymphadenopathy in lymph node bearing area. HEART: Regular sinus rhythm, no S3, S4 or murmurs. No rubs. ABDOMEN: Soft, no masses, no ascites. EXTREMITIES: No clubbing, edema or cyanosis. There does seem to be muscular atrophy in the lower e xtremities. NEUROLOGIC: The patient is mildly confused but not agitated. The hyperreflexia in the lower extrem ities has resolved. IMPRESSION: 1. Metastatic carcinoma, primary site unknown, although most likely a lung origin. 2. Spinal cord compression secondary to metastatic carcinoma. Status post decompressive surgery. 3. Pneumothorax, status post percutaneous lung biopsy, resolving. PLAN: Have requested genomic studies on the original spinal specimen for "minibus driver" mutations. No ot her recommendations at this time although the patient certainly will require radiation therapy to th e area of decompressive surgery. Will also require zoledronic acid. Dictated By: JENNIFFER PEREZ MD, SR/MARTINA Conf#: [id number] DID#: [id number]
--- NOTE | 2017-01-05 13:31 | RADRPT ---
PROCEDURE: XR Chest. CLINICAL INDICATION: Pneumonia TECHNIQUE: An AP view of the chest was obtained. COMPARISON: Chest x-ray dated 01/03/2017 FINDINGS: There is prominence of the interstitial and central pulmonary vascular markings with small left ple ural effusion. No pneumothorax is seen. The cardiomediastinal silhouette is mildly enlarged . Ca lcifications are seen within the aortic arch. The osseous structures demonstrate postsurgical rashid es from cervicothoracic fusion. IMPRESSION: 1. Findings suggestive of pulmonary vascular congestion with small left pleural effusion. There is improved aeration of the left lung base when compared to the prior examination. 2. Mild cardiomegaly and aortic atherosclerosis. RPTAT: HH .Coral Chowdhury MD, MD Date Time Electronically viewed and signed by .Coral Chowdhury MD, on 01/05/2017 13:31 .G/
--- NOTE | 2017-01-05 16:37 | CONS ---
Date/Time of Note Date/Time of Note DATE: 01/05/17 TIME: 16:36 Assessment/Plan Assessment/Plan Additional Assessment/Plan Assessment recommendations; next 1. 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 2. Status post left upper lobe lung biopsy, with resulting pneumothorax is significant radiological and clinical improvement. 3. Failure to thrive. However patient condition is improving. Continue current treatment. Consider discharge. Consultation Date/Type/Reason Admit Date/Time Dec 07, 2016 at 12:13 Initial Consult Date 01/02/17 Type of Consultation: Pulmonary Referring Provider: AMANDA PRATER MD 24 HR Interval Summary Free Text/Dictation Patient condition is significantly improved. He denies any shortness of breath , back pain is improving. Denies any chest pain, wheezing or sputum production. General exam; elderly male, awake alert currently in no distress. Exam/Review of Systems Vital Signs Vitals Vital Signs Date Time Temp Pulse Resp B/P Pulse Ox O2 Delivery O2 Flow Rate FiO2 01/05/17 16:28 77 01/05/17 12:19 98.7 20 127/57 100 01/05/17 08:15 Nasal Cannula 3.0 01/02/17 21:59 27 Intake and Output 01/04/17 01/04/17 01/05/17 15:00 23:00 07:00 Intake Total 360 ml 450 ml Balance 360 ml 450 ml Exam HEENT exam; supple neck, no JVD. No lymphadenopathy. Midline trachea. No thyromegaly. Pharynx is clear. Patient has fair dentition. Chest examination; diminished but clear vessel. S1-S2 audible, no murmurs. Abdomen examination; soft, nontender. Nondistended. No organomegaly. Bowel sounds audible. Extremity examination of [place] no peripheral edema. No clubbing. LETTERER examination; no focal deficit. Results Result Diagram: 01/04/17 0530 01/04/17 0525 Medications Medications Current Medications Atorvastatin Calcium (Lipitor) 20 mg HS PO Last administered on 01/04/17 20:27 ; Admin Dose 20 MG; Start 12/07/16 at 21:00 Nitroglycerin (Nitroglycerin (Sr)) 6.5 mg BID PO Last administered on 08:48; Admin Dose 6.5 MG; Start 12/07/16 at 21:00 Pantoprazole (Protonix Tab) 40 mg DAILY@06 PO Last administered on 01/05/17 05 :20; Admin Dose 40 MG; Start 12/08/16 at 06:00 Clonidine (Catapres) 0.1 mg Q6H PRN PO sbp >160; Start 12/12/16 at 18:00 Allopurinol (Zyloprim) 300 mg AM PO Last administered on 01/05/17 08:47; Admin Dose 300 MG; Start 12/15/16 at 09:00 Promethazine HCl/ Codeine (Phenergan/ Codeine) 5 ml Q4H PRN PO COUGH Last administered on 01/02/17 23:45; Admin Dose 5 ML; Start 12/21/16 at 22:30 Acetaminophen (Tylenol Tab) 650 mg Q6H PRN PO PAIN AND OR ELEVATED TEMP Last administered on 12/30/16 14:32; Admin Dose 650 MG; Start 12/22/16 at 19:00 Acetaminophen/ Hydrocodone Bitart ([place] (5/325)) 1 tab Q4H PRN PO moderate- severe pain Last administered on 01/03/17 03:46; Admin Dose 1 TAB; Start at 19:00 Diltiazem HCl (Cardizem Cd) 240 mg BID PO Last administered on 01/05/17 08:48 ; Admin Dose 240 MG; Start 12/27/16 at 21:00 Escitalopram Oxalate (Lexapro) 10 mg DAILY PO Last administered on 01/05/17 08 :47; Admin Dose 10 MG; Start 12/28/16 at 09:00 Ferrous Sulfate (Ferrous Sulfate (Ec)) 325 mg TID PO Last administered on 14:01; Admin Dose 325 MG; Start 12/29/16 at 21:00 Memantine (Namenda) 10 mg DAILY PO Last administered on 01/05/17 08:47; Admin Dose 10 MG; Start 12/30/16 at 09:00 Nitroglycerin (Nitroglycerin (Sl Tab) 0.4 Mg) 1 tab Q5M PRN SL ANGINA; Start at 19:00 Nitroglycerin (Nitroglycerin ([place])) 1 spray Q5M PRN SL ANGINA; Start at 19:00 Aspirin (Aspirin) 81 mg DAILY PO Last administered on 01/05/17 08:47; Admin Dose 81 MG; Start 01/04/17 at 09:00 Clonazepam (Klonopin) 0.5 mg Q6H PRN PO agitation; Start 01/03/17 at 18:00 Lorazepam (Ativan) 1 mg HS PO Last administered on 01/04/17 20:27; Admin Dose 1 MG; Start 01/04/17 at 19:00 VANESSA IZAGUIRRE January 05, 2017 16:37
--- NOTE | 2017-01-05 17:46 | PN ---
DATE: 01/05/2017 SUBJECTIVE: The patient is awake and alert, appears very comfortable. Reports he is in the hospita and knows that I am Dr. Dennison. OBJECTIVE: VITAL SIGNS: Temperature 97.3, blood pressure 119/67, pulse of 77 to 97, respiratory rate 20, O2 sa turation 99% on room air. HEENT: Pupils equally round, reactive to light. Oropharynx clear. CHEST: Lungs are clear to auscultation anteriorly. CARDIAC: Irregularly irregular. ABDOMEN: Active bowel sounds, soft, nondistended, nontender. EXTREMITIES: No clubbing, cyanosis, or edema. LABORATORY DATA: WBC 10.4, hemoglobin 8.9, hematocrit 28.8, platelet count 305,000. Sodium 137, po tassium 3.6, BUN 23, creatinine 0.83, glucose 114. ASSESSMENT AND PLAN: 1. Altered mental status. The patient appears clinically stable on antianxiety and sleep medicine at night. Plan discharge to long-term facility when bed available. 2. Atrial fibrillation, controlled on Cardizem. 3. Spinal compression, status post debulking surgery with postoperative deconditioning. Will need to continue rehabilitation. 4. Metastatic bone cancer. The patient will need radiation treatment as an outpatient, but only on ce he has improved physically. Dictated By: DESI DENNISON MD DP/MARTINA Conf#: [id number] DID#: [id number]
--- NOTE | 2017-01-05 18:07 | PN ---
Date/Time of Note Date/Time of Note DATE: 01/05/17 TIME: 18:06 Assessment/Plan Lines/Catheters IV Catheter Type (from Nrsg): Saline Lock Eric in Place (from Nrsg): No Assessment/Plan Chief Complaint/Hosp Course IMPRESSION: Iatrogenic left pneumothorax, small at the present time, the patient is not in any distress. PTX slightly smaller today. PTX resolving, almost gone We will continue monitoring the pneumothorax. Problems: Subjective 24 Hr Interval Summary Constitutional: improved Pain Control: mild Exam/Review of Systems Vital Signs Vitals Vital Signs Date Time Temp Pulse Resp B/P Pulse Ox O2 Delivery O2 Flow Rate FiO2 01/05/17 17:54 3.0 01/05/17 16:40 97.3 97 20 119/67 99 01/05/17 08:15 Nasal Cannula 01/02/17 21:59 27 Intake and Output 01/04/17 01/04/17 01/05/17 15:00 23:00 07:00 Intake Total 360 ml 450 ml Balance 360 ml 450 ml Exam ENMT: mucosa pink and moist, nl external ears & nose, nl lips & teeth, nl nasal mucosa & septum Neck: non-tender, supple Respiratory: clear to auscultation, normal air movement, No congested cough, No crackles/rales, No diminished breath sounds, No intercostal retraction, No labored breathing, No other, No respirations, No tactile fremitus, No wheezing Results Result Diagram: 01/04/17 0530 01/04/17 0525 RICARDO CANTOR MD January 05, 2017 18:07
[2017-01-05] MEDS: ATORVASTATIN 20 MG TAB PO SCH (21:35)
[2017-01-05] MEDS: LORAZEPAM 1 MG TAB PO SCH (21:36)
[2017-01-06] VITALS (12 sets, daily range): BP systolic 112–139; BP diastolic 59–77; PULSE 70–100; RESP 18–20
[2017-01-06] MEDS: PANTOPRAZOLE (EC) 40 MG TAB PO SCH (05:13)
[2017-01-06] MEDS: MEMANTINE 10 MG TAB PO SCH (09:58)
[2017-01-06] MEDS: ALLOPURINOL 300 MG TAB PO SCH (09:58)
[2017-01-06] MEDS: ESCITALOPRAM 10 MG TAB PO SCH (09:58)
[2017-01-06] MEDS: FERROUS SULFATE (EC) 325 MG TAB PO SCH ×4 (09:58→21:05)
[2017-01-06] MEDS: NITROGLYCERIN 6.5 MG PO SCH ×2 (09:59→21:05)
[2017-01-06] MEDS: DILTIAZEM (CD) 240 MG CAP PO SCH ×2 (10:00→21:06)
[2017-01-06] MEDS: ASPIRIN 81 MG TAB PO SCH (10:00)
--- NOTE | 2017-01-06 10:11 | PN ---
Date/Time of Note Date/Time of Note DATE: 01/06/17 TIME: 10:10 Assessment/Plan Lines/Catheters IV Catheter Type (from Nrsg): Saline Lock Eric in Place (from Nrsg): No Assessment/Plan Chief Complaint/Hosp Course IMPRESSION: Iatrogenic left pneumothorax, small at the present time, the patient is not in any distress. PTX slightly smaller today. PTX resolving, almost gone We will continue monitoring the pneumothorax. Problems: Subjective 24 Hr Interval Summary Constitutional: improved Pain Control: mild Exam/Review of Systems Vital Signs Vitals Vital Signs Date Time Temp Pulse Resp B/P Pulse Ox O2 Delivery O2 Flow Rate FiO2 01/06/17 08:22 90 01/06/17 08:09 97.5 20 133/71 95 01/06/17 06:24 3.0 01/05/17 19:00 Nasal Cannula 01/02/17 21:59 27 Intake and Output 01/05/17 01/05/17 01/06/17 15:00 23:00 07:00 Intake Total 500 ml 350 ml Balance 500 ml 350 ml Exam Neck: non-tender, supple Respiratory: clear to auscultation, normal air movement Cardiovascular: nl pulses, regular rate and rhythm Results Result Diagram: 01/04/17 0530 01/04/17 0525 RICARDO CANTOR MD January 06, 2017 10:11
--- NOTE | 2017-01-06 15:08 | PN ---
DATE: 01/06/2017 HEMATOLOGY AND ONCOLOGY PROGRESS NOTE SUBJECTIVE: Patient has no new complaints. Denies neck, back or chest pain. Denies shortness of b reath. OBJECTIVE GENERAL: The patient is a well-developed, well-nourished male in no acute distress. VITAL SIGNS: Temperature 97.6, pulse 79 per minute and regular, respirations 20, blood pressure 127 /77 and pulse oximetry is 97% on 3 liters of oxygen. Physical examination is unchanged from previous. DIAGNOSTIC DATA: Chest x-ray obtained on 01/05/2017 shows resolution of the previously noted pneumo thorax. ASSESSMENT: 1. Metastatic carcinoma. Primary site unknown, but most likely lung primary. 2. Spinal cord compression secondary to metastatic carcinoma. Status post decompressive surgery. 3. Pneumothorax secondary to percutaneous lung biopsy. Resolved. As noted previously, awaiting for genomic studies for "sales warehouse driver" mutations. We will also order zoledronic acid in a.m. Renal function has been adequate. Dictated By: JENNIFFER PEREZ MD, SR/MARTINA Conf#: [id number] DID#: [id number]
--- NOTE | 2017-01-06 17:56 | PN ---
DATE: 01/06/2017 SUBJECTIVE: Patient is awake and alert. Still has episodic confusion, but no agitation. OBJECTIVE: VITAL SIGNS: Temperature 98.8, blood pressure 112/59, pulse of 82, respiration rate 20, O2 saturati on 92% to 97% on 3 liters nasal cannula. HEENT: Pupils equally round, reactive to light. Oropharynx clear. CHEST: Lungs are clear to auscultation. CARDIAC: Irregularly irregular. ABDOMEN: Active bowel sounds. Soft. EXTREMITIES: No clubbing, cyanosis, or edema. Chest x-ray done yesterday shows mild pulmonary vascular congestion with small left pleural effusion , no pneumothorax and improved aeration at the left lung base. ASSESSMENT AND PLAN: 1. Pneumothorax, resolved. 2. Altered mental status with confusion and agitation at night and appears to be well controlled on medications. Continue clonazepam and use Ativan. The Lorazepam 1 mg p.o. at bedtime along with th e Zolpidem 5 mg p.o. at bedtime for sleep and use Clonazepam only as needed for anxiety or agitation . 3. Atrial fibrillation, rate controlled on Diltiazem CD 240 p.o. b.i.d. 4. Metastatic cancer. Patient is doing well after cord compression and debulking. He is nowhere r nida for his radiation therapy at this time. Will need placement for physical therapy/rehabilitatio n for postoperative deconditioning. Plan to discharge the patient in a.m. if possible. Dictated By: DESI HUDSON/MARTINA Conf#: [id number] DID#: [id number]
[2017-01-06] MEDS: ZOLPIDEM 5 MG TAB PO PRN (21:06)
[2017-01-06] MEDS: LORAZEPAM 1 MG TAB PO SCH (21:06)
[2017-01-06] MEDS: ATORVASTATIN 20 MG TAB PO SCH (21:06)
[2017-01-07] VITALS (12 sets, daily range): BP systolic 126–153; BP diastolic 65–87; PULSE 84–114; RESP 18
[2017-01-07] MEDS: PANTOPRAZOLE (EC) 40 MG TAB PO SCH (05:43)
--- NOTE | 2017-01-07 08:32 | PN ---
DATE: 01/07/2017 HEMATOLOGY/ONCOLOGY PROGRESS NOTE SUBJECTIVE: Patient has no new complaints. Denies shortness of breath, denies back pain. Denies l ower extremity weakness. OBJECTIVE GENERAL: The patient is a well-developed, but chronically appearing male who is in no acute distres s. PHYSICAL EXAMINATION: VITAL SIGNS: Temperature 97.8, pulse 110 and regular, respirations 18, blood pressure 135/87, pulse oximetry 99% on 3 liters oxygen via nasal cannula. SKIN: No ecchymosis, no petechiae or rashes. HEENT: No mucosal lesions. No scleral icterus. NECK: Supple, no jugular venous distention or thyroid enlargement. CHEST: Clear to auscultation but no rhonchi, wheezes, rales or rubs. The breath sounds are general ly decreased throughout. CARDIOVASCULAR: Heart sinus tachycardia. No S3, S4 or murmurs. ABDOMEN: Soft, no masses, no ascites. EXTREMITIES: No edema or cyanosis. No palpable cords or Homans sign. NEUROLOGIC: Normal except for generalized weakness. IMPRESSION: 1. Metastatic carcinoma primary site unknown, but most likely lung primary. 2. Spinal cord compression secondary to metastatic carcinoma status post decompressive surgery. 3. Pneumothorax secondary to percutaneous lung biopsy, resolved. PLAN: The patient is to receive 4 mg of zoledronic acid IV today. This will be given monthly. Still awaiting general mixed studies on the biopsy material obtained at the time of the spinal cord decompressive surgery. This will determine what further therapy should be administered if the patie nt is actually a candidate for therapy. Dictated By: JENNIFFER PEREZ MD SR/NTS Conf#: [id number] DID#: [id number]
[2017-01-07] MEDS: NITROGLYCERIN 6.5 MG PO SCH ×2 (08:48→21:13)
[2017-01-07] MEDS: MEMANTINE 10 MG TAB PO SCH (08:48)
[2017-01-07] MEDS: ALLOPURINOL 300 MG TAB PO SCH (08:48)
[2017-01-07] MEDS: ESCITALOPRAM 10 MG TAB PO SCH (08:48)
[2017-01-07] MEDS: FERROUS SULFATE (EC) 325 MG TAB PO SCH ×3 (08:48→21:12)
[2017-01-07] MEDS: ASPIRIN 81 MG TAB PO SCH (08:48)
[2017-01-07] MEDS: DILTIAZEM (CD) 240 MG CAP PO SCH ×2 (08:48→21:13)
[2017-01-07] MEDS ORDERED: ZOLEDRONIC ACID 4 MG in SOD CHLORIDE 0.9% 100 ML IVPB ONE (10:00)
--- NOTE | 2017-01-07 11:13 | CONS ---
Date/Time of Note Date/Time of Note DATE: 01/07/17 TIME: 11:12 Consult Date/Type/Reason Admit Date/Time Dec 07, 2016 at 12:13 Initial Consult Date 01/02/17 Type of Consultation: Pulmonary Ordering Provider: AMANDA PRATER MD Subjective Patient awake alert and oriented comfortable at rest Objective Vital Signs Date Time Temp Pulse Resp B/P Pulse Ox O2 Delivery O2 Flow Rate FiO2 01/07/17 08:21 114 01/07/17 07:52 97.8 18 153/87 99 01/07/17 02:28 3.0 01/06/17 20:00 Nasal Cannula Intake and Output 01/06/17 01/06/17 01/07/17 15:00 23:00 07:00 Intake Total 840 ml 480 ml Balance 840 ml 480 ml Exam GENERAL: Elderly gentleman comfortable at rest no acute distress VITAL SIGNS: per chart NECK: Supple. No JVD or lymphadenopathy. CARDIAC EXAM: S1, S2. No added sounds or murmurs. CHEST: clear bilaterally, No added sounds, rales or wheezes ABDOMEN: Soft, nontender. No guarding or rebound. EXTREMITIES: No cyanosis, clubbing or edema. NEUROLOGIC: Generalized weakness. No focal deficits. Results/Medications Result Diagram: 01/04/1752901/04/17 05 Medications Current Medications Atorvastatin Calcium (Lipitor) 20 mg HS PO Last administered on 01/06/17 21:06 ; Admin Dose 20 MG; Start 12/07/16 at 21:00 Nitroglycerin (Nitroglycerin (Sr)) 6.5 mg BID PO Last administered on 08:48; Admin Dose 6.5 MG; Start 12/07/16 at 21:00 Pantoprazole (Protonix Tab) 40 mg DAILY@06 PO Last administered on 01/07/17 05 :43; Admin Dose 40 MG; Start 12/08/16 at 06:00 Clonidine (Catapres) 0.1 mg Q6H PRN PO sbp >160; Start 12/12/16 at 18:00 Allopurinol (Zyloprim) 300 mg AM PO Last administered on 01/07/17 08:48; Admin Dose 300 MG; Start 12/15/16 at 09:00 Promethazine HCl/ Codeine (Phenergan/ Codeine) 5 ml Q4H PRN PO COUGH Last administered on 01/02/17 23:45; Admin Dose 5 ML; Start 12/21/16 at 22:30 Acetaminophen (Tylenol Tab) 650 mg Q6H PRN PO PAIN AND OR ELEVATED TEMP Last administered on 12/30/16 14:32; Admin Dose 650 MG; Start 12/22/16 at 19:00 Acetaminophen/ Hydrocodone Bitart ([place] (5/325)) 1 tab Q4H PRN PO moderate- severe pain Last administered on 01/03/17 03:46; Admin Dose 1 TAB; Start at 19:00 Diltiazem HCl (Cardizem Cd) 240 mg BID PO Last administered on 01/07/17 08:48 ; Admin Dose 240 MG; Start 12/27/16 at 21:00 Escitalopram Oxalate (Lexapro) 10 mg DAILY PO Last administered on 01/07/17 08 :48; Admin Dose 10 MG; Start 12/28/16 at 09:00 Ferrous Sulfate (Ferrous Sulfate (Ec)) 325 mg TID PO Last administered on 08:48; Admin Dose 325 MG; Start 12/29/16 at 21:00 Memantine (Namenda) 10 mg DAILY PO Last administered on 01/07/17 08:48; Admin Dose 10 MG; Start 12/30/16 at 09:00 Nitroglycerin (Nitroglycerin (Sl Tab) 0.4 Mg) 1 tab Q5M PRN SL ANGINA; Start at 19:00 Nitroglycerin (Nitroglycerin ([place])) 1 spray Q5M PRN SL ANGINA Last administered on 01/06/17 17:18; Admin Dose 1 SPRAY; Start 01/01/17 at 19:00 Aspirin (Aspirin) 81 mg DAILY PO Last administered on 01/07/17 08:48; Admin Dose 81 MG; Start 01/04/17 at 09:00 Clonazepam (Klonopin) 0.5 mg Q6H PRN PO agitation; Start 01/03/17 at 18:00 Lorazepam (Ativan) 1 mg HS PO Last administered on 01/06/17 21:06; Admin Dose 1 MG; Start 01/04/17 at 19:00 Assessment/Plan Chief Complaint/Hosp Course Assessment 1. 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 Failed to thrive 3. Resolved pneumothorax Plan 1. Continue supplemental O2 2. Aspiration precautions 3. Consider transfer to [facility] 4. Hematology oncology recommendations 5. Consider addressing CODE STATUS Problems: JUWAN GIMENEZ MD, [facility] January 07, 2017 11:13
--- NOTE | 2017-01-07 12:11 | PN ---
Date/Time of Note Date/Time of Note DATE: 01/07/17 TIME: 12:10 Assessment/Plan Lines/Catheters IV Catheter Type (from Nrsg): Saline Lock Eric in Place (from Nrsg): No Assessment/Plan Chief Complaint/Hosp Course IMPRESSION: Iatrogenic left pneumothorax, small at the present time, the patient is not in any distress. PTX resolving, almost gone We will continue monitoring the pneumothorax. Problems: Subjective 24 Hr Interval Summary Constitutional: improved Pain Control: mild Exam/Review of Systems Vital Signs Vitals Vital Signs Date Time Temp Pulse Resp B/P Pulse Ox O2 Delivery O2 Flow Rate FiO2 01/07/17 11:59 98.0 94 18 136/79 98 01/07/17 08:00 Nasal Cannula 3.0 Intake and Output 01/06/17 01/06/17 01/07/17 15:00 23:00 07:00 Intake Total 840 ml 480 ml Balance 840 ml 480 ml Exam ENMT: mucosa pink and moist, nl external ears & nose, nl lips & teeth, nl nasal mucosa & septum Neck: non-tender, supple Respiratory: clear to auscultation, normal air movement Cardiovascular: nl pulses, regular rate and rhythm Gastrointestinal: nl liver, spleen, non-tender, soft Results Result Diagram: 01/04/17 0530 01/04/17 0525 RICARDO CANTOR MD January 07, 2017 12:11
--- NOTE | 2017-01-07 20:21 | PN ---
DATE: 01/07/2017 SUBJECTIVE: The patient is awake, alert, aware that he is at [facility] and remembers my name and the events that led to his current hospitalization. I also discussed the code status with the patient and he has decided that in view of his current metastatic disease that he does not want to be resuscitated. The patient is agreeable for me to contact his niece, Tayler, to let her know of his decision since she is his next of kin at this time. PHYSICAL EXAMINATION: VITAL SIGNS: Temperature 98.0, blood pressure 133/74, pulse of 79, respiration rate 18, O2 saturation 99% on 3 liters nasal cannula. HEENT: Pupils equally round, reactive to light. Oropharynx clear. CHEST: Lungs are clear to auscultation. CARDIAC: Irregularly irregular. ABDOMEN: Active bowel sounds, soft, nondistended, nontender. EXTREMITIES: No clubbing, cyanosis, or edema. ASSESSMENT AND PLAN: 1. Metastatic bony lesions with spinal cord compression, status post T4 debulking surgery, now with weakness. [facility]. Discussed with Dr. Sharma. The patient is not in good health to begin any cancer treatment at this time. 2. Pneumothorax, status post lung nodule biopsy, resolved. 3. Altered mental status. The patient still has some occasional confusion at night, but this is well controlled with Ativan in the evenings. 4. Anxiety, controlled on Lexapro and occasional Clonazepam if needed. 5. Atrial fibrillation, rate controlled on Cardizem. 6. Hypertension. Blood pressure currently controlled on Cardizem. We have not had to resume losartan, which the patient was also on prior to hospitalization 7. Gastroesophageal reflux disease. The patient is on Protonix. 8. Hypercholesterolemia. The patient is on Lipitor. 9. Code status . Patient is DNR. Dictated By: DESI MCLAIN MD DP/NTS Conf#: [id number] DID#: [id number] MTDD
[2017-01-07] MEDS: LORAZEPAM 1 MG TAB PO SCH (21:12)
[2017-01-07] MEDS: ATORVASTATIN 20 MG TAB PO SCH (21:12)
[2017-01-08] VITALS (12 sets, daily range): BP systolic 112–141; BP diastolic 64–77; PULSE 90–134; RESP 18–20
[2017-01-08 01:35] LABS: ADD SCAN DIFF NO
[2017-01-08 01:36] LABS: ABNORMAL IP MESSAGE 1; BASOPHILS % 0.3 % (0.0-2.0); EOSINOPHILS # 0.2 10^3/ul (0.0-0.5); EOSINOPHILS % 1.6 % (0.0-7.0); HEMATOCRIT 31.2 % (42.0-52.0); HEMOGLOBIN 9.6 g/dl (14.0-18.0); LYMPHOCYTES # 0.2 10^3/ul (0.8-2.9); LYMPHOCYTES % 1.7 % (15.0-51.0); MEAN CORPUSCULAR HEMOGLOBIN 28.7 pg (29.0-33.0); MEAN CORPUSCULAR HGB CONC 30.8 g/dl (32.0-37.0); MEAN CORPUSCULAR VOLUME 93.4 fl (82.0-101.0); MEAN PLATELET VOLUME 8.9 fl (7.4-10.4); MONOCYTE # 0.5 10^3/ul (0.3-0.9); MONOCYTES % 3.4 % (0.0-11.0); NEUTROPHIL # 12.8 10^3/ul (1.6-7.5); NEUTROPHILS % 91.7 % (39.0-77.0); PLATELET COUNT 364 10^3/UL (140-415); RED BLOOD COUNT 3.34 10^6/ul (4.70-6.10); RED CELL DISTRIBUTION WIDTH 14.4 % (11.5-14.5)
[2017-01-08 01:51] LABS: POTASSIUM 3.7 mmol/L (3.5-5.1)
[2017-01-08 01:53] LABS: CREATININE 0.81 mg/dl (0.61-1.24)
[2017-01-08 01:54] LABS: CALCIUM 10.2 mg/dl (8.4-10.2)
[2017-01-08 02:36] LABS: ADD UMIC YES; URINE BILIRUBIN (Dip) NEGATIVE (NEGATIVE); URINE BLOOD (Dip) TRACE (NEGATIVE); URINE COLOR LT. YELLOW (YELLOW); URINE GLUCOSE (Dip) NEGATIVE (NEGATIVE); URINE KETONES (Dip) NEGATIVE (NEGATIVE); URINE LEUKOCYTE ESTERASE (Dip) NEGATIVE (NEGATIVE); URINE NITRITE (Dip) NEGATIVE (NEGATIVE); URINE TOTAL PROTEIN (Dip) NEGATIVE (NEGATIVE); URINE UROBILINOGEN (Dip) 2.0 E.U./dL (0.1-1.0)
[2017-01-08 02:52] LABS: BACTERIA,URINE MANY; SQUAMOUS EPITHELIAL CELL,UR FEW
--- NOTE | 2017-01-08 03:13 | RADRPT ---
PROCEDURE: XR Chest. CLINICAL INDICATION: Fever. TECHNIQUE: Single frontal chest x-ray. COMPARISON: 01/05/2017 FINDINGS: High right is enlarged.. There is no CHF.. There is increased plate-like atelectasis in left upper lobe. There is redemonstrated small left pleural effusion with basilar atelectasis versus infiltrat e.. There is no pneumothorax. Postsurgical changes of the lower cervical and upper mid thoracic sp ine are unchanged.. IMPRESSION: Slight increase in left upper lobe atelectasis. Unchanged left basilar pleural effusion and atelect asis versus infiltrate. Otherwise no change. RPTAT: HMVK .Regis Dominguez MD, MD Date Time Electronically viewed and signed by .Regis Dominguez MD, on 01/08/2017 03:13 .K/
[2017-01-08] MEDS: PANTOPRAZOLE (EC) 40 MG TAB PO SCH (06:10)
[2017-01-08] MEDS: ESCITALOPRAM 10 MG TAB PO SCH (08:37)
[2017-01-08] MEDS: MEMANTINE 10 MG TAB PO SCH (08:37)
[2017-01-08] MEDS: FERROUS SULFATE (EC) 325 MG TAB PO SCH ×3 (08:37→21:31)
[2017-01-08] MEDS: ASPIRIN 81 MG TAB PO SCH (08:37)
[2017-01-08] MEDS: NITROGLYCERIN 6.5 MG PO SCH ×2 (08:37→21:32)
[2017-01-08] MEDS: DILTIAZEM (CD) 240 MG CAP PO SCH ×2 (08:38→21:32)
[2017-01-08] MEDS: ALLOPURINOL 300 MG TAB PO SCH (08:38)
--- NOTE | 2017-01-08 09:11 | PN ---
Date/Time of Note Date/Time of Note DATE: 01/08/17 TIME: 09:10 Assessment/Plan Lines/Catheters IV Catheter Type (from Nrsg): Saline Lock Eric in Place (from Nrsg): No Assessment/Plan Chief Complaint/Hosp Course IMPRESSION: Iatrogenic left pneumothorax, small at the present time, the patient is not in any distress. PTX resolved We will continue monitoring the pt Problems: Subjective 24 Hr Interval Summary Constitutional: improved Pain Control: mild Exam/Review of Systems Vital Signs Vitals Vital Signs Date Time Temp Pulse Resp B/P Pulse Ox O2 Delivery O2 Flow Rate FiO2 01/08/17 08:39 90 01/08/17 07:27 98.8 20 128/64 98 01/08/17 02:09 2.0 01/07/17 21:00 Nasal Cannula Intake and Output 01/07/17 01/07/17 01/08/17 15:00 23:00 07:00 Intake Total 605 ml 180 ml Balance 605 ml 180 ml Exam Neck: non-tender, supple Respiratory: clear to auscultation, normal air movement Cardiovascular: nl pulses, regular rate and rhythm Gastrointestinal: nl liver, spleen, non-tender, soft Results Result Diagram: 01/08/17 0010 01/08/17 0010 RICARDO CANTOR MD January 08, 2017 09:11
--- NOTE | 2017-01-08 11:11 | CONS ---
Date/Time of Note Date/Time of Note DATE: 01/08/17 TIME: 11:10 Consult Date/Type/Reason Admit Date/Time Dec 07, 2016 at 12:13 Initial Consult Date 01/02/17 Type of Consultation: Pulmonary Ordering Provider: AMANDA PRATER MD Subjective Patient comfortable this morning no new events denies shortness of breath Objective Vital Signs Date Time Temp Pulse Resp B/P Pulse Ox O2 Delivery O2 Flow Rate FiO2 01/08/17 08:39 90 01/08/17 07:27 98.8 20 128/64 98 01/08/17 02:09 2.0 01/07/17 21:00 Nasal Cannula Intake and Output 01/07/17 01/07/17 01/08/17 15:00 23:00 07:00 Intake Total 605 ml 180 ml Balance 605 ml 180 ml Exam GENERAL: Elderly gentleman comfortable at rest no acute distress VITAL SIGNS: per chart NECK: Supple. No JVD or lymphadenopathy. CARDIAC EXAM: S1, S2. No added sounds or murmurs. CHEST: clear bilaterally, No added sounds, rales or wheezes ABDOMEN: Soft, nontender. No guarding or rebound. EXTREMITIES: No cyanosis, clubbing or edema. NEUROLOGIC: Generalized weakness. No focal deficits. Results/Medications Result Diagram: 01/08/17 0010 01/08/17 0010 Results 24 hrs Laboratory Tests Test 01/08/17 00:10 01/08/17 01:45 White Blood Count 14.0 #H Red Blood Count 3.34 L Hemoglobin 9.6 L Hematocrit 31.2 L Mean Corpuscular Volume 93.4 Mean Corpuscular Hemoglobin 28.7 L Mean Corpuscular Hemoglobin Concent 30.8 L Red Cell Distribution Width 14.4 Platelet Count 364 Mean Platelet Volume 8.9 Neutrophils % 91.7 H Lymphocytes % 1.7 L Monocytes % 3.4 Eosinophils % 1.6 Basophils % 0.3 Nucleated Red Blood Cells % 0.0 Neutrophils # 12.8 H Lymphocytes # 0.2 L Monocytes # 0.5 Eosinophils # 0.2 Basophils # 0.0 Nucleated Red Blood Cells # 0.0 Sodium Level 143 Potassium Level 3.7 Chloride Level 102 Carbon Dioxide Level 31 Anion Gap 14 Blood Urea Nitrogen 33 H Creatinine 0.81 Glucose Level 126 Calcium Level 10.2 Urine Color LT. YELLOW Urine Clarity CLEAR Urine pH 6.0 Urine Specific [place] 1.010 Urine Ketones NEGATIVE Urine Nitrite NEGATIVE Urine Bilirubin NEGATIVE Urine Urobilinogen 2.0 E.U./dL H Urine Leukocyte Esterase NEGATIVE Urine Microscopic RBC 5-10 Urine Microscopic WBC 0-2 Urine Squamous Epithelial Cells FEW Urine Bacteria MANY Urine Hemoglobin TRACE Urine Glucose NEGATIVE Urine Total Protein NEGATIVE Medications Current Medications Atorvastatin Calcium (Lipitor) 20 mg HS PO Last administered on 01/07/17 21:12 ; Admin Dose 20 MG; Start 12/07/16 at 21:00 Nitroglycerin (Nitroglycerin (Sr)) 6.5 mg BID PO Last administered on 08:37; Admin Dose 6.5 MG; Start 12/07/16 at 21:00 Pantoprazole (Protonix Tab) 40 mg DAILY@06 PO Last administered on 01/08/17 06 :10; Admin Dose 40 MG; Start 12/08/16 at 06:00 Clonidine (Catapres) 0.1 mg Q6H PRN PO sbp >160; Start 12/12/16 at 18:00 Allopurinol (Zyloprim) 300 mg AM PO Last administered on 01/08/17 08:38; Admin Dose 300 MG; Start 12/15/16 at 09:00 Promethazine HCl/ Codeine (Phenergan/ Codeine) 5 ml Q4H PRN PO COUGH Last administered on 01/02/17 23:45; Admin Dose 5 ML; Start 12/21/16 at 22:30 Acetaminophen (Tylenol Tab) 650 mg Q6H PRN PO PAIN AND OR ELEVATED TEMP Last administered on 12/30/16 14:32; Admin Dose 650 MG; Start 12/22/16 at 19:00 Acetaminophen/ Hydrocodone Bitart ([place] (5/325)) 1 tab Q4H PRN PO moderate- severe pain Last administered on 01/03/17 03:46; Admin Dose 1 TAB; Start at 19:00 Diltiazem HCl (Cardizem Cd) 240 mg BID PO Last administered on 01/08/17 08:38 ; Admin Dose 240 MG; Start 12/27/16 at 21:00 Escitalopram Oxalate (Lexapro) 10 mg DAILY PO Last administered on 01/08/17 08 :37; Admin Dose 10 MG; Start 12/28/16 at 09:00 Ferrous Sulfate (Ferrous Sulfate (Ec)) 325 mg TID PO Last administered on 08:37; Admin Dose 325 MG; Start 12/29/16 at 21:00 Memantine (Namenda) 10 mg DAILY PO Last administered on 01/08/17 08:37; Admin Dose 10 MG; Start 12/30/16 at 09:00 Nitroglycerin (Nitroglycerin (Sl Tab) 0.4 Mg) 1 tab Q5M PRN SL ANGINA; Start at 19:00 Nitroglycerin (Nitroglycerin ([place])) 1 spray Q5M PRN SL ANGINA Last administered on 01/06/17 17:18; Admin Dose 1 SPRAY; Start 01/01/17 at 19:00 Aspirin (Aspirin) 81 mg DAILY PO Last administered on 01/08/17 08:37; Admin Dose 81 MG; Start 01/04/17 at 09:00 Clonazepam (Klonopin) 0.5 mg Q6H PRN PO agitation; Start 01/03/17 at 18:00 Lorazepam (Ativan) 1 mg HS PO Last administered on 01/07/17 21:12; Admin Dose 1 MG; Start 01/04/17 at 19:00 Assessment/Plan Chief Complaint/Hosp Course Assessment 1. 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 Failed to thrive 3. Resolved pneumothorax small left pleural effusion Plan 1. Continue supplemental O2 2. Aspiration precautions 3. Consider transfer to [facility] 4. Hematology oncology recommendations 5. Consider addressing CODE STATUS Problems: JUWAN GIMENEZ MD, [facility] January 08, 2017 11:11
[2017-01-08] MEDS: PROMETHAZINE/CODEINE 5ML CUP PO PRN (11:28)
[2017-01-08] MEDS: ALBUTEROL/IPRATROPIUM (NEB) 3 ML AMP HHN SCH ×2 (14:00→20:20)
[2017-01-08] MEDS: LEVOFLOXACIN 750MG/D5W (PMX) 150 ML IVPB SCH (18:12)
--- NOTE | 2017-01-08 20:39 | PN ---
DATE: 01/08/2017 SUBJECTIVE: The patient is asleep but arousable. No current complaints. OBJECTIVE: VITAL SIGNS: Temperature 98.2, blood pressure 139/77, pulse of 116, respiration rate 20, O2 saturat ion 98% on 2 L nasal cannula. HEENT: Pupils equally round, reactive to light. Oropharynx clear. LUNGS: Clear to auscultation. CARDIAC: Irregularly irregular. ABDOMEN: Active bowel sounds. Soft, nondistended, nontender. EXTREMITIES: No clubbing, cyanosis or edema. ASSESSMENT AND PLAN: 1. Cord compression, status post laminectomy, doing well. Continue physical therapy. 2. Metastatic bony carcinoma. Plan on radiation treatment when patient is improved physically and mentally. 3. Altered mental status. Control on current medications. 4. Atrial fibrillation, mild increased heart rate at this time. Would recheck vital signs and lab tests. Dictated By: DESI MCLAIN MD DP/NTS Conf#: [id number] DID#: [id number]
[2017-01-08] MEDS: LORAZEPAM 1 MG TAB PO SCH (21:31)
[2017-01-08] MEDS: ATORVASTATIN 20 MG TAB PO SCH (21:31)
--- NOTE | 2017-01-08 23:51 | CONS ---
Date/Time of Note Date/Time of Note DATE: 01/08/17 TIME: 23:48 Assessment/Plan Assessment/Plan Chief Complaint/Hosp Course ASSESSMENT: 1. Metastatic cancer to the bone with T4 compression of the spine and C2 fracture with left upper lung mass. 2. Paroxysmal atrial fibrillation- non valvular, previous hx in 2013. given metastatic CA would cont on asa alone for stroke prophy. rate controlled 3. History of coronary artery disease distant distal right coronary artery stent drug-eluting in 2009 with patent stent 2 months later in June 2010. 4. Hypertension. 5. Hyperlipidemia. On statin 6. Gastroesophageal reflux disease. 7. Type 2 diabetes. 8. Gout. 9. History of prostate cancer with prostatectomy negative PSA this admission. 10. pneumothorax s/p ct lung biopsy improving PLAN: - cont asa 81mg daily when clinically stable - rates currently controlled with dilt cd to 240mg bid, titrate as needed to keep hr < 100s while resting - ok to give prn dilt if sustained HR > 120s - cont statin given cad hx Problems: Consultation Date/Type/Reason Admit Date/Time Dec 07, 2016 at 12:13 Initial Consult Date 12/09/2016 Type of Consultation: cardiology Referring Provider: AMANDA PRATER MD 24 HR Interval Summary Free Text/Dictation pt seen this am no acute events. pt alert, answering questions. denies chest pain, sob, palpitations tele reviewed, afib hrs 90s-100s Detailed Summary ENT: no complaints Respiratory: no complaints Cardiovascular: no complaints Gastrointestinal: no complaints Exam/Review of Systems Vital Signs Vitals Vital Signs Date Time Temp Pulse Resp B/P Pulse Ox O2 Delivery O2 Flow Rate FiO2 01/08/17 20:53 134 01/08/17 20:37 98.1 20 118/66 98 01/08/17 20:32 Nasal Cannula 2.0 Intake and Output 01/07/17 01/07/17 01/08/17 15:00 23:00 07:00 Intake Total 605 ml 180 ml Balance 605 ml 180 ml Exam GENERAL: alert this am, eating breakfast SKIN: No ecchymoses, no petechiae or rashes. HEENT: no jvd, 2+ carotid. op clear CHEST:CTA CV: irregulary irregular, nl s1s2 ii/vi ernestina GASTROINTESTINAL: soft ntnd EXTREMITIES: No clubbing, no edema or cyanosis. Results Result Diagram: 01/08/17 0010 01/08/17 0010 Results 24 hrs Laboratory Tests Test 01/08/17 00:10 01/08/17 01:45 White Blood Count 14.0 #H Red Blood Count 3.34 L Hemoglobin 9.6 L Hematocrit 31.2 L Mean Corpuscular Volume 93.4 Mean Corpuscular Hemoglobin 28.7 L Mean Corpuscular Hemoglobin Concent 30.8 L Red Cell Distribution Width 14.4 Platelet Count 364 Mean Platelet Volume 8.9 Neutrophils % 91.7 H Lymphocytes % 1.7 L Monocytes % 3.4 Eosinophils % 1.6 Basophils % 0.3 Nucleated Red Blood Cells % 0.0 Neutrophils # 12.8 H Lymphocytes # 0.2 L Monocytes # 0.5 Eosinophils # 0.2 Basophils # 0.0 Nucleated Red Blood Cells # 0.0 Sodium Level 143 Potassium Level 3.7 Chloride Level 102 Carbon Dioxide Level 31 Anion Gap 14 Blood Urea Nitrogen 33 H Creatinine 0.81 Glucose Level 126 Calcium Level 10.2 Urine Color LT. YELLOW Urine Clarity CLEAR Urine pH 6.0 Urine Specific [place] 1.010 Urine Ketones NEGATIVE Urine Nitrite NEGATIVE Urine Bilirubin NEGATIVE Urine Urobilinogen 2.0 E.U./dL H Urine Leukocyte Esterase NEGATIVE Urine Microscopic RBC 5-10 Urine Microscopic WBC 0-2 Urine Squamous Epithelial Cells FEW Urine Bacteria MANY Urine Hemoglobin TRACE Urine Glucose NEGATIVE Urine Total Protein NEGATIVE Medications Medications Current Medications Atorvastatin Calcium (Lipitor) 20 mg HS PO Last administered on 01/08/17 21:31 ; Admin Dose 20 MG; Start 12/07/16 at 21:00 Nitroglycerin (Nitroglycerin (Sr)) 6.5 mg BID PO Last administered on 21:32; Admin Dose 6.5 MG; Start 12/07/16 at 21:00 Pantoprazole (Protonix Tab) 40 mg DAILY@06 PO Last administered on 01/08/17 06 :10; Admin Dose 40 MG; Start 12/08/16 at 06:00 Clonidine (Catapres) 0.1 mg Q6H PRN PO sbp >160; Start 12/12/16 at 18:00 Allopurinol (Zyloprim) 300 mg AM PO Last administered on 01/08/17 08:38; Admin Dose 300 MG; Start 12/15/16 at 09:00 Promethazine HCl/ Codeine (Phenergan/ Codeine) 5 ml Q4H PRN PO COUGH Last administered on 01/08/17 11:28; Admin Dose 5 ML; Start 12/21/16 at 22:30 Acetaminophen (Tylenol Tab) 650 mg Q6H PRN PO PAIN AND OR ELEVATED TEMP Last administered on 12/30/16 14:32; Admin Dose 650 MG; Start 12/22/16 at 19:00 Acetaminophen/ Hydrocodone Bitart ([place] (5/325)) 1 tab Q4H PRN PO moderate- severe pain Last administered on 01/03/17 03:46; Admin Dose 1 TAB; Start at 19:00 Diltiazem HCl (Cardizem Cd) 240 mg BID PO Last administered on 01/08/17 21:32 ; Admin Dose 240 MG; Start 12/27/16 at 21:00 Escitalopram Oxalate (Lexapro) 10 mg DAILY PO Last administered on 01/08/17 08 :37; Admin Dose 10 MG; Start 12/28/16 at 09:00 Ferrous Sulfate (Ferrous Sulfate (Ec)) 325 mg TID PO Last administered on 21:31; Admin Dose 325 MG; Start 12/29/16 at 21:00 Memantine (Namenda) 10 mg DAILY PO Last administered on 01/08/17 08:37; Admin Dose 10 MG; Start 12/30/16 at 09:00 Nitroglycerin (Nitroglycerin (Sl Tab) 0.4 Mg) 1 tab Q5M PRN SL ANGINA; Start at 19:00 Nitroglycerin (Nitroglycerin ([place])) 1 spray Q5M PRN SL ANGINA Last administered on 01/06/17 17:18; Admin Dose 1 SPRAY; Start 01/01/17 at 19:00 Aspirin (Aspirin) 81 mg DAILY PO Last administered on 01/08/17 08:37; Admin Dose 81 MG; Start 01/04/17 at 09:00 Clonazepam (Klonopin) 0.5 mg Q6H PRN PO agitation; Start 01/03/17 at 18:00 Lorazepam 1 mg 1 mg HS PO Last administered on 01/08/17 21:31; Admin Dose 1 MG ; Start 01/04/17 at 19:00 Levofloxacin/ Dextrose (Levaquin 750 Mg/ D5W 150 ml (Pmx)) 150 ml @ 100 mls/hr Q24H IVPB Last administered on 01/08/17t 18:12; Admin Dose 100 MLS/HR; Start at 18:00 Procedures Procedures cxr images reviewed, no ptx DONA LÓPEZ January 08, 2017 23:51
[2017-01-09] VITALS (12 sets, daily range): BP systolic 102–124; BP diastolic 58–70; PULSE 80–116; RESP 18–20
[2017-01-09] MEDS ORDERED: DIGOXIN 500 MCG INJ IV ONE (00:30)
[2017-01-09] MEDS: PROMETHAZINE/CODEINE 5ML CUP PO PRN (03:50)
[2017-01-09] MEDS: PANTOPRAZOLE (EC) 40 MG TAB PO SCH (06:16)
[2017-01-09 07:25] LABS: ADD SCAN DIFF NO
[2017-01-09 07:44] LABS: ABNORMAL IP MESSAGE 1; BASOPHILS % 0.3 % (0.0-2.0); EOSINOPHILS # 0.1 10^3/ul (0.0-0.5); EOSINOPHILS % 1.6 % (0.0-7.0); HEMATOCRIT 29.4 % (42.0-52.0); HEMOGLOBIN 9.1 g/dl (14.0-18.0); LYMPHOCYTES # 0.4 10^3/ul (0.8-2.9); LYMPHOCYTES % 4.7 % (15.0-51.0); MEAN CORPUSCULAR HEMOGLOBIN 28.9 pg (29.0-33.0); MEAN CORPUSCULAR VOLUME 93.3 fl (82.0-101.0); MEAN PLATELET VOLUME 9.3 fl (7.4-10.4); MONOCYTE # 0.5 10^3/ul (0.3-0.9); MONOCYTES % 5.3 % (0.0-11.0); NEUTROPHIL # 7.6 10^3/ul (1.6-7.5); NEUTROPHILS % 86.4 % (39.0-77.0); NUCLEATED RED BLOOD CELLS% 0.2 /100WBC (0.0-0.0); PLATELET COUNT 271 10^3/UL (140-415); RED BLOOD COUNT 3.15 10^6/ul (4.70-6.10); RED CELL DISTRIBUTION WIDTH 14.7 % (11.5-14.5); WHITE BLOOD COUNT 8.8 10^3/ul (4.8-10.8)
[2017-01-09] MEDS: ALBUTEROL/IPRATROPIUM (NEB) 3 ML AMP HHN SCH ×3 (08:17→19:52)
--- NOTE | 2017-01-09 08:46 | CONS ---
Date/Time of Note Date/Time of Note DATE: 01/09/17 TIME: 08:46 Assessment/Plan Assessment/Plan Additional Assessment/Plan ASSESSMENT: 1. Metastatic cancer to the bone with T4 compression of the spine and C2 fracture with left upper lung mass. 2. Paroxysmal atrial fibrillation- non valvular, previous hx in 2013. 3. History of coronary artery disease distant distal right coronary artery stent drug-eluting in 2009 with patent stent 2 months later in June 2010. 4. Hypertension. 5. Hyperlipidemia. On statin 6. Gastroesophageal reflux disease. 7. Type 2 diabetes. 8. Gout. 9. History of prostate cancer with prostatectomy negative PSA this admission. 10. pneumothorax s/p ct lung biopsy improving PLAN: - cont asa 81mg daily when clinically stable however may consider AC - Continue dilt cd to 240mg bid, titrate as needed to keep hr < 100s while resting - add digoxin if needed gave PRN last night - ok to give prn dilt if sustained HR > 120s - replete K - cont statin given cad hx Consultation Date/Type/Reason Admit Date/Time Dec 07, 2016 at 12:13 Initial Consult Date 01/02/17 Type of Consultation: cardiology Referring Provider: AMANDA PRATER MD 24 HR Interval Summary Free Text/Dictation Pt had episodes of rapid Afib last night Constitutional: no complaints Exam/Review of Systems Vital Signs Vitals Vital Signs Date Time Temp Pulse Resp B/P Pulse Ox O2 Delivery O2 Flow Rate FiO2 01/09/17 08:17 97 2.0 28 01/09/17 08:17 72 20 Nasal Cannula 01/09/17 07:35 97.6 116/68 Intake and Output 01/08/17 01/08/17 01/09/17 15:00 23:00 07:00 Intake Total 300 ml 500 ml Balance 300 ml 500 ml Exam Constitutional: alert, well developed Psych: no complaints Head: normocephalic Eyes: nl conjunctiva ENMT: nl external ears & nose Neck: non-tender, supple Respiratory: clear to auscultation Cardiovascular: irregular rhythm Gastrointestinal: soft Musculoskeletal: nl extremities to inspection Results Result Diagram: 01/09/17 0641 01/08/17 0010 Results 24 hrs Laboratory Tests Test 01/09/17 06:41 White Blood Count 8.8 # Red Blood Count 3.15 L Hemoglobin 9.1 L Hematocrit 29.4 L Mean Corpuscular Volume 93.3 Mean Corpuscular Hemoglobin 28.9 L Mean Corpuscular Hemoglobin Concent 31.0 L Red Cell Distribution Width 14.7 H Platelet Count 271 # Mean Platelet Volume 9.3 Neutrophils % 86.4 H Lymphocytes % 4.7 L Monocytes % 5.3 Eosinophils % 1.6 Basophils % 0.3 Nucleated Red Blood Cells % 0.2 H Neutrophils # 7.6 H Lymphocytes # 0.4 L Monocytes # 0.5 Eosinophils # 0.1 Basophils # 0.0 Nucleated Red Blood Cells # 0.0 Medications Medications Current Medications Atorvastatin Calcium (Lipitor) 20 mg HS PO Last administered on 01/08/17 21:31 ; Admin Dose 20 MG; Start 12/07/16 at 21:00 Nitroglycerin (Nitroglycerin (Sr)) 6.5 mg BID PO Last administered on 21:32; Admin Dose 6.5 MG; Start 12/07/16 at 21:00 Pantoprazole (Protonix Tab) 40 mg DAILY@06 PO Last administered on 01/09/17 06 :16; Admin Dose 40 MG; Start 12/08/16 at 06:00 Clonidine (Catapres) 0.1 mg Q6H PRN PO sbp >160; Start 12/12/16 at 18:00 Allopurinol (Zyloprim) 300 mg AM PO Last administered on 01/08/17 08:38; Admin Dose 300 MG; Start 12/15/16 at 09:00 Promethazine HCl/ Codeine (Phenergan/ Codeine) 5 ml Q4H PRN PO COUGH Last administered on 01/09/17 03:50; Admin Dose 5 ML; Start 12/21/16 at 22:30 Acetaminophen (Tylenol Tab) 650 mg Q6H PRN PO PAIN AND OR ELEVATED TEMP Last administered on 12/30/16 14:32; Admin Dose 650 MG; Start 12/22/16 at 19:00 Acetaminophen/ Hydrocodone Bitart ([place] (5/325)) 1 tab Q4H PRN PO moderate- severe pain Last administered on 01/03/17 03:46; Admin Dose 1 TAB; Start at 19:00 Diltiazem HCl (Cardizem Cd) 240 mg BID PO Last administered on 01/08/17 21:32 ; Admin Dose 240 MG; Start 12/27/16 at 21:00 Escitalopram Oxalate (Lexapro) 10 mg DAILY PO Last administered on 01/08/17 08 :37; Admin Dose 10 MG; Start 12/28/16 at 09:00 Ferrous Sulfate (Ferrous Sulfate (Ec)) 325 mg TID PO Last administered on 21:31; Admin Dose 325 MG; Start 12/29/16 at 21:00 Memantine (Namenda) 10 mg DAILY PO Last administered on 01/08/17 08:37; Admin Dose 10 MG; Start 12/30/16 at 09:00 Nitroglycerin (Nitroglycerin (Sl Tab) 0.4 Mg) 1 tab Q5M PRN SL ANGINA; Start at 19:00 Nitroglycerin (Nitroglycerin ([place])) 1 spray Q5M PRN SL ANGINA Last administered on 01/06/17 17:18; Admin Dose 1 SPRAY; Start 01/01/17 at 19:00 Aspirin (Aspirin) 81 mg DAILY PO Last administered on 01/08/17 08:37; Admin Dose 81 MG; Start 01/04/17 at 09:00 Clonazepam (Klonopin) 0.5 mg Q6H PRN PO agitation; Start 01/03/17 at 18:00 Lorazepam 1 mg 1 mg HS PO Last administered on 01/08/17 21:31; Admin Dose 1 MG ; Start 01/04/17 at 19:00 Levofloxacin/ Dextrose (Levaquin 750 Mg/ D5W 150 ml (Pmx)) 150 ml @ 100 mls/hr Q24H IVPB Last administered on 01/08/17 18:12; Admin Dose 100 MLS/HR; Start at 18:00 ZENY BIGGS MD January 09, 2017 08:46
[2017-01-09] MEDS: ALLOPURINOL 300 MG TAB PO SCH (09:22)
[2017-01-09] MEDS: ESCITALOPRAM 10 MG TAB PO SCH (09:22)
[2017-01-09] MEDS: FERROUS SULFATE (EC) 325 MG TAB PO SCH ×3 (09:22→21:06)
[2017-01-09] MEDS: MEMANTINE 10 MG TAB PO SCH (09:22)
[2017-01-09] MEDS: ASPIRIN 81 MG TAB PO SCH (09:22)
[2017-01-09] MEDS: NITROGLYCERIN 6.5 MG PO SCH (09:22)
[2017-01-09] MEDS: DILTIAZEM (CD) 240 MG CAP PO SCH ×2 (09:23→21:06)
[2017-01-09] MEDS: HYDROCODONE/APAP (5/325) TAB PO PRN ×2 (09:24→18:18)
[2017-01-09] MEDS ORDERED: POTASSIUM CHLORIDE (SR) 20 MEQ TAB PO STA (09:25)
--- NOTE | 2017-01-09 09:36 | PN ---
DATE: 01/09/2017 HEMATOLOGY AND ONCOLOGY PROGRESS NOTE SUBJECTIVE: The patient states he feels well. He has no complaints today. Denies shortness of jose ath or cough. No neck or back pain. No lower extremity weakness. OBJECTIVE: GENERAL: The patient is a well-developed, chronically ill-appearing male who is in no acute distres s. VITAL SIGNS: Temperature 97.6, pulse 97 per minute, respirations 20, blood pressure 160/68, pulse o ximetry 95% on 2 L of oxygen. SKIN: No ecchymosis, no petechiae or rashes. HEENT: No mucosal lesions. No scleral icterus. There is nasal oxygen in place. NECK: Supple. No jugular venous distention or thyroid enlargement. CHEST: Decreased breath sounds throughout with no rhonchi, wheezes, rales, or rubs. NODES: No pal pable lymphadenopathy. HEART: Regular sinus rhythm, no S3, S4, or murmurs. ABDOMEN: Soft, no masses, no ascites. EXTREMITIES: No clubbing, edema, or cyanosis. There is some muscle atrophy in the lower extremitie s. This is symmetrical. NEUROLOGIC: Generalized weakness, but no focal neurologic abnormalities. The previous hyperreflexi a in the lower extremities has resolved. IMPRESSION: 1. Metastatic carcinoma, primary site unknown, but most likely primary lung. 2. Spinal cord compression secondary to metastatic carcinoma. Status post decompressive surgery. 3. Pneumothorax secondary to percutaneous lung biopsy. Resolved. PLAN: The patient did receive 4 mg of zoledronic acid on January 07 without a reaction. This will be planned on a monthly basis. The genomic studies to detect a "tank truck driver" mutation are still pending. I am not sure that this patien t is a candidate for cytotoxic chemotherapy, but certainly may be a candidate for oral agent such as erlotinib if genomic studies permit. Dictated By: JENNIFFER PEREZ MD SR/NTS Conf#: [id number] DID#: [id number]
--- NOTE | 2017-01-09 14:08 | PN ---
Date/Time of Note Date/Time of Note DATE: 01/09/17 TIME: 14:08 Assessment/Plan Lines/Catheters IV Catheter Type (from Nrsg): Saline Lock Eric in Place (from Nrsg): No Assessment/Plan Chief Complaint/Hosp Course IMPRESSION: Iatrogenic left pneumothorax, small at the present time, the patient is not in any distress. PTX resolved We will continue monitoring the pt Problems: Subjective 24 Hr Interval Summary Constitutional: improved Pain Control: mild Exam/Review of Systems Vital Signs Vitals Vital Signs Date Time Temp Pulse Resp B/P Pulse Ox O2 Delivery O2 Flow Rate FiO2 01/09/17 13:32 2.0 28 01/09/17 13:32 72 18 Nasal Cannula 01/09/17 11:31 97.9 121/61 98 Intake and Output 01/08/17 01/08/17 01/09/17 15:00 23:00 07:00 Intake Total 300 ml 500 ml Balance 300 ml 500 ml Exam Neck: non-tender, supple Respiratory: clear to auscultation, normal air movement Cardiovascular: nl pulses, regular rate and rhythm Gastrointestinal: nl liver, spleen, non-tender, soft Results Result Diagram: 01/09/17 0641 01/08/17 0010 RICARDO CANTOR MD January 09, 2017 14:08
--- NOTE | 2017-01-09 16:49 | CONS ---
Date/Time of Note Date/Time of Note DATE: 01/09/17 TIME: 16:48 Consult Date/Type/Reason Admit Date/Time Dec 07, 2016 at 12:13 Initial Consult Date 01/02/17 Type of Consultation: Pulmonary Ordering Provider: AMANDA PRATER MD Subjective Patient remains stable no new events Objective Vital Signs Date Time Temp Pulse Resp B/P Pulse Ox O2 Delivery O2 Flow Rate FiO2 01/09/17 15:40 97.7 54 20 102/62 95 01/09/17 13:32 2.0 28 01/09/17 13:32 Nasal Cannula Intake and Output 01/08/17 01/08/17 01/09/17 15:00 23:00 07:00 Intake Total 300 ml 500 ml Balance 300 ml 500 ml Exam GENERAL: Elderly gentleman comfortable at rest no acute distress VITAL SIGNS: per chart NECK: Supple. No JVD or lymphadenopathy. CARDIAC EXAM: S1, S2. No added sounds or murmurs. CHEST: clear bilaterally, No added sounds, rales or wheezes ABDOMEN: Soft, nontender. No guarding or rebound. EXTREMITIES: No cyanosis, clubbing or edema. NEUROLOGIC: Generalized weakness. No focal deficits. Results/Medications Result Diagram: 01/09/17 0641 01/08/17 0010 Results 24 hrs Laboratory Tests Test 01/09/17 06:41 White Blood Count 8.8 # Red Blood Count 3.15 L Hemoglobin 9.1 L Hematocrit 29.4 L Mean Corpuscular Volume 93.3 Mean Corpuscular Hemoglobin 28.9 L Mean Corpuscular Hemoglobin Concent 31.0 L Red Cell Distribution Width 14.7 H Platelet Count 271 # Mean Platelet Volume 9.3 Neutrophils % 86.4 H Lymphocytes % 4.7 L Monocytes % 5.3 Eosinophils % 1.6 Basophils % 0.3 Nucleated Red Blood Cells % 0.2 H Neutrophils # 7.6 H Lymphocytes # 0.4 L Monocytes # 0.5 Eosinophils # 0.1 Basophils # 0.0 Nucleated Red Blood Cells # 0.0 Medications Current Medications Atorvastatin Calcium (Lipitor) 20 mg HS PO Last administered on 01/08/17 21:31 ; Admin Dose 20 MG; Start 12/07/16 at 21:00 Pantoprazole (Protonix Tab) 40 mg DAILY@06 PO Last administered on 01/09/17 06 :16; Admin Dose 40 MG; Start 12/08/16 at 06:00 Clonidine (Catapres) 0.1 mg Q6H PRN PO sbp >160; Start 12/12/16 at 18:00 Allopurinol (Zyloprim) 300 mg AM PO Last administered on 01/09/17 09:22; Admin Dose 300 MG; Start 12/15/16 at 09:00 Promethazine HCl/ Codeine (Phenergan/ Codeine) 5 ml Q4H PRN PO COUGH Last administered on 01/09/17 03:50; Admin Dose 5 ML; Start 12/21/16 at 22:30 Acetaminophen (Tylenol Tab) 650 mg Q6H PRN PO PAIN AND OR ELEVATED TEMP Last administered on 12/30/16 14:32; Admin Dose 650 MG; Start 12/22/16 at 19:00 Acetaminophen/ Hydrocodone Bitart ([place] (5/325)) 1 tab Q4H PRN PO moderate- severe pain Last administered on 01/09/17 09:24; Admin Dose 1 TAB; Start at 19:00 Diltiazem HCl (Cardizem Cd) 240 mg BID PO Last administered on 01/09/17 09:23 ; Admin Dose 240 MG; Start 12/27/16 at 21:00 Escitalopram Oxalate (Lexapro) 10 mg DAILY PO Last administered on 01/09/17 09 :22; Admin Dose 10 MG; Start 12/28/16 at 09:00 Ferrous Sulfate (Ferrous Sulfate (Ec)) 325 mg TID PO Last administered on 13:20; Admin Dose 325 MG; Start 12/29/16 at 21:00 Memantine (Namenda) 10 mg DAILY PO Last administered on 01/09/17 09:22; Admin Dose 10 MG; Start 12/30/16 at 09:00 Nitroglycerin (Nitroglycerin (Sl Tab) 0.4 Mg) 1 tab Q5M PRN SL ANGINA; Start at 19:00 Nitroglycerin (Nitroglycerin ([place])) 1 spray Q5M PRN SL ANGINA Last administered on 01/06/17 17:18; Admin Dose 1 SPRAY; Start 01/01/17 at 19:00 Aspirin (Aspirin) 81 mg DAILY PO Last administered on 01/09/17 09:22; Admin Dose 81 MG; Start 01/04/17 at 09:00 Clonazepam (Klonopin) 0.5 mg Q6H PRN PO agitation; Start 01/03/17 at 18:00 Lorazepam 1 mg 1 mg HS PO Last administered on 01/08/17 21:31; Admin Dose 1 MG ; Start 01/04/17 at 19:00 Levofloxacin/ Dextrose (Levaquin 750 Mg/ D5W 150 ml (Pmx)) 150 ml @ 100 mls/hr Q24H IVPB Last administered on 01/08/17 18:12; Admin Dose 100 MLS/HR; Start at 18:00 Assessment/Plan Chief Complaint/Hosp Course Assessment 1. 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 Failed to thrive 3. Resolved pneumothorax small left pleural effusion 4. Status post laminectomy Plan 1. Continue supplemental O2 2. Aspiration precautions 3. Consider transfer to [facility] 4. Hematology oncology recommendations Discharge to group home facility Problems: [facility] January 09, 2017 16:49
[2017-01-09] MEDS: LEVOFLOXACIN 750MG/D5W (PMX) 150 ML IVPB SCH (17:41)
[2017-01-09] MEDS: ZOLPIDEM 5 MG TAB PO PRN (21:06)
[2017-01-09] MEDS: ATORVASTATIN 20 MG TAB PO SCH (21:06)
[2017-01-09] MEDS: LORAZEPAM 1 MG TAB PO SCH (21:06)
[2017-01-10] VITALS (9 sets, daily range): BP systolic 82–118; BP diastolic 51–72; PULSE 67–78; RESP 17–19
[2017-01-10] MEDS: PANTOPRAZOLE (EC) 40 MG TAB PO SCH (05:44)
--- NOTE | 2017-01-10 05:52 | DS ---
DATE OF ADMISSION: 12/07/2016 DATE OF DISCHARGE: 01/10/2017 ADDENDUM DISCHARGE DIAGNOSES: 1. Metastatic cancer of unknown primary. 2. Thoracic spine compression, status post T4 debulking surgery. 3. Atrial fibrillation. 4. Altered mental status. 5. Pneumothorax following lung biopsy, CT-guided. 6. Urinary tract infection. 7. Weakness. 8. Hypertension. 9. Gastroesophageal reflux disease. 10. Generalized anxiety disorder. 11. Chronic anemia. 12. Stage I chronic kidney disease. 13. Remote history of prostate cancer. 14. Precancerous lesion of the skin. 15. History of gout. 16. Prediabetes. HOSPITAL COURSE: The patient was admitted for neck discomfort and frequent falls at home. The patient was found to have multiple lytic lesions in the vertebral bodies of the thoracic spine, cervical spine, lumbar spine, pelvis, and hip. Because the T4 thoracic spine lesion was pressing on the spinal cord, causing gait disturbance and falls, the patient underwent laminectomy and fusion for debulking of the T4 thoracic spine lesion. The patient remained weak and confused after surgery requiring transfer to a halfway facility for rehabilitation. His pathology report from the thoracic spine lesion came back suggesting uroepithelial origin of the primary tumor, but the urine cytology and abdominal CT scan did not show any genitourinary primary. The pathology was sent for a second opinion, and this came back showing poorly differentiated adenocarcinoma of unknown origin. The patient was noted to have a left upper lobe lesion on the lung that was new compared to previous chest x- rays, and this lesion was biopsied via CT-guided needle procedure. The pathology of the lung needle biopsy unfortunately is inconclusive for malignancy. The original pathology report, however, did rule out most types of cancer and is now suggestive of lung adenocarcinoma with 68% confidence interval and squamous cell carcinoma with 28% confidence interval. Of note is that patient had minimal pain throughout the hospitalization. His altered mental status was controlled with Ativan, Ambien at night, with Clonazepam given only as needed for his anxiety. The patient developed a 15% to 20% pneumothorax on the lung after he underwent the CT-guided needle biopsy, but this cleared up without any intervention. He also had a urinary tract infection which caused a fever and tachycardia, both of which resolved with the initiation of Levaquin 750 mg IV every day. The patient's atrial fibrillation was chronic throughout his hospitalization, and the rate was controlled when he was maintained on diltiazem CD 240 mg p.o. b.i.d. The patient's blood pressure remained stable, and he is awake, alert, and oriented on the day of discharge. We also had a chance to discuss his code status on the days leading up to discharge, and the patient agreed that, at this point, he did not want to be resuscitated in the event of his . I have contacted the patient's closest living relative, his niece, Tayler Heller, and informed her of the patient's decision as well as ongoing treatment plan and prognosis. DISPOSITION: The patient is transferred to halfway facility in fair condition. FOLLOWUP: The patient will be seen at [facility] by Dr. Desi Dennison and with Dr. Sharma as an outpatient. Dictated By: DESI DENNISON MD DP/MARTINA Conf#: [id number] DID#: [id number] MTDD
[2017-01-10] MEDS ORDERED: LEVOFLOXACIN 750 MG TABLET PO SCH (06:00)
[2017-01-10] MEDS: ASPIRIN 81 MG TAB PO SCH (08:08)
[2017-01-10] MEDS: ESCITALOPRAM 10 MG TAB PO SCH (08:08)
[2017-01-10] MEDS: FERROUS SULFATE (EC) 325 MG TAB PO SCH ×2 (08:09→13:26)
[2017-01-10] MEDS: MEMANTINE 10 MG TAB PO SCH (08:09)
[2017-01-10] MEDS: ALLOPURINOL 300 MG TAB PO SCH (08:09)
[2017-01-10] MEDS: DILTIAZEM (CD) 240 MG CAP PO SCH (08:12)
[2017-01-10] MEDS: ALBUTEROL/IPRATROPIUM (NEB) 3 ML AMP HHN SCH ×2 (08:21→14:05)
--- NOTE | 2017-01-10 10:31 | CONS ---
Date/Time of Note Date/Time of Note DATE: 01/10/17 TIME: 10:30 Consult Date/Type/Reason Admit Date/Time Dec 07, 2016 at 12:13 Initial Consult Date 01/02/17 Type of Consultation: Pulmonary Ordering Provider: AMANDA PRATER MD Subjective Patient remains stable this morning states his breathing is a little worse however he looks comfortable. Objective Vital Signs Date Time Temp Pulse Resp B/P Pulse Ox O2 Delivery O2 Flow Rate FiO2 01/10/17 08:31 75 20 98 Nasal Cannula 3.0 28 01/10/17 07:41 97.7 93/51 Intake and Output 01/09/17 01/09/17 01/10/17 15:00 23:00 07:00 Intake Total 690 ml 450 ml Balance 690 ml 450 ml Exam GENERAL: Elderly gentleman comfortable at rest no acute distress VITAL SIGNS: per chart NECK: Supple. No JVD or lymphadenopathy. CARDIAC EXAM: S1, S2. No added sounds or murmurs. CHEST: clear bilaterally, No added sounds, rales or wheezes ABDOMEN: Soft, nontender. No guarding or rebound. EXTREMITIES: No cyanosis, clubbing or edema. NEUROLOGIC: Generalized weakness. No focal deficits. Results/Medications Result Diagram: 01/09/17 0641 01/08/17 0010 Medications Current Medications Atorvastatin Calcium (Lipitor) 20 mg HS PO Last administered on 01/09/17 21:06 ; Admin Dose 20 MG; Start 12/07/16 at 21:00 Pantoprazole (Protonix Tab) 40 mg DAILY@06 PO Last administered on 01/10/17 05 :44; Admin Dose 40 MG; Start 12/08/16 at 06:00 Clonidine (Catapres) 0.1 mg Q6H PRN PO sbp >160; Start 12/12/16 at 18:00 Allopurinol (Zyloprim) 300 mg AM PO Last administered on 01/10/17 08:09; Admin Dose 300 MG; Start 12/15/16 at 09:00 Promethazine HCl/ Codeine (Phenergan/ Codeine) 5 ml Q4H PRN PO COUGH Last administered on 01/09/17 03:50; Admin Dose 5 ML; Start 12/21/16 at 22:30 Acetaminophen (Tylenol Tab) 650 mg Q6H PRN PO PAIN AND OR ELEVATED TEMP Last administered on 12/30/16 14:32; Admin Dose 650 MG; Start 12/22/16 at 19:00 Acetaminophen/ Hydrocodone Bitart ([place] (5/325)) 1 tab Q4H PRN PO moderate- severe pain Last administered on 01/09/17 18:18; Admin Dose 1 TAB; Start at 19:00 Diltiazem HCl (Cardizem Cd) 240 mg BID PO Last administered on 01/10/17 08:12 ; Admin Dose 240 MG; Start 12/27/16 at 21:00 Escitalopram Oxalate (Lexapro) 10 mg DAILY PO Last administered on 01/10/17 08 :08; Admin Dose 10 MG; Start 12/28/16 at 09:00 Ferrous Sulfate (Ferrous Sulfate (Ec)) 325 mg TID PO Last administered on 08:09; Admin Dose 325 MG; Start 12/29/16 at 21:00 Memantine (Namenda) 10 mg DAILY PO Last administered on 01/10/17 08:09; Admin Dose 10 MG; Start 12/30/16 at 09:00 Nitroglycerin (Nitroglycerin (Sl Tab) 0.4 Mg) 1 tab Q5M PRN SL ANGINA; Start at 19:00 Nitroglycerin (Nitroglycerin ([place])) 1 spray Q5M PRN SL ANGINA Last administered on 01/06/17 17:18; Admin Dose 1 SPRAY; Start 01/01/17 at 19:00 Aspirin (Aspirin) 81 mg DAILY PO Last administered on 01/10/17 08:08; Admin Dose 81 MG; Start 01/04/17 at 09:00 Clonazepam (Klonopin) 0.5 mg Q6H PRN PO agitation; Start 01/03/17 at 18:00 Lorazepam (Ativan) 1 mg HS PO Last administered on 01/09/17 21:06; Admin Dose 1 MG; Start 01/04/17 at 19:00 Levofloxacin (Levaquin) 750 mg DAILY@06 PO Last administered on 01/10/17 05:44 ; Admin Dose 750 MG; Start 01/10/17 at 06:00 Assessment/Plan Chief Complaint/Hosp Course Assessment 1. 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 Failed to thrive 3. Resolved pneumothorax small left pleural effusion 4. Status post laminectomy Plan 1. Continue supplemental O2 2. Aspiration precautions 3. Consider transfer to [facility] 4. Hematology oncology recommendations [facility] Problems: JUWAN GIMENEZ MD, [facility] January 10, 2017 10:31
--- NOTE | 2017-01-10 13:11 | QN ---
Documentation Comment Pt is stable. he is being discharged to an ECF. Outpatient f/u with Dr. Sharma is planned. CASA ANAND MD January 10, 2017 13:11
--- NOTE | 2017-01-10 18:16 | CONS ---
Date/Time of Note Date/Time of Note DATE: 01/10/17 TIME: 18:10 Assessment/Plan Assessment/Plan Chief Complaint/Hosp Course ASSESSMENT: 1. Metastatic cancer to the bone with T4 compression of the spine and C2 fracture with left upper lung mass. 2. Paroxysmal atrial fibrillation- non valvular, previous hx in 2013. 3. History of coronary artery disease distant distal right coronary artery stent drug-eluting in 2009 with patent stent 2 months later in June 2010. 4. Hypertension. 5. Hyperlipidemia. On statin 6. Gastroesophageal reflux disease. 7. Type 2 diabetes. 8. Gout. 9. History of prostate cancer with prostatectomy negative PSA this admission. 10. pneumothorax s/p ct lung biopsy improving PLAN: - cont asa 81mg daily when clinically stable however may consider AC - Continue dilt cd to 240mg bid, titrate as needed to keep hr < 100s while resting - ok to give prn dilt if sustained HR > 120s - replete K - cont statin given cad hx Problems: Consultation Date/Type/Reason Admit Date/Time Dec 07, 2016 at 12:13 Initial Consult Date 12/09/2016 Type of Consultation: Cardiology Referring Provider: AMANDA PRATER MD 24 HR Interval Summary Free Text/Dictation patient seen this am. states he feels heart racing a bit, no dizziness, lightheadedness. no chest pain.sob. tele reviewed: afib rest 70s-80s, awake 90s-100s Detailed Summary Cardiovascular: palpitations Gastrointestinal: no complaints Genitourinary: no complaints Exam/Review of Systems Vital Signs Vitals Vital Signs Date Time Temp Pulse Resp B/P Pulse Ox O2 Delivery O2 Flow Rate FiO2 01/10/17 14:06 72 20 99 Nasal Cannula 3.0 32 01/10/17 11:31 97.9 118/72 Intake and Output 01/09/17 01/09/17 01/10/17 15:00 23:00 07:00 Intake Total 690 ml 450 ml Balance 690 ml 450 ml Exam Constitutional: alert, well developed Psych: no complaints Head: normocephalic Eyes: nl conjunctiva ENMT: nl external ears & nose Neck: non-tender, supple Respiratory: clear to auscultation Cardiovascular: irregular rhythm Gastrointestinal: soft Musculoskeletal: nl extremities to inspection Results Result Diagram: 01/09/17 0641 01/08/17 0010 Procedures Procedures imaging/primary notes reviewed in emr RENE,DONA K. January 10, 2017 18:16
[2017-01-11] MEDS ORDERED: ASPI-664 PO (14:44)
[2017-01-11] MEDS ORDERED: LORA1TAB PO (14:45)
[2017-01-11] MEDS ORDERED: ZOLP5TAB PO (14:45)
[2017-01-11] MEDS ORDERED: DILT240C98 PO (14:46)
[2017-01-11] MEDS ORDERED: CLON-379 PO (14:47)
[2017-01-11] MEDS ORDERED: CLON0.5T4 PO (14:48)
[2017-01-11] MEDS ORDERED: FER325 PO (14:48)
[2017-01-11] MEDS ORDERED: MEMA10TA16 PO (14:50)
[2017-01-11] MEDS ORDERED: LEVO750T8 PO (14:50)
[2017-01-11] MEDS ORDERED: ESCI10TA PO (14:50)
[2017-01-11] MEDS ORDERED: NIT4 SL (14:51)
[2017-01-11] MEDS ORDERED: HYDR-906 PO (14:52)
[2017-01-11] MEDS ORDERED: PANT40TA3 PO (14:53)
[2017-01-11] MEDS ORDERED: ACET-2047 PO (14:54)
== END 2017-01-10 14:55 | DRG 457 ==
LOC: E/R 09:03 → MS1 12:13 → ICU 12-13 18:30 → TEL 12-15 10:26 → MS1 12-31 17:50 → MS4 01-01 19:20 → ICU 01-01 20:52 → TEL 01-02 22:50
PROVIDERS: ADMIT Internal Medicine; ATTEND Internal Medicine
PROC: 0RG70K1 Fusion of 2 to 7 Thoracic Vertebral Joints with Nonautologous Tissue Substitute, Posterior Approach, Posterior Column, Open Approach (ICD-10-PCS; principal; 2016-12-07)
PROC: 0RG70KJ Fusion of 2 to 7 Thoracic Vertebral Joints with Nonautologous Tissue Substitute, Posterior Approach, Anterior Column, Open Approach (ICD-10-PCS; 2016-12-13)
PROC: 0PB40ZZ Excision of Thoracic Vertebra, Open Approach (ICD-10-PCS; 2016-12-13)
PROC: 4A11X4G Monitoring of Peripheral Nervous Electrical Activity, Intraoperative, External Approach (ICD-10-PCS; 2016-12-13)
PROC: 30233N1 Transfusion of Nonautologous Red Blood Cells into Peripheral Vein, Percutaneous Approach (ICD-10-PCS; 2016-12-13)
DX: C79.51 Secondary malignant neoplasm of bone (principal); E46 Unspecified protein-calorie malnutrition; N39.0 Urinary tract infection, site not specified; G95.29 Other cord compression; I48.0 Paroxysmal atrial fibrillation; I12.9 Hypertensive chronic kidney disease with stage 1 through stage 4 chronic kidney disease, or unspecified chronic kidney disease; F23 Brief psychotic disorder; R62.7 Adult failure to thrive; J95.811 Postprocedural pneumothorax; D64.9 Anemia, unspecified; M10.9 Gout, unspecified; E78.5 Hyperlipidemia, unspecified; F41.1 Generalized anxiety disorder; R41.82 Altered mental status, unspecified; R53.1 Weakness; K21.9 Gastro-esophageal reflux disease without esophagitis; N18.1 Chronic kidney disease, stage 1; R41.0 Disorientation, unspecified; T38.0X5A Adverse effect of glucocorticoids and synthetic analogues, initial encounter; Y84.8 Other medical procedures as the cause of abnormal reaction of the patient, or of later complication, without mention of misadventure at the time of the procedure; Y92.238 Other place in hospital as the place of occurrence of the external cause; L98.8 Other specified disorders of the skin and subcutaneous tissue; R73.03 Prediabetes; I25.10 Atherosclerotic heart disease of native coronary artery without angina pectoris; M89.58 Osteolysis, other site; M25.512 Pain in left shoulder; E87.6 Hypokalemia; R91.1 Solitary pulmonary nodule; Z85.46 Personal history of malignant neoplasm of prostate; Z91.81 History of falling; Z95.5 Presence of coronary angioplasty implant and graft; Z86.73 Personal history of transient ischemic attack (TIA), and cerebral infarction without residual deficits; Z68.23 Body mass index [BMI] 23.0-23.9, adult
CPT/HCPCS: 36415; 36430; 36600; 70450; 71010; 71260; 72072; 72125; 72128; 72141; 72146; 72147; 72148; 72157; 74177; 77012; 80048; 80053; 80061; 81001; 82378; 82803; 82962; 83735; 84134; 84153; 84154; 84155; 84165; 84484; 84560; 85014; 85018; 85025; 85610; 85651; 85730; 86301; 86320; 86850; 86900; 86901; 86920; 87040; 87081; 87086; 88104; 88304; 88307; 88311; 88313; 88331; 88341; 88342; 93005; 93306; 94640; 94664; 96374; 96375; 97110; 97116; 97162; 97164; 97530; J3487; C1762; J0360; J0690; J1100; J1170; J1630; J1644; J1956; J2060; J2250; J2370; J2405; J3010; J3480; J7030; J7040; J7042; L0462; P9016; Q9967

== ENCOUNTER 2017-01-11 13:14 | Inpatient (IN) | payer BC ==
[~2017-01-11] VITALS: Ht 175.3 cm; Wt 77.2 kg
[~2017-01-11 13:14] MED LIST changes: -ALLO100T PO; -CLON-379 PO; -COU5 PO; -FERR-55 PO; +LOSA50TA6 PO; -WARF6TAB35 PO
[2017-01-11] MEDS ORDERED: SOD CHLORIDE 0.9% 1,000 ML IV ONE ×2 (13:30)
[2017-01-11 13:48] LABS: ADD SCAN DIFF NO
[2017-01-11 13:50] LABS: ABNORMAL IP MESSAGE 1; BASOPHILS % 0.1 % (0.0-2.0); EOSINOPHILS % 0.3 % (0.0-7.0); HEMATOCRIT 24.9 % (42.0-52.0); HEMOGLOBIN 7.9 g/dl (14.0-18.0); LYMPHOCYTES # 0.3 10^3/ul (0.8-2.9); LYMPHOCYTES % 2.6 % (15.0-51.0); MEAN CORPUSCULAR HEMOGLOBIN 29.3 pg (29.0-33.0); MEAN CORPUSCULAR HGB CONC 31.7 g/dl (32.0-37.0); MEAN CORPUSCULAR VOLUME 92.2 fl (82.0-101.0); MEAN PLATELET VOLUME 9.4 fl (7.4-10.4); MONOCYTE # 0.6 10^3/ul (0.3-0.9); MONOCYTES % 4.9 % (0.0-11.0); NEUTROPHIL # 10.4 10^3/ul (1.6-7.5); NEUTROPHILS % 90.9 % (39.0-77.0); PLATELET COUNT 232 10^3/UL (140-415); RED CELL DISTRIBUTION WIDTH 14.8 % (11.5-14.5); WHITE BLOOD COUNT 11.4 10^3/ul (4.8-10.8)
[2017-01-11 14:10] LABS: ALBUMIN 2.6 g/dl (3.3-4.9); CHLORIDE 99 mmol/L (97-110); INR 1.12; POTASSIUM 3.4 mmol/L (3.5-5.1); PROTIME 14.4 Sec (12.2-14.2); PT RATIO 1.1; SODIUM 135 mmol/L (135-144)
[2017-01-11 14:11] LABS: PARTIAL THROMBOPLASTIN TIME 31.3 Sec (25.0-35.0)
[2017-01-11 14:12] LABS: BILIRUBIN,INDIRECT 0.2 mg/dl (0-1.1); BILIRUBIN,TOTAL 0.2 mg/dl (0.2-1.3); CREATININE 0.92 mg/dl (0.61-1.24)
[2017-01-11 14:13] LABS: ALANINE AMINOTRANSFERASE 66 IU/L (13-69); ALBUMIN/GLOBULIN RATIO 0.92; ALKALINE PHOSPHATASE 206 IU/L (42-121); ANION GAP 11 (8-16); ASPARTATE AMINO TRANSFERASE 55 IU/L (15-46); BLOOD UREA NITROGEN 30 mg/dl (7-20); CARBON DIOXIDE 28 mmol/L (21-31); GLUCOSE 110 mg/dl (70-220); TOTAL PROTEIN 5.4 g/dl (6.1-8.1)
[2017-01-11 14:14] LABS: CALCIUM 7.3 mg/dl (8.4-10.2)
--- NOTE | 2017-01-11 14:24 | RADRPT ---
PROCEDURE: XR Chest. CLINICAL INDICATION: Possible sepsis. TECHNIQUE: Single frontal view of the chest was obtained. COMPARISON: Chest x-ray 05/10/2015 at 02:33 a.m. FINDINGS: The soft tissues are normal. There are bilateral posterior stabilization rods for purposes effusion extending from the thoracolumbar junction to the mid thoracic spine. There are degenerative osteop hytes in the thoracic spine. The left ventricle is mildly enlarged. The cardiomediastinal silhouet te and hilar structures are normal. The pulmonary vasculature is normal. There are vascular calcifi cations in the left sided aortic arch. There are infiltrates in the left lower lobe of the left pleu ral effusion. Right lower lobe atelectasis seen on the earlier study has resolved. The costophreni c angles are normal. IMPRESSION: 1. Left lower lobe pneumonia with a left pleural effusion. 2. Interval clearing of right lower lobe atelectasis. 3. Atherosclerotic vascular disease. 4. Posterior upper thoracic spinal fusion. RPTAT:AAJJ Physician Sky Date Time Electronically viewed and signed by Physician Sky on 01/11/2017 14:23 /
[2017-01-11 14:30] LABS: TROPONIN-I < 0.012 ng/ml (0.00-0.12)
[2017-01-11] MEDS ORDERED: ASPI-664 PO (14:44)
[2017-01-11] MEDS ORDERED: ZOLP5TAB PO (14:45)
[2017-01-11] MEDS ORDERED: LORA1TAB PO (14:45)
[2017-01-11] MEDS ORDERED: DILT240C98 PO (14:46)
[2017-01-11] MEDS ORDERED: CLON-379 PO (14:47)
[2017-01-11] MEDS ORDERED: CLON0.5T4 PO (14:48)
[2017-01-11] MEDS ORDERED: FER325 PO (14:48)
[2017-01-11] MEDS ORDERED: LEVO750T8 PO (14:50)
[2017-01-11] MEDS ORDERED: MEMA10TA16 PO (14:50)
[2017-01-11] MEDS ORDERED: ESCI10TA PO (14:50)
[2017-01-11] MEDS ORDERED: NIT4 SL (14:51)
[2017-01-11] MEDS ORDERED: HYDR-906 PO (14:52)
[2017-01-11] MEDS ORDERED: PANT40TA3 PO (14:53)
[2017-01-11] MEDS ORDERED: ACET-2047 PO (14:54)
[2017-01-11] MEDS ORDERED: CEFEPIME 1GM/50 ML (PMX) 50 ML IVPB ONE (15:00)
[2017-01-11] MEDS ORDERED: VANCOMYCIN 1 GM (PMX) 250 ML IVPB SCH (15:00)
[2017-01-11 16:12] LABS: ADD UMIC YES; URINE BILIRUBIN (Dip) NEGATIVE (NEGATIVE); URINE BLOOD (Dip) NEGATIVE (NEGATIVE); URINE COLOR LT. YELLOW (YELLOW); URINE GLUCOSE (Dip) NEGATIVE (NEGATIVE); URINE KETONES (Dip) NEGATIVE (NEGATIVE); URINE LEUKOCYTE ESTERASE (Dip) 1+ (NEGATIVE); URINE NITRITE (Dip) POSITIVE (NEGATIVE); URINE TOTAL PROTEIN (Dip) NEGATIVE (NEGATIVE); URINE UROBILINOGEN (Dip) 1.0 E.U./dL (0.1-1.0)
[2017-01-11] MEDS ORDERED: ONDANSETRON 4 MG INJ IV PRN (16:30)
[2017-01-11] MEDS ORDERED: ACETAMINOPHEN 325 MG TAB PO PRN ×2 (16:30→17:00)
[2017-01-11 16:35] LABS: BACTERIA,URINE MODERATE; TRANSITIONAL EPI CELLS,URINE MODERATE; URINE RBCS NONE SEEN /HPF (0)
[2017-01-11] MEDS ORDERED: HYDROCODONE/APAP (5/325) TAB PO PRN (17:00)
[2017-01-11] MEDS ORDERED: ZOLPIDEM 5 MG TAB PO PRN (17:00)
[2017-01-11] MEDS ORDERED: LORAZEPAM 1 MG TAB PO PRN (17:00)
[2017-01-11] MEDS ORDERED: NITROGLYCERIN (SL) 0.4 MG TAB SL PRN (17:00)
[2017-01-11] MEDS ORDERED: POTASSIUM CHLORIDE 20 MEQ in SOD CHLORIDE 0.9% 100 ML IVPB ONE (18:00)
[2017-01-11] MEDS: PANTOPRAZOLE (EC) 40 MG TAB PO SCH (18:00)
--- NOTE | 2017-01-11 18:05 | HP ---
DATE OF ADMISSION: 01/11/2017 CHIEF COMPLAINT: Chest tightness and shortness of breath. HISTORY OF PRESENT ILLNESS: This 86-year-old male with history of hypertension, atrial fi brillation, metastatic cancer to the bones, status post a left upper lobe lung pneumothorax followin g recent CT-guided biopsy, and recent urinary tract infection who was just transferred to the [facility] yesterday for convalescence when he developed shortness of breath and chest tight ness this morning. The patient was transferred to the emergency room at [facility] for evaluation where he was noted to be tachypneic and in mild respiratory distress with a chest x -ray showing new onset left lower lobe pneumonia with a left pleural effusion, and the patient is ad mitted for treatment of this left base pneumonitis. PAST MEDICAL HISTORY: 1. Bony metastatic disease of unknown primary. 2. 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 3. Atrial fibrillation. 4. Hypertension. 5. Urinary tract infection. 6. Generalized anxiety disorder. 7. Chronic kidney disease. 8. Chronic anemia. 9. Gout. 10. Prediabetes. 11. History of hospital psychosis. ALLERGIES: 1. PENICILLINS. 2. MORPHINE. MEDICATIONS ON ADMISSION: Includes: 1. Levaquin 750 mg p.o. daily for UTI. 2. Lexapro 10 mg p.o. daily. 3. Aspirin 81 mg p.o. daily. 4. Allopurinol 300 mg p.o. daily. 5. Namenda 10 mg p.o. daily. 6. Pantoprazole 40 mg p.o. daily. 7. Lipitor 20 mg p.o. at bedtime. 8. Diltiazem CD 240 mg p.o. b.i.d. 9. Iron sulfate 325 mg p.o. t.i.d. 10. Clonazepam 0.5 mg p.o. q.6 hours p.r.n. anxiety. 11. Lorazepam 1 mg p.o. at bedtime as needed for insomnia 12. Ambien 5 mg p.o. at bedtime as needed for insomnia. 13. [place] 5/325 one p.o. q.6 hours p.r.n. pain. 14. Nitroglycerin p.o. as needed for chest pain. SOCIAL HISTORY: The patient used to smoke 1 to 2 packs a day for 40+ years. He quit when he was 62 years old. The patient drinks beer or wine on occasions. He used to work in the [employer], but has also been retired for decades. He is and lives alone. His closest next of kin are his sister and his niece. FAMILY HISTORY: Noncontributory. PHYSICAL EXAMINATION GENERAL: Patient denies any fever or chills, fatigue or headache. HEENT: Patient denies any blurred vision, double vision, or eye pain. GENITOURINARY: No nasal congestion or sore throat. RESPIRATORY: He denies any coughing, but does feel short of breath and has some chest tightness. CARDIOVASCULAR: Chest tightness as above. Denies palpitations or edema. GASTROINTESTINAL: No abdominal pain, nausea, vomiting, diarrhea or constipation. MUSCULOSKELETAL: Mild pain in the neck and minimal pain in the mid back. EXTREMITIES: No joint swelling or inflammation. SKIN: No itching or rashes. NEUROLOGIC: The patient denies any recent blackouts or fainting spells. PSYCHIATRIC: The patient admits to persistent anxiety and stress. GENITOURINARY: The patient denies any dysuria or hematuria. No penile discharge. PHYSICAL EXAMINATION: A well-developed, tall and thin male lying in bed, appearing to be in mild respiratory dis tress, breathing through his mouth. VITAL SIGNS: Temperature 97.2, blood pressure ranges from 87 systolic to 96 systolic, and 44 to 74 diastolic. Pulse is between 56 and 61, O2 saturation 92% to 95% on 2 liters nasal cannula. HEENT: Pupils are equally round, reactive to light. Oropharynx clear. Anicteric sclerae. NECK: No nodes, no goiter. CHEST: Bibasilar crackles, left greater than right. CARDIAC: Irregularly irregular. ABDOMEN: Active bowel sounds, soft, nondistended, nontender. No CVA tenderness. EXTREMITIES: No clubbing, cyanosis, or edema. LABORATORY DATA: WBC 11.4, hemoglobin 7.9, hematocrit 24.9, platelet count 232,000. Sodium 135, po tassium 3.4, chloride 99, carbon dioxide 28, BUN 30, creatinine 0.9, glucose 110. Liver enzymes are notable for mildly elevated AST of 55, alkaline phosphatase of 206, and a decreased total protein o f 5.4 and decreased albumin of 2.6. The troponin is less than 0.012. Chest x-ray shows a new left lower lobe pneumonia with a left pleural effusion and interval clearing of the right lower lobe atelectasis from last admission. There is an incidentally noted posterior upper thoracic spinal fusion. IMPRESSION: 1. Left lower lobe pneumonia. Admit patient for IV antibiotics. Will obtain blood cultures and ta ilor antibiotic as indicated. I will also request for speech therapy or nursing to do a swallow augustus luation to rule out aspiration pneumonitis, and until then, keep patient n.p.o. with IV fluid hydrat ion. 2. Hypotension. Hold Cardizem, but the patient will go back into atrial fibrillation, so start him on some digoxin at this time. I will also inform patient's metal machine operator, Dr. Sterling, that he is in the hospital. 3. Hypokalemia, replace with some IV potassium chloride and recheck in a.m. 4. Other problems, continue current medications. Dictated By: DESI MCLAIN MD DP/MARTINA Conf#: [id number] DID#: [id number]
[2017-01-11 18:22] VITALS: PULSE 50
[2017-01-11 19:00] VITALS: BP 98/59; PULSE 71; RESP 20
[2017-01-11] MEDS ORDERED: VANCOMYCIN IV PER PHARMACY XX SCH (19:30)
[2017-01-11 19:48] VITALS: BP 102/59; RESP 15
--- NOTE | 2017-01-11 19:59 | ERA ---
ER Documentation Chief Complaint Date/Time DATE: 01/11/17 TIME: 19:53 Chief Complaint CP AND GEN WEAKNESS SINCE THIS MORNING. NO NEURO DEF. MOD SOB . HPI This 86-year-old was [facility] for shortness of breath, irregular breathing, generalized weakness and chest pain. Patient has metastatic cancer with spread to the lungs and is not undergoing treatment currently. He is still a full code. He admits that he has intermittent sharp chest pain is not made worse by anything in particular does not radiate. This is been present for 4 days. He feels more short of breath and normal. States that he has had chills but denies fevers. ROS All systems reviewed and are negative except as per history of present illness. Medications Home Meds Reported Medications Acetaminophen* (Acetaminophen*) 650 Mg Tablet, 650 MG PO Q6H Y for MILD PAIN LEVEL 1-3, #30 TAB 01/11/17 Pantoprazole* (Protonix*) 40 Mg Tablet.dr, 40 MG PO DAILY, TAB 01/11/17 Hydrocodone/Acetaminophen ([place] 5-325 Tablet) 1 Each Tablet, 1 EACH PO Q4H WHILE AWAKE Y for PAIN LEVEL 4-10, TAB 01/11/17 Nitroglycerin* (Nitrostat*) 0.4 Mg Tab.subl, 0.4 MG SL Q5MIN Y for CHEST PAIN, BOTTLE 01/11/17 Memantine* (Namenda*) 10 Mg Tablet, 10 MG PO DAILY, #30 TAB 01/11/17 Escitalopram Oxalate* (Lexapro*) 10 Mg Tablet, 10 MG PO DAILY, #30 TAB 01/11/17 Levofloxacin* (Levofloxacin*) 750 Mg Tablet, 750 MG PO DAILY, TAB STARTED 01-11-17 FOR 7 DAYS STOP 601/11/17 Clonazepam* (Clonazepam*) 0.5 Mg Tablet, 0.5 MG PO Q6 Y for ANXIETY, TAB 01/11/17 Ferrous Sulfate* (Ferrous Sulfate*) 325 Mg Tabec, 325 MG PO TID, TAB 01/11/17 Clonidine Hcl* (Clonidine Hcl*) 0.1 Mg Tab, 0.1 MG PO Q6 Y for ELEVATED BLOOD PRESSURE, TAB GIVE IF SBP ABOVE 160 01/11/17 Diltiazem Hcl* (Diltiazem XT) 240 Mg Capsule.er, 240 MG PO BID, #30 CAP HOLD IF SBP LESS THAN 110 OR HR LESS THAN 60 01/11/17 Lorazepam* (Lorazepam*) 1 Mg Tablet, 1 MG PO HS Y for SLEEP, #30 TAB 01/11/17 Zolpidem Tartrate* (Ambien*) 5 Mg Tablet, 5 MG PO QHS Y for INSOMNIA, #30 TAB 01/11/17 Aspirin (Low Dose Aspirin) 81 Mg Tablet.dr, 81 MG PO DAILY, #30 TAB 01/11/17 Allopurinol* (Allopurinol*) 300 Mg Tablet, 300 MG PO AM, TAB 01/24/15 Atorvastatin Calcium* (Atorvastatin Calcium*) 20 Mg Tablet, 20 MG PO HS, TAB 05/30/14 Discontinued Reported Medications Losartan Potassium* (Losartan Potassium*) 50 Mg Tablet, 50 MG PO DAILY, TAB 12/07/16 Diltiazem Hcl* (Cartia XT*) 180 Mg Cap.sr.24h, 180 MG PO BID, CAP 05/10/15 Acarbose* (Acarbose*) 25 Mg Tablet, 25 MG PO TID, TAB 05/10/15 Potassium Chloride* (Potassium Chloride*) 8 Meq Capsule.er, 8 MEQ PO DAILY, CAP 01/24/15 Triamterene-HCTZ* (Triamterene-HCTZ*) 37.5 - 25 Mg Capsule, 1 CAP PO DAILY, CAP 01/24/15 Nitroglycerin* (Nitroglycerin*) 6.5 Mg Capsr, 6.5 MG PO BID, CAP 01/24/15 Cyanocobalamin* (Vitamin B-12*) 1,000 Mcg Tablet.sa, 1000 MCG PO DAILY, TAB 01/24/15 Oxcarbazepine* (Oxcarbazepine*) 150 Mg Tablet, 150 MG PO BID, TAB 01/24/15 Omeprazole* (Omeprazole*) 20 Mg Capsule.dr, 20 MG PO DAILY, CAP 05/30/14 Allergies Allergies: Coded Allergies: morphine (Verified Allergy, Mild, N&V, 01/06/17) Penicillins (Verified Allergy, Unknown, DOES NOT FEEL LIKED, 01/06/17) PMhx/Soc History of Surgery: Yes Anesthesia Reaction: No Hx Neurological Disorder: No Hx Respiratory Disorders: No Hx Psychiatric Problems: No Hx Alcohol Use: No Hx Substance Use: No Hx Tobacco Use: No Smoking Status: Never smoker Physical Exam Vitals Vital Signs Date Time Temp Pulse Resp B/P Pulse Ox O2 Delivery O2 Flow Rate FiO2 01/11/17 16:23 59 15 87/44 95 Nasal Cannula 2.0 01/11/17 13:54 56 21 96/74 92 Room Air 01/11/17 13:26 97.2 61 20 93/74 92 Physical Exam Const: [] Mild to moderate distress, regular breathing Head: Atraumatic Eyes: Normal Conjunctiva ENT: Normal External Ears, Nose and Mouth. Neck: Full range of motion..~ No meningismus. Resp: Bilateral rhonchorous breath sounds in all lung melvin, irregular breathing, some accessory muscle use Cardio: Regular rate and rhythm, no murmurs Abd: Soft, non tender, non distended. Normal bowel sounds Skin: No petechiae or rashes Back: No midline or flank tenderness Ext: No cyanosis, or edema, distal pulses intact all 4 Neur: Awake and alert and oriented 2, no focal deficits, no focal weakness Psych: Normal Mood and Affect Result Diagram: 01/11/17 1338 01/11/17 1338 Results 24 hrs Laboratory Tests Test 01/11/17 13:38 01/11/17 15:45 White Blood Count 11.410^3/ul Red Blood Count 2.7010^6/ul Hemoglobin 7.9g/dl Hematocrit 24.9% Mean Corpuscular Volume 92.2fl Mean Corpuscular Hemoglobin 29.3pg Mean Corpuscular Hemoglobin Concent 31.7g/dl Red Cell Distribution Width 14.8% Platelet Count 39103^3/UL Mean Platelet Volume 9.4fl Neutrophils % 90.9% Lymphocytes % 2.6% Monocytes % 4.9% Eosinophils % 0.3% Basophils % 0.1% Nucleated Red Blood Cells % 0.0/100WBC Neutrophils # 10.410^3/ul Lymphocytes # 0.310^3/ul Monocytes # 0.610^3/ul Eosinophils # 0.010^3/ul Basophils # 0.010^3/ul Nucleated Red Blood Cells # 0.010^3/ul Prothrombin Time 14.4Sec Prothrombin Time Ratio 1.1 INR International Normalized Ratio 1.12 Activated Partial Thromboplast Time 31.3Sec Sodium Level 135mmol/L Potassium Level 3.4mmol/L Chloride Level 99mmol/L Carbon Dioxide Level 28mmol/L Anion Gap 11 Blood Urea Nitrogen 30mg/dl Creatinine 0.92mg/dl Glucose Level 110mg/dl Lactic Acid Level 1.2mmol/L Calcium Level 7.3mg/dl Total Bilirubin 0.2mg/dl Direct Bilirubin 0.00mg/dl Indirect Bilirubin 0.2mg/dl Aspartate Amino Transf (AST/SGOT) 55IU/L Alanine Aminotransferase (ALT/SGPT) 66IU/L Alkaline Phosphatase 206IU/L Troponin I < 0.012ng/ml Total Protein 5.4g/dl Albumin 2.6g/dl Globulin 2.80g/dl Albumin/Globulin Ratio 0.92 Urine Color LT. YELLOW Urine Clarity SLIGHTLY CLOUDY Urine pH 6.0 Urine Specific [place] 1.010 Urine Ketones NEGATIVE Urine Nitrite POSITIVE Urine Bilirubin NEGATIVE Urine Urobilinogen 1.0 E.U./dL Urine Leukocyte Esterase 1+ Urine Microscopic RBC NONE SEEN/HPF Urine Microscopic WBC 25-50/HPF Urine Transitional Epithelial Cells MODERATE Urine Bacteria MODERATE Urine Hemoglobin NEGATIVE Urine Glucose NEGATIVE% Urine Total Protein NEGATIVE Current Medications Medications (Trade) Dose Ordered Sig/Jimenez Route PRN Reason Start Time Stop Time Status Last Admin Dose Admin Sodium Chloride 1,000 ml @ 1,000 mls/hr Q1H ONCE IV 01/11/17 13:30 01/11/17 14:29 DC 01/11/17 13:59 Sodium Chloride 1,000 ml @ 1,000 mls/hr Q1H ONCE IV 01/11/17 13:30 01/11/17 14:29 DC 01/11/17 14:01 Cefepime HCl 50 ml @ 100 mls/hr ONCE ONCE IVPB 01/11/17 15:00 01/11/17 15:29 DC 01/11/17 16:32 Vancomycin HCl (Vancocin) 250 ml @ 125 mls/hr ONCE IVPB 01/11/17 15:00 01/11/17 16:59 DC 01/11/17 16:32 Procedures/MDM Sepsis likely secondary to combination of UTI and pneumonia. Sepsis secondary to elevated white blood cell count as well as intermittent tachypnea with a regular breathing and respiratory rate up to 30 at times. Patient was hydrated with IV fluid and given Zosyn. Dr. Dennison is present in the emergency room seeing the patient I am going to defer blood products administration to her. She agrees with admission to telemetry. EKG interpretation: Atrial fibrillation, rate of 46, single long 2 second pause between beats, normal axis, no ST or T-wave changes concerning for acute ischemia, low voltage. ship rigger interpretation: Atrial fibrillation with rates of 40s 50s and 60s, no other arrhythmia Chest x-ray interpretation: Left lower lobe density suspicious for infiltrate versus pleural effusion, no widened mediastinum, no pulmonary edema, no pneumothorax, no fracture Critical care time 39 minutes: This includes treatment of multifactorial sepsis , careful fluid administration, multiple visits patient's bedside to reassess status, chart review, early antibiotic administration, discussion with patient admitting doctor. This does not include any billable procedures. Departure Diagnosis: Primary Impression: Chest pain Additional Impressions: Sepsis due to pneumonia Sepsis secondary to UTI Anemia Condition: Serious FANNY LANDRY DO January 11, 2017 19:59
[2017-01-11 20:00] VITALS: Ht 175.3 cm; Wt 77.2 kg
[2017-01-11 20:13] VITALS: PULSE 80
[2017-01-11] MEDS ORDERED: DILTIAZEM (CD) 240 MG CAP PO SCH (21:00)
[2017-01-11] MEDS: ALLOPURINOL 300 MG TAB PO SCH (21:00)
[2017-01-11] MEDS: ATORVASTATIN 20 MG TAB PO SCH (21:00)
[2017-01-11] MEDS: FERROUS SULFATE (EC) 325 MG TAB PO SCH (21:00)
--- NOTE | 2017-01-11 21:05 | CONS ---
DATE OF ADMISSION: 01/11/2017 DATE OF CONSULTATION: 01/11/2017 TYPE OF CONSULTATION: Infectious Disease. REASON FOR CONSULTATION: Antibiotic management. HISTORY OF PRESENT ILLNESS: Chas Fiore is an 86-year-old white male who comes in with chest tig htness and shortness of breath and is being seen for antibiotic management. Past problems include: 1. Hypertension. 2. Atrial fibrillation. 3. 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 4. Status post left upper lobe lung pneumothorax following recent CT-guided biopsy. 5. Recent urinary tract infection. The patient was transferred to snf facility yesterday for convalescence but developed sh ortness breath and chest tightness in the a.m. He was transferred to the emergency room, where he w as tachypneic, in mild respiratory distress. Chest x-ray showed new-onset left lower lobe pneumonia with left pleural effusion. The patient was admitted for treatment of this left basilar pneumoniti s. PAST MEDICAL HISTORY: Includes: 1. 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 2. Chronic anemia. 3. Generalized anxiety disorder. 4. Gout. 5. History of hospital psychosis. 6. ALLERGY TO PENICILLIN AND TO MORPHINE. 7. The patient is currently on Levaquin for UTI. SOCIAL HISTORY: He smoked cigarettes, 1 to 2 packs a day for 40-plus years, quit when he was 62. H e drinks beer or wine on occasions. Does not use drugs. 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 He lives alone. He is . MEDICATIONS: Per chart. REVIEW OF SYSTEMS: Noncontributory. PHYSICAL EXAMINATION: GENERAL: The patient is a tall, thin male who is in mild respiratory distress. VITAL SIGNS: Stable. He is afebrile. Oxygen saturation is 92% to 95% on 2 L nasal cannula. SKIN: Without generalized rash. HEENT: Within normal limits. NECK: Supple. LYMPH NODES: None palpable. CHEST: Decreased breath sounds at the bases with bibasilar crackles. HEART: Irregularly irregular rhythm. ABDOMEN: Soft, nontender without organosplenomegaly or masses, without CVA tenderness. EXTREMITIES: Without cyanosis, clubbing or edema. RECTAL AND GENITAL: Deferred. NEUROLOGIC: No focal neurological abnormalities. LABORATORY DATA: White count is 11.4, H and H 7.9 and 24.9, platelet count 232,000. BUN and creati nine 30 over 0.9. He has total protein of 5.4 and albumin of 2.6. Troponin is less than 0.12. As noted, chest x-ray shows new left lower lobe pneumonia with left pleural effusion and interval cl earing of the right lobe atelectatic changes. There is incidentally noted posterior upper thoracic spinal fusion. The patient is currently on Levaquin. He received a dose of vancomycin and cefepime in the emergenc y room. I believe that he should be on vancomycin and cefepime. That would be a good choice, and w e should stop his Levaquin at this point. I will dictate my findings to Dr. Dennison. Dictated By: YRIS CARRERO MD, JD/MARTINA Conf#: [id number] DID#: [id number]
[2017-01-11] MEDS: D5-NS + KCL 20 MEQ 1,000 ML IV SCH (22:46)
[2017-01-12] VITALS (30 sets, daily range): BP systolic 78–120; BP diastolic 46–101; PULSE 68–103; RESP 15–32
[2017-01-12] MEDS: CEFEPIME 1GM/50 ML (PMX) 50 ML IVPB SCH ×3 (03:33→21:56)
[2017-01-12] MEDS: D5-NS + KCL 20 MEQ 1,000 ML IV SCH (03:35)
[2017-01-12] MEDS: VANCOMYCIN 750 MG in SOD CHLORIDE 0.9% 150 ML IVPB SCH ×2 (05:24→17:00)
[2017-01-12] MEDS: LEVOFLOXACIN 750 MG TABLET PO SCH (05:24)
[2017-01-12] MEDS ORDERED: ALLOPURINOL 300 MG TAB PO SCH (09:00)
[2017-01-12] MEDS: ESCITALOPRAM 10 MG TAB PO SCH (10:02)
[2017-01-12] MEDS: PANTOPRAZOLE (EC) 40 MG TAB PO SCH (10:02)
[2017-01-12] MEDS: ASPIRIN (EC) 81 MG TAB PO SCH (10:02)
[2017-01-12] MEDS: FERROUS SULFATE (EC) 325 MG TAB PO SCH ×3 (10:02→21:00)
[2017-01-12] MEDS: MEMANTINE 10 MG TAB PO SCH (10:02)
[2017-01-12] MEDS ORDERED: DIGOXIN 0.125 MG TAB PO SCH (13:00)
--- NOTE | 2017-01-12 13:28 | PN ---
Date/Time of Note Date/Time of Note DATE: 01/12/17 TIME: 13:28 Assessment/Plan VTE Prophylaxis VTE Prophylaxis Intervention: other Lines/Catheters IV Catheter Type (from [facility], [place]): Saline Lock Urinary Cath still in place: Yes Reason Cath still needed: skin wounds contaminated by urine Assessment/Plan Chief Complaint/Hosp Course 1. Left lower lobe pneumonia. Admit patient for IV antibiotics. Will obtain blood cultures and tailor antibiotic as indicated. I will also request for speech therapy or nursing to do a swallow evaluation to rule out aspiration pneumonitis, and until then, keep patient n.p.o. with IV fluid hydration. 2. Hypotension. Hold Cardizem, but the patient will go back into atrial fibrillation, so start him on some digoxin at this time. I will also inform patient's process equipment operator, Dr. Sterling, that he is in the hospital. 3. Hypokalemia, replace with some IV potassium chloride and recheck in a.m. 4. Other problems, continue current medications. Problems: Subjective 24 Hr Interval Summary Free Text/Dictation Patient is confused but appears stable Exam/Review of Systems Vital Signs Vitals Vital Signs Date Time Temp Pulse Resp B/P Pulse Ox O2 Delivery O2 Flow Rate FiO2 01/12/17 12:10 68 01/12/17 11:23 97.9 18 100/49 100 01/11/17 20:00 Nasal Cannula 3.0 Exam Constitutional: well developed Head: atraumatic, normocephalic Neck: supple Respiratory: diminished breath sounds Cardiovascular: regular rate and rhythm Gastrointestinal: non-tender, soft Extremities: normal pulses Results Result Diagram: 01/11/17 1338 01/11/17 1338 Results 24 hrs Laboratory Tests Test 01/11/17 13:38 01/11/17 15:45 01/11/17 18:30 01/11/17 21:00 White Blood Count 11.4 #H Red Blood Count 2.70 L Hemoglobin 7.9 L Hematocrit 24.9 L Mean Corpuscular Volume 92.2 Mean Corpuscular Hemoglobin 29.3 Mean Corpuscular Hemoglobin Concent 31.7 L Red Cell Distribution Width 14.8 H Platelet Count 232 Mean Platelet Volume 9.4 Neutrophils % 90.9 H Lymphocytes % 2.6 L Monocytes % 4.9 Eosinophils % 0.3 Basophils % 0.1 Nucleated Red Blood Cells % 0.0 Neutrophils # 10.4 H Lymphocytes # 0.3 L Monocytes # 0.6 Eosinophils # 0.0 Basophils # 0.0 Nucleated Red Blood Cells # 0.0 Prothrombin Time 14.4 H Prothrombin Time Ratio 1.1 INR International Normalized Ratio 1.12 Activated Partial Thromboplast Time 31.3 Sodium Level 135 Potassium Level 3.4 L Chloride Level 99 Carbon Dioxide Level 28 Anion Gap 11 Blood Urea Nitrogen 30 H Creatinine 0.92 Glucose Level 110 Lactic Acid Level 1.2 1.1 0.9 Calcium Level 7.3 L Total Bilirubin 0.2 Direct Bilirubin 0.00 Indirect Bilirubin 0.2 Aspartate Amino Transf (AST/SGOT) 55 H Alanine Aminotransferase (ALT/SGPT) 66 Alkaline Phosphatase 206 H Troponin I < 0.012 Total Protein 5.4 L Albumin 2.6 L Globulin 2.80 Albumin/Globulin Ratio 0.92 Urine Color LT. YELLOW Urine Clarity SLIGHTLY CLOUDY Urine pH 6.0 Urine Specific [place] 1.010 Urine Ketones NEGATIVE Urine Nitrite POSITIVE H Urine Bilirubin NEGATIVE Urine Urobilinogen 1.0 E.U./dL Urine Leukocyte Esterase 1+ H Urine Microscopic RBC NONE SEEN Urine Microscopic WBC 25-50 Urine Transitional Epithelial Cells MODERATE Urine Bacteria MODERATE Urine Hemoglobin NEGATIVE Urine Glucose NEGATIVE Urine Total Protein NEGATIVE Medications Medications Current Medications Potassium Chloride/Dextrose/ Sod Cl (D5-NS + KCl 20 Meq) 1,000 ml @ 100 mls/hr Q10H IV Last administered on 01/12/17 03:35; Admin Dose 100 MLS/HR; Start at 18:00 Acetaminophen (Tylenol Tab) 650 mg Q6H PRN PO MILD PAIN LEVEL 1-3; Start at 17:00 Aspirin (Halfprin) 81 mg DAILY PO Last administered on 01/12/17 10:02; Admin Dose 81 MG; Start 01/12/17 at 09:00 Atorvastatin Calcium (Lipitor) 20 mg HS PO ; Start 01/11/17 at 21:00 Clonazepam (Klonopin) 0.5 mg Q6 PRN PO ANXIETY; Start 01/11/17 at 17:00 Clonidine (Catapres) 0.1 mg Q6H PRN PO SBP ABOVE 170; Start 01/11/17 at 17:00 Escitalopram Oxalate (Lexapro) 10 mg DAILY PO Last administered on 01/12/17 10 :02; Admin Dose 10 MG; Start 01/12/17 at 09:00 Ferrous Sulfate (Ferrous Sulfate (Ec)) 325 mg TID PO Last administered on 10:02; Admin Dose 325 MG; Start 01/11/17 at 21:00 Levofloxacin (Levaquin) 750 mg DAILY@06 PO ; Start 01/12/17 at 06:00 Lorazepam (Ativan) 1 mg HS PRN PO SLEEP; Start 01/11/17 at 17:00 Memantine (Namenda) 10 mg DAILY PO Last administered on 01/12/17 10:02; Admin Dose 10 MG; Start 01/12/17 at 09:00 Nitroglycerin (Nitroglycerin (Sl Tab) 0.4 Mg) 1 tab ONCE PRN SL CHEST PAIN; Start 01/11/17 at 17:00; Stop 01/12/17 at 16:59 Pantoprazole (Protonix Tab) 40 mg DAILY PO Last administered on 01/12/17 10:02 ; Admin Dose 40 MG; Start 01/11/17 at 18:00 Zolpidem Tartrate (Ambien) 5 mg QHS PRN PO INSOMNIA; Start 01/11/17 at 17:00 Allopurinol (Zyloprim) 300 mg HS PO ; Start 01/11/17 at 21:00 Digoxin 0.125 mg 0.125 mg DAILY@13 PO ; Start 01/12/17 at 13:00 Cefepime HCl 50 ml @ 100 mls/hr Q12 IVPB Last administered on 01/12/17 09:53 ; Admin Dose 100 MLS/HR; Start 01/12/17 at 01:00 Vancomycin HCl/ Sodium Chloride (Vancocin/NS) 150 ml @ 75 mls/hr Q12H IVPB Last administered on 01/12/17 05:24; Admin Dose 75 MLS/HR; Start 01/12/17 at 05 :00 Miscellaneous Information (*Rx Drug Level Order Reminder*) VANCOMYCIN TROUGH AT 0400 ONCE ONCE XX ; Start 01/13/17 at 04:00; Stop 01/13/17 at 04:01 KRYSTEN PRAJAPATI January 12, 2017 13:28
[2017-01-12 15:49] LABS: AADO2 Arterial 66.4 mmHg (7.0-24.0); Allen Test ACCEPTAB; Arterial Base Excess -3.7 mmol/L (-3.0-3); Arterial COHb 0 % (0.0-3.0); Arterial Fraction of Oxyhgb 95.1 % (93.0-99.0); Arterial HCO3 20.9 mmol/L (22.0-26.0); Arterial MetHb 0.3 % (0.0-1.5); Arterial Total Hemglobin 8.9 g/dl (12.0-18.0); MODE NASAL CANNULA
[2017-01-12] MEDS: METHYLPREDNISOLONE 40 MG INJ IV SCH (16:06)
[2017-01-12] MEDS ORDERED: FUROSEMIDE 20 MG INJ IV SCH ×2 (16:20→18:00)
[2017-01-12] MEDS: ALBUTEROL/IPRATROPIUM (NEB) 3 ML AMP HHN SCH ×2 (16:27→21:40)
--- NOTE | 2017-01-12 16:37 | RADRPT ---
PROCEDURE: XR Chest. CLINICAL INDICATION: Shortness of breath. TECHNIQUE: Single frontal view of the chest was obtained. COMPARISON: Chest x-ray 05/10/2015 02:33 a.m. FINDINGS: The soft tissues are normal. There are degenerative osteophytes in the thoracic and upper lumbar sp ine. A posterior spinal fusion was performed in the upper thoracic spine since the prior study of 0 05/10/2015. The left ventricle is enlarged. The cardiomediastinal silhouette and hilar structures a re normal. The pulmonary vasculature is normal. There are vascular calcifications in the aortic arc h. There is compensatory hyperaeration of the right lung. There is consolidative infiltrate and ate lectasis in the lingula and left lower lobe. Small pleural effusions are suspected. IMPRESSION: 1. Cardiomegaly with consolidative infiltrate atelectasis in the lingula and left lower lobe shiftin g the cardiomediastinal silhouette to the left with compensatory hyperaeration of the right lung. 2. Posterior spinal fusion of the lower cervical and upper thoracic spine. 3. Spondylosis of the thoracic spine. 4. Atherosclerosis of the aortic arch. RPTAT:AAJJ Physician Sky Date Time Electronically viewed and signed by Physician Sky on 01/12/2017 16:37 FELICE/
--- NOTE | 2017-01-12 17:15 | CONS ---
DATE OF ADMISSION: 01/11/2017 DATE OF CONSULTATION: 01/12/2017 PRIMARY PHYSICIAN: Ruth Dennison MD REASON FOR CONSULTATION: Dyspnea. HISTORY OF PRESENT ILLNESS: Briefly, this is an 86-year-old gentleman with history of hypertensive heart disease, atrial fibrillation, [id number] spiculated nodule, status post CT-guided biopsy revealing primary lung adenocarcinoma. Also history of query metastatic cancer of the bones, as wel l as a recent UTI, who was transferred from a [facility] facility for worsening shortness of br eath and chest tightness. Over the course of the past 24 hours, he has had increasing work of breat annetta and has been treated for possible left lower lobe pneumonia. Today, he has had increased work of breathing; albeit, has maintained normal gas exchange with normal peripheral oxygen saturations. PAST MEDICAL HISTORY As above: 1. metastatic disease to the bones of unclear origin. 2. A primary lung adenocarcinoma. 3. Atrial fibrillation. 4. Hypertension. 5. Generalized anxiety disorder. 6. CKD. 7. Anemia. ALLERGIES 1. PENICILLIN. 2. MORPHINE. MEDICATIONS: Please see MAR. SOCIAL HISTORY: Prior tobacco history, about 40-pack years. No alcohol, illicit drug use. FAMILY HISTORY: Noncontributory. REVIEW OF SYSTEMS: As noted in HPI. PHYSICAL EXAMINATION: VITAL SIGNS: Heart rate is 71, blood pressure is 100/49, oxygen saturation is 100% on 2 L nasal can nula. HEENT: Normocephalic. NECK: Increased work of breathing with recruitment of accessory muscles, including the sternocleido mastoid. CARDIOVASCULAR: Irregularly irregular, S1 and S2, with II/ systolic murmur heard best at the apex . CHEST: Diffusely decreased breath sounds and occasional rhonchi heard. ABDOMEN: Soft, nontender; no hepatosplenomegaly. EXTREMITIES: No cyanosis, clubbing or edema. LABORATORY DATA: WBCs 11.4, hemoglobin 7.9. Bicarbonate is 28, alkaline phosphatase is 208. CHEST X-RAY: Shows a little bit of svmc-[id number]-field haziness, most consistent with some atelec tasis and effusion. IMPRESSION: Increased work of breathing and mild respiratory insufficiency. Based on my clinical ex am, this is likely a combination of a chronic obstructive pulmonary disease exacerbation, as well as a component of mild coexisting heart failure in a patient who clearly has underlying chronic obstru ctive pulmonary disease based on prior CT scan, as well as having received some continuous normal sa line overnight. RECOMMENDATIONS At this point: 1. I will obtain a stat ABG and chest x-ray. 2. Discontinue IV fluids. 3. Gentle diuresis. 4. We will treat for a COPD exacerbation with some corticosteroids and DuoNeb [id number]. 5. We will observe closely, and based upon clinical progression as well as blood gases, will determ ine need for higher level of care as well, as possible institution of noninvasive positive-pressure ventilation via BiPAP, which I think would be helpful for both a component of COPD exacerbation and cardiogenic pulmonary edema. 6. Would suggest de-escalation of antibiotics, as I do not believe this is a significant pneumonia that we are dealing with at this point. Dictated By: SARAH GAMEZ MD NK/NTS Conf#: [id number] DID#: [id number] CC: JUWAN GIMENEZ MD; RUTH DENNISON MD;*[facility]*
--- NOTE | 2017-01-12 19:42 | CONS ---
Date/Time of Note Date/Time of Note DATE: 01/12/17 TIME: 19:31 Assessment/Plan Assessment/Plan Chief Complaint/Hosp Course ID PROGRESS NOTE ABX DAY # Vanco IV + Levaquin 24H INTERVAL SUMMARY * (+)Tachypneic SOB on supplemental O2 via NC, no fevers, Afib * 01/12/17 CXR: IMPRESSION: * 1. Cardiomegaly with consolidative infiltrate atelectasis in the lingula and left lower lobe shifting the cardiomediastinal silhouette to the left with compensatory hyperaeration of the right lung. * 2. Posterior spinal fusion of the lower cervical and upper thoracic spine. * 3. Spondylosis of the thoracic spine. * 4. Atherosclerosis of the aortic arch. PHYSICAL EXAMINATION: GENERAL: Lethargic, tachypneic on supplemental O2 HEENT: Unremarkable NECK: Trach-> midline CHEST: (+)Sternal retractions, (+)Dyspnea HEART: Afib ABDOMEN: Soft EXTREMITIES: Warm, SKIN: Warm, dry ID ASSESSMENT: 86 yo M admitted with: 1. Sepsis w/hypotension, leukocytosis 2. LLL HCAP 3. COPD Exacerbation 4. CHF exacerbation w/elevated BNP 5. UTI 6. Afib 7. Hypertension-> current evidence of hypotension 8. 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 9. Status post left upper lobe lung pneumothorax following recent CT-guided biopsy. 10. 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 11. 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 Chronic anemia 13. Hx of Gout INVASIVES: *PIV ABX ALLERGIES: PCN + MORPHINE CURRENT ABX: # Vanco IV + Levaquin ID RECOMMENDATIONS: 1. Continue current ABX & respiratory support . Problems: Consultation Date/Type/Reason Admit Date/Time January 11, 2017 at 16:25 Initial Consult Date Exam/Review of Systems Vital Signs Vitals Vital Signs Date Time Temp Pulse Resp B/P Pulse Ox O2 Delivery O2 Flow Rate FiO2 01/12/17 18:30 89 22 81/46 98 BIPAP 01/12/17 18:05 98.7 01/12/17 17:15 40 01/12/17 16:25 15.0 Results Result Diagram: 01/11/17 1338 01/11/17 1338 Results 24 hrs Laboratory Tests Test 01/11/17 21:00 01/12/17 15:27 01/12/17 15:40 Lactic Acid Level 0.9 Blood Gas Specimen Source Blood arterial Arterial Blood Date Drawn 01/12/2017 3:40:31 PM Arterial Blood pH (Temp corrected) 7.381 Arterial Blood pCO2 (Temp correct) 36.1 Arterial Blood pO2 (Temp corrected) 83.4 Arterial Blood HCO3 20.9 L Arterial Blood Base Excess -3.7 L Arterial Blood Oxygen Saturation 95.4 Nguyễn Test ACCEPTAB Arterial Blood Gas Puncture Site Left Radial Arterial Blood Carboxyhemoglobin 0 Arterial Blood Methemoglobin 0.3 Blood Gas A-a O2 Differential 66.4 H Oxyhemoglobin Percent 95.1 Total Hemoglobin 8.9 L Blood Gas Temperature 37.0 Blood Gas Modality NASAL CANNULA FiO2 27.0 Blood Gas Critical Value Read Back VINCE MARTI Blood Gas Notified Whom KATJA Blood Gas Notified Time 01/12/2017 3:49:17 PM Troponin I 0.014 B-Type Natriuretic Peptide 3180 H Medications Medications Current Medications Acetaminophen (Tylenol Tab) 650 mg Q6H PRN PO MILD PAIN LEVEL 1-3; Start at 17:00 Aspirin (Halfprin) 81 mg DAILY PO Last administered on 01/12/17 10:02; Admin Dose 81 MG; Start 01/12/17 at 09:00 Atorvastatin Calcium (Lipitor) 20 mg HS PO ; Start 01/11/17 at 21:00 Clonazepam (Klonopin) 0.5 mg Q6 PRN PO ANXIETY; Start 01/11/17 at 17:00 Clonidine (Catapres) 0.1 mg Q6H PRN PO SBP ABOVE 170; Start 01/11/17 at 17:00 Escitalopram Oxalate (Lexapro) 10 mg DAILY PO Last administered on 01/12/17 10 :02; Admin Dose 10 MG; Start 01/12/17 at 09:00 Ferrous Sulfate (Ferrous Sulfate (Ec)) 325 mg TID PO Last administered on 14:18; Admin Dose 325 MG; Start 01/11/17 at 21:00 Levofloxacin (Levaquin) 750 mg DAILY@06 PO ; Start 01/12/17 at 06:00 Lorazepam (Ativan) 1 mg HS PRN PO SLEEP; Start 01/11/17 at 17:00 Memantine (Namenda) 10 mg DAILY PO Last administered on 01/12/17 10:02; Admin Dose 10 MG; Start 01/12/17 at 09:00 Pantoprazole (Protonix Tab) 40 mg DAILY PO Last administered on 01/12/17 10:02 ; Admin Dose 40 MG; Start 01/11/17 at 18:00 Zolpidem Tartrate (Ambien) 5 mg QHS PRN PO INSOMNIA; Start 01/11/17 at 17:00 Allopurinol (Zyloprim) 300 mg HS PO ; Start 01/11/17 at 21:00 Digoxin 0.125 mg 0.125 mg DAILY@13 PO Last administered on 01/12/17 14:18; Admin Dose 0.125 MG; Start 01/12/17 at 13:00 Cefepime HCl 50 ml @ 100 mls/hr Q12 IVPB Last administered on 01/12/17 09:53 ; Admin Dose 100 MLS/HR; Start 01/12/17 at 01:00 Vancomycin HCl/ Sodium Chloride (Vancocin/NS) 150 ml @ 75 mls/hr Q12H IVPB Last administered on 01/12/17 05:24; Admin Dose 75 MLS/HR; Start 01/12/17 at 05 :00 Miscellaneous Information (*Rx Drug Level Order Reminder*) VANCOMYCIN TROUGH AT 0400 ONCE ONCE XX ; Start 01/13/17 at 04:00; Stop 01/13/17 at 04:01 Methylprednisolone Sodium Succinate (Solu-Medrol) 40 mg Q12 IV Last administered on 01/12/17 16:06; Admin Dose 40 MG; Start 01/12/17 at 15:30 ANKIT MARY NP January 12, 2017 19:42
[2017-01-12] MEDS: ATORVASTATIN 20 MG TAB PO SCH (21:00)
[2017-01-12] MEDS ORDERED: NORepinephrine 8MG/250 ML (PMX 250 ML IV SCH (21:00)
[2017-01-12] MEDS ORDERED: SOD CHLORIDE 0.9% 1,000 ML IV SCH (21:00)
[2017-01-12] MEDS ORDERED: SOD CHLORIDE 0.9% 500 ML IV ONE (21:00)
[2017-01-12] MEDS: ALLOPURINOL 300 MG TAB PO SCH (21:00)
[2017-01-13] VITALS (34 sets, daily range): BP systolic 59–123; BP diastolic 38–93; PULSE 69–114; RESP 15–30
[2017-01-13] MEDS: METHYLPREDNISOLONE 40 MG INJ IV SCH ×3 (00:48→21:10)
[2017-01-13] MEDS: ALBUTEROL/IPRATROPIUM (NEB) 3 ML AMP HHN SCH ×6 (01:21→20:53)
[2017-01-13 04:26] LABS: ADD SCAN DIFF NO
[2017-01-13 04:32] LABS: ABNORMAL IP MESSAGE 1; BASOPHILS % 0.1 % (0.0-2.0); HEMATOCRIT 27.4 % (42.0-52.0); HEMOGLOBIN 8.3 g/dl (14.0-18.0); LYMPHOCYTES # 0.2 10^3/ul (0.8-2.9); LYMPHOCYTES % 1.7 % (15.0-51.0); MEAN CORPUSCULAR HEMOGLOBIN 28.5 pg (29.0-33.0); MEAN CORPUSCULAR HGB CONC 30.3 g/dl (32.0-37.0); MEAN CORPUSCULAR VOLUME 94.2 fl (82.0-101.0); MEAN PLATELET VOLUME 9.5 fl (7.4-10.4); MONOCYTE # 0.1 10^3/ul (0.3-0.9); MONOCYTES % 0.9 % (0.0-11.0); NEUTROPHIL # 11.6 10^3/ul (1.6-7.5); NEUTROPHILS % 95.6 % (39.0-77.0); NUCLEATED RED BLOOD CELLS% 0.2 /100WBC (0.0-0.0); PLATELET COUNT 262 10^3/UL (140-415); RED BLOOD COUNT 2.91 10^6/ul (4.70-6.10); RED CELL DISTRIBUTION WIDTH 15.6 % (11.5-14.5); WHITE BLOOD COUNT 12.1 10^3/ul (4.8-10.8)
[2017-01-13] MEDS: LEVOFLOXACIN 750 MG TABLET PO SCH (05:07)
[2017-01-13 05:17] LABS: POTASSIUM 3.5 mmol/L (3.5-5.1)
[2017-01-13] MEDS: VANCOMYCIN 750 MG in SOD CHLORIDE 0.9% 150 ML IVPB SCH ×2 (05:17→17:33)
[2017-01-13 05:19] LABS: CREATININE 0.76 mg/dl (0.61-1.24)
[2017-01-13 05:20] LABS: CALCIUM 6.6 mg/dl (8.4-10.2)
[2017-01-13] MEDS: ESCITALOPRAM 10 MG TAB PO SCH (09:00)
[2017-01-13] MEDS: PANTOPRAZOLE (EC) 40 MG TAB PO SCH (09:00)
[2017-01-13] MEDS: ASPIRIN (EC) 81 MG TAB PO SCH (09:00)
[2017-01-13] MEDS: MEMANTINE 10 MG TAB PO SCH (09:00)
[2017-01-13] MEDS: FERROUS SULFATE (EC) 325 MG TAB PO SCH ×3 (09:00→21:00)
[2017-01-13] MEDS: CEFEPIME 1GM/50 ML (PMX) 50 ML IVPB SCH ×2 (09:12→21:10)
--- NOTE | 2017-01-13 11:19 | CONS ---
Date/Time of Note Date/Time of Note DATE: 01/13/17 TIME: 11:15 Consult Date/Type/Reason Admit Date/Time January 11, 2017 at 16:25 Initial Consult Date Type of Consultation: Pulm/CCM Subjective Transferred to ICU for increased work of breathing requiring BiPAP. Objective Vital Signs Date Time Temp Pulse Resp B/P Pulse Ox O2 Delivery O2 Flow Rate FiO2 01/13/17 08:27 98 3.0 01/13/17 08:10 82 40 01/13/17 06:00 20 110/68 BIPAP 01/13/17 04:00 97.5 Intake and Output 01/12/17 01/12/17 01/13/17 15:00 23:00 07:00 Intake Total 500 ml 500 ml Output Total 1580 ml 250 ml Balance -1080 ml 250 ml Exam HEENT: Normocephalic. NECK: Increased work of breathing with recruitment of accessory muscles, including the sternocleidomastoid. CARDIOVASCULAR: Irregularly irregular, S1 and S2, with II/ systolic murmur heard best at the apex. CHEST: Diffusely decreased breath sounds ABDOMEN: Soft, nontender; no hepatosplenomegaly. EXTREMITIES: No cyanosis, clubbing or edema. Results/Medications Result Diagram: 01/13/17 0400 01/13/17 0400 Results 24 hrs Laboratory Tests Test 01/12/17 15:27 01/12/17 15:40 01/13/17 04:00 Blood Gas Specimen Source Blood arterial Arterial Blood Date Drawn 01/12/2017 3:40:31 PM Arterial Blood pH (Temp corrected) 7.381 Arterial Blood pCO2 (Temp correct) 36.1 Arterial Blood pO2 (Temp corrected) 83.4 Arterial Blood HCO3 20.9 L Arterial Blood Base Excess -3.7 L Arterial Blood Oxygen Saturation 95.4 Nguyễn Test ACCEPTAB Arterial Blood Gas Puncture Site Left Radial Arterial Blood Carboxyhemoglobin 0 Arterial Blood Methemoglobin 0.3 Blood Gas A-a O2 Differential 66.4 H Oxyhemoglobin Percent 95.1 Total Hemoglobin 8.9 L Blood Gas Temperature 37.0 Blood Gas Modality NASAL CANNULA FiO2 27.0 Blood Gas Critical Value Read Back VINCE MARTI Blood Gas Notified Whom KATJA Blood Gas Notified Time 01/12/2017 3:49:17 PM Troponin I 0.014 0.016 B-Type Natriuretic Peptide 3180 H White Blood Count 12.1 H Red Blood Count 2.91 L Hemoglobin 8.3 L Hematocrit 27.4 L Mean Corpuscular Volume 94.2 Mean Corpuscular Hemoglobin 28.5 L Mean Corpuscular Hemoglobin Concent 30.3 L Red Cell Distribution Width 15.6 H Platelet Count 262 Mean Platelet Volume 9.5 Neutrophils % 95.6 H Lymphocytes % 1.7 L Monocytes % 0.9 Eosinophils % 0.0 Basophils % 0.1 Nucleated Red Blood Cells % 0.2 H Neutrophils # 11.6 H Lymphocytes # 0.2 L Monocytes # 0.1 L Eosinophils # 0.0 Basophils # 0.0 Nucleated Red Blood Cells # 0.0 Sodium Level 142 Potassium Level 3.5 Chloride Level 119 #H Carbon Dioxide Level 22 Anion Gap 5 L Blood Urea Nitrogen 27 H Creatinine 0.76 Glucose Level 102 Lactic Acid Level 1.1 Calcium Level 6.6 L Vancomycin Level Trough 6.9 L Digoxin Level 0.5 L Medications Current Medications Acetaminophen (Tylenol Tab) 650 mg Q6H PRN PO MILD PAIN LEVEL 1-3; Start at 17:00 Aspirin (Halfprin) 81 mg DAILY PO Last administered on 01/12/17 10:02; Admin Dose 81 MG; Start 01/12/17 at 09:00 Atorvastatin Calcium (Lipitor) 20 mg HS PO ; Start 01/11/17 at 21:00 Clonazepam (Klonopin) 0.5 mg Q6 PRN PO ANXIETY; Start 01/11/17 at 17:00 Clonidine (Catapres) 0.1 mg Q6H PRN PO SBP ABOVE 170; Start 01/11/17 at 17:00 Escitalopram Oxalate (Lexapro) 10 mg DAILY PO Last administered on 01/12/17 10 :02; Admin Dose 10 MG; Start 01/12/17 at 09:00 Ferrous Sulfate (Ferrous Sulfate (Ec)) 325 mg TID PO Last administered on 14:18; Admin Dose 325 MG; Start 01/11/17 at 21:00 Levofloxacin (Levaquin) 750 mg DAILY@06 PO ; Start 01/12/17 at 06:00 Lorazepam (Ativan) 1 mg HS PRN PO SLEEP; Start 01/11/17 at 17:00 Memantine (Namenda) 10 mg DAILY PO Last administered on 01/12/17 10:02; Admin Dose 10 MG; Start 01/12/17 at 09:00 Pantoprazole (Protonix Tab) 40 mg DAILY PO Last administered on 01/12/17 10:02 ; Admin Dose 40 MG; Start 01/11/17 at 18:00 Zolpidem Tartrate (Ambien) 5 mg QHS PRN PO INSOMNIA; Start 01/11/17 at 17:00 Allopurinol 300 mg 300 mg HS PO ; Start 01/11/17 at 21:00 Cefepime HCl 50 ml @ 100 mls/hr Q12 IVPB Last administered on 01/13/17 09:12 ; Admin Dose 100 MLS/HR; Start 01/12/17 at 01:00 Vancomycin HCl/ Sodium Chloride (Vancocin/NS) 150 ml @ 75 mls/hr Q12H IVPB Last administered on 01/13/17 05:17; Admin Dose 75 MLS/HR; Start 01/12/17 at 05 :00 Methylprednisolone Sodium Succinate 40 mg 40 mg Q12 IV Last administered on 09:12; Admin Dose 40 MG; Start 01/12/17 at 15:30 Sodium Chloride 1,000 ml @ 75 mls/hr [id number] IV Last administered on 23:55; Admin Dose 75 MLS/HR; Start 01/12/17 at 21:00 Norepinephrine/ Dextrose (Levophed/D5W) 500 ml @ 1.87 mls/hr TITRATE IV ; Start 01/12/17 at 21:00 Digoxin (Digoxin) 125 mcg DAILY@13 IV ; Start 01/13/17 at 13:00 Assessment/Plan Additional Assessment/Plan LABORATORY DATA: WBCs 11.4, hemoglobin 7.9. Bicarbonate is 28, alkaline phosphatase is 208. IMPRESSION: 1. Respiratory Insufficiency-- likely due to a combination of COPD exacerbation and volume overload. Overall better today. CXR with left effusion, though cannot r/o co-existing infiltrate RECOMMENDATIONS 1. Will observe off BiPAP 2. Continue gentle diuresis 3. Obtain 2D ECHO 4. Continue BD's/systemic CS 5. Follow cultures 35 min cc time SARAH GAMEZ MD January 13, 2017 11:19
--- NOTE | 2017-01-13 12:02 | PN ---
Date/Time of Note Date/Time of Note DATE: 01/13/17 TIME: 12:01 Assessment/Plan VTE Prophylaxis VTE Prophylaxis Intervention: other Lines/Catheters IV [facility] Type ([facility] Saline Lock Urinary Cath still in place: Yes Reason Cath still needed: skin wounds contaminated by urine Assessment/Plan Chief Complaint/Hosp Course 1. Left lower lobe pneumonia. Admit patient for IV antibiotics. Will obtain blood cultures and tailor antibiotic as indicated. I will also request for speech therapy or nursing to do a swallow evaluation to rule out aspiration pneumonitis, and until then, keep patient n.p.o. with IV fluid hydration. Appreciate Pulmonary input 2. Hypotension. Hold Cardizem, but the patient will go back into atrial fibrillation, so start him on some digoxin at this time. I will also inform patient's senior software engineer analytics, Dr. Sterling, that he is in the hospital. 3. Hypokalemia, replace with some IV potassium chloride and recheck in a.m. 4. Other problems, continue current medications. Problems: Subjective 24 Hr Interval Summary Free Text/Dictation Patient denies any complaints, yesterday patient had more shortness of breath and was on bipap, but is now stable on nasal cannula Exam/Review of Systems Vital Signs Vitals Vital Signs Date Time Temp Pulse Resp B/P Pulse Ox O2 Delivery O2 Flow Rate FiO2 01/13/17 08:40 98 30 01/13/17 08:27 3.0 01/13/17 08:10 82 01/13/17 06:00 20 110/68 BIPAP 01/13/17 04:00 97.5 Intake and Output 01/12/17 01/12/17 01/13/17 15:00 23:00 07:00 Intake Total 500 ml 500 ml Output Total 1580 ml 250 ml Balance -1080 ml 250 ml Exam Constitutional: well developed Head: atraumatic, normocephalic Neck: supple Respiratory: diminished breath sounds Cardiovascular: regular rate and rhythm Gastrointestinal: non-tender, soft Extremities: normal pulses Results Result Diagram: 01/13/17 0400 01/13/17 0400 Results 24 hrs Laboratory Tests Test 01/12/17 15:27 01/12/17 15:40 01/13/17 04:00 Blood Gas Specimen Source Blood arterial Arterial Blood Date Drawn 01/12/2017 3:40:31 PM Arterial Blood pH (Temp corrected) 7.381 Arterial Blood pCO2 (Temp correct) 36.1 Arterial Blood pO2 (Temp corrected) 83.4 Arterial Blood HCO3 20.9 L Arterial Blood Base Excess -3.7 L Arterial Blood Oxygen Saturation 95.4 Nguyễn Test ACCEPTAB Arterial Blood Gas Puncture Site Left Radial Arterial Blood Carboxyhemoglobin 0 Arterial Blood Methemoglobin 0.3 Blood Gas A-a O2 Differential 66.4 H Oxyhemoglobin Percent 95.1 Total Hemoglobin 8.9 L Blood Gas Temperature 37.0 Blood Gas Modality NASAL CANNULA FiO2 27.0 Blood Gas Critical Value Read Back VINCE MARTI Blood Gas Notified Whom KATJA Blood Gas Notified Time 01/12/2017 3:49:17 PM Troponin I 0.014 0.016 B-Type Natriuretic Peptide 3180 H White Blood Count 12.1 H Red Blood Count 2.91 L Hemoglobin 8.3 L Hematocrit 27.4 L Mean Corpuscular Volume 94.2 Mean Corpuscular Hemoglobin 28.5 L Mean Corpuscular Hemoglobin Concent 30.3 L Red Cell Distribution Width 15.6 H Platelet Count 262 Mean Platelet Volume 9.5 Neutrophils % 95.6 H Lymphocytes % 1.7 L Monocytes % 0.9 Eosinophils % 0.0 Basophils % 0.1 Nucleated Red Blood Cells % 0.2 H Neutrophils # 11.6 H Lymphocytes # 0.2 L Monocytes # 0.1 L Eosinophils # 0.0 Basophils # 0.0 Nucleated Red Blood Cells # 0.0 Sodium Level 142 Potassium Level 3.5 Chloride Level 119 #H Carbon Dioxide Level 22 Anion Gap 5 L Blood Urea Nitrogen 27 H Creatinine 0.76 Glucose Level 102 Lactic Acid Level 1.1 Calcium Level 6.6 L Vancomycin Level Trough 6.9 L Digoxin Level 0.5 L Medications Medications Current Medications Acetaminophen (Tylenol Tab) 650 mg Q6H PRN PO MILD PAIN LEVEL 1-3; Start at 17:00 Aspirin (Halfprin) 81 mg DAILY PO Last administered on 01/12/17t 10:02; Admin Dose 81 MG; Start 01/12/17 at 09:00 Atorvastatin Calcium (Lipitor) 20 mg HS PO ; Start 01/11/17 at 21:00 Clonazepam (Klonopin) 0.5 mg Q6 PRN PO ANXIETY; Start 01/11/17 at 17:00 Clonidine (Catapres) 0.1 mg Q6H PRN PO SBP ABOVE 170; Start 01/11/17 at 17:00 Escitalopram Oxalate (Lexapro) 10 mg DAILY PO Last administered on 01/12/17 10 :02; Admin Dose 10 MG; Start 01/12/17 at 09:00 Ferrous Sulfate (Ferrous Sulfate (Ec)) 325 mg TID PO Last administered on 14:18; Admin Dose 325 MG; Start 01/11/17 at 21:00 Levofloxacin (Levaquin) 750 mg DAILY@06 PO ; Start 01/12/17 at 06:00 Lorazepam (Ativan) 1 mg HS PRN PO SLEEP; Start 01/11/17 at 17:00 Memantine (Namenda) 10 mg DAILY PO Last administered on 01/12/17 10:02; Admin Dose 10 MG; Start 01/12/17 at 09:00 Pantoprazole (Protonix Tab) 40 mg DAILY PO Last administered on 01/12/17 10:02 ; Admin Dose 40 MG; Start 01/11/17 at 18:00 Zolpidem Tartrate (Ambien) 5 mg QHS PRN PO INSOMNIA; Start 01/11/17 at 17:00 Allopurinol 300 mg 300 mg HS PO ; Start 01/11/17 at 21:00 Cefepime HCl 50 ml @ 100 mls/hr Q12 IVPB Last administered on 01/13/17 09:12 ; Admin Dose 100 MLS/HR; Start 01/12/17 at 01:00 Vancomycin HCl/ Sodium Chloride (Vancocin/NS) 150 ml @ 75 mls/hr Q12H IVPB Last administered on 01/13/17 05:17; Admin Dose 75 MLS/HR; Start 01/12/17 at 05 :00 Methylprednisolone Sodium Succinate 40 mg 40 mg Q12 IV Last administered on 09:12; Admin Dose 40 MG; Start 01/12/17 at 15:30 Norepinephrine/ Dextrose (Levophed/D5W) 500 ml @ 1.87 mls/hr TITRATE IV ; Start 01/12/17 at 21:00 Digoxin (Digoxin) 125 mcg DAILY@13 IV ; Start 01/13/17 at 13:00 Furosemide (Lasix) 20 mg DAILY IV ; Start 01/13/17 at 12:00 KRYSTEN PRAJAPATI January 13, 2017 12:02
--- NOTE | 2017-01-13 12:21 | RADRPT ---
PROCEDURE: XR Chest. CLINICAL INDICATION: Dyspnea TECHNIQUE: Single frontal chest x-ray. COMPARISON: Chest x-ray dated 01/12/2017 FINDINGS: Small left basilar pleural effusion is identified, grossly stable over time. Minor atelectasis is s een in the right lung base. Dense linear scarring and atelectasis is seen in the left upper lung, st able. Benign chronic changes are seen scattered throughout the lungs. The cardiomediastinal silhoue tte is unremarkable. Surgical fusion rods are seen involving the upper thoracic spine. No pneumoth orax is present on either side the remaining surrounding osseous structures are otherwise unremarka ble. IMPRESSION: 1. Stable small left basilar layering pleural effusion,. 2. Stable scarring and atelectasis in the left upper lung. 3. Minor atelectasis in the right lung base. 4. Postsurgical changes of the upper thoracic spine. RPTAT: HMJB .Darren Juan MD, Date Time Electronically viewed and signed by .Darren Juan MD, on 01/13/2017 12:21 .B/
[2017-01-13] MEDS: DIGOXIN 500 MCG INJ IV SCH (14:09)
[2017-01-13] MEDS: FUROSEMIDE 20 MG INJ IV SCH (14:12)
--- NOTE | 2017-01-13 15:56 | CONS ---
Date/Time of Note Date/Time of Note DATE: 01/13/17 TIME: 15:54 Assessment/Plan Assessment/Plan Chief Complaint/Hosp Course ID PROGRESS NOTE ABX DAY # Vanco IV #2 + Levaquin #2 24H INTERVAL SUMMARY * A/AO -> high Coto's with supplemental O2 stable w/"Purse lipped breathing technique -- prolonged expiration * (+)Tachypneic SOB on supplemental O2 via NC, no fevers, Afib * 01/12/17 CXR: IMPRESSION: * 1. Cardiomegaly with consolidative infiltrate atelectasis in the lingula and left lower lobe shifting the cardiomediastinal silhouette to the left with compensatory hyperaeration of the right lung. * 2. Posterior spinal fusion of the lower cervical and upper thoracic spine. * 3. Spondylosis of the thoracic spine. * 4. Atherosclerosis of the aortic arch. PHYSICAL EXAMINATION: GENERAL: Lethargic, tachypneic on supplemental O2 HEENT: Unremarkable NECK: Trach-> midline CHEST: (+)Sternal retractions, (+)Dyspnea HEART: Afib ABDOMEN: Soft EXTREMITIES: Warm, SKIN: Warm, dry ID ASSESSMENT: 86 yo M admitted with: 1. Sepsis w/hypotension, leukocytosis * Probable partial steroid demargination driving elevated WBC 2. LLL HCAP 3. COPD Exacerbation 4. CHF exacerbation w/elevated BNP 5. UTI 6. Afib 7. Hypertension-> current evidence of hypotension 8. 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 9. Status post left upper lobe lung pneumothorax following recent CT-guided biopsy. 10. 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 11. 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 Chronic anemia 13. Hx of Gout INVASIVES: *PIV ABX ALLERGIES: PCN + MORPHINE CURRENT ABX: # Vanco IV + Levaquin ID RECOMMENDATIONS: 1. Continue current ABX & respiratory support . Problems: Consultation Date/Type/Reason Admit Date/Time January 11, 2017 at 16:25 Type of Consultation: ID Exam/Review of Systems Vital Signs Vitals Vital Signs Date Time Temp Pulse Resp B/P Pulse Ox O2 Delivery O2 Flow Rate FiO2 01/13/17 13:03 84 99 30 01/13/17 08:27 3.0 01/13/17 06:00 20 110/68 BIPAP 01/13/17 04:00 97.5 Intake and Output 01/12/17 01/12/17 01/13/17 15:00 23:00 07:00 Intake Total 500 ml 500 ml Output Total 1580 ml 250 ml Balance -1080 ml 250 ml Results Result Diagram: 01/13/17 0400 01/13/17 0400 Results 24 hrs Laboratory Tests Test 01/13/17 04:00 White Blood Count 12.1 H Red Blood Count 2.91 L Hemoglobin 8.3 L Hematocrit 27.4 L Mean Corpuscular Volume 94.2 Mean Corpuscular Hemoglobin 28.5 L Mean Corpuscular Hemoglobin Concent 30.3 L Red Cell Distribution Width 15.6 H Platelet Count 262 Mean Platelet Volume 9.5 Neutrophils % 95.6 H Lymphocytes % 1.7 L Monocytes % 0.9 Eosinophils % 0.0 Basophils % 0.1 Nucleated Red Blood Cells % 0.2 H Neutrophils # 11.6 H Lymphocytes # 0.2 L Monocytes # 0.1 L Eosinophils # 0.0 Basophils # 0.0 Nucleated Red Blood Cells # 0.0 Sodium Level 142 Potassium Level 3.5 Chloride Level 119 #H Carbon Dioxide Level 22 Anion Gap 5 L Blood Urea Nitrogen 27 H Creatinine 0.76 Glucose Level 102 Lactic Acid Level 1.1 Calcium Level 6.6 L Troponin I 0.016 Vancomycin Level Trough 6.9 L Digoxin Level 0.5 L Medications Medications Current Medications Acetaminophen (Tylenol Tab) 650 mg Q6H PRN PO MILD PAIN LEVEL 1-3; Start at 17:00 Aspirin (Halfprin) 81 mg DAILY PO Last administered on 01/12/17 10:02; Admin Dose 81 MG; Start 01/12/17 at 09:00 Atorvastatin Calcium (Lipitor) 20 mg HS PO ; Start 01/11/17 at 21:00 Clonazepam (Klonopin) 0.5 mg Q6 PRN PO ANXIETY; Start 01/11/17 at 17:00 Clonidine (Catapres) 0.1 mg Q6H PRN PO SBP ABOVE 170; Start 01/11/17 at 17:00 Escitalopram Oxalate (Lexapro) 10 mg DAILY PO Last administered on 01/12/17 10 :02; Admin Dose 10 MG; Start 01/12/17 at 09:00 Ferrous Sulfate (Ferrous Sulfate (Ec)) 325 mg TID PO Last administered on 14:18; Admin Dose 325 MG; Start 01/11/17 at 21:00 Levofloxacin (Levaquin) 750 mg DAILY@06 PO ; Start 01/12/17 at 06:00 Lorazepam (Ativan) 1 mg HS PRN PO SLEEP; Start 01/11/17 at 17:00 Memantine (Namenda) 10 mg DAILY PO Last administered on 01/12/17 10:02; Admin Dose 10 MG; Start 01/12/17 at 09:00 Pantoprazole (Protonix Tab) 40 mg DAILY PO Last administered on 01/12/17 10:02 ; Admin Dose 40 MG; Start 01/11/17 at 18:00 Zolpidem Tartrate (Ambien) 5 mg QHS PRN PO INSOMNIA; Start 01/11/17 at 17:00 Allopurinol 300 mg 300 mg HS PO ; Start 01/11/17 at 21:00 Cefepime HCl 50 ml @ 100 mls/hr Q12 IVPB Last administered on 01/13/17 09:12 ; Admin Dose 100 MLS/HR; Start 01/12/17 at 01:00 Vancomycin HCl/ Sodium Chloride (Vancocin/NS) 150 ml @ 75 mls/hr Q12H IVPB Last administered on 01/13/17 05:17; Admin Dose 75 MLS/HR; Start 01/12/17 at 05 :00 Methylprednisolone Sodium Succinate 40 mg 40 mg Q12 IV Last administered on 09:12; Admin Dose 40 MG; Start 01/12/17 at 15:30 Norepinephrine/ Dextrose (Levophed/D5W) 500 ml @ 1.87 mls/hr TITRATE IV ; Start 01/12/17 at 21:00 Digoxin (Digoxin) 125 mcg DAILY@13 IV Last administered on 01/13/17 14:09; Admin Dose 125 MCG; Start 01/13/17 at 13:00 Furosemide (Lasix) 20 mg DAILY IV Last administered on 01/13/17 14:12; Admin Dose 20 MG; Start 01/13/17 at 12:00 ANKIT MARY NP January 13, 2017 15:55
[2017-01-13] MEDS: ATORVASTATIN 20 MG TAB PO SCH (21:00)
[2017-01-13] MEDS: ALLOPURINOL 300 MG TAB PO SCH (21:00)
[2017-01-13] MEDS ORDERED: LORAZEPAM 2 MG INJ IV PRN (21:30)
[2017-01-14] VITALS (34 sets, daily range): BP systolic 79–142; BP diastolic 43–89; PULSE 70–117; RESP 15–30
[2017-01-14] MEDS: ALBUTEROL/IPRATROPIUM (NEB) 3 ML AMP HHN SCH ×6 (01:12→21:18)
[2017-01-14] MEDS: LEVOFLOXACIN 750 MG TABLET PO SCH (05:14)
[2017-01-14] MEDS: VANCOMYCIN 750 MG in SOD CHLORIDE 0.9% 150 ML IVPB SCH (05:14)
[2017-01-14 05:23] LABS: AADO2 Arterial 108.9 mmHg (7.0-24.0); Arterial Base Excess -2.4 mmol/L (-3.0-3); Arterial COHb 0.3 % (0.0-3.0); Arterial HCO3 20.1 mmol/L (22.0-26.0); Arterial MetHb 0.6 % (0.0-1.5); Blood Gas PS 7; MODE MASK - BIPAP
[2017-01-14 06:15] LABS: ADD SCAN DIFF NO
[2017-01-14 06:18] LABS: ABNORMAL IP MESSAGE 1; BASOPHILS % 0.1 % (0.0-2.0); HEMATOCRIT 28.6 % (42.0-52.0); HEMOGLOBIN 8.6 g/dl (14.0-18.0); LYMPHOCYTES # 0.3 10^3/ul (0.8-2.9); LYMPHOCYTES % 1.9 % (15.0-51.0); MEAN CORPUSCULAR HEMOGLOBIN 28.3 pg (29.0-33.0); MEAN CORPUSCULAR HGB CONC 30.1 g/dl (32.0-37.0); MEAN CORPUSCULAR VOLUME 94.1 fl (82.0-101.0); MEAN PLATELET VOLUME 9.5 fl (7.4-10.4); MONOCYTE # 0.6 10^3/ul (0.3-0.9); MONOCYTES % 3.2 % (0.0-11.0); NUCLEATED RED BLOOD CELLS% 0.2 /100WBC (0.0-0.0); PLATELET COUNT 329 10^3/UL (140-415); RED BLOOD COUNT 3.04 10^6/ul (4.70-6.10); RED CELL DISTRIBUTION WIDTH 16.3 % (11.5-14.5); WHITE BLOOD COUNT 18.2 10^3/ul (4.8-10.8)
[2017-01-14 06:54] LABS: POTASSIUM 3.1 mmol/L (3.5-5.1)
[2017-01-14 06:56] LABS: CREATININE 0.95 mg/dl (0.61-1.24)
[2017-01-14 06:57] LABS: CALCIUM 6.8 mg/dl (8.4-10.2)
[2017-01-14] MEDS: FUROSEMIDE 20 MG INJ IV SCH (08:27)
[2017-01-14] MEDS: METHYLPREDNISOLONE 40 MG INJ IV SCH (08:30)
[2017-01-14] MEDS: CEFEPIME 1GM/50 ML (PMX) 50 ML IVPB SCH (08:30)
[2017-01-14] MEDS: ESCITALOPRAM 10 MG TAB PO SCH (09:00)
[2017-01-14] MEDS: FERROUS SULFATE (EC) 325 MG TAB PO SCH ×3 (09:00→20:22)
[2017-01-14] MEDS: ASPIRIN (EC) 81 MG TAB PO SCH (09:00)
[2017-01-14] MEDS: MEMANTINE 10 MG TAB PO SCH (09:00)
[2017-01-14] MEDS: PANTOPRAZOLE (EC) 40 MG TAB PO SCH (09:00)
--- NOTE | 2017-01-14 09:45 | PN ---
Date/Time of Note Date/Time of Note DATE: 01/14/17 TIME: 09:44 Assessment/Plan VTE Prophylaxis VTE Prophylaxis Intervention: other Lines/Catheters IV [facility] Type (from [facility] Peripheral IV Urinary Cath still in place: Yes Reason Cath still needed: skin wounds contaminated by urine Assessment/Plan Chief Complaint/Hosp Course 1. Left lower lobe pneumonia. Admit patient for IV antibiotics. Will obtain blood cultures and tailor antibiotic as indicated. I will also request for speech therapy or nursing to do a swallow evaluation to rule out aspiration pneumonitis, and until then, keep patient n.p.o. with IV fluid hydration. Appreciate Pulmonary input 2. Hypotension. Hold Cardizem, but the patient will go back into atrial fibrillation, so start him on some digoxin at this time. 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 Sterling, that he is in the hospital. 3. Hypokalemia, replace with some IV potassium chloride and recheck in a.m. 4. Other problems, continue current medications. Problems: Subjective 24 Hr Interval Summary Free Text/Dictation Patient doing ok on cpap. Exam/Review of Systems Vital Signs Vitals Vital Signs Date Time Temp Pulse Resp B/P Pulse Ox O2 Delivery O2 Flow Rate FiO2 01/14/17 08:00 81 21 108/65 98 BIPAP 01/14/17 07:02 4.0 01/14/17 07:00 98.4 01/14/17 05:49 30 Intake and Output 01/13/17 01/13/17 01/14/17 15:00 23:00 07:00 Intake Total 150 ml 0 ml Output Total 710 ml 250 ml 550 ml Balance -710 ml -100 ml -550 ml Exam Constitutional: well developed Head: atraumatic, normocephalic Neck: supple Respiratory: diminished breath sounds Cardiovascular: regular rate and rhythm Gastrointestinal: non-tender, soft Extremities: normal pulses Results Result Diagram: 01/14/17 0545 01/14/17 0545 Results 24 hrs Laboratory Tests Test 01/14/17 05:00 01/14/17 05:45 Blood Gas Specimen Source Blood arterial Arterial Blood Date Drawn 01/14/2017 5:10:10 AM Arterial Blood pH (Temp corrected) 7.494 H Arterial Blood pCO2 (Temp correct) 26.7 L Arterial Blood pO2 (Temp corrected) 73.6 L Arterial Blood HCO3 20.1 L Arterial Blood Base Excess -2.4 Arterial Blood Oxygen Saturation 94.9 L Nguyễn Test N/A Arterial Blood Gas Puncture Site LB Arterial Blood Carboxyhemoglobin 0.3 Arterial Blood Methemoglobin 0.6 Blood Gas A-a O2 Differential 108.9 H Oxyhemoglobin Percent 94.0 Total Hemoglobin 9.0 L Blood Gas Temperature 37.0 Blood Gas Respiration Rate 16.0 Blood Gas Actual Respiration Rate 27 Blood Gas Modality MASK - BIPAP FiO2 30.0 Blood Gas Pressure Support 7 Blood Gas IPAP/EPAP Ratio 07/23 Blood Gas Notified Whom UP Blood Gas Notified Time 01/14/2017 5:23:09 AM White Blood Count 18.2 #H Red Blood Count 3.04 L Hemoglobin 8.6 L Hematocrit 28.6 L Mean Corpuscular Volume 94.1 Mean Corpuscular Hemoglobin 28.3 L Mean Corpuscular Hemoglobin Concent 30.1 L Red Cell Distribution Width 16.3 H Platelet Count 329 # Mean Platelet Volume 9.5 Neutrophils % 93.0 H Lymphocytes % 1.9 L Monocytes % 3.2 Eosinophils % 0.0 Basophils % 0.1 Nucleated Red Blood Cells % 0.2 H Neutrophils # 17.0 H Lymphocytes # 0.3 L Monocytes # 0.6 Eosinophils # 0.0 Basophils # 0.0 Nucleated Red Blood Cells # 0.0 Sodium Level 148 H Potassium Level 3.1 L Chloride Level 123 H Carbon Dioxide Level 23 Anion Gap 5 L Blood Urea Nitrogen 37 H Creatinine 0.95 Glucose Level 140 Calcium Level 6.8 L Medications Medications Current Medications Acetaminophen (Tylenol Tab) 650 mg Q6H PRN PO MILD PAIN LEVEL 1-3; Start at 17:00 Aspirin (Halfprin) 81 mg DAILY PO Last administered on 01/12/17 10:02; Admin Dose 81 MG; Start 01/12/17 at 09:00 Atorvastatin Calcium (Lipitor) 20 mg HS PO ; Start 01/11/17 at 21:00 Clonazepam (Klonopin) 0.5 mg Q6 PRN PO ANXIETY; Start 01/11/17 at 17:00 Clonidine (Catapres) 0.1 mg Q6H PRN PO SBP ABOVE 170; Start 01/11/17 at 17:00 Escitalopram Oxalate (Lexapro) 10 mg DAILY PO Last administered on 01/12/17 10 :02; Admin Dose 10 MG; Start 01/12/17 at 09:00 Ferrous Sulfate (Ferrous Sulfate (Ec)) 325 mg TID PO Last administered on 14:18; Admin Dose 325 MG; Start 01/11/17 at 21:00 Levofloxacin (Levaquin) 750 mg DAILY@06 PO ; Start 01/12/17 at 06:00 Memantine (Namenda) 10 mg DAILY PO Last administered on 01/12/17 10:02; Admin Dose 10 MG; Start 01/12/17 at 09:00 Pantoprazole (Protonix Tab) 40 mg DAILY PO Last administered on 01/12/17 10:02 ; Admin Dose 40 MG; Start 01/11/17 at 18:00 Zolpidem Tartrate (Ambien) 5 mg QHS PRN PO INSOMNIA; Start 01/11/17 at 17:00 Allopurinol 300 mg 300 mg HS PO ; Start 01/11/17 at 21:00 Cefepime HCl 50 ml @ 100 mls/hr Q12 IVPB Last administered on 01/14/17 08:30 ; Admin Dose 100 MLS/HR; Start 01/12/17 at 01:00 Vancomycin HCl/ Sodium Chloride (Vancocin/NS) 150 ml @ 75 mls/hr Q12H IVPB Last administered on 01/14/17 05:14; Admin Dose 75 MLS/HR; Start 01/12/17 at 05 :00 Methylprednisolone Sodium Succinate 40 mg 40 mg Q12 IV Last administered on 08:30; Admin Dose 40 MG; Start 01/12/17 at 15:30 Norepinephrine/ Dextrose (Levophed/D5W) 500 ml @ 1.87 mls/hr TITRATE IV ; Start 01/12/17 at 21:00 Digoxin (Digoxin) 125 mcg DAILY@13 IV Last administered on 01/13/17 14:09; Admin Dose 125 MCG; Start 01/13/17 at 13:00 Furosemide (Lasix) 20 mg DAILY IV Last administered on 01/14/17 08:27; Admin Dose 20 MG; Start 01/13/17 at 12:00 Lorazepam (Ativan) 1 mg HS PRN IV INSOMNIA Last administered on 01/13/17 21:20 ; Admin Dose 1 MG; Start 5/28/17 at 21:30 KRYSTEN PRAJAPATI January 14, 2017 09:45
--- NOTE | 2017-01-14 10:19 | CONS ---
Date/Time of Note Date/Time of Note DATE: 01/14/17 TIME: 10:17 Consult Date/Type/Reason Admit Date/Time January 11, 2017 at 16:25 Type of Consultation: Pulm/CCM Subjective NECK: Increased work of breathing with recruitment of accessory muscles, including the sternocleidomastoid. CARDIOVASCULAR: Irregularly irregular, S1 and S2, with II/ systolic murmur heard best at the apex. CHEST: Diffusely decreased breath sounds ABDOMEN: Soft, nontender; no hepatosplenomegaly. EXTREMITIES: No cyanosis, clubbing or edema. Objective Vital Signs Date Time Temp Pulse Resp B/P Pulse Ox O2 Delivery O2 Flow Rate FiO2 01/14/17 10:00 92 20 142/52 99 01/14/17 10:00 BIPAP 01/14/17 07:02 4.0 01/14/17 07:00 98.4 01/14/17 05:49 30 Intake and Output 01/13/17 01/13/17 01/14/17 15:00 23:00 07:00 Intake Total 150 ml 0 ml Output Total 710 ml 250 ml 550 ml Balance -710 ml -100 ml -550 ml Results/Medications Result Diagram: 01/14/17 0545 01/14/17 0545 Results 24 hrs Laboratory Tests Test 01/14/17 05:00 01/14/17 05:45 Blood Gas Specimen Source Blood arterial Arterial Blood Date Drawn 01/14/2017 5:10:10 AM Arterial Blood pH (Temp corrected) 7.494 H Arterial Blood pCO2 (Temp correct) 26.7 L Arterial Blood pO2 (Temp corrected) 73.6 L Arterial Blood HCO3 20.1 L Arterial Blood Base Excess -2.4 Arterial Blood Oxygen Saturation 94.9 L Nguyễn Test N/A Arterial Blood Gas Puncture Site LB Arterial Blood Carboxyhemoglobin 0.3 Arterial Blood Methemoglobin 0.6 Blood Gas A-a O2 Differential 108.9 H Oxyhemoglobin Percent 94.0 Total Hemoglobin 9.0 L Blood Gas Temperature 37.0 Blood Gas Respiration Rate 16.0 Blood Gas Actual Respiration Rate 27 Blood Gas Modality MASK - BIPAP FiO2 30.0 Blood Gas Pressure Support 7 Blood Gas IPAP/EPAP Ratio 12/5 Blood Gas Notified Whom UP Blood Gas Notified Time 01/14/2017 5:23:09 AM White Blood Count 18.2 #H Red Blood Count 3.04 L Hemoglobin 8.6 L Hematocrit 28.6 L Mean Corpuscular Volume 94.1 Mean Corpuscular Hemoglobin 28.3 L Mean Corpuscular Hemoglobin Concent 30.1 L Red Cell Distribution Width 16.3 H Platelet Count 329 # Mean Platelet Volume 9.5 Neutrophils % 93.0 H Lymphocytes % 1.9 L Monocytes % 3.2 Eosinophils % 0.0 Basophils % 0.1 Nucleated Red Blood Cells % 0.2 H Neutrophils # 17.0 H Lymphocytes # 0.3 L Monocytes # 0.6 Eosinophils # 0.0 Basophils # 0.0 Nucleated Red Blood Cells # 0.0 Sodium Level 148 H Potassium Level 3.1 L Chloride Level 123 H Carbon Dioxide Level 23 Anion Gap 5 L Blood Urea Nitrogen 37 H Creatinine 0.95 Glucose Level 140 Calcium Level 6.8 L Medications Current Medications Acetaminophen (Tylenol Tab) 650 mg Q6H PRN PO MILD PAIN LEVEL 1-3; Start at 17:00 Aspirin (Halfprin) 81 mg DAILY PO Last administered on 01/12/17 10:02; Admin Dose 81 MG; Start 01/12/17 at 09:00 Atorvastatin Calcium (Lipitor) 20 mg HS PO ; Start 01/11/17 at 21:00 Clonazepam (Klonopin) 0.5 mg Q6 PRN PO ANXIETY; Start 01/11/17 at 17:00 Clonidine (Catapres) 0.1 mg Q6H PRN PO SBP ABOVE 170; Start 01/11/17 at 17:00 Escitalopram Oxalate (Lexapro) 10 mg DAILY PO Last administered on 01/12/17 10 :02; Admin Dose 10 MG; Start 01/12/17 at 09:00 Ferrous Sulfate (Ferrous Sulfate (Ec)) 325 mg TID PO Last administered on 14:18; Admin Dose 325 MG; Start 01/11/17 at 21:00 Levofloxacin (Levaquin) 750 mg DAILY@06 PO ; Start 01/12/17 at 06:00 Memantine (Namenda) 10 mg DAILY PO Last administered on 01/12/17 10:02; Admin Dose 10 MG; Start 01/12/17 at 09:00 Pantoprazole (Protonix Tab) 40 mg DAILY PO Last administered on 01/12/17 10:02 ; Admin Dose 40 MG; Start 01/11/17 at 18:00 Zolpidem Tartrate (Ambien) 5 mg QHS PRN PO INSOMNIA; Start 01/11/17 at 17:00 Allopurinol 300 mg 300 mg HS PO ; Start 01/11/17 at 21:00 Cefepime HCl 50 ml @ 100 mls/hr Q12 IVPB Last administered on 01/14/17 08:30 ; Admin Dose 100 MLS/HR; Start 01/12/17 at 01:00 Vancomycin HCl/ Sodium Chloride (Vancocin/NS) 150 ml @ 75 mls/hr Q12H IVPB Last administered on 01/14/17 05:14; Admin Dose 75 MLS/HR; Start 01/12/17 at 05 :00 Methylprednisolone Sodium Succinate 40 mg 40 mg Q12 IV Last administered on 08:30; Admin Dose 40 MG; Start 01/12/17 at 15:30 Norepinephrine/ Dextrose (Levophed/D5W) 500 ml @ 1.87 mls/hr TITRATE IV ; Start 01/12/17 at 21:00 Digoxin (Digoxin) 125 mcg DAILY@13 IV Last administered on 01/13/17 14:09; Admin Dose 125 MCG; Start 01/13/17 at 13:00 Furosemide (Lasix) 20 mg DAILY IV Last administered on 01/14/17 08:27; Admin Dose 20 MG; Start 01/13/17 at 12:00 Lorazepam (Ativan) 1 mg HS PRN IV INSOMNIA Last administered on 01/13/17 21:20 ; Admin Dose 1 MG; Start 01/13/17 at 21:30 Assessment/Plan Additional Assessment/Plan IMPRESSION: 1. Respiratory Failure-- likely due to a combination of COPD exacerbation and volume overload. Overall better today. CXR with left effusion 2. Likely COPD 3. CHF 4. Left Pleural Effusion 5. Leukocytosis--due to CS RECOMMENDATIONS 1. Will observe off BiPAP again off BiPAP 2. Continue gentle diuresis--decrease given slight bump in Cr 3. Obtain 2D ECHO 4. Continue BD's 5. Decrease CS 6. De-escalate ABX 35 min cc time SARAH GAMEZ MD January 14, 2017 10:19
[2017-01-14] MEDS: SOD CHLORIDE 0.9% 1,000 ML IV SCH (11:41)
--- NOTE | 2017-01-14 12:24 | RADRPT ---
PROCEDURE: XR Chest. CLINICAL INDICATION: chest pain TECHNIQUE: Single AP view of the chest were obtained COMPARISON: 01/13/2017 FINDINGS: The heart and mediastinum are within normal limits. The pulmonary vasculature are mildly prominent The aorta demonstrates atherosclerotic calcifications. There is a mild left basilar opacity with a small left effusion. A trace right effusion cannot be excluded. Linear opacity of the right lower lung likely represents a focus of scarring or atelectasis. There is no pneumothorax visible on radi ograph. Surgical changes of the upper thoracic spine are present. Degenerative changes are seen wi thin the thoracic spine. IMPRESSION: Mild vascular congestion with a small layering left effusion and mild left basilar opacity. Right basilar atelectasis or scarring is present. RPTAT: AA .Samantha Kaplan MD, Date Time Electronically viewed and signed by .Samantha Kaplan MD, on 01/14/2017 12:23 .J/
[2017-01-14] MEDS: DIGOXIN 500 MCG INJ IV SCH (13:37)
--- NOTE | 2017-01-14 16:26 | CONS ---
Date/Time of Note Date/Time of Note DATE: 01/14/17 TIME: 16:24 Assessment/Plan Assessment/Plan Chief Complaint/Hosp Course ID PROGRESS NOTE ABX DAY # Vanco IV #3 + Levaquin #3 24H INTERVAL SUMMARY * Sleeping on supplemental O2 via NC without dyspnea * WBC rising on IV Steroids, NO fevers * Prior 2 days (+)Tachypneic SOB on supplemental O2 via NC, Afib * 01/12/17 CXR: IMPRESSION: * 1. Cardiomegaly with consolidative infiltrate atelectasis in the lingula and left lower lobe shifting the cardiomediastinal silhouette to the left with compensatory hyperaeration of the right lung. * 2. Posterior spinal fusion of the lower cervical and upper thoracic spine. * 3. Spondylosis of the thoracic spine. * 4. Atherosclerosis of the aortic arch. PHYSICAL EXAMINATION: GENERAL: Lethargic, tachypneic on supplemental O2 HEENT: Unremarkable NECK: Trach-> midline CHEST: (+)Sternal retractions, (+)Dyspnea HEART: Afib ABDOMEN: Soft EXTREMITIES: Warm, SKIN: Warm, dry ID ASSESSMENT: 86 yo M admitted with: 1. Sepsis w/hypotension, leukocytosis * Probable partial steroid demargination driving elevated WBC 2. LLL HCAP 3. COPD Exacerbation 4. CHF exacerbation w/elevated BNP 5. UTI 6. Afib 7. Hypertension-> current evidence of hypotension 8. 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 9. Status post left upper lobe lung pneumothorax following recent CT-guided biopsy. 10. 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 11. 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 Chronic anemia 13. Hx of Gout INVASIVES: *PIV ABX ALLERGIES: PCN + MORPHINE CURRENT ABX: DAY#3 => Vanco IV + Levaquin ID RECOMMENDATIONS: 1. Continue current ABX & respiratory support . Problems: Consultation Date/Type/Reason Admit Date/Time January 11, 2017 at 16:25 Type of Consultation: ID Exam/Review of Systems Vital Signs Vitals Vital Signs Date Time Temp Pulse Resp B/P Pulse Ox O2 Delivery O2 Flow Rate FiO2 01/14/17 16:00 97.5 76 16 100/89 100 2.0 01/14/17 15:56 Nasal Cannula 01/14/17 09:30 30 Intake and Output 5/01/13/17 01/14/17 15:00 23:00 07:00 Intake Total 150 ml 0 ml Output Total 710 ml 250 ml 550 ml Balance -710 ml -100 ml -550 ml Results Result Diagram: 01/14/17 0545 01/14/17 0545 Results 24 hrs Laboratory Tests Test 01/14/17 05:00 01/14/17 05:45 Blood Gas Specimen Source Blood arterial Arterial Blood Date Drawn 01/14/2017 5:10:10 AM Arterial Blood pH (Temp corrected) 7.494 H Arterial Blood pCO2 (Temp correct) 26.7 L Arterial Blood pO2 (Temp corrected) 73.6 L Arterial Blood HCO3 20.1 L Arterial Blood Base Excess -2.4 Arterial Blood Oxygen Saturation 94.9 L Nguyễn Test N/A Arterial Blood Gas Puncture Site LB Arterial Blood Carboxyhemoglobin 0.3 Arterial Blood Methemoglobin 0.6 Blood Gas A-a O2 Differential 108.9 H Oxyhemoglobin Percent 94.0 Total Hemoglobin 9.0 L Blood Gas Temperature 37.0 Blood Gas Respiration Rate 16.0 Blood Gas Actual Respiration Rate 27 Blood Gas Modality MASK - BIPAP FiO2 30.0 Blood Gas Pressure Support 7 Blood Gas IPAP/EPAP Ratio 07/23 Blood Gas Notified Whom UP Blood Gas Notified Time 01/14/2017 5:23:09 AM White Blood Count 18.2 #H Red Blood Count 3.04 L Hemoglobin 8.6 L Hematocrit 28.6 L Mean Corpuscular Volume 94.1 Mean Corpuscular Hemoglobin 28.3 L Mean Corpuscular Hemoglobin Concent 30.1 L Red Cell Distribution Width 16.3 H Platelet Count 329 # Mean Platelet Volume 9.5 Neutrophils % 93.0 H Lymphocytes % 1.9 L Monocytes % 3.2 Eosinophils % 0.0 Basophils % 0.1 Nucleated Red Blood Cells % 0.2 H Neutrophils # 17.0 H Lymphocytes # 0.3 L Monocytes # 0.6 Eosinophils # 0.0 Basophils # 0.0 Nucleated Red Blood Cells # 0.0 Sodium Level 148 H Potassium Level 3.1 L Chloride Level 123 H Carbon Dioxide Level 23 Anion Gap 5 L Blood Urea Nitrogen 37 H Creatinine 0.95 Glucose Level 140 Calcium Level 6.8 L Medications Medications Current Medications Acetaminophen (Tylenol Tab) 650 mg Q6H PRN PO MILD PAIN LEVEL 1-3; Start at 17:00 Aspirin (Halfprin) 81 mg DAILY PO Last administered on 01/12/17 10:02; Admin Dose 81 MG; Start 01/12/17 at 09:00 Atorvastatin Calcium (Lipitor) 20 mg HS PO ; Start 01/11/17 at 21:00 Clonazepam (Klonopin) 0.5 mg Q6 PRN PO ANXIETY; Start 01/11/17 at 17:00 Clonidine (Catapres) 0.1 mg Q6H PRN PO SBP ABOVE 170; Start 01/11/17 at 17:00 Escitalopram Oxalate (Lexapro) 10 mg DAILY PO Last administered on 01/12/17 10 :02; Admin Dose 10 MG; Start 01/12/17 at 09:00 Ferrous Sulfate (Ferrous Sulfate (Ec)) 325 mg TID PO Last administered on 13:37; Admin Dose 325 MG; Start 01/11/17 at 21:00 Levofloxacin (Levaquin) 750 mg DAILY@06 PO ; Start 01/12/17 at 06:00 Memantine (Namenda) 10 mg DAILY PO Last administered on 01/12/17 10:02; Admin Dose 10 MG; Start 01/12/17 at 09:00 Pantoprazole (Protonix Tab) 40 mg DAILY PO Last administered on 01/12/17 10:02 ; Admin Dose 40 MG; Start 01/11/17 at 18:00 Zolpidem Tartrate (Ambien) 5 mg QHS PRN PO INSOMNIA; Start 01/11/17 at 17:00 Allopurinol 300 mg 300 mg HS PO ; Start 01/11/17 at 21:00 Norepinephrine/ Dextrose (Levophed/D5W) 500 ml @ 1.87 mls/hr TITRATE IV ; Start 01/12/17 at 21:00 Digoxin (Digoxin) 125 mcg DAILY@13 IV Last administered on 01/14/17 13:37; Admin Dose 125 MCG; Start 01/13/17 at 13:00 Furosemide (Lasix) 20 mg DAILY IV Last administered on 01/14/17 08:27; Admin Dose 20 MG; Start 01/13/17 at 12:00 Lorazepam (Ativan) 1 mg HS PRN IV INSOMNIA Last administered on 01/13/17 21:20 ; Admin Dose 1 MG; Start 01/13/17 at 21:30 Methylprednisolone Sodium Succinate 40 mg 40 mg DAILY IV ; Start 01/15/17 at 09: 00 Sodium Chloride (NS) 1,000 ml @ 50 mls/hr Q20H IV Last administered on t 11:41; Admin Dose 50 MLS/HR; Start 01/14/17 at 11:30 ANKIT MARY NP January 14, 2017 16:26
[2017-01-14] MEDS: ATORVASTATIN 20 MG TAB PO SCH (20:22)
[2017-01-14] MEDS: ALLOPURINOL 300 MG TAB PO SCH (20:22)
[2017-01-15] VITALS (11 sets, daily range): BP systolic 87–107; BP diastolic 48–75; PULSE 78–110; RESP 18–21
[2017-01-15] MEDS: ALBUTEROL/IPRATROPIUM (NEB) 3 ML AMP HHN SCH ×6 (01:16→20:10)
[2017-01-15] MEDS: SOD CHLORIDE 0.9% 1,000 ML IV SCH (01:49)
[2017-01-15] MEDS: LEVOFLOXACIN 750 MG TABLET PO SCH (05:26)
[2017-01-15 06:04] LABS: AADO2 Arterial 93.3 mmHg (7.0-24.0); Allen Test ACCEPTAB; Arterial Base Excess -2.5 mmol/L (-3.0-3); Arterial COHb 0.3 % (0.0-3.0); Arterial Fraction of Oxyhgb 95.1 % (93.0-99.0); Arterial HCO3 19.7 mmol/L (22.0-26.0); Arterial MetHb 0.3 % (0.0-1.5); Arterial Total Hemglobin 8.2 g/dl (12.0-18.0); MODE NASAL CANNULA
--- NOTE | 2017-01-15 07:53 | RADRPT ---
PROCEDURE: XR Chest. CLINICAL INDICATION: vent TECHNIQUE: Single frontal view of the chest was obtained. COMPARISON: Chest x-ray from 01/14/2017 FINDINGS: The heart and mediastinum are within normal limits. There are no definite focal infiltrates. A layering left pleural effusion and bibasilar atelectasis are again noted. Posterior spinal fusion hardware is again noted. IMPRESSION: No significant interval change. RPTAT: EE Physician Fernando Date Time Electronically viewed and signed by Faraz Farrell Physician on 01/15/2017 07:52 RA/
[2017-01-15] MEDS: PANTOPRAZOLE (EC) 40 MG TAB PO SCH (08:17)
[2017-01-15] MEDS: FERROUS SULFATE (EC) 325 MG TAB PO SCH ×3 (08:17→20:37)
[2017-01-15] MEDS: MEMANTINE 10 MG TAB PO SCH (08:17)
[2017-01-15] MEDS: ASPIRIN (EC) 81 MG TAB PO SCH (08:18)
[2017-01-15] MEDS: ESCITALOPRAM 10 MG TAB PO SCH (08:18)
[2017-01-15] MEDS: FUROSEMIDE 20 MG INJ IV SCH (08:18)
[2017-01-15] MEDS: METHYLPREDNISOLONE 40 MG INJ IV SCH (08:18)
[2017-01-15 09:43] LABS: ADD SCAN DIFF NO
[2017-01-15 09:54] LABS: ABNORMAL IP MESSAGE 1; BASOPHILS % 0.1 % (0.0-2.0); HEMATOCRIT 29.6 % (42.0-52.0); HEMOGLOBIN 8.9 g/dl (14.0-18.0); LYMPHOCYTES # 0.5 10^3/ul (0.8-2.9); LYMPHOCYTES % 2.8 % (15.0-51.0); MEAN CORPUSCULAR HGB CONC 30.1 g/dl (32.0-37.0); MEAN CORPUSCULAR VOLUME 93.1 fl (82.0-101.0); MEAN PLATELET VOLUME 9.2 fl (7.4-10.4); MONOCYTE # 0.7 10^3/ul (0.3-0.9); MONOCYTES % 3.8 % (0.0-11.0); NEUTROPHIL # 16.7 10^3/ul (1.6-7.5); NEUTROPHILS % 91.3 % (39.0-77.0); NUCLEATED RED BLOOD CELLS% 0.2 /100WBC (0.0-0.0); PLATELET COUNT 316 10^3/UL (140-415); RED BLOOD COUNT 3.18 10^6/ul (4.70-6.10); RED CELL DISTRIBUTION WIDTH 16.3 % (11.5-14.5); WHITE BLOOD COUNT 18.3 10^3/ul (4.8-10.8)
[2017-01-15] MEDS: clonAZEPAM 0.5 MG TAB PO PRN ×2 (10:03→23:14)
[2017-01-15 10:08] LABS: CREATININE 0.8 mg/dl (0.61-1.24)
[2017-01-15 10:09] LABS: CALCIUM 6.6 mg/dl (8.4-10.2)
[2017-01-15 10:18] LABS: POTASSIUM 2.9 mmol/L (3.5-5.1)
--- NOTE | 2017-01-15 10:23 | CONS ---
Date/Time of Note Date/Time of Note DATE: 01/15/17 TIME: 10:22 Assessment/Plan Assessment/Plan Additional Assessment/Plan Assessment recommendations; 1. Patient admitted with hypoxemia due to COPD exacerbation and acute bronchitis with significant clinical improvement. Continue current treatment. Consultation Date/Type/Reason Admit Date/Time January 11, 2017 at 16:25 Initial Consult Date Type of Consultation: Pulmonary 24 HR Interval Summary Free Text/Dictation Patient condition is stable. Still complains of shortness of breath off and on. Denies any coughing, wheezing, chest pain. General exam; elderly male, awake alert currently in no distress. On supplemental oxygen Via Ventimask. Exam/Review of Systems Vital Signs Vitals Vital Signs Date Time Temp Pulse Resp B/P Pulse Ox O2 Delivery O2 Flow Rate FiO2 01/15/17 08:43 72 23 96 Nasal Cannula 2.0 01/15/17 07:40 97.6 87/48 01/14/17 09:30 30 Intake and Output 01/14/17 01/14/17 01/15/17 15:00 23:00 07:00 Intake Total 100 ml 1750 ml 350 ml Output Total 1030 ml Balance 100 ml 720 ml 350 ml Exam HEENT examination; supple neck, no JVD. No lymphadenopathy. Midline trachea. No thyromegaly. Pharynx is clear. Chest examination; diminished but clear vessel. No added sound. S1-S2 audible , no murmurs. Regular rhythm. Abdomen examination; soft, nontender. No organomegaly. Bowel sounds audible. Extremity examination; no peripheral edema. REFERENCE INVESTIGATOR examination; no focal deficit. Results Result Diagram: 01/15/1728 01/15/17927 Results 24 hrs Laboratory Tests Test 01/15/17 05:00 01/15/17 09:28 Blood Gas Specimen Source Blood arterial Arterial Blood Date Drawn 01/15/2017 5:50:48 AM Arterial Blood pH (Temp corrected) 7.518 H Arterial Blood pCO2 (Temp correct) 24.8 L Arterial Blood pO2 (Temp corrected) 77.1 L Arterial Blood HCO3 19.7 L Arterial Blood Base Excess -2.5 Arterial Blood Oxygen Saturation 95.7 Nguyễn Test ACCEPTAB Arterial Blood Gas Puncture Site Right Radial Arterial Blood Carboxyhemoglobin 0.3 Arterial Blood Methemoglobin 0.3 Blood Gas A-a O2 Differential 93.3 H Oxyhemoglobin Percent 95.1 Total Hemoglobin 8.2 L Blood Gas Temperature 37.0 Blood Gas Modality NASAL CANNULA FiO2 28.0 Blood Gas Notified Whom RTR Blood Gas Notified Time 01/15/2017 6:03:55 AM White Blood Count 18.3 H Red Blood Count 3.18 L Hemoglobin 8.9 L Hematocrit 29.6 L Mean Corpuscular Volume 93.1 Mean Corpuscular Hemoglobin 28.0 L Mean Corpuscular Hemoglobin Concent 30.1 L Red Cell Distribution Width 16.3 H Platelet Count 316 Mean Platelet Volume 9.2 Neutrophils % 91.3 H Lymphocytes % 2.8 L Monocytes % 3.8 Eosinophils % 0.0 Basophils % 0.1 Nucleated Red Blood Cells % 0.2 H Neutrophils # 16.7 H Lymphocytes # 0.5 L Monocytes # 0.7 Eosinophils # 0.0 Basophils # 0.0 Nucleated Red Blood Cells # 0.0 Sodium Level 142 Potassium Level 2.9 *L Chloride Level 115 H Carbon Dioxide Level 23 Anion Gap 7 L Blood Urea Nitrogen 37 H Creatinine 0.80 Glucose Level 113 Calcium Level 6.6 L Medications Medications Current Medications Acetaminophen (Tylenol Tab) 650 mg Q6H PRN PO MILD PAIN LEVEL 1-3; Start at 17:00 Aspirin (Halfprin) 81 mg DAILY PO Last administered on 01/15/17 08:18; Admin Dose 81 MG; Start 01/12/17 at 09:00 Atorvastatin Calcium (Lipitor) 20 mg HS PO Last administered on 01/14/17 20:22 ; Admin Dose 20 MG; Start 01/11/17 at 21:00 Clonazepam (Klonopin) 0.5 mg Q6 PRN PO ANXIETY Last administered on 01/15/17 10:03; Admin Dose 0.5 MG; Start 01/11/17 at 17:00 Clonidine (Catapres) 0.1 mg Q6H PRN PO SBP ABOVE 170; Start 01/11/17 at 17:00 Escitalopram Oxalate (Lexapro) 10 mg DAILY PO Last administered on 01/15/17 08 :18; Admin Dose 10 MG; Start 01/12/17 at 09:00 Ferrous Sulfate (Ferrous Sulfate (Ec)) 325 mg TID PO Last administered on 08:17; Admin Dose 325 MG; Start 01/11/17 at 21:00 Levofloxacin (Levaquin) 750 mg DAILY@06 PO Last administered on 01/15/17 05:26 ; Admin Dose 750 MG; Start 01/12/17 at 06:00 Memantine (Namenda) 10 mg DAILY PO Last administered on 01/15/17 08:17; Admin Dose 10 MG; Start 01/12/17 at 09:00 Pantoprazole (Protonix Tab) 40 mg DAILY PO Last administered on 01/15/17 08:17 ; Admin Dose 40 MG; Start 01/11/17 at 18:00 Zolpidem Tartrate (Ambien) 5 mg QHS PRN PO INSOMNIA; Start 01/11/17 at 17:00 Allopurinol (Zyloprim) 300 mg HS PO Last administered on 01/14/17 20:22; Admin Dose 300 MG; Start 01/11/17 at 21:00 Digoxin (Digoxin) 125 mcg DAILY@13 IV Last administered on 01/14/17 13:37; Admin Dose 125 MCG; Start 01/13/17 at 13:00 Furosemide (Lasix) 20 mg DAILY IV Last administered on 01/15/17 08:18; Admin Dose 20 MG; Start 01/13/17 at 12:00 Lorazepam (Ativan) 1 mg HS PRN IV INSOMNIA Last administered on 01/13/17 21:20 ; Admin Dose 1 MG; Start 01/13/17 at 21:30 Methylprednisolone Sodium Succinate 40 mg 40 mg DAILY IV Last administered on 08:18; Admin Dose 40 MG; Start 01/15/17 at 09:00 Sodium Chloride (NS) 1,000 ml @ 50 mls/hr Q20H IV Last administered on 01:49; Admin Dose 50 MLS/HR; Start 01/14/17 at 11:30 Magnesium Hydroxide (Milk Of Mag) 30 ml Q8 PRN PO CONSTIPATION; Start 01/15/17 at 10:30 VANESSA IZAGUIRRE January 15, 2017 10:23
[2017-01-15] MEDS ORDERED: POTASSIUM CHLORIDE 250 ML IVPB ONE (10:30)
[2017-01-15] MEDS: DIGOXIN 500 MCG INJ IV SCH (12:49)
--- NOTE | 2017-01-15 13:28 | PN ---
DATE: 01/15/2017 SUBJECTIVE: No acute changes. The patient is awake, looks comfortable, afebrile. He is in no dist ress. WBC 18.3, platelets 360, neutrophils 91.3, BUN 37, creatinine 0.80. MICROBIOLOGY: Urine culture growing Klebsiella pneumoniae. Blood cultures remain negative. ALLERGIES: PENICILLIN. ANTIMICROBIALS: Levaquin. PHYSICAL EXAMINATION: GENERAL: Fragile, elderly man who is alert, in no distress. HEENT: Head atraumatic, normocephalic. Sclerae anicteric. Buccal mucosa dry. NECK: Supple, trachea midline. CHEST: Rise symmetrical. Breath sounds diminished throughout with expiratory wheezes and prolonged expiratory phase. HEART: S1, S2 tachycardic, regular. ABDOMEN: Soft. Bowel tones present. EXTREMITIES: No cyanosis. ASSESSMENT: 1. Acute respiratory failure secondary to chronic obstructive pulmonary disease exacerbation and po ssible volume overload. 2. Persistent leukocytosis, likely steroid induced. 3. History of atrial fibrillation. 4. Urinary tract infection. 5. Metastatic cancer to the bone. PLAN: The patient remains clinically stable. We will continue him on current antibiotics, continue steroid taper as per pulmonary recommendations and bronchodilators. Dictated By: KRISTIN SHAIKH BROOM STITCHER for YRIS TATE/MARTINA Conf#: [id number] DID#: [id number]
[2017-01-15] MEDS: MAGNESIUM HYDROXIDE 30ML CUP PO PRN (17:56)
[2017-01-15] MEDS: ATORVASTATIN 20 MG TAB PO SCH (20:37)
[2017-01-15] MEDS: ALLOPURINOL 300 MG TAB PO SCH (20:37)
[2017-01-16] VITALS (13 sets, daily range): BP systolic 91–111; BP diastolic 50–58; PULSE 88–180; RESP 17–21
[2017-01-16] MEDS: ALBUTEROL/IPRATROPIUM (NEB) 3 ML AMP HHN SCH ×6 (00:16→20:29)
--- NOTE | 2017-01-16 01:02 | PN ---
DATE: 01/15/2017 SUBJECTIVE: Patient is awake and alert, knows where he is and knows my name, but cannot recall the circumstances leading to his hospitalization. OBJECTIVE: VITAL SIGNS: Temperature 98.3, blood pressure 107/69, pulse of 103, respiration rate 18, O2 saturat ion 94% to 98% on simple mask at 10 liters. HEENT: Pupils equally round, reactive to light. Oropharynx clear. LUNGS: Clear to auscultation. CARDIAC: Irregularly irregular. ABDOMEN: Active bowel sounds, soft, nondistended, nontender. EXTREMITIES: No clubbing, cyanosis, or edema. LABORATORY DATA: WBC 18.3, hemoglobin 8.9, hematocrit 29.6, platelet count 316,000. Sodium 142, po tassium 2.9, chloride 115, carbon dioxide 23, BUN 37, creatinine 0.8, glucose 113. Calcium is low a t 6.6, but then albumin was 2.6 on admission. Chest x-ray shows no further focal infiltrates. Ther e is a layering left pleural effusion and bibasilar atelectasis and posterior spinal fusion hardware . ASSESSMENT AND PLAN: 1. Chronic obstructive pulmonary disease exacerbation with acute bronchitis. Continue treatment wi th antibiotics, inhalation treatments, and steroids. 2. Altered mental status. Continue with Ativan at night and Clonazepam as needed for anxiety. Exp ect increased confusion due to steroid psychosis for the next few days. 3. 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 No treatment at this time due to patient's multiple other medic al issues. We will resume physical therapy with neck brace. Dictated By: DESI MCLAIN MD DP/MARTINA Conf#: [id number] DID#: [id number]
[2017-01-16] MEDS: SOD CHLORIDE 0.9% 1,000 ML IV SCH (01:10)
[2017-01-16] MEDS: MAGNESIUM HYDROXIDE 30ML CUP PO PRN (05:19)
[2017-01-16] MEDS: LEVOFLOXACIN 750 MG TABLET PO SCH (05:19)
[2017-01-16 06:41] LABS: ADD SCAN DIFF NO
[2017-01-16 07:17] LABS: ALBUMIN 2.5 g/dl (3.3-4.9); ALBUMIN/GLOBULIN RATIO 1.25; BILIRUBIN,INDIRECT 0.2 mg/dl (0-1.1); BILIRUBIN,TOTAL 0.2 mg/dl (0.2-1.3); CALCIUM 6.4 mg/dl (8.4-10.2); CREATININE 0.82 mg/dl (0.61-1.24); POTASSIUM 3.3 mmol/L (3.5-5.1); TOTAL PROTEIN 4.5 g/dl (6.1-8.1)
[2017-01-16] MEDS: MEMANTINE 10 MG TAB PO SCH (08:29)
[2017-01-16] MEDS: ESCITALOPRAM 10 MG TAB PO SCH (08:29)
[2017-01-16] MEDS: METHYLPREDNISOLONE 40 MG INJ IV SCH (08:29)
[2017-01-16] MEDS: FERROUS SULFATE (EC) 325 MG TAB PO SCH ×3 (08:29→22:26)
[2017-01-16] MEDS: PANTOPRAZOLE (EC) 40 MG TAB PO SCH (08:29)
[2017-01-16] MEDS: FUROSEMIDE 20 MG INJ IV SCH (08:29)
[2017-01-16] MEDS: ASPIRIN (EC) 81 MG TAB PO SCH (08:29)
[2017-01-16 10:35] LABS: ABNORMAL IP MESSAGE 1; BASOPHILS % 0.1 % (0.0-2.0); HEMATOCRIT 27.2 % (42.0-52.0); HEMOGLOBIN 7.9 g/dl (14.0-18.0); LYMPHOCYTES # 0.5 10^3/ul (0.8-2.9); LYMPHOCYTES % 3.4 % (15.0-51.0); MEAN CORPUSCULAR HEMOGLOBIN 27.5 pg (29.0-33.0); MEAN CORPUSCULAR VOLUME 94.8 fl (82.0-101.0); MEAN PLATELET VOLUME 9.6 fl (7.4-10.4); MONOCYTE # 0.7 10^3/ul (0.3-0.9); NEUTROPHIL # 12.7 10^3/ul (1.6-7.5); NUCLEATED RED BLOOD CELLS% 0.3 /100WBC (0.0-0.0); PLATELET COUNT 275 10^3/UL (140-415); RED BLOOD COUNT 2.87 10^6/ul (4.70-6.10); RED CELL DISTRIBUTION WIDTH 16.3 % (11.5-14.5); WHITE BLOOD COUNT 14.3 10^3/ul (4.8-10.8)
[2017-01-16] MEDS: DIGOXIN 500 MCG INJ IV SCH (12:09)
--- NOTE | 2017-01-16 12:45 | CONS ---
Date/Time of Note Date/Time of Note DATE: 01/16/17 TIME: 12:43 Assessment/Plan Assessment/Plan Additional Assessment/Plan Assessment recommendations; next 1. Patient admitted for severe exacerbation with hypoxemia with slow but gradual clinical improvement. 2. History of anemia. 3. History of cardiac arrhythmia. Discontinue Solu-Medrol. Start the patient on prednisone 30 mg a day. Continue other medications. Consultation Date/Type/Reason Admit Date/Time January 11, 2017 at 16:25 Type of Consultation: Pulmonary 24 HR Interval Summary Free Text/Dictation Patient's condition is continually improving. Reports decreased shortness of breath. Denies any cough, chest pain, wheezing or sputum production. General exam; elderly male, awake alert currently in no distress. Exam/Review of Systems Vital Signs Vitals Vital Signs Date Time Temp Pulse Resp B/P Pulse Ox O2 Delivery O2 Flow Rate FiO2 01/16/17 12:08 115 01/16/17 11:26 98.6 21 103/58 99 01/16/17 09:58 Simple Mask 10.0 01/14/17 09:30 30 Intake and Output 01/15/17 01/15/17 01/16/17 15:00 23:00 07:00 Intake Total 100 ml 750 ml 570 ml Output Total 400 ml 900 ml 350 ml Balance -300 ml -150 ml 220 ml Exam HEENT exam is; supple neck, no JVD. No lymphadenopathy. Midline trachea. No thyromegaly. Pupils are small bilaterally. Patient has a multiple carious teeth. Chest examined; diminished but clear vessel. No additional. S1-S2 audible, no murmurs. Abdomen examination; soft, no organomegaly. Nontender. Bowel sounds audible. Extremity exam; no peripheral edema. ERECTING ENGINEER exam is; no focal deficit. Results Result Diagram: 01/16/17 0550 01/16/17 0555 Results 24 hrs Laboratory Tests Test 01/16/17 05:50 01/16/17 05:55 White Blood Count 14.3 #H Red Blood Count 2.87 L Hemoglobin 7.9 L Hematocrit 27.2 L Mean Corpuscular Volume 94.8 Mean Corpuscular Hemoglobin 27.5 L Mean Corpuscular Hemoglobin Concent 29.0 L Red Cell Distribution Width 16.3 H Platelet Count 275 Mean Platelet Volume 9.6 Neutrophils % 89.0 H Lymphocytes % 3.4 L Monocytes % 5.0 Eosinophils % 0.0 Basophils % 0.1 Nucleated Red Blood Cells % 0.3 H Neutrophils # 12.7 H Lymphocytes # 0.5 L Monocytes # 0.7 Eosinophils # 0.0 Basophils # 0.0 Nucleated Red Blood Cells # 0.0 Sodium Level 141 Potassium Level 3.3 L Chloride Level 114 H Carbon Dioxide Level 24 Anion Gap 6 L Blood Urea Nitrogen 31 H Creatinine 0.82 Glucose Level 121 Calcium Level 6.4 L Total Bilirubin 0.2 Direct Bilirubin 0.00 Indirect Bilirubin 0.2 Aspartate Amino Transf (AST/SGOT) 28 Alanine Aminotransferase (ALT/SGPT) 50 Alkaline Phosphatase 158 H Total Protein 4.5 L Albumin 2.5 L Globulin 2.00 Albumin/Globulin Ratio 1.25 Medications Medications Current Medications Acetaminophen (Tylenol Tab) 650 mg Q6H PRN PO MILD PAIN LEVEL 1-3; Start at 17:00 Aspirin (Halfprin) 81 mg DAILY PO Last administered on 01/16/17 08:29; Admin Dose 81 MG; Start 01/12/17 at 09:00 Atorvastatin Calcium (Lipitor) 20 mg HS PO Last administered on 01/15/17 20:37 ; Admin Dose 20 MG; Start 01/11/17 at 21:00 Clonazepam (Klonopin) 0.5 mg Q6 PRN PO ANXIETY Last administered on 01/15/17 23:14; Admin Dose 0.5 MG; Start 01/11/17 at 17:00 Clonidine (Catapres) 0.1 mg Q6H PRN PO SBP ABOVE 170; Start 01/11/17 at 17:00 Escitalopram Oxalate (Lexapro) 10 mg DAILY PO Last administered on 01/16/17 08 :29; Admin Dose 10 MG; Start 01/12/17 at 09:00 Ferrous Sulfate (Ferrous Sulfate (Ec)) 325 mg TID PO Last administered on 12:09; Admin Dose 325 MG; Start 01/11/17 at 21:00 Levofloxacin (Levaquin) 750 mg DAILY@06 PO Last administered on 01/16/17 05:19 ; Admin Dose 750 MG; Start 01/12/17 at 06:00 Memantine (Namenda) 10 mg DAILY PO Last administered on 01/16/17 08:29; Admin Dose 10 MG; Start 01/12/17 at 09:00 Pantoprazole (Protonix Tab) 40 mg DAILY PO Last administered on 01/16/17 08:29 ; Admin Dose 40 MG; Start 01/11/17 at 18:00 Zolpidem Tartrate (Ambien) 5 mg QHS PRN PO INSOMNIA; Start 01/11/17 at 17:00 Allopurinol (Zyloprim) 300 mg HS PO Last administered on 01/15/17 20:37; Admin Dose 300 MG; Start 01/11/17 at 21:00 Digoxin (Digoxin) 125 mcg DAILY@13 IV Last administered on 01/16/17 12:09; Admin Dose 125 MCG; Start 01/13/17 at 13:00 Furosemide (Lasix) 20 mg DAILY IV Last administered on 01/16/17 08:29; Admin Dose 20 MG; Start 01/13/17 at 12:00 Lorazepam (Ativan) 1 mg HS PRN IV INSOMNIA Last administered on 01/13/17 21:20 ; Admin Dose 1 MG; Start 01/13/17 at 21:30 Methylprednisolone Sodium Succinate 40 mg 40 mg DAILY IV Last administered on 08:29; Admin Dose 40 MG; Start 01/15/17 at 09:00 Sodium Chloride (NS) 1,000 ml @ 50 mls/hr Q20H IV Last administered on 01:10; Admin Dose 50 MLS/HR; Start 01/14/17 at 11:30 Magnesium Hydroxide (Milk Of Mag) 30 ml Q8 PRN PO CONSTIPATION Last administered on 01/16/17 05:19; Admin Dose 30 ML; Start 01/15/17 at 10:30 VANESSA IZAGUIRRE January 16, 2017 12:45
--- NOTE | 2017-01-16 14:12 | PQ ---
Date/Time of Note Date/Time of Note DATE: 01/16/17 TIME: 14:07 Physician Query Documentation Clarification Dear Dr. Dennison, A review of the medical record found a need for documentation clarification. ER- Sepsis due to pneumonia / UTI ID Cons - Sepsis w/hypotension, leukocytosis Probable partial steroid demargination driving elevated WBC WBC = 11.4--> 12.1--> 18.2 BP = 87/44 ( 01/11) Meds: Cefepime HCL / Vancomycin HCL ---(01/11) Levofloxacin IV 01/12 - 01/16 Please clarify if Sepsis was. To facilitate accurate and complete coding, please yamil ( x ) the suspected diagnosis that apply: ( ) Ruled in ( ) Ruled out ( ) Is a working diagnosis ( x ) Present on admission , resolved ( ) Others Please provide your response by clicking edit document, making your choice ( x ), click ok/save and finally click sign. You may also document your response on your progress notes. Thank you for your time. Dane Mario, RN, BSN, CCS, CCDS Clinical Ultrasound Coordinator Health Information Management, CDI and Coding Services [phone] Room # 1525 - [address]~ [address] DANE MARIO January 16, 2017 14:12 DESI DENNISON MD January 16, 2017 18:56
--- NOTE | 2017-01-16 14:20 | CONS ---
DATE OF ADMISSION: 01/11/2017 DATE OF CONSULTATION: 01/16/2017 REQUESTING PHYSICIAN: Dr. 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 Dear Dr. Mclain: Thank you very much for asking me to see this very interesting and pleasant gentleman in oncologic c onsultation. As you are aware, I am very familiar with Mr. Fiore, who is an 86-year-old male who w as hospitalized here recently from 12/07 until 01/10/2017. On 01/10 [facility], but was readmitted on 01/11 with complaints of chest pain and increasing shortness of breath. A chest x-ray at the time of admission suggested the possibility of left lower lobe pneumonia. On admission, the patient's white count was 11,400, hemoglobin 7.9, hematocrit 24.9 and platelet cou nt 232,000. Today, white count is 14,300 with an absolute neutrophil count of 12,700, hemoglobin 7. 9, hematocrit 27.2, and platelet count is 275,000. Chemistries today include a sodium 141, potassiu m 3.3, creatinine 0.82, BUN 31, total bilirubin 0.2, AST 28, ALT 50, alkaline phosphatase 158, total protein is 4.5 and albumin is 2.5. This patient as noted is familiar to me. As noted, he was hospitalized here on 12/07. The patient at that time was noted to have left upper lobe mass, as well as evidence of skeletal metastases. Th e patient did in fact have evidence of vertebral metastasis including lytic lesions in multiple area s along the thoracic and lumbar spine and pelvis, consistent with metastatic disease. The patient d id have a lytic lesion at C2 and had been experiencing some neck discomfort. It was felt however th at this was not a critical lesion. There was however evidence at the T4 area of complete replacemen t with soft tissue extension into the epidural space with cord compression. The patient did undergo a decompressive surgery and fixation. The patient had never improved suffic iently to undergo any chemotherapy and was discharged as noted above to [facility] facility. PAST MEDICAL HISTORY: Does include hypertension, coronary artery disease. 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 ALLERGIES: MORPHINE AND PENICILLIN. MEDICATIONS: At this time include: Levaquin 750 mg daily, Lexapro 10 mg daily, pantoprazole 40 mg d aily, Namenda 10 mg daily, atorvastatin 20 mg daily, diltiazem CD 240 mg twice a day, clonazepam 0.5 mg q. 6 hours p.r.n., hydrocodone with acetaminophen. SOCIAL HISTORY: He is . Previously worked at [employer] in [place]. He has not knowingly been exposed to industrial toxins or ionizing radiation. He has not smok ed now in 20 years, but does admit to having greater than 48-aylo-rcch smoking history, does drink b eer or wine occasionally. PHYSICAL EXAMINATION GENERAL: At this time reveals a well-developed but chronically ill male who is in no acute distress . VITAL SIGNS: Temperature 98.6, pulse 110, respirations 20, blood pressure 103/58, oxygen saturation is said to be 99% with a mask at 10 liters per minute. SKIN: No ecchymosis, no petechiae or rashes. HEENT: Normocephalic. No evidence of trauma. The pupils are equal, round, react to light and acco mmodation. Sclerae nonicteric. Oral mucosa is moist without lesions. Tongue is well papillated. There is no gingival hyperplasia, no hypertrophy of Waldeyer's ring, no mucosal telangiectasias. NECK: Supple, no jugular venous distention or thyroid enlargement. CHEST: Decreased breath sounds bilaterally, but particularly decreased breath sounds in the left ba se. No rhonchi, wheezes, rales or rubs. MUSCULOSKELETAL: There is evidence of recent spinal surgery overlying the superior aspect of the th oracic spine. No evidence of infection. NODES: No palpable lymphadenopathy in lymph node-bearing area. ABDOMEN: Soft, no masses, no ascites. EXTREMITIES: Good range of motion, no clubbing, edema or cyanosis. No palpable cords or Homans' si gn. NEUROLOGIC: Does not reveal any focal neurologic abnormalities. The patient does respond to questi ons, but is mildly confused. DISCUSSION: This patient has known metastatic adenocarcinoma. There has been some difficulty in de termining the primary site. The patient has demonstrated left upper lobe lesion which has been biop sied and this did result in a pneumothorax, but not an adequate tissue for diagnosis. The decompres sive spinal surgery did reveal a poorly differentiated metastatic malignancy which after extensive t esting was felt to be an adenocarcinoma with a 68% probability of being a pulmonary primary. Other testing was done to determine if this tumor had a "chain saw driver" mutation. No such mutations were p resent. The patient was also found to not express PD-L1 activity for either OPDIVO or Keytruda. At this time, I still do not feel that this patient is a candidate for further therapy. He will req uire radiation therapy to the areas of known critical involvement of the vertebral column. Systemic therapy will be necessary as well, although it is not clear that this patient's functional level wi ll be sufficient to tolerate or make such therapy appropriate. Dictated By: JENNIFFER PEREZ MD SR/NTS Conf#: [id number] DID#: [id number] CC: RUTH MCLAIN MD;*EndCC*
[2017-01-16] MEDS: clonAZEPAM 0.5 MG TAB PO PRN (15:14)
--- NOTE | 2017-01-16 19:17 | CONS ---
Date/Time of Note Date/Time of Note DATE: 01/16/17 TIME: 19:15 Assessment/Plan Assessment/Plan Chief Complaint/Hosp Course SUBJECTIVE: No acute changes. The patient is looks comfortable, afebrile. He is in no distress. MICROBIOLOGY: Urine culture growing Klebsiella pneumoniae. Blood cultures remain negative. ALLERGIES: PENICILLIN. ANTIMICROBIALS: Levaquin. PHYSICAL EXAMINATION: GENERAL: Fragile, elderly man who is in no distress. HEENT: Head atraumatic, normocephalic. Sclerae anicteric. Buccal mucosa dry. NECK: Supple, trachea midline. CHEST: Rise symmetrical. Breath sounds diminished throughout with expiratory wheezes and prolonged expiratory phase. HEART: S1, S2 tachycardic, regular. ABDOMEN: Soft. Bowel tones present. EXTREMITIES: No cyanosis. ASSESSMENT: 1. Acute respiratory failure secondary to chronic obstructive pulmonary disease exacerbation and possible volume overload. 2. Persistent leukocytosis, likely steroid induced. 3. History of atrial fibrillation. 4. Urinary tract infection. 5. Metastatic cancer to the bone. PLAN: The patient remains stable. WBC tracing down. Continue antibiotics, steroids taper as per pulmonary recommendations. DW staff Problems: Consultation Date/Type/Reason Admit Date/Time January 11, 2017 at 16:25 Initial Consult Date Type of Consultation: ID Exam/Review of Systems Vital Signs Vitals Vital Signs Date Time Temp Pulse Resp B/P Pulse Ox O2 Delivery O2 Flow Rate FiO2 01/16/17 17:19 180 01/16/17 16:37 20 97 Simple Mask 10.0 01/16/17 15:52 96.6 92/50 01/14/17 09:30 30 Intake and Output 01/15/17 01/15/17 01/16/17 15:00 23:00 07:00 Intake Total 100 ml 750 ml 570 ml Output Total 400 ml 900 ml 350 ml Balance -300 ml -150 ml 220 ml Results Result Diagram: 01/16/17 0550 01/16/17 0555 Results 24 hrs Laboratory Tests Test 01/16/17 05:50 01/16/17 05:55 White Blood Count 14.3 #H Red Blood Count 2.87 L Hemoglobin 7.9 L Hematocrit 27.2 L Mean Corpuscular Volume 94.8 Mean Corpuscular Hemoglobin 27.5 L Mean Corpuscular Hemoglobin Concent 29.0 L Red Cell Distribution Width 16.3 H Platelet Count 275 Mean Platelet Volume 9.6 Neutrophils % 89.0 H Lymphocytes % 3.4 L Monocytes % 5.0 Eosinophils % 0.0 Basophils % 0.1 Nucleated Red Blood Cells % 0.3 H Neutrophils # 12.7 H Lymphocytes # 0.5 L Monocytes # 0.7 Eosinophils # 0.0 Basophils # 0.0 Nucleated Red Blood Cells # 0.0 Sodium Level 141 Potassium Level 3.3 L Chloride Level 114 H Carbon Dioxide Level 24 Anion Gap 6 L Blood Urea Nitrogen 31 H Creatinine 0.82 Glucose Level 121 Calcium Level 6.4 L Total Bilirubin 0.2 Direct Bilirubin 0.00 Indirect Bilirubin 0.2 Aspartate Amino Transf (AST/SGOT) 28 Alanine Aminotransferase (ALT/SGPT) 50 Alkaline Phosphatase 158 H Total Protein 4.5 L Albumin 2.5 L Globulin 2.00 Albumin/Globulin Ratio 1.25 Medications Medications Current Medications Acetaminophen (Tylenol Tab) 650 mg Q6H PRN PO MILD PAIN LEVEL 1-3; Start at 17:00 Aspirin (Halfprin) 81 mg DAILY PO Last administered on 01/16/17 08:29; Admin Dose 81 MG; Start 01/12/17 at 09:00 Atorvastatin Calcium (Lipitor) 20 mg HS PO Last administered on 01/15/17 20:37 ; Admin Dose 20 MG; Start 01/11/17 at 21:00 Clonazepam (Klonopin) 0.5 mg Q6 PRN PO ANXIETY Last administered on 01/16/17 15:14; Admin Dose 0.5 MG; Start 01/11/17 at 17:00 Clonidine (Catapres) 0.1 mg Q6H PRN PO SBP ABOVE 170; Start 01/11/17 at 17:00 Escitalopram Oxalate (Lexapro) 10 mg DAILY PO Last administered on 01/16/17 08 :29; Admin Dose 10 MG; Start 01/12/17 at 09:00 Ferrous Sulfate (Ferrous Sulfate (Ec)) 325 mg TID PO Last administered on 12:09; Admin Dose 325 MG; Start 01/11/17 at 21:00 Levofloxacin (Levaquin) 750 mg DAILY@06 PO Last administered on 01/16/17 05:19 ; Admin Dose 750 MG; Start 01/12/17 at 06:00 Memantine (Namenda) 10 mg DAILY PO Last administered on 01/16/17 08:29; Admin Dose 10 MG; Start 01/12/17 at 09:00 Pantoprazole (Protonix Tab) 40 mg DAILY PO Last administered on 01/16/17 08:29 ; Admin Dose 40 MG; Start 01/11/17 at 18:00 Zolpidem Tartrate (Ambien) 5 mg QHS PRN PO INSOMNIA; Start 01/11/17 at 17:00 Allopurinol (Zyloprim) 300 mg HS PO Last administered on 01/15/17 20:37; Admin Dose 300 MG; Start 01/11/17 at 21:00 Lorazepam (Ativan) 1 mg HS PRN IV INSOMNIA Last administered on 01/13/17 21:20 ; Admin Dose 1 MG; Start 01/13/17 at 21:30 Magnesium Hydroxide (Milk Of Mag) 30 ml Q8 PRN PO CONSTIPATION Last administered on 01/16/17 05:19; Admin Dose 30 ML; Start 01/15/17 at 10:30 Prednisone (Prednisone) 30 mg DAILY PO ; Start 01/17/17 at 09:00 Digoxin (Digoxin) 250 mcg DAILY@13 IV ; Start 01/17/17 at 13:00 Furosemide 40 mg 40 mg DAILY IV ; Start 01/17/17 at 09:00 Potassium Chloride/Sodium Chloride (KCl/NS) 110 ml @ 55 mls/hr ONCE ONCE IVPB ; Start 01/16/17 at 19:30; Stop 01/16/17 at 21:29 Potassium Chloride (Klor-Con 20) 20 meq DAILY PO ; Start 01/17/17 at 09:00 KRISTIN SHAIKH NP January 16, 2017 19:17
[2017-01-16] MEDS ORDERED: POTASSIUM CHLORIDE 20 MEQ in SOD CHLORIDE 0.9% 100 ML IVPB ONE (19:30)
--- NOTE | 2017-01-16 20:15 | PN ---
DATE: 01/16/2017 SUBJECTIVE: The patient is awake and alert. Complains of thirst and wants to get out of bed for ex ercise, but we have not been able to locate patient's neck brace to allow him to get out of bed. OBJECTIVE VITAL SIGNS: Temperature 96.6, blood pressure 92/50, pulse of 109 up to 130, respiratory rate 19 to 20, O2 saturation 97% on simple mask of 4 to 10 L. HEENT: Anicteric sclerae. Oropharynx clear. LUNGS: Clear to auscultation. CARDIAC: Irregularly irregular. ABDOMEN: Active bowel sounds, soft, nondistended, nontender. EXTREMITIES: No clubbing, cyanosis, or edema. LABORATORY DATA: WBC 14.3; hemoglobin 7.9; hematocrit 27.2; platelet count 275,000. Sodium 141, po tassium 3.3, chloride 114, carbon dioxide 24, BUN 31, creatinine 0.82, glucose 121. CHEST X-RAY: Done yesterday shows heart and mediastinum within normal limits. No definite focal in filtrates, ____ left pleural effusion and bilateral atelectasis. ASSESSMENT AND PLAN: 1. Shortness of breath. Patient's respiratory distress is out of proportion to his clear chest x-r ay. He does not have a history of chronic obstructive pulmonary disease. I will obtain CT angiogra m to rule out pulmonary emboli, given the increase possibility for clots in a patient with metastati c cancer. Continue respiratory treatment, antibiotic and prednisone taper. Patient's respiratory d istress may also be related to his cardiac pathology. We will obtain a 2D echo and consult cardiolo gy. 2. Metastatic cancer. The patient is not stable for chemotherapy or radiation at this time. The p rimary site of the metastatic disease is also not clear still. 3. Atrial fibrillation. We will check 2D echo for heart failure and consult cardiology. 4. Hypokalemia, replace with IV potassium. Dictated By: DESI MCLAIN MD DP/NTS Conf#: [id number] DID#: [id number]
[2017-01-16] MEDS: ATORVASTATIN 20 MG TAB PO SCH (22:25)
[2017-01-16] MEDS: ALLOPURINOL 300 MG TAB PO SCH (22:26)
[2017-01-17] VITALS (15 sets, daily range): BP systolic 88–118; BP diastolic 52–70; PULSE 81–145; RESP 18–20
[2017-01-17] MEDS: ALBUTEROL/IPRATROPIUM (NEB) 3 ML AMP HHN SCH ×6 (00:33→20:12)
[2017-01-17] MEDS: LEVOFLOXACIN 750 MG TABLET PO SCH (05:50)
[2017-01-17 06:15] LABS: ADD SCAN DIFF NO
[2017-01-17 06:31] LABS: ABNORMAL IP MESSAGE 1; EOSINOPHILS % 0.2 % (0.0-7.0); HEMATOCRIT 26.7 % (42.0-52.0); LYMPHOCYTES # 0.4 10^3/ul (0.8-2.9); LYMPHOCYTES % 3.2 % (15.0-51.0); MEAN CORPUSCULAR HEMOGLOBIN 28.3 pg (29.0-33.0); MEAN CORPUSCULAR VOLUME 94.3 fl (82.0-101.0); MEAN PLATELET VOLUME 9.6 fl (7.4-10.4); MONOCYTE # 0.6 10^3/ul (0.3-0.9); NEUTROPHIL # 10.7 10^3/ul (1.6-7.5); NEUTROPHILS % 87.2 % (39.0-77.0); NUCLEATED RED BLOOD CELLS% 0.2 /100WBC (0.0-0.0); PLATELET COUNT 250 10^3/UL (140-415); RED BLOOD COUNT 2.83 10^6/ul (4.70-6.10); RED CELL DISTRIBUTION WIDTH 15.9 % (11.5-14.5); WHITE BLOOD COUNT 12.3 10^3/ul (4.8-10.8)
[2017-01-17 07:02] LABS: CALCIUM 6.3 mg/dl (8.4-10.2); CREATININE 0.74 mg/dl (0.61-1.24); POTASSIUM 3.7 mmol/L (3.5-5.1)
[2017-01-17] MEDS: PANTOPRAZOLE (EC) 40 MG TAB PO SCH (08:21)
[2017-01-17] MEDS: MEMANTINE 10 MG TAB PO SCH (08:21)
[2017-01-17] MEDS: ASPIRIN (EC) 81 MG TAB PO SCH (08:21)
[2017-01-17] MEDS: ESCITALOPRAM 10 MG TAB PO SCH (08:21)
[2017-01-17] MEDS: FUROSEMIDE 20 MG INJ IV SCH ×2 (08:21→17:27)
[2017-01-17] MEDS: predniSONE 10 MG TAB PO SCH (08:21)
[2017-01-17] MEDS: FERROUS SULFATE (EC) 325 MG TAB PO SCH ×3 (08:21→21:09)
[2017-01-17] MEDS ORDERED: POTASSIUM CHLORIDE (SR) 20 MEQ TAB PO SCH (09:00)
--- NOTE | 2017-01-17 12:12 | CONS ---
Date/Time of Note Date/Time of Note DATE: 01/17/17 TIME: 12:10 Assessment/Plan Assessment/Plan Additional Assessment/Plan Assessment recommendations; next 1. Patient admitted for COPD exacerbation with severe hypoxemia no currently being down to 2 L nasal cannula. 2. History of CVA with paraplegia. Continue current treatment. Consider discharge. Consultation Date/Type/Reason Admit Date/Time January 11, 2017 at 16:25 Type of Consultation: Pulmonary 24 HR Interval Summary Free Text/Dictation Patient condition is stable. Remains completely awake alert. Able to eat. Complains of occasional chest congestion. General exam; elderly male, awake alert currently in no distress. Exam/Review of Systems Vital Signs Vitals Vital Signs Date Time Temp Pulse Resp B/P Pulse Ox O2 Delivery O2 Flow Rate FiO2 01/17/17 12:00 109 01/17/17 11:44 98.4 19 88/53 97 01/17/17 09:53 Nasal Cannula 4.0 01/14/17 09:30 30 Intake and Output 01/16/17 01/16/17 01/17/17 15:00 23:00 07:00 Intake Total 1350 ml 300 ml Output Total 2100 ml 900 ml Balance -750 ml -600 ml Exam HEENT examined; supple neck, no JVD. No lymphadenopathy. Midline trachea. No thyromegaly. Patient has fair dentition. Pupils are equal and reactive to light. Neck Chest examination; diminished but clear vessel. S1-S2 audible, no murmurs. Regular rhythm. Abdomen examination; soft, no organomegaly. Bowel sounds audible. Nontender. Extremity exam is; no peripheral edema. TABLEAU ANALYST examination; patient is stable paraplegia. Results Result Diagram: 01/17/17 0547 01/17/17 0547 Results 24 hrs Laboratory Tests Test 01/17/17 05:47 White Blood Count 12.3 H Red Blood Count 2.83 L Hemoglobin 8.0 L Hematocrit 26.7 L Mean Corpuscular Volume 94.3 Mean Corpuscular Hemoglobin 28.3 L Mean Corpuscular Hemoglobin Concent 30.0 L Red Cell Distribution Width 15.9 H Platelet Count 250 Mean Platelet Volume 9.6 Neutrophils % 87.2 H Lymphocytes % 3.2 L Monocytes % 5.0 Eosinophils % 0.2 Basophils % 0.0 Nucleated Red Blood Cells % 0.2 H Neutrophils # 10.7 H Lymphocytes # 0.4 L Monocytes # 0.6 Eosinophils # 0.0 Basophils # 0.0 Nucleated Red Blood Cells # 0.0 Sodium Level 144 Potassium Level 3.7 Chloride Level 119 H Carbon Dioxide Level 27 Anion Gap 2 L Blood Urea Nitrogen 25 H Creatinine 0.74 Glucose Level 100 Calcium Level 6.3 L B-Type Natriuretic Peptide 4480 H Medications Medications Current Medications Acetaminophen (Tylenol Tab) 650 mg Q6H PRN PO MILD PAIN LEVEL 1-3; Start at 17:00 Aspirin (Halfprin) 81 mg DAILY PO Last administered on 01/17/17 08:21; Admin Dose 81 MG; Start 01/12/17 at 09:00 Atorvastatin Calcium (Lipitor) 20 mg HS PO Last administered on 01/16/17 22:25 ; Admin Dose 20 MG; Start 01/11/17 at 21:00 Clonazepam (Klonopin) 0.5 mg Q6 PRN PO ANXIETY Last administered on 01/16/17 15:14; Admin Dose 0.5 MG; Start 01/11/17 at 17:00 Clonidine (Catapres) 0.1 mg Q6H PRN PO SBP ABOVE 170; Start 01/11/17 at 17:00 Escitalopram Oxalate (Lexapro) 10 mg DAILY PO Last administered on 01/17/17 08: 21; Admin Dose 10 MG; Start 01/12/17 at 09:00 Ferrous Sulfate (Ferrous Sulfate (Ec)) 325 mg TID PO Last administered on 08:21; Admin Dose 325 MG; Start 01/11/17 at 21:00 Levofloxacin (Levaquin) 750 mg DAILY@06 PO Last administered on 01/17/17 05:50 ; Admin Dose 750 MG; Start 01/12/17 at 06:00 Memantine (Namenda) 10 mg DAILY PO Last administered on 01/17/17 08:21; Admin Dose 10 MG; Start 01/12/17 at 09:00 Pantoprazole (Protonix Tab) 40 mg DAILY PO Last administered on 01/17/17 08:21 ; Admin Dose 40 MG; Start 01/11/17 at 18:00 Zolpidem Tartrate (Ambien) 5 mg QHS PRN PO INSOMNIA; Start 01/11/17 at 17:00 Allopurinol (Zyloprim) 300 mg HS PO Last administered on 01/16/17 22:26; Admin Dose 300 MG; Start 01/11/17 at 21:00 Lorazepam (Ativan) 1 mg HS PRN IV INSOMNIA Last administered on 01/13/17 21:20 ; Admin Dose 1 MG; Start 01/13/17 at 21:30 Magnesium Hydroxide (Milk Of Mag) 30 ml Q8 PRN PO CONSTIPATION Last administered on 01/16/17 05:19; Admin Dose 30 ML; Start 01/15/17 at 10:30 Prednisone (Prednisone) 30 mg DAILY PO Last administered on 01/17/17 08:21; Admin Dose 30 MG; Start 01/17/17 at 09:00 Digoxin (Digoxin) 250 mcg DAILY@13 IV ; Start 01/17/17 at 13:00 Furosemide (Lasix) 40 mg DAILY IV ; Start 01/17/17 at 09:00 Potassium Chloride (Klor-Con 20) 20 meq DAILY PO Last administered on 01/17/17 08:21; Admin Dose 20 MEQ; Start 01/17/17 at 09:00 VANESSA IZAGUIRRE Jan 17, 2017 12:12
[2017-01-17] MEDS ORDERED: DIGOXIN 500 MCG INJ IV SCH (13:00)
[2017-01-17] MEDS ORDERED: IOHEXOL 100 ML ONE (13:36)
[2017-01-17] MEDS ORDERED: SOD CHLORIDE 0.9% 100 ML ONE (13:36)
--- NOTE | 2017-01-17 13:42 | PN ---
DATE: 01/17/2017 SUBJECTIVE: No acute changes. Patient is alert, denies pain, looks comfortable, no fevers. WBC .3, platelets 250, neutrophils 87.2, BUN 25, creatinine 0.74. ANTIMICROBIALS: Remains on Levaquin. ALLERGIES: PENICILLIN. PHYSICAL EXAMINATION: GENERAL: Chronically ill-appearing, elderly man who is awake, in no distress. HEENT: Head atraumatic, normocephalic. Sclerae anicteric. Buccal mucosa dry. NECK: Supple, trachea midline. CHEST: Rise symmetrical. Breath sounds with bilateral expiratory wheezes and scattered crackles. HEART: S1, S2. ABDOMEN: Soft, bowel tones present. EXTREMITIES: Without cyanosis. ASSESSMENT: 1. Acute respiratory failure secondary to chronic obstructive pulmonary disease exacerbation. 2. Systemic inflammatory response syndrome with leukocytosis, resolving. 3. Metastatic adenocarcinoma with a probability a pulmonary primary as per oncology. 4. Urinary tract infection. PLAN: Remains stable. Continue present care, antibiotics, bronchodilator, steroid taper. Follow r ecommendations of consultants. Dictated By: KRISTIN SHAIKH [facility] ROOM for YRIS TATE/MARTINA Conf#: [id number] DID#: [id number]
--- NOTE | 2017-01-17 14:25 | RADRPT ---
PROCEDURE: CTA Chest CLINICAL INDICATION: Pneumonia, sepsis, hypoxia TECHNIQUE: CTA of the chest was performed following the uncomplicated IV administration of 100 cc Omnipaque-300. Coronal and sagittal images were reconstructed from the axial data set. 3-D volumet demarco rendered post processing was performed as well. One or more of the following dose reduction lucrecia hniques were used: automated exposure control, adjustment of the mA and/or kV according to patient s ize, use of iterative reconstruction technique. CTDI = 12.89 mGy. DLP = 505.42 mGy-cm. COMPARISON: CT, 12/07/2016, MRI, 12/14/2016 FINDINGS: Filling defect is identified within an anterior right upper lobe pulmonary artery branch (axial imag es 92-93), compatible with pulmonary embolism. No central saddle embolism is seen. The heart size is normal. Small amount of pericardial fluid is noted. Coronary arterial and aortic atheroscleroti c calcifications are present. There is no thoracic aortic aneurysm or dissection. No mediastinal, hilar, axillary or supraclavicular lymphadenopathy is identified. There are large left and mild right pleural effusions, with associated bibasilar atelectasis. Spicu lated nodular opacity is again noted in the left upper lobe measuring 2.0 cm (4-32), previously 1.9 cm. No acute infiltrate, pleural effusion or pneumothorax is identified. Bilateral bronchial wall t hickening is noted, suggestive of bronchitis. Multiple poorly defined hepatic lesions are identified measuring up to 2.3 cm, concerning for metast atic disease. numerous lytic foci are seen scattered throughout the visualized osseous structures, compatible with osseous metastases. The patient is status post upper thoracic spinal pablo placement. Fusion device is seen within the spinal canal at the T3 level, unchanged from prior MRI. IMPRESSION: 1. Pulmonary embolism is identified within an anterior right upper lobe pulmonary artery branch, as above. No central saddle embolus is identified. 2. There are large left and mild right pleural effusions, new when compared to the prior CT. 3. Spiculated nodule is again seen in the left upper lobe, grossly stable in size - correlate with recent biopsy results. 4. Bilateral bronchial wall thickening is noted, suggestive of bronchitis. 5. Diffuse osseous metastatic disease is identified. Poorly defined hepatic hypodensities are also seen, further concerning for metastatic disease. 6. Coronary arterial and aortic atherosclerotic calcifications are present. A call report was made to FIGUEROA Kaur on 01/17/2017 2:18:17 PM. RPTAT: HH .Evangelist Chávez MD, Date Time Electronically viewed and signed by .Evangelist Chávez MD, on 01/17/2017 14:24 .R/
[2017-01-17] MEDS: clonAZEPAM 0.5 MG TAB PO PRN (15:49)
--- NOTE | 2017-01-17 16:54 | RADRPT ---
Echocardiogram Report Patient Name: ARABELLA CURRY Gender: Male Date: 1930 Study Date: 17-Jan-2017 Psychiatric Aide: [place] Bet[facility] Location: [facility] Ref. Physician: DESI MCLAIN Quality: Good Procedures: Transthoracic echocardiogram examination. Indications: Atrial Fibrillation. 2D/M Mode Doppler Measurement Value Normal Range Measurement Value Normal Range LVOT Diam 1.9 cm MARÍA Vmax 2.1 cm2 LVOT Area 2.8 cm2 MARÍA VTI 2.4 cm2 AV Mean Tyr[place] 1.4 m/sec AV Mean PG 10.0 mmHg AV Peak [place] 2.2 m/sec AV Peak PG 19.0 mmHg AV VTI 32.4 cm LVOT Mean [place] 1.1 m/sec LVOT Mean PG 5.0 mmHg LVOT Peak [place] 1.6 m/sec LVOT Peak PG 10.0 mmHg LVOT VTI 27.8 cm TR Peak Tyr[place] 3.1 m/sec TR Peak PG 38.0 mmHg RVSP 46.0 mmHg Findings Left Ventricle: Normal left ventricular cavity size, wall thickness and systolic function. Normal left ventricular systolic function. The left ventricular ejection fraction is visually estimated at 55 %. Right Ventricle: Normal right ventricular size. Normal right ventricular systolic function. Left Atrium: The left atrium is normal in size and appearance. Right Atrium: The right atrium is normal in size and appearance. Atrial Septum: Normal atrial septum. Mitral Valve: Anterior mitral valve leaflet appear mildly thickened. Posterior mitral valve leaflet appear mildly thickened. Mild mitral annular calcification. Trivial mitral regurgitation. Aortic Valve: Aortic cusps appear mildly calcified. Trileaflet aortic valve. Trace aortic regurgitation. Tricuspid Valve: Right ventricular systolic pressure is consistent with moderate pulmonary hypertension. The estimated Peak RVSP is 38mmHg + RA pressure mmHg. There is moderate tricuspid regurgitation. Pulmonic Valve: Normal pulmonic valve appearance and function with trivial (physiologic) regurgitation. Pericardium: Small pericardial effusion. Left pleural effusion seen. Aorta: Normal ascending aorta. IVC: The inferior vena cava is not well visualized. Pulmonary Artery: Normal pulmonary artery size. Conclusions Normal left ventricular cavity size, wall thickness and systolic function. Normal left ventricular systolic function. The left ventricular ejection fraction is visually estimated at 55 %. Normal right ventricular size. Normal right ventricular systolic function. Right ventricular systolic pressure is consistent with moderate pulmonary hypertension. The estimated Peak RVSP is 38mmHg + RA pressure mmHg. There is moderate tricuspid regurgitation. Aortic cusps appear mildly calcified. Trileaflet aortic valve. Trace aortic regurgitation. Small pericardial effusion. Left pleural effusion seen. Electronically Signed By: Karthik Sterling 17-Jan-2017 16:54:01 -0700 Patient Name: ARABELLA CURRY Study Date: 17-Jan-2017 [id number]
--- NOTE | 2017-01-17 17:02 | RADRPT ---
PROCEDURE: US Lower extremity Venous. CLINICAL INDICATION: Bilateral lower extremity edema , pulmonary embolus TECHNIQUE: Multiple sonographic images of the bilateral lower extremity deep venous system was obt ained utilizing grayscale, color-flow, compressive sonography and doppler imaging with augmentation. The images were reviewed on a PACS workstation. COMPARISON: None. FINDINGS: There is normal compressibility and flow within the bilateral common femoral, femoral , posterior ti bial and popliteal veins. RPTAT: AA IMPRESSION: No sonographic evidence for deep venous thrombosis. .Zeferino Alvarado MD, MD Date Time Electronically viewed and signed by .Zeferino Alvarado MD, on 01/17/2017 17:01 .S/
[2017-01-17] MEDS: ENOXAPARIN 80 MG/0.8 ML SYG SC SCH (17:08)
[2017-01-17] MEDS: ATORVASTATIN 20 MG TAB PO SCH (21:09)
[2017-01-17] MEDS: ALLOPURINOL 300 MG TAB PO SCH (21:10)
--- NOTE | 2017-01-17 21:21 | PN ---
DATE: 01/17/2017 SUBJECTIVE: Patient is awake, alert, oriented x4. Reports that he has improved appetite today cristina use he does not want to give up on his treatment. OBJECTIVE: VITAL SIGNS: Temperature 97.8, blood pressure 97/69, pulse of 77, respiration rate 18, O2 saturatio n 98% on 4 liters nasal cannula. HEENT: Pupils equally round, reactive to light. Oropharynx clear. LUNGS: Clear to auscultation anteriorly. Bibasilar crackles posteriorly. CARDIAC: Irregularly irregular. ABDOMEN: Active bowel sounds. Soft, nondistended, nontender. EXTREMITIES: No clubbing, cyanosis, or edema. NEUROLOGIC: Patient with marked weakness of bilateral lower extremities from the hips down and unab le to detect light touch from the toes to the hips. LABORATORY DATA: WBC 12.3, hemoglobin 8.0, hematocrit 26.7, platelet count 250,000. Sodium 144, po tassium 3.7, BUN 25, creatinine 0.74, glucose 100. ProBNP is 4480. IMAGING: The chest CT angiogram shows pulmonary embolism within an anterior right upper lobe pulmo nary artery branch. No saddle embolus. There are large left and mild right pleural effusions. The spiculated nodule in the left upper lobe is grossly stable in size. There are bilateral bronchial wall thickenings suggestive of bronchitis and diffuse osseous metastatic disease with poorly defined hepatic hypodensities. There are also coronary arterial and aortic atherosclerotic calcifications. The lower extremity venous Doppler shows no sonographic evidence for DVT. ASSESSMENT AND PLAN: 1. New onset pulmonary emboli. Will start patient on anticoagulant, but given the possibility of s urgery in the near future, will stick to Lovenox for now. 2. Lower extremity paraesthesia and weakness. The last MRI of the thoracic spine postoperative mark anthony ws lot of artifact from the hardware, so will order a myelogram of the thoracic spine for now and co nsult neurosurgeon for further workup and treatment. 3. Status post pneumonitis with sepsis and leukocytosis, improving on Levaquin. Continue prednison e taper. 4. 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 The patient is not able to undergo c hemo or radiation at this time due to multiple acute medical issues. Continue to see how much we ca n stabilize him from the infection and respiratory point of view as well as the lower extremity para esthesia and paraplegia. Dictated By: DESI MCLAIN MD DP/MARTINA Conf#: [id number] DID#: [id number]
--- NOTE | 2017-01-17 23:22 | CONS ---
Date/Time of Note Date/Time of Note DATE: 01/17/17 TIME: 22:55 Assessment/Plan Assessment/Plan Chief Complaint/Hosp Course ASSESSMENT: - acute PE- segmental, started on lovenox - metastatic adenocarcinoma with lung/bone mets. per primary/oncology team - pneumonia/sepsis- improved, stable bp on abx per id/primary - persistent afib - non valvular, rate controlled on diltiazem. anticoag of unclear terminal makeup operator benefit given acute onc issues, but will need anticoag anyway for acute PE - h/o cad stable - h/o htn controlled - h/o hld on statin Plan - full dose lovenox - d/c aspirin - now on digoxin, convert to po - check digoxin level periodically - if bp improved and rates running > 100s at rest, can restart diltiazem - cont statin given cad hx Problems: Consultation Date/Type/Reason Admit Date/Time January 11, 2017 at 16:25 Date of Consultation: Jan 17, 2017 Type of Consultation: Cardiology Reason for Consultation Afib Referring Provider: DESI MCLAIN MD Hx of Present Illness Mr. Fiore is a 86 y .o. man with h/o htn, hld, dm2, cad s/p PCI to RCA 2009, Afib and now metastatic cancer with lung mass, spinal cord mass who presented in 11/2016 for C2 pathologic neck fracture. pt had surgery to stabilize fracture but then had prolonged hospitalization. Cardiology was following patient given atrial fibrillation rhythm with rates controlled, pt was not on anticoag for afib given metastatic disease, limited mobility. Pt discharged to nursing facility, but now returned 01/11 with respiratory distress. Pt admitted, thought to have possible pneumonia/copd exacerbation. pt treated with abx, did cont to have sob. CT pulm angio obtained showing acute PE. pt now on lovenox. pt has been in afib during admission, rates variable. now controlled in 80s pt denies cp, dizziness, lightheadedness, has been in bed. states sob continues, mild. no cough/sputum production. denies pnd, orthopnea. Constitutional: no complaints Eyes: no complaints ENT: no complaints Respiratory: shortness of breath Cardiovascular: no complaints Gastrointestinal: no complaints Genitourinary: no complaints Musculoskeletal: back pain Skin: no complaints Neurologic: no complaints Psychological: nl mood/affect, no complaints Past Medical History 1. Coronary artery disease status post 3.5 x 12 mm distal right coronary artery stenting in April 2010 with moderate disease in the proximal right coronary artery and LAD. Repeat angiography June 2010 patent stent and unchanged anatomy treated medically. 2. Hypertension. 3. Hyperlipidemia. 4. Type 2 diabetes. 5. Renal insufficiency. 6. Gout. 7. Gastroesophageal reflux disease. 8. Prostate cancer status post prostatectomy 10 years ago. 9. History of TIA 01/31 small meningioma incidentally noted. 10. [place]en[place] - ? primary, metastatic to lung and spine, s/p spinal fusion decompression surgery for c2 fxr. 11. newly diagnosed afib, rate controlled PLAN: 1. Will check 2D echocardiogram without any new structural or valvular heart disease evaluate pulmonary pressures. 2. Patient to receive his Protonix, Cardizem and Cozaar and nitroglycerin with sips of water the morning of his surgery. 3. Patient to be cleared from a cardiac standpoint after echocardiogram done by my associate Dr. Powell in the morning. 4. Even with echocardiogram revealing no significant structural valvular heart disease patient clearly at increased risk of cardiac complications but see little option and to proceed with needed neurosurgical intervention to prevent paraplegia and also for tissue diagnosis for metastatic cancer possibly bronchogenic. Past Surgical History Radical prostatectomy in 2006, and coronary stent placement in the distal right coronary artery drug-eluting 2009, c2 fxr decompression 11/2016 Family History Significant Family History: no pertinent family hx, other (denies early cad hx) Social History Alcohol Use: none Smoking Status: Never smoker Drug Use: none Exam/Review of Systems Vital Signs Vitals Vital Signs Date Time Temp Pulse Resp B/P Pulse Ox O2 Delivery O2 Flow Rate FiO2 01/17/17 20:12 89 18 98 Nasal Cannula 4.0 01/17/17 19:46 97.8 97/69 01/14/17 09:30 30 Intake and Output 01/16/17 01/16/17 01/17/17 15:00 23:00 07:00 Intake Total 1350 ml 300 ml Output Total 2100 ml 900 ml Balance -750 ml -600 ml Exam GENERAL: NAD, A+Ox3 SKIN: No ecchymoses, no petechiae or rashes. HEENT: no jvd, 2+ carotid. op clear CHEST:CTA CV: irregulary irregular, regular rate nl s1s2 ii/vi ernestina GASTROINTESTINAL: soft ntnd EXTREMITIES: No clubbing, no edema or cyanosis. Results Result Diagram: 01/17/17 0547 01/17/17 0547 Results 24 hrs Laboratory Tests Test 01/17/17 05:47 White Blood Count 12.3 H Red Blood Count 2.83 L Hemoglobin 8.0 L Hematocrit 26.7 L Mean Corpuscular Volume 94.3 Mean Corpuscular Hemoglobin 28.3 L Mean Corpuscular Hemoglobin Concent 30.0 L Red Cell Distribution Width 15.9 H Platelet Count 250 Mean Platelet Volume 9.6 Neutrophils % 87.2 H Lymphocytes % 3.2 L Monocytes % 5.0 Eosinophils % 0.2 Basophils % 0.0 Nucleated Red Blood Cells % 0.2 H Neutrophils # 10.7 H Lymphocytes # 0.4 L Monocytes # 0.6 Eosinophils # 0.0 Basophils # 0.0 Nucleated Red Blood Cells # 0.0 Sodium Level 144 Potassium Level 3.7 Chloride Level 119 H Carbon Dioxide Level 27 Anion Gap 2 L Blood Urea Nitrogen 25 H Creatinine 0.74 Glucose Level 100 Calcium Level 6.3 L B-Type Natriuretic Peptide 4480 H Medications Medications Current Medications Acetaminophen (Tylenol Tab) 650 mg Q6H PRN PO MILD PAIN LEVEL 1-3; Start at 17:00 Aspirin (Halfprin) 81 mg DAILY PO Last administered on 01/17/17 08:21; Admin Dose 81 MG; Start 01/12/17 at 09:00 Atorvastatin Calcium (Lipitor) 20 mg HS PO Last administered on 01/17/17 21:09 ; Admin Dose 20 MG; Start 01/11/17 at 21:00 Clonazepam (Klonopin) 0.5 mg Q6 PRN PO ANXIETY Last administered on 01/17/17 15 :49; Admin Dose 0.5 MG; Start 01/11/17 at 17:00 Clonidine (Catapres) 0.1 mg Q6H PRN PO SBP ABOVE 170; Start 01/11/17 at 17:00 Escitalopram Oxalate (Lexapro) 10 mg DAILY PO Last administered on 01/17/17 08: 21; Admin Dose 10 MG; Start 01/12/17 at 09:00 Ferrous Sulfate (Ferrous Sulfate (Ec)) 325 mg TID PO Last administered on 21:09; Admin Dose 325 MG; Start 01/11/17 at 21:00 Levofloxacin (Levaquin) 750 mg DAILY@06 PO Last administered on 01/17/17 05:50 ; Admin Dose 750 MG; Start 01/12/17 at 06:00 Memantine (Namenda) 10 mg DAILY PO Last administered on 01/17/17 08:21; Admin Dose 10 MG; Start 01/12/17 at 09:00 Pantoprazole (Protonix Tab) 40 mg DAILY PO Last administered on 01/17/17 08:21 ; Admin Dose 40 MG; Start 01/11/17 at 18:00 Zolpidem Tartrate (Ambien) 5 mg QHS PRN PO INSOMNIA; Start 01/11/17 at 17:00 Allopurinol (Zyloprim) 300 mg HS PO Last administered on 01/17/17 21:10; Admin Dose 300 MG; Start 01/11/17 at 21:00 Lorazepam (Ativan) 1 mg HS PRN IV INSOMNIA Last administered on 01/13/17 21:20 ; Admin Dose 1 MG; Start 01/13/17 at 21:30 Magnesium Hydroxide (Milk Of Mag) 30 ml Q8 PRN PO CONSTIPATION Last administered on 01/16/17 05:19; Admin Dose 30 ML; Start 01/15/17 at 10:30 Prednisone (Prednisone) 30 mg DAILY PO Last administered on 01/17/17 08:21; Admin Dose 30 MG; Start 01/17/17 at 09:00 Digoxin (Digoxin) 250 mcg DAILY@13 IV Last administered on 01/17/17 12:13; Admin Dose 250 MCG; Start 01/17/17 at 13:00 Furosemide (Lasix) 40 mg DAILY IV Last administered on 01/17/17 17:27; Admin Dose 40 MG; Start 01/17/17 at 09:00 Potassium Chloride (Klor-Con 20) 20 meq DAILY PO Last administered on 01/17/17 08:21; Admin Dose 20 MEQ; Start 01/17/17 at 09:00 Enoxaparin Sodium (Lovenox) 75 mg Q24H SC Last administered on 01/17/17 17:08; Admin Dose 75 MG; Start 01/17/17 at 16:45 Procedures Procedures EKG: from admission reviewed, afib with bradycardia. nonspecific tw abnl CT report reviewed in emr DONA LÓPEZ Jan 17, 2017 23:05
[2017-01-18] VITALS (13 sets, daily range): BP systolic 92–110; BP diastolic 54–62; PULSE 82–97; RESP 18–22
[2017-01-18] MEDS: ALBUTEROL/IPRATROPIUM (NEB) 3 ML AMP HHN SCH ×6 (01:24→20:18)
[2017-01-18] MEDS: LEVOFLOXACIN 750 MG TABLET PO SCH (06:00)
[2017-01-18 06:54] LABS: ADD SCAN DIFF NO
[2017-01-18 07:01] LABS: ABNORMAL IP MESSAGE 1; BASOPHILS % 0.1 % (0.0-2.0); EOSINOPHILS % 0.3 % (0.0-7.0); HEMATOCRIT 28.4 % (42.0-52.0); HEMOGLOBIN 8.6 g/dl (14.0-18.0); LYMPHOCYTES # 0.4 10^3/ul (0.8-2.9); LYMPHOCYTES % 3.4 % (15.0-51.0); MEAN CORPUSCULAR HEMOGLOBIN 28.4 pg (29.0-33.0); MEAN CORPUSCULAR HGB CONC 30.3 g/dl (32.0-37.0); MEAN CORPUSCULAR VOLUME 93.7 fl (82.0-101.0); MEAN PLATELET VOLUME 9.6 fl (7.4-10.4); MONOCYTE # 0.7 10^3/ul (0.3-0.9); MONOCYTES % 5.7 % (0.0-11.0); NEUTROPHIL # 10.7 10^3/ul (1.6-7.5); NEUTROPHILS % 88.3 % (39.0-77.0); NUCLEATED RED BLOOD CELLS% 0.2 /100WBC (0.0-0.0); PLATELET COUNT 247 10^3/UL (140-415); RED BLOOD COUNT 3.03 10^6/ul (4.70-6.10); RED CELL DISTRIBUTION WIDTH 15.9 % (11.5-14.5); WHITE BLOOD COUNT 12.2 10^3/ul (4.8-10.8)
--- NOTE | 2017-01-18 09:42 | PN ---
DATE: 01/18/2017 SUBJECTIVE: Patient is complaining of shortness of breath. He has no complaints of chest pain and no hemoptysis. OBJECTIVE: GENERAL: The patient is a well-developed, but chronically ill-appearing male, who is tachypneic. VITAL SIGNS: Temperature is 98.1, pulse 95 per minute, respirations 22, blood pressure 92/54, pulse oximetry 97% on 4 liters of oxygen via nasal cannula. SKIN: Pale. No ecchymosis, no petechiae or rashes. HEENT: Normocephalic. No evidence of trauma. Pupils are equal, round, and react to light and acco mmodation. Sclerae are nonicteric. Oral mucosa is moist, without lesions. Tongue is well papillat ed. There is nasal oxygen in place. NECK: Supple. No jugular venous distention or thyroid enlargement. CHEST: Decreased breath sounds on the left, as compared to right. No rhonchi, wheezes, rales or ru bs. HEART: Irregular irregular rate and rhythm, with a ventricular rate of approximately 100 per minute . No rubs. ABDOMEN: Soft. No masses, no ascites. EXTREMITIES: Decreased range of motion of the lower extremities, with muscle atrophy noted. NEUROLOGIC: Weakness in the lower extremities and the patient is mildly confused. The patient has had a CT angiogram of the chest, which does demonstrate a pulmonary embolism in the anterior right upper lobe pulmonary artery branch. There is no central saddle embolism noted. Ther e were large left and mild right pleural effusions noted, as compared to previous examinations. Vignesh ous Doppler studies of the lower extremities did not reveal any evidence of deep vein thrombosis. ASSESSMENT: 1. Metastatic adenocarcinoma, probable lung primary. 2. 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 3. Pulmonary embolism. 4. Atrial fibrillation. PLAN: The patient has been started on Lovenox because of the pulmonary embolism. He does need, how ever, further evaluation to determine if there is further spinal cord compression. The MRI is not e asily interpretable because of the artifact caused by the previously inserted hardware. A myelogram has been ordered. Obviously, anticoagulation would need to be held prior to that. Although the patient does not have any evidence of lower extremity deep venous thrombosis, it may be advisable to place a vena caval filter if the patient is to have further surgery, during which time anticoagulation would have to be held. Dictated By: JENNIFFER PEREZ MD, SR/MARTINA Conf#: [id number] DID#: [id number]
[2017-01-18] MEDS: FUROSEMIDE 20 MG INJ IV SCH (10:09)
[2017-01-18] MEDS: predniSONE 10 MG TAB PO SCH (10:12)
[2017-01-18] MEDS: ESCITALOPRAM 10 MG TAB PO SCH (10:12)
[2017-01-18] MEDS: MEMANTINE 10 MG TAB PO SCH (10:12)
[2017-01-18] MEDS: FERROUS SULFATE (EC) 325 MG TAB PO SCH ×3 (10:13→20:38)
[2017-01-18] MEDS: PANTOPRAZOLE (EC) 40 MG TAB PO SCH (10:13)
[2017-01-18] MEDS: POTASSIUM CHLORIDE 20 MEQ POWDER FOR ORAL SOLN PO SCH (10:14)
--- NOTE | 2017-01-18 11:52 | CONS ---
Date/Time of Note Date/Time of Note DATE: 01/18/17 TIME: 11:50 Assessment/Plan Assessment/Plan Additional Assessment/Plan Assessment and recommendations; 1. Patient admitted for COPD exacerbation with significant clinical improvement. 2. Right upper lobe pleural embolism, patient started on Lovenox. 3. Bilateral pleural effusions. Possibly some element of CHF as well. Continue current treatment. Patient doing fairly well at this point. Obtain follow-up chest x-ray in 48 hours. Consultation Date/Type/Reason Admit Date/Time January 11, 2017 at 16:25 Type of Consultation: Pulmonary Referring Provider: DESI MCLAIN MD 24 HR Interval Summary Free Text/Dictation Patient condition stable. Remains awake alert. Denies any shortness of breath. Any coughing chest pain sputum production. General exam; elderly male, awake alert currently in no distress. Exam/Review of Systems Vital Signs Vitals Vital Signs Date Time Temp Pulse Resp B/P Pulse Ox O2 Delivery O2 Flow Rate FiO2 01/18/17 11:28 98.2 96 22 110/54 100 01/18/17 08:00 Nasal Cannula 4.0 01/14/17 09:30 30 Intake and Output 01/17/17 01/17/17 01/18/17 15:00 23:00 07:00 Intake Total 550 ml 500 ml Output Total 500 ml 2500 ml Balance 50 ml -2000 ml Exam HEENT examination; supple neck, no JVD. No lymphadenopathy. Midline trachea. No thyromegaly. Patient has fair dentition. Chest exam; diminished breath on lung bases bilaterally. Upper lobes are clear. S1-S2 audible, no murmurs. Regular rhythm. Abdomen examination; soft, no organomegaly. Bowel sounds audible. Nondistended. Extremity examination; no peripheral edema. [employer] examination a micro patient has stable paraplegia. Results Result Diagram: 01/18/17 0515 01/17/17 0547 Results 24 hrs Laboratory Tests Test 01/18/17 05:15 White Blood Count 12.2 H Red Blood Count 3.03 L Hemoglobin 8.6 L Hematocrit 28.4 L Mean Corpuscular Volume 93.7 Mean Corpuscular Hemoglobin 28.4 L Mean Corpuscular Hemoglobin Concent 30.3 L Red Cell Distribution Width 15.9 H Platelet Count 247 Mean Platelet Volume 9.6 Neutrophils % 88.3 H Lymphocytes % 3.4 L Monocytes % 5.7 Eosinophils % 0.3 Basophils % 0.1 Nucleated Red Blood Cells % 0.2 H Neutrophils # 10.7 H Lymphocytes # 0.4 L Monocytes # 0.7 Eosinophils # 0.0 Basophils # 0.0 Nucleated Red Blood Cells # 0.0 Medications Medications Current Medications Acetaminophen (Tylenol Tab) 650 mg Q6H PRN PO MILD PAIN LEVEL 1-3; Start at 17:00 Atorvastatin Calcium (Lipitor) 20 mg HS PO Last administered on 01/17/17 21:09 ; Admin Dose 20 MG; Start 01/11/17 at 21:00 Clonazepam (Klonopin) 0.5 mg Q6 PRN PO ANXIETY Last administered on 01/17/17 15 :49; Admin Dose 0.5 MG; Start 01/11/17 at 17:00 Clonidine (Catapres) 0.1 mg Q6H PRN PO SBP ABOVE 170; Start 01/11/17 at 17:00 Escitalopram Oxalate (Lexapro) 10 mg DAILY PO Last administered on 01/18/17 10: 12; Admin Dose 10 MG; Start 01/12/17 at 09:00 Ferrous Sulfate (Ferrous Sulfate (Ec)) 325 mg TID PO Last administered on 10:13; Admin Dose 325 MG; Start 01/11/17 at 21:00 Levofloxacin (Levaquin) 750 mg DAILY@06 PO Last administered on 01/18/17 06:00 ; Admin Dose 750 MG; Start 01/12/17 at 06:00 Memantine (Namenda) 10 mg DAILY PO Last administered on 01/18/17 10:12; Admin Dose 10 MG; Start 01/12/17 at 09:00 Pantoprazole (Protonix Tab) 40 mg DAILY PO Last administered on 01/18/17 10:13 ; Admin Dose 40 MG; Start 01/11/17 at 18:00 Zolpidem Tartrate (Ambien) 5 mg QHS PRN PO INSOMNIA; Start 01/11/17 at 17:00 Allopurinol (Zyloprim) 300 mg HS PO Last administered on 01/17/17 21:10; Admin Dose 300 MG; Start 01/11/17 at 21:00 Lorazepam (Ativan) 1 mg HS PRN IV INSOMNIA Last administered on 01/13/17 21:20 ; Admin Dose 1 MG; Start 01/13/17 at 21:30 Magnesium Hydroxide (Milk Of Mag) 30 ml Q8 PRN PO CONSTIPATION Last administered on 01/16/17 05:19; Admin Dose 30 ML; Start 01/15/17 at 10:30 Prednisone (Prednisone) 30 mg DAILY PO Last administered on 01/18/17 10:12; Admin Dose 30 MG; Start 01/17/17 at 09:00 Furosemide (Lasix) 40 mg DAILY IV Last administered on 01/17/17 17:27; Admin Dose 40 MG; Start 01/17/17 at 09:00 Enoxaparin Sodium (Lovenox) 75 mg Q24H SC Last administered on 01/17/17 17:08; Admin Dose 75 MG; Start 01/17/17 at 16:45 Digoxin (Digoxin) 0.25 mg DAILY@13 PO ; Start 01/18/17 at 13:00 Potassium Chloride (Potassium Chloride Pwd/Soln) 20 meq DAILY PO Last administered on 01/18/17 10:14; Admin Dose 20 MEQ; Start 01/18/17 at 10:00 VANESSA IZAGUIRRE Jan 18, 2017 11:52
[2017-01-18] MEDS: DIGOXIN 0.25 MG TAB PO SCH (13:32)
--- NOTE | 2017-01-18 13:46 | CONS ---
Date/Time of Note Date/Time of Note DATE: 01/18/17 TIME: 13:45 Assessment/Plan Assessment/Plan Chief Complaint/Hosp Course SUBJECTIVE: No acute changes. The patient is alert, looks comfortable, afebrile. MICROBIOLOGY: Urine culture growing Klebsiella pneumoniae. Blood cultures remain negative. ALLERGIES: PENICILLIN. ANTIMICROBIALS: Levaquin. PHYSICAL EXAMINATION: GENERAL: Fragile, elderly man who is in no distress. HEENT: Head atraumatic, normocephalic. Sclerae anicteric. Buccal mucosa dry. NECK: Supple, trachea midline. CHEST: Rise symmetrical. Breath sounds diminished throughout with expiratory wheezes and prolonged expiratory phase. HEART: S1, S2 tachycardic, regular. ABDOMEN: Soft. Bowel tones present. EXTREMITIES: No cyanosis. ASSESSMENT: 1. Acute respiratory failure secondary to chronic obstructive pulmonary disease exacerbation and possible volume overload. 2. Persistent leukocytosis, likely steroid induced. 3. History of atrial fibrillation. 4. Urinary tract infection. 5. Metastatic cancer to the bone. 6. PE==> started on Lovenox PLAN: The patient remains stable. Continue antibiotics, oncology/pulmonary recommendations. DW staff/pt Problems: Consultation Date/Type/Reason Admit Date/Time January 11, 2017 at 16:25 Type of Consultation: ID Referring Provider: DESI MCLAIN MD Exam/Review of Systems Vital Signs Vitals Vital Signs Date Time Temp Pulse Resp B/P Pulse Ox O2 Delivery O2 Flow Rate FiO2 01/18/17 12:58 90 18 98 Nasal Cannula 4.0 01/18/17 11:28 98.2 110/54 01/14/17 09:30 30 Intake and Output 01/17/17 01/17/17 01/18/17 15:00 23:00 07:00 Intake Total 550 ml 500 ml Output Total 500 ml 2500 ml Balance 50 ml -2000 ml Results Result Diagram: 01/18/17 0515 01/17/17 0547 Results 24 hrs Laboratory Tests Test 01/18/17 05:15 White Blood Count 12.2 H Red Blood Count 3.03 L Hemoglobin 8.6 L Hematocrit 28.4 L Mean Corpuscular Volume 93.7 Mean Corpuscular Hemoglobin 28.4 L Mean Corpuscular Hemoglobin Concent 30.3 L Red Cell Distribution Width 15.9 H Platelet Count 247 Mean Platelet Volume 9.6 Neutrophils % 88.3 H Lymphocytes % 3.4 L Monocytes % 5.7 Eosinophils % 0.3 Basophils % 0.1 Nucleated Red Blood Cells % 0.2 H Neutrophils # 10.7 H Lymphocytes # 0.4 L Monocytes # 0.7 Eosinophils # 0.0 Basophils # 0.0 Nucleated Red Blood Cells # 0.0 Medications Medications Current Medications Acetaminophen (Tylenol Tab) 650 mg Q6H PRN PO MILD PAIN LEVEL 1-3; Start at 17:00 Atorvastatin Calcium (Lipitor) 20 mg HS PO Last administered on 01/17/17 21:09 ; Admin Dose 20 MG; Start 01/11/17 at 21:00 Clonazepam (Klonopin) 0.5 mg Q6 PRN PO ANXIETY Last administered on 01/17/17 15 :49; Admin Dose 0.5 MG; Start 01/11/17 at 17:00 Clonidine (Catapres) 0.1 mg Q6H PRN PO SBP ABOVE 170; Start 01/11/17 at 17:00 Escitalopram Oxalate (Lexapro) 10 mg DAILY PO Last administered on 01/18/17 10: 12; Admin Dose 10 MG; Start 01/12/17 at 09:00 Ferrous Sulfate (Ferrous Sulfate (Ec)) 325 mg TID PO Last administered on 10:13; Admin Dose 325 MG; Start 01/11/17 at 21:00 Levofloxacin (Levaquin) 750 mg DAILY@06 PO Last administered on 01/18/17 06:00 ; Admin Dose 750 MG; Start 01/12/17 at 06:00 Memantine (Namenda) 10 mg DAILY PO Last administered on 01/18/17 10:12; Admin Dose 10 MG; Start 01/12/17 at 09:00 Pantoprazole (Protonix Tab) 40 mg DAILY PO Last administered on 01/18/17 10:13 ; Admin Dose 40 MG; Start 01/11/17 at 18:00 Zolpidem Tartrate (Ambien) 5 mg QHS PRN PO INSOMNIA; Start 01/11/17 at 17:00 Allopurinol (Zyloprim) 300 mg HS PO Last administered on 01/17/17 21:10; Admin Dose 300 MG; Start 01/11/17 at 21:00 Lorazepam (Ativan) 1 mg HS PRN IV INSOMNIA Last administered on 01/13/17 21:20 ; Admin Dose 1 MG; Start 01/13/17 at 21:30 Magnesium Hydroxide (Milk Of Mag) 30 ml Q8 PRN PO CONSTIPATION Last administered on 01/16/17 05:19; Admin Dose 30 ML; Start 01/15/17 at 10:30 Prednisone (Prednisone) 30 mg DAILY PO Last administered on 01/18/17 10:12; Admin Dose 30 MG; Start 01/17/17 at 09:00 Furosemide (Lasix) 40 mg DAILY IV Last administered on 01/17/17 17:27; Admin Dose 40 MG; Start 01/17/17 at 09:00 Enoxaparin Sodium (Lovenox) 75 mg Q24H SC Last administered on 01/17/17 17:08; Admin Dose 75 MG; Start 01/17/17 at 16:45 Digoxin (Digoxin) 0.25 mg DAILY@13 PO ; Start 01/18/17 at 13:00 Potassium Chloride (Potassium Chloride Pwd/Soln) 20 meq DAILY PO Last administered on 01/18/17 10:14; Admin Dose 20 MEQ; Start 01/18/17 at 10:00 KRISTIN SHAIKH NP Jan 18, 2017 13:46
[2017-01-18] MEDS: ENOXAPARIN 80 MG/0.8 ML SYG SC SCH (17:11)
--- NOTE | 2017-01-18 18:10 | CONS ---
Date/Time of Note Date/Time of Note DATE: 01/18/17 TIME: 18:06 Assessment/Plan Assessment/Plan Additional Assessment/Plan 86 y .o. man with h/o htn, hld, dm2, cad s/p PCI to RCA 2009, Afib and now metastatic cancer with lung mass, spinal cord mass who presented in 11/2016 for C2 pathologic neck fracture. pt had surgery to stabilize fracture but then had prolonged hospitalization. Cardiology was following patient given atrial fibrillation rhythm with rates controlled, pt was not on anticoag for afib given metastatic disease, limited mobility. Pt discharged to nursing facility, but now returned 01/11 with respiratory distress. Pt admitted, thought to have possible pneumonia/copd exacerbation. pt treated with abx, did cont to have sob. CT pulm angio obtained showing acute PE. pt now on lovenox. Consulted for afib w/ RVR. Update- rates under better control overall (80-120s on tele, occasional PVCs). Pt asymptomatic. - continue PO digoxin - BP may not tolerate diltiazem yet - on lovenox for PE Consultation Date/Type/Reason Admit Date/Time January 11, 2017 at 16:25 Initial Consult Date 01/17/17 Type of Consultation: ID Referring Provider: DESI MCLAIN MD 24 HR Interval Summary Free Text/Dictation Denies cp, palpitations or sob Exam/Review of Systems Vital Signs Vitals Vital Signs Date Time Temp Pulse Resp B/P Pulse Ox O2 Delivery O2 Flow Rate FiO2 01/18/17 16:54 88 20 97 Nasal Cannula 4.0 01/18/17 16:15 98.0 96/62 01/14/17 09:30 30 Intake and Output 01/17/17 01/17/17 01/18/17 15:00 23:00 07:00 Intake Total 550 ml 500 ml Output Total 500 ml 2500 ml Balance 50 ml -2000 ml Exam Constitutional: alert, No distress Neck: No jvd Respiratory: other (clear anteriorly) Cardiovascular: irregular rhythm Extremities: other (no edema) Results Result Diagram: 01/18/17 0515 01/17/17 0547 Results 24 hrs Laboratory Tests Test 01/18/17 05:15 White Blood Count 12.2 H Red Blood Count 3.03 L Hemoglobin 8.6 L Hematocrit 28.4 L Mean Corpuscular Volume 93.7 Mean Corpuscular Hemoglobin 28.4 L Mean Corpuscular Hemoglobin Concent 30.3 L Red Cell Distribution Width 15.9 H Platelet Count 247 Mean Platelet Volume 9.6 Neutrophils % 88.3 H Lymphocytes % 3.4 L Monocytes % 5.7 Eosinophils % 0.3 Basophils % 0.1 Nucleated Red Blood Cells % 0.2 H Neutrophils # 10.7 H Lymphocytes # 0.4 L Monocytes # 0.7 Eosinophils # 0.0 Basophils # 0.0 Nucleated Red Blood Cells # 0.0 Medications Medications Current Medications Acetaminophen (Tylenol Tab) 650 mg Q6H PRN PO MILD PAIN LEVEL 1-3; Start at 17:00 Atorvastatin Calcium (Lipitor) 20 mg HS PO Last administered on 01/17/17 21:09 ; Admin Dose 20 MG; Start 01/11/17 at 21:00 Clonazepam (Klonopin) 0.5 mg Q6 PRN PO ANXIETY Last administered on 01/17/17 15 :49; Admin Dose 0.5 MG; Start 01/11/17 at 17:00 Clonidine (Catapres) 0.1 mg Q6H PRN PO SBP ABOVE 170; Start 01/11/17 at 17:00 Escitalopram Oxalate (Lexapro) 10 mg DAILY PO Last administered on 01/18/17 10: 12; Admin Dose 10 MG; Start 01/12/17 at 09:00 Ferrous Sulfate (Ferrous Sulfate (Ec)) 325 mg TID PO Last administered on 13:31; Admin Dose 325 MG; Start 01/11/17 at 21:00 Levofloxacin (Levaquin) 750 mg DAILY@06 PO Last administered on 01/18/17 06:00 ; Admin Dose 750 MG; Start 01/12/17 at 06:00 Memantine (Namenda) 10 mg DAILY PO Last administered on 01/18/17 10:12; Admin Dose 10 MG; Start 01/12/17 at 09:00 Pantoprazole (Protonix Tab) 40 mg DAILY PO Last administered on 01/18/17 10:13 ; Admin Dose 40 MG; Start 01/11/17 at 18:00 Zolpidem Tartrate (Ambien) 5 mg QHS PRN PO INSOMNIA; Start 01/11/17 at 17:00 Allopurinol (Zyloprim) 300 mg HS PO Last administered on 01/17/17 21:10; Admin Dose 300 MG; Start 01/11/17 at 21:00 Lorazepam (Ativan) 1 mg HS PRN IV INSOMNIA Last administered on 01/13/17 21:20 ; Admin Dose 1 MG; Start 01/13/17 at 21:30 Magnesium Hydroxide (Milk Of Mag) 30 ml Q8 PRN PO CONSTIPATION Last administered on 01/16/17 05:19; Admin Dose 30 ML; Start 01/15/17 at 10:30 Prednisone (Prednisone) 30 mg DAILY PO Last administered on 01/18/17 10:12; Admin Dose 30 MG; Start 01/17/17 at 09:00 Furosemide (Lasix) 40 mg DAILY IV Last administered on 01/17/17 17:27; Admin Dose 40 MG; Start 01/17/17 at 09:00 Enoxaparin Sodium (Lovenox) 75 mg Q24H SC Last administered on 01/18/17 17:11; Admin Dose 75 MG; Start 01/17/17 at 16:45 Digoxin (Digoxin) 0.25 mg DAILY@13 PO Last administered on 01/18/17 13:32; Admin Dose 0.25 MG; Start 01/18/17 at 13:00 Potassium Chloride (Potassium Chloride Pwd/Soln) 20 meq DAILY PO Last administered on 01/18/17 10:14; Admin Dose 20 MEQ; Start 01/18/17 at 10:00 FLORECITA VÁSQUEZ Jan 18, 2017 18:10
[2017-01-18] MEDS: ALLOPURINOL 300 MG TAB PO SCH (20:38)
[2017-01-18] MEDS: ATORVASTATIN 20 MG TAB PO SCH (20:38)
--- NOTE | 2017-01-18 23:22 | RADRPT ---
PROCEDURE: MRI thoracic spine without and contrast CLINICAL INDICATION: Lower extremity weakness and numbness TECHNIQUE: An MRI of the thoracic spine was performed on a hi[facility] utilizing the following sequences: Sagittal and axial T1 weighted, sagittal and axial T2 weighted, and sagittal STIR. Following intravenous 10 cc of Magnevist administration, sagittal and axial T1 p ostcontrast sequences are obtained. COMPARISON: CT chest dated 01/17/2017 and prior MRI of the thoracic spine 12/14/2016 FINDINGS: The patient is again noted to be status post tumor resection of T4 with posterior corpectomy changes and stabilization posteriorly with a left T3 pedicular screw and stabilization devices and decompre ssive laminectomies at the T3 through T6 levels. A fibular strut graft is noted spanning the T3 thr ough T4 levels which is now posteriorly displaced within the spinal canal and superiorly angulated c ontributing to cord compression and abnormal cord signal at the T1-2 through T4-5 levels. This cord deformity and abnormal signal is of interval onset when compared with prior MRI dated 12/14/2016. S evere central canal stenosis is noted at the T3-4 levels although artifact obscures optimal spinal c anal AP measurement. Diffuse metastatic disease is again noted throughout the thoracic spine. Hardware artifact obscures optimal evaluation of the spinal canal. Mild thoracic kyphosis is again noted. The remainder the v ertebral body heights are preserved. The intervertebral disk spaces demonstrate diffuse disk desicc ation throughout the thoracic spine without focal disk extrusions. The conus terminates at the T12- L1 level. The spinal canal is patent at all other levels inferior to the T4-5 level. Left greater than right pleural effusions are noted. Following contrast administration, heterogeneous enhancemen t are noted of the vertebral bodies surrounding the diffuse metastatic lesions from the T1 through L 1 levels. No evidence for enhancement of the cord or cauda equina or leptomeninges are noted. IMPRESSION: 1. Interval onset of cord compression and cord hyperintensity extending from the T1-2 through to t he T4-5 levels secondary to compression by posterior displacement and angulation of fibular strut gr aft. 2. Diffuse metastatic disease throughout the thoracic spine from T1-L1. 3. No evidence for abnormal enhancement of the spinal cord or leptomeninges. 4. Bilateral left greater than right pleural effusions. 5. Multilevel disk desiccation throughout the thoracic spine without focal disk herniations. A call report was made to Patient's Nurse Sandra Blackman at 01/18/2017 11:10:02 PM following the completion of the examination by the undersigned. RPTAT: HDC .Virginia Torrez MD, MD Date Time Electronically viewed and signed by .Virginia Torrez MD, MD on 01/18/2017 23:22 .C/
[2017-01-19] VITALS (12 sets, daily range): BP systolic 90–110; BP diastolic 54–70; PULSE 87–123; RESP 18–19
[2017-01-19] MEDS: ALBUTEROL/IPRATROPIUM (NEB) 3 ML AMP HHN SCH ×6 (00:07→20:21)
[2017-01-19] MEDS: LEVOFLOXACIN 750 MG TABLET PO SCH (05:46)
[2017-01-19] MEDS: FUROSEMIDE 20 MG INJ IV SCH (09:00)
[2017-01-19] MEDS: FERROUS SULFATE (EC) 325 MG TAB PO SCH ×3 (09:03→21:03)
[2017-01-19] MEDS: predniSONE 10 MG TAB PO SCH (09:03)
[2017-01-19] MEDS: PANTOPRAZOLE (EC) 40 MG TAB PO SCH (09:03)
[2017-01-19] MEDS: MEMANTINE 10 MG TAB PO SCH (09:04)
[2017-01-19] MEDS: ESCITALOPRAM 10 MG TAB PO SCH (09:05)
[2017-01-19] MEDS: POTASSIUM CHLORIDE 20 MEQ POWDER FOR ORAL SOLN PO SCH (09:05)
--- NOTE | 2017-01-19 10:34 | PN ---
Date/Time of Note Date/Time of Note DATE: 01/19/17 TIME: 10:30 Assessment/Plan VTE Prophylaxis VTE Prophylaxis Intervention: other (Lovenox) Lines/Catheters IV Catheter Type (from Nrs): Saline Lock Urinary Cath still in place: Yes Reason Cath still needed: other (indicate) (weakness) Assessment/Plan Assessment/Plan Pt found to have PE since discharged and is now on Lovenox. If myelogram or surgery is going to be done, he will need to be off Lovenox. Also note that he has malignancy, probably lung primary, but no chemotherapy is currently planned. Continue care of the A fib, COPD, etc per other MD's Subjective 24 Hr Interval Summary Free Text/Dictation Pt is alert and conversant but weak. Exam/Review of Systems Vital Signs Vitals Vital Signs Date Time Temp Pulse Resp B/P Pulse Ox O2 Delivery O2 Flow Rate FiO2 01/19/17 09:21 100 4.0 01/19/17 09:14 98 24 Nasal Cannula 01/19/17 07:41 98.1 101/70 Intake and Output 01/18/17 01/18/17 01/19/17 15:00 23:00 07:00 Intake Total 960 ml 200 ml Output Total 300 ml Balance 660 ml 200 ml Exam Constitutional: alert Head: normocephalic Respiratory: clear to auscultation Cardiovascular: other (mild tachycardia ~94) Gastrointestinal: non-tender, soft Results Result Diagram: 01/18/17 0515 01/17/17 0547 Medications Medications Current Medications Acetaminophen (Tylenol Tab) 650 mg Q6H PRN PO MILD PAIN LEVEL 1-3; Start at 17:00 Atorvastatin Calcium (Lipitor) 20 mg HS PO Last administered on 01/18/17 20:38 ; Admin Dose 20 MG; Start 01/11/17 at 21:00 Clonazepam (Klonopin) 0.5 mg Q6 PRN PO ANXIETY Last administered on 01/17/17 15 :49; Admin Dose 0.5 MG; Start 01/11/17 at 17:00 Clonidine (Catapres) 0.1 mg Q6H PRN PO SBP ABOVE 170; Start 01/11/17 at 17:00 Escitalopram Oxalate (Lexapro) 10 mg DAILY PO Last administered on 01/19/17 09: 05; Admin Dose 10 MG; Start 01/12/17 at 09:00 Ferrous Sulfate (Ferrous Sulfate (Ec)) 325 mg TID PO Last administered on 09:03; Admin Dose 325 MG; Start 01/11/17 at 21:00 Levofloxacin (Levaquin) 750 mg DAILY@06 PO Last administered on 01/19/17 05:46 ; Admin Dose 750 MG; Start 01/12/17 at 06:00 Memantine (Namenda) 10 mg DAILY PO Last administered on 01/19/17 09:04; Admin Dose 10 MG; Start 01/12/17 at 09:00 Pantoprazole (Protonix Tab) 40 mg DAILY PO Last administered on 01/19/17 09:03 ; Admin Dose 40 MG; Start 01/11/17 at 18:00 Zolpidem Tartrate (Ambien) 5 mg QHS PRN PO INSOMNIA; Start 01/11/17 at 17:00 Allopurinol (Zyloprim) 300 mg HS PO Last administered on 01/18/17 20:38; Admin Dose 300 MG; Start 01/11/17 at 21:00 Lorazepam (Ativan) 1 mg HS PRN IV INSOMNIA Last administered on 01/13/17 21:20 ; Admin Dose 1 MG; Start 01/13/17 at 21:30 Magnesium Hydroxide (Milk Of Mag) 30 ml Q8 PRN PO CONSTIPATION Last administered on 01/16/17 05:19; Admin Dose 30 ML; Start 01/15/17 at 10:30 Prednisone (Prednisone) 30 mg DAILY PO Last administered on 01/19/17 09:03; Admin Dose 30 MG; Start 01/17/17 at 09:00 Furosemide (Lasix) 40 mg DAILY IV Last administered on 01/17/17 17:27; Admin Dose 40 MG; Start 01/17/17 at 09:00 Enoxaparin Sodium (Lovenox) 75 mg Q24H SC Last administered on 01/18/17 17:11; Admin Dose 75 MG; Start 01/17/17 at 16:45 Digoxin (Digoxin) 0.25 mg DAILY@13 PO Last administered on 01/18/17 13:32; Admin Dose 0.25 MG; Start 01/18/17 at 13:00 Potassium Chloride (Potassium Chloride Pwd/Soln) 20 meq DAILY PO Last administered on 01/19/17t 09:05; Admin Dose 20 MEQ; Start 01/18/17 at 10:00 CASA ANAND MD Jan 19, 2017 10:34
--- NOTE | 2017-01-19 11:23 | CONS ---
Date/Time of Note Date/Time of Note DATE: 01/19/17 TIME: 11:21 Assessment/Plan Assessment/Plan Additional Assessment/Plan Assessment recommendations; next 1. Patient admitted for COPD exacerbation with interval improvement. 2. Right upper lobe pulmonary embolism. 3. MRI of the spine showing diffuse metastatic disease, primary source is unclear at this point. 4. Cardiac arrhythmia. Continue current supportive care. Prognosis is poor. Consultation Date/Type/Reason Admit Date/Time January 11, 2017 at 16:25 Type of Consultation: Pulmonary Referring Provider: DESI MCLAIN MD 24 HR Interval Summary Free Text/Dictation Patient condition is stable. Complains of shortness of breath upon exertion. Denies any cough, chest pain, wheezing. General exam; elderly male, awake currently in no distress. Exam/Review of Systems Vital Signs Vitals Vital Signs Date Time Temp Pulse Resp B/P Pulse Ox O2 Delivery O2 Flow Rate FiO2 01/19/17 11:03 99.5 86 19 110/55 98 01/19/17 09:21 4.0 01/19/17 09:14 Nasal Cannula Intake and Output 01/18/17 01/18/17 01/19/17 15:00 23:00 07:00 Intake Total 960 ml 200 ml Output Total 300 ml Balance 660 ml 200 ml Exam HEENT exam is; supple neck, no JVD. No lymphadenopathy. Midline trachea. No thyromegaly. Pharynx is clear. Patient has a multiple carious teeth. Chest examined; diminished breath on lung bases bilaterally. Upper lobes are fairly clear. S1-S2 audible, no murmurs. Abdomen examination; soft, nontender. No organomegaly. Bowel sounds audible. Extremity examination; no peripheral edema. No clubbing. Pulses 1+ bilaterally. PATIENT FINANCIAL REPRESENTATIVE examination; no focal deficit Results Result Diagram: 01/18/17 0515 01/17/17 0547 Medications Medications Current Medications Acetaminophen (Tylenol Tab) 650 mg Q6H PRN PO MILD PAIN LEVEL 1-3; Start at 17:00 Atorvastatin Calcium (Lipitor) 20 mg HS PO Last administered on 01/18/17 20:38 ; Admin Dose 20 MG; Start 01/11/17 at 21:00 Clonazepam (Klonopin) 0.5 mg Q6 PRN PO ANXIETY Last administered on 01/17/17 15 :49; Admin Dose 0.5 MG; Start 01/11/17 at 17:00 Clonidine (Catapres) 0.1 mg Q6H PRN PO SBP ABOVE 170; Start 01/11/17 at 17:00 Escitalopram Oxalate (Lexapro) 10 mg DAILY PO Last administered on 01/19/17 09: 05; Admin Dose 10 MG; Start 01/12/17 at 09:00 Ferrous Sulfate (Ferrous Sulfate (Ec)) 325 mg TID PO Last administered on 09:03; Admin Dose 325 MG; Start 01/11/17 at 21:00 Levofloxacin (Levaquin) 750 mg DAILY@06 PO Last administered on 01/19/17 05:46 ; Admin Dose 750 MG; Start 01/12/17 at 06:00 Memantine (Namenda) 10 mg DAILY PO Last administered on 01/19/17 09:04; Admin Dose 10 MG; Start 01/12/17 at 09:00 Pantoprazole (Protonix Tab) 40 mg DAILY PO Last administered on 01/19/17 09:03 ; Admin Dose 40 MG; Start 01/11/17 at 18:00 Zolpidem Tartrate (Ambien) 5 mg QHS PRN PO INSOMNIA; Start 01/11/17 at 17:00 Allopurinol (Zyloprim) 300 mg HS PO Last administered on 01/18/17 20:38; Admin Dose 300 MG; Start 01/11/17 at 21:00 Lorazepam (Ativan) 1 mg HS PRN IV INSOMNIA Last administered on 01/13/17 21:20 ; Admin Dose 1 MG; Start 01/13/17 at 21:30 Magnesium Hydroxide (Milk Of Mag) 30 ml Q8 PRN PO CONSTIPATION Last administered on 01/16/17 05:19; Admin Dose 30 ML; Start 01/15/17 at 10:30 Prednisone (Prednisone) 30 mg DAILY PO Last administered on 01/19/17 09:03; Admin Dose 30 MG; Start 01/17/17 at 09:00 Furosemide (Lasix) 40 mg DAILY IV Last administered on 01/17/17 17:27; Admin Dose 40 MG; Start 01/17/17 at 09:00 Enoxaparin Sodium (Lovenox) 75 mg Q24H SC Last administered on 01/18/17 17:11; Admin Dose 75 MG; Start 01/17/17 at 16:45 Digoxin (Digoxin) 0.25 mg DAILY@13 PO Last administered on 01/18/17 13:32; Admin Dose 0.25 MG; Start 01/18/17 at 13:00 Potassium Chloride (Potassium Chloride Pwd/Soln) 20 meq DAILY PO Last administered on 01/19/17 09:05; Admin Dose 20 MEQ; Start 01/18/17 at 10:00 VANESSA IZAGUIRRE Jan 19, 2017 11:23
[2017-01-19] MEDS: DIGOXIN 0.25 MG TAB PO SCH (12:31)
[2017-01-19] MEDS: clonAZEPAM 0.5 MG TAB PO PRN (13:23)
[2017-01-19] MEDS ORDERED: SOD CHLORIDE 0.9% 250 ML IV ONE (13:30)
[2017-01-19] MEDS ORDERED: METOPROLOL 5 MG INJ IV ONE (14:00)
--- NOTE | 2017-01-19 14:40 | CONS ---
Date/Time of Note Date/Time of Note DATE: 01/19/17 TIME: 14:38 Assessment/Plan Assessment/Plan Chief Complaint/Hosp Course SUBJECTIVE: No acute changes. Alert, tachypneic on nc, NAD MICROBIOLOGY: Urine culture growing Klebsiella pneumoniae. Blood cultures remain negative. ALLERGIES: PENICILLIN. ANTIMICROBIALS: Levaquin. PHYSICAL EXAMINATION: GENERAL: Fragile, elderly man who is in no distress. HEENT: Head atraumatic, normocephalic. Sclerae anicteric. Buccal mucosa dry. NECK: Supple, trachea midline. CHEST: Poor air movement. Breath sounds diminished throughout with expiratory wheezes and prolonged expiratory phase. HEART: S1, S2 tachycardic, regular. ABDOMEN: Soft. Bowel tones present. EXTREMITIES: No cyanosis. ASSESSMENT: 1. Acute respiratory failure secondary to chronic obstructive pulmonary disease exacerbation and possible volume overload. 2. Persistent leukocytosis, likely steroid induced. 3. History of atrial fibrillation. 4. Urinary tract infection. 5. Metastatic cancer to the bone. 6. PE==> started on Lovenox PLAN: The patient remains unchanged. Continue antibiotics, f/u oncology/ pulmonary recommendations. DW staff Problems: Consultation Date/Type/Reason Admit Date/Time January 11, 2017 at 16:25 Type of Consultation: ID Referring Provider: DESI MCLAIN MD Exam/Review of Systems Vital Signs Vitals Vital Signs Date Time Temp Pulse Resp B/P Pulse Ox O2 Delivery O2 Flow Rate FiO2 01/19/17 12:15 101 24 99 Nasal Cannula 3.0 01/19/17 11:03 99.5 110/55 Intake and Output 01/18/17 01/18/17 01/19/17 15:00 23:00 07:00 Intake Total 960 ml 200 ml Output Total 300 ml Balance 660 ml 200 ml Results Result Diagram: 01/18/17 0515 01/17/17 0547 Medications Medications Current Medications Acetaminophen (Tylenol Tab) 650 mg Q6H PRN PO MILD PAIN LEVEL 1-3; Start at 17:00 Atorvastatin Calcium (Lipitor) 20 mg HS PO Last administered on 01/18/17 20:38 ; Admin Dose 20 MG; Start 01/11/17 at 21:00 Clonazepam (Klonopin) 0.5 mg Q6 PRN PO ANXIETY Last administered on 01/19/17 13 :23; Admin Dose 0.5 MG; Start 01/11/17 at 17:00 Clonidine (Catapres) 0.1 mg Q6H PRN PO SBP ABOVE 170; Start 01/11/17 at 17:00 Escitalopram Oxalate (Lexapro) 10 mg DAILY PO Last administered on 01/19/17 09: 05; Admin Dose 10 MG; Start 01/12/17 at 09:00 Ferrous Sulfate (Ferrous Sulfate (Ec)) 325 mg TID PO Last administered on 12:31; Admin Dose 325 MG; Start 01/11/17 at 21:00 Levofloxacin (Levaquin) 750 mg DAILY@06 PO Last administered on 01/19/17 05:46 ; Admin Dose 750 MG; Start 01/12/17 at 06:00 Memantine (Namenda) 10 mg DAILY PO Last administered on 01/19/17 09:04; Admin Dose 10 MG; Start 01/12/17 at 09:00 Pantoprazole (Protonix Tab) 40 mg DAILY PO Last administered on 01/19/17 09:03 ; Admin Dose 40 MG; Start 01/11/17 at 18:00 Zolpidem Tartrate (Ambien) 5 mg QHS PRN PO INSOMNIA; Start 01/11/17 at 17:00 Allopurinol (Zyloprim) 300 mg HS PO Last administered on 01/18/17 20:38; Admin Dose 300 MG; Start 01/11/17 at 21:00 Lorazepam (Ativan) 1 mg HS PRN IV INSOMNIA Last administered on 01/13/17 21:20 ; Admin Dose 1 MG; Start 01/13/17 at 21:30 Magnesium Hydroxide (Milk Of Mag) 30 ml Q8 PRN PO CONSTIPATION Last administered on 01/16/17 05:19; Admin Dose 30 ML; Start 01/15/17 at 10:30 Prednisone (Prednisone) 30 mg DAILY PO Last administered on 01/19/17 09:03; Admin Dose 30 MG; Start 01/17/17 at 09:00 Furosemide (Lasix) 40 mg DAILY IV Last administered on 01/17/17 17:27; Admin Dose 40 MG; Start 01/17/17 at 09:00 Enoxaparin Sodium (Lovenox) 75 mg Q24H SC Last administered on 01/18/17 17:11; Admin Dose 75 MG; Start 01/17/17 at 16:45 Digoxin (Digoxin) 0.25 mg DAILY@13 PO Last administered on 01/19/17 12:31; Admin Dose 0.25 MG; Start 01/18/17 at 13:00 Potassium Chloride (Potassium Chloride Pwd/Soln) 20 meq DAILY PO Last administered on 01/19/17 09:05; Admin Dose 20 MEQ; Start 01/18/17 at 10:00 KRISTIN SHAIKH NP Jan 19, 2017 14:40
--- NOTE | 2017-01-19 17:06 | CONS ---
Date/Time of Note Date/Time of Note DATE: 01/19/17 TIME: 17:05 Assessment/Plan Assessment/Plan Additional Assessment/Plan 86 y .o. man with h/o htn, hld, dm2, cad s/p PCI to RCA 2009, Afib and now metastatic cancer with lung mass, spinal cord mass who presented in 11/2016 for C2 pathologic neck fracture. pt had surgery to stabilize fracture but then had prolonged hospitalization. Cardiology was following patient given atrial fibrillation rhythm with rates controlled, pt was not on anticoag for afib given metastatic disease, limited mobility. Pt discharged to nursing facility, but now returned 01/11 with respiratory distress. Pt admitted, thought to have possible pneumonia/copd exacerbation. pt treated with abx, did cont to have sob. CT pulm angio obtained showing acute PE. pt now on lovenox. Consulted for afib w/ RVR. Update 01/19- afib w/ RVR this afternoon (110-140s). Pt asymptomatic. - continue PO digoxin - will add low dose PO metoprolol and IV prn, as bp can tolerate - on lovenox for PE Consultation Date/Type/Reason Admit Date/Time January 11, 2017 at 16:25 Initial Consult Date 01/17/17 Type of Consultation: cards Referring Provider: DESI MCLAIN MD 24 HR Interval Summary Free Text/Dictation Denies cp, sob or palpitations Tele - afib 110-140s this afternoon Exam/Review of Systems Vital Signs Vitals Vital Signs Date Time Temp Pulse Resp B/P Pulse Ox O2 Delivery O2 Flow Rate FiO2 01/19/17 16:40 4.0 01/19/17 16:36 80 22 99 Nasal Cannula 01/19/17 15:50 98.0 100/55 Intake and Output 01/18/17 01/18/17 01/19/17 15:00 23:00 07:00 Intake Total 960 ml 200 ml Output Total 300 ml Balance 660 ml 200 ml Exam Constitutional: alert, No distress Neck: No jvd Respiratory: clear to auscultation Cardiovascular: irregular rhythm, No systolic murmur Results Result Diagram: 01/18/17 0515 01/17/17 0547 Medications Medications Current Medications Acetaminophen (Tylenol Tab) 650 mg Q6H PRN PO MILD PAIN LEVEL 1-3; Start at 17:00 Atorvastatin Calcium (Lipitor) 20 mg HS PO Last administered on 01/18/17 20:38 ; Admin Dose 20 MG; Start 01/11/17 at 21:00 Clonazepam (Klonopin) 0.5 mg Q6 PRN PO ANXIETY Last administered on 01/19/17 13 :23; Admin Dose 0.5 MG; Start 01/11/17 at 17:00 Clonidine (Catapres) 0.1 mg Q6H PRN PO SBP ABOVE 170; Start 01/11/17 at 17:00 Escitalopram Oxalate (Lexapro) 10 mg DAILY PO Last administered on 01/19/17 09: 05; Admin Dose 10 MG; Start 01/12/17 at 09:00 Ferrous Sulfate (Ferrous Sulfate (Ec)) 325 mg TID PO Last administered on 12:31; Admin Dose 325 MG; Start 01/11/17 at 21:00 Levofloxacin (Levaquin) 750 mg DAILY@06 PO Last administered on 01/19/17 05:46 ; Admin Dose 750 MG; Start 01/12/17 at 06:00 Memantine (Namenda) 10 mg DAILY PO Last administered on 01/19/17 09:04; Admin Dose 10 MG; Start 01/12/17 at 09:00 Pantoprazole (Protonix Tab) 40 mg DAILY PO Last administered on 01/19/17 09:03 ; Admin Dose 40 MG; Start 01/11/17 at 18:00 Zolpidem Tartrate (Ambien) 5 mg QHS PRN PO INSOMNIA; Start 01/11/17 at 17:00 Allopurinol (Zyloprim) 300 mg HS PO Last administered on 01/18/17 20:38; Admin Dose 300 MG; Start 01/11/17 at 21:00 Lorazepam (Ativan) 1 mg HS PRN IV INSOMNIA Last administered on 01/13/17 21:20 ; Admin Dose 1 MG; Start 01/13/17 at 21:30 Magnesium Hydroxide (Milk Of Mag) 30 ml Q8 PRN PO CONSTIPATION Last administered on 01/16/17 05:19; Admin Dose 30 ML; Start 01/15/17 at 10:30 Prednisone (Prednisone) 30 mg DAILY PO Last administered on 01/19/17 09:03; Admin Dose 30 MG; Start 01/17/17 at 09:00 Furosemide (Lasix) 40 mg DAILY IV Last administered on 01/17/17 17:27; Admin Dose 40 MG; Start 01/17/17 at 09:00 Enoxaparin Sodium (Lovenox) 75 mg Q24H SC Last administered on 01/18/17 17:11; Admin Dose 75 MG; Start 01/17/17 at 16:45 Digoxin (Digoxin) 0.25 mg DAILY@13 PO Last administered on 01/19/17 12:31; Admin Dose 0.25 MG; Start 01/18/17 at 13:00 Potassium Chloride (Potassium Chloride Pwd/Soln) 20 meq DAILY PO Last administered on 01/19/17 09:05; Admin Dose 20 MEQ; Start 01/18/17 at 10:00 FLORECITA VÁSQUEZ Jan 19, 2017 17:06
[2017-01-19] MEDS: ENOXAPARIN 80 MG/0.8 ML SYG SC SCH (17:12)
[2017-01-19] MEDS ORDERED: METOPROLOL 5 MG INJ IV PRN (17:30)
[2017-01-19] MEDS: METOPROLOL 25 MG TAB PO SCH ×2 (17:30→21:03)
[2017-01-19] MEDS: ALLOPURINOL 300 MG TAB PO SCH (21:03)
[2017-01-19] MEDS: GUAIFENESIN LA 600 MG TABSR PO SCH (21:03)
[2017-01-19] MEDS: ATORVASTATIN 20 MG TAB PO SCH (21:03)
--- NOTE | 2017-01-19 23:30 | RADRPT ---
PROCEDURE: XR Chest. CLINICAL INDICATION: Shortness of breath. TECHNIQUE: AP Portable chest. COMPARISON: 05/10/15 FINDINGS: The cardiomediastinal silhouette is normal. There is hazy opacity throughout the left chest and the right lung base, new compared to the prior. The osseous structures are unremarkable. IMPRESSION: Hazy opacity throughout the left chest and the right lung base likely due to left greater than right pleural effusions with these are not associated atelectasis. Pneumonia would not be excluded. RPTAT: HIKT .Magnus Zaragoza MD, MD Date Time Electronically viewed and signed by .Magnus Zaragoza MD, on 01/19/2017 23:30 .T/
[2017-01-20] VITALS (12 sets, daily range): BP systolic 94–110; BP diastolic 51–61; PULSE 77–133; RESP 17–20
--- NOTE | 2017-01-20 00:12 | PN ---
DATE: 01/19/2017 SUBJECTIVE: Patient is awake and alert, but seems slightly confused. He stated that he fell, but c ould not remember the details, and he does not really why he is in the hospital. PHYSICAL EXAMINATION: CHEST: Clear to A and P. HEART: Irregular irregularity. The patient is in atrial fibrillation. ABDOMEN: Liver, kidneys, spleen are not palpable. Bowel sounds are normal. EXTREMITIES: No ankle edema. IMAGING: The patient had an MRI of his lumbar spine. 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 Because of this, neurosurgical consultation was called; however, there is no note chart yet as to whether the neurosurgeon saw him or not. This will be investigated again tomdenisse nagel. VITAL SIGNS: Temperature 99.5, blood pressure 100/59, pulse varies between 80-123, with irregular i rregularity, respiratory rate varies between 19-24, pulse ox is 96% with an oxygen flow rate of 4. LABORATORY DATA: White blood cell count 12,200, hemoglobin 8.6, hematocrit 28.4%, platelet count wa s normal. Sodium 144, potassium 3.7, carbon dioxide 27, chloride 119, BUN 25, creatinine 0.74, calc ium 6.3, uncorrected. BNP 4480. MRSA scan is negative. Dictated By: AMANDA SIMON/NTS Conf#: [id number] DID#: [id number]
[2017-01-20] MEDS: ALBUTEROL/IPRATROPIUM (NEB) 3 ML AMP HHN SCH ×6 (00:14→20:27)
[2017-01-20] MEDS: LEVOFLOXACIN 750 MG TABLET PO SCH (06:06)
[2017-01-20 07:10] LABS: ADD SCAN DIFF NO
[2017-01-20 07:21] LABS: ABNORMAL IP MESSAGE 1; HEMATOCRIT 32.6 % (42.0-52.0); HEMOGLOBIN 9.8 g/dl (14.0-18.0); MEAN CORPUSCULAR HEMOGLOBIN 27.9 pg (29.0-33.0); MEAN CORPUSCULAR HGB CONC 30.1 g/dl (32.0-37.0); MEAN CORPUSCULAR VOLUME 92.9 fl (82.0-101.0); MEAN PLATELET VOLUME 10.1 fl (7.4-10.4); PLATELET COUNT 257 10^3/UL (140-415); RED BLOOD COUNT 3.51 10^6/ul (4.70-6.10)
[2017-01-20 07:33] LABS: CALCIUM 6.5 mg/dl (8.4-10.2); CREATININE 0.83 mg/dl (0.61-1.24); POTASSIUM 3.6 mmol/L (3.5-5.1)
[2017-01-20] MEDS: FUROSEMIDE 20 MG INJ IV SCH (09:00)
[2017-01-20] MEDS: METOPROLOL 25 MG TAB PO SCH ×2 (09:00→20:24)
[2017-01-20] MEDS: predniSONE 10 MG TAB PO SCH (09:43)
[2017-01-20] MEDS: POTASSIUM CHLORIDE 20 MEQ POWDER FOR ORAL SOLN PO SCH (09:43)
[2017-01-20] MEDS: MEMANTINE 10 MG TAB PO SCH (09:47)
[2017-01-20] MEDS: ESCITALOPRAM 10 MG TAB PO SCH (09:47)
[2017-01-20] MEDS: PANTOPRAZOLE (EC) 40 MG TAB PO SCH (09:48)
[2017-01-20] MEDS: FERROUS SULFATE (EC) 325 MG TAB PO SCH ×3 (09:48→20:24)
[2017-01-20] MEDS: GUAIFENESIN LA 600 MG TABSR PO SCH ×2 (09:48→20:24)
[2017-01-20 09:50] LABS: MONOCYTE # 1.2 10^3/ul (0.3-0.9); NEUTROPHIL # 21.6 10^3/ul (1.6-7.5)
[2017-01-20 09:52] LABS: BURR CELLS FEW; POIKILOCYTOSIS FEW
[2017-01-20 09:53] LABS: OVALOCYTES FEW; SCHISTOCYTES FEW; SPHEROCYTES FEW
[2017-01-20 09:54] LABS: TOXIC GRANULATION FEW
[2017-01-20 09:55] LABS: PLATELET ESTIMATE PLT APPEAR ADEQUATE
--- NOTE | 2017-01-20 11:24 | PN ---
Date/Time of Note Date/Time of Note DATE: 01/20/17 TIME: 11:22 Assessment/Plan VTE Prophylaxis VTE Prophylaxis Intervention: LMWH Lines/Catheters IV Catheter Type (from Nrsg): Saline Lock Urinary Cath still in place: Yes Reason Cath still needed: other (indicate) (weakness) Assessment/Plan Assessment/Plan No new suggestions. Anticoagulation is being given and he is stable. Not a good chemotherapy candidate. Dr. Sharma to resume care in AM. Subjective 24 Hr Interval Summary Free Text/Dictation Pt is comfortable, lying in bed and watching TV. Exam/Review of Systems Vital Signs Vitals Vital Signs Date Time Temp Pulse Resp B/P Pulse Ox O2 Delivery O2 Flow Rate FiO2 01/20/17 08:04 128 01/20/17 07:20 Nasal Cannula 3.0 01/20/17 07:13 97.8 19 101/54 98 Intake and Output 01/19/17 01/19/17 01/20/17 15:00 23:00 07:00 Intake Total 550 ml 200 ml Output Total 600 ml 450 ml Balance -50 ml -250 ml Exam Constitutional: alert Head: normocephalic Respiratory: clear to auscultation, diminished breath sounds, other (pursed lips) Cardiovascular: regular rate and rhythm Gastrointestinal: non-tender, soft Results Result Diagram: 01/20/17 0555 01/20/17 0556 Results 24 hrs Laboratory Tests Test 01/20/17 05:55 01/20/17 05:56 White Blood Count 23.0 #H Red Blood Count 3.51 L Hemoglobin 9.8 L Hematocrit 32.6 L Mean Corpuscular Volume 92.9 Mean Corpuscular Hemoglobin 27.9 L Mean Corpuscular Hemoglobin Concent 30.1 L Red Cell Distribution Width 16.0 H Platelet Count 257 Mean Platelet Volume 10.1 Neutrophils % 93.0 H Band Neutrophils % 1.0 Lymphocytes % 1.0 L Monocytes % 5.0 Nucleated Red Blood Cells % 1.0 H Neutrophils # 21.6 H Monocytes # 1.2 H Differential Comment Toxic Granulation FEW Platelet Estimate PLT APPEAR ADEQUATE Large Platelets FEW Poikilocytosis FEW Anisocytosis Spherocytes FEW Ovalocytes FEW Schistocytes FEW Sodium Level 139 Potassium Level 3.6 Chloride Level 107 Carbon Dioxide Level 26 Anion Gap 10 Blood Urea Nitrogen 26 H Creatinine 0.83 Glucose Level 90 Calcium Level 6.5 L Medications Medications Current Medications Acetaminophen (Tylenol Tab) 650 mg Q6H PRN PO MILD PAIN LEVEL 1-3; Start at 17:00 Atorvastatin Calcium (Lipitor) 20 mg HS PO Last administered on 01/19/17 21:03 ; Admin Dose 20 MG; Start 01/11/17 at 21:00 Clonazepam (Klonopin) 0.5 mg Q6 PRN PO ANXIETY Last administered on 01/19/17 13 :23; Admin Dose 0.5 MG; Start 01/11/17 at 17:00 Clonidine (Catapres) 0.1 mg Q6H PRN PO SBP ABOVE 170; Start 01/11/17 at 17:00 Escitalopram Oxalate (Lexapro) 10 mg DAILY PO Last administered on 01/20/17 09: 47; Admin Dose 10 MG; Start 01/12/17 at 09:00 Ferrous Sulfate (Ferrous Sulfate (Ec)) 325 mg TID PO Last administered on 09:48; Admin Dose 325 MG; Start 01/11/17 at 21:00 Levofloxacin (Levaquin) 750 mg DAILY@06 PO Last administered on 01/20/17 06:06 ; Admin Dose 750 MG; Start 01/12/17 at 06:00 Memantine (Namenda) 10 mg DAILY PO Last administered on 01/20/17 09:47; Admin Dose 10 MG; Start 01/12/17 at 09:00 Pantoprazole (Protonix Tab) 40 mg DAILY PO Last administered on 01/20/17 09:48 ; Admin Dose 40 MG; Start 01/11/17 at 18:00 Zolpidem Tartrate (Ambien) 5 mg QHS PRN PO INSOMNIA; Start 01/11/17 at 17:00 Allopurinol (Zyloprim) 300 mg HS PO Last administered on 01/19/17 21:03; Admin Dose 300 MG; Start 01/11/17 at 21:00 Lorazepam (Ativan) 1 mg HS PRN IV INSOMNIA Last administered on 01/13/17 21:20 ; Admin Dose 1 MG; Start 01/13/17 at 21:30 Magnesium Hydroxide (Milk Of Mag) 30 ml Q8 PRN PO CONSTIPATION Last administered on 01/16/17 05:19; Admin Dose 30 ML; Start 01/15/17 at 10:30 Prednisone (Prednisone) 30 mg DAILY PO Last administered on 01/20/17 09:43; Admin Dose 30 MG; Start 01/17/17 at 09:00 Furosemide (Lasix) 40 mg DAILY IV Last administered on 01/17/17 17:27; Admin Dose 40 MG; Start 01/17/17 at 09:00 Enoxaparin Sodium (Lovenox) 75 mg Q24H SC Last administered on 01/19/17 17:12; Admin Dose 75 MG; Start 01/17/17 at 16:45 Digoxin (Digoxin) 0.25 mg DAILY@13 PO Last administered on 01/19/17 12:31; Admin Dose 0.25 MG; Start 01/18/17 at 13:00 Potassium Chloride (Potassium Chloride Pwd/Soln) 20 meq DAILY PO Last administered on 01/20/17 09:43; Admin Dose 20 MEQ; Start 01/18/17 at 10:00 Metoprolol Tartrate (Lopressor) 12.5 mg BID PO Last administered on 01/19/17 21 :03; Admin Dose 12.5 MG; Start 01/19/17 at 17:30 Metoprolol Tartrate (Lopressor) 5 mg Q6 PRN IV ELEVATED BLOOD PRESSURE; Start 01/19/17 at 17:30 Guaifenesin (Mucinex) 600 mg BID PO Last administered on 01/20/17 09:48; Admin Dose 600 MG; Start 01/19/17 at 21:00 CASA ANAND MD Jan 20, 2017 11:24
[2017-01-20] MEDS: DIGOXIN 0.25 MG TAB PO SCH (13:10)
--- NOTE | 2017-01-20 13:54 | CONS ---
Date/Time of Note Date/Time of Note DATE: 01/20/17 TIME: 13:51 Assessment/Plan Assessment/Plan Additional Assessment/Plan Chest x-ray was reviewed from yesterday evening which is showing left pleural effusion. Assessment recommendations; 1. Patient admitted for COPD exacerbation and pneumonia. 2. Right upper lobe pulmonary embolism, patient on Lovenox. 3. MRI of the spine is indicative of diffuse metastatic disease. Primary source is unclear. Continue current treatment. Consultation Date/Type/Reason Admit Date/Time January 11, 2017 at 16:25 Type of Consultation: Pulmonary Referring Provider: DESI MCLAIN MD 24 HR Interval Summary Free Text/Dictation Patient condition is somewhat improved. Still complains of chest congestion and coughing but improved from yesterday. General exam; elderly male, awake alert currently in no distress. Exam/Review of Systems Vital Signs Vitals Vital Signs Date Time Temp Pulse Resp B/P Pulse Ox O2 Delivery O2 Flow Rate FiO2 01/20/17 12:26 89 20 98 Nasal Cannula 4.0 01/20/17 11:17 97.2 98/55 Intake and Output 01/19/17 01/19/17 01/20/17 15:00 23:00 07:00 Intake Total 550 ml 200 ml Output Total 600 ml 450 ml Balance -50 ml -250 ml Exam HEENT exam; supple neck, no JVD. No lymphadenopathy. Midline trachea. No thyromegaly. Pharynx is clear. Chest examined; improved breath sounds left lower lobe. Rest of the lung melvin are clear. S1-S2 audible, no murmurs. Regular rhythm. Abdomen examination; soft, nontender. No organomegaly. Bowel sounds audible. Extremity examination; no peripheral edema. [employer] OPER[employer] examination; no focal deficit. Results Result Diagram: 01/20/17 0555 01/20/17 0556 Results 24 hrs Laboratory Tests Test 01/20/17 05:55 01/20/17 05:56 White Blood Count 23.0 #H Red Blood Count 3.51 L Hemoglobin 9.8 L Hematocrit 32.6 L Mean Corpuscular Volume 92.9 Mean Corpuscular Hemoglobin 27.9 L Mean Corpuscular Hemoglobin Concent 30.1 L Red Cell Distribution Width 16.0 H Platelet Count 257 Mean Platelet Volume 10.1 Neutrophils % 93.0 H Band Neutrophils % 1.0 Lymphocytes % 1.0 L Monocytes % 5.0 Nucleated Red Blood Cells % 1.0 H Neutrophils # 21.6 H Monocytes # 1.2 H Differential Comment Toxic Granulation FEW Platelet Estimate PLT APPEAR ADEQUATE Large Platelets FEW Poikilocytosis FEW Anisocytosis Spherocytes FEW Ovalocytes FEW Schistocytes FEW Sodium Level 139 Potassium Level 3.6 Chloride Level 107 Carbon Dioxide Level 26 Anion Gap 10 Blood Urea Nitrogen 26 H Creatinine 0.83 Glucose Level 90 Calcium Level 6.5 L Medications Medications Current Medications Acetaminophen (Tylenol Tab) 650 mg Q6H PRN PO MILD PAIN LEVEL 1-3; Start at 17:00 Atorvastatin Calcium (Lipitor) 20 mg HS PO Last administered on 01/19/17 21:03 ; Admin Dose 20 MG; Start 01/11/17 at 21:00 Clonazepam (Klonopin) 0.5 mg Q6 PRN PO ANXIETY Last administered on 01/19/17 13 :23; Admin Dose 0.5 MG; Start 01/11/17 at 17:00 Clonidine (Catapres) 0.1 mg Q6H PRN PO SBP ABOVE 170; Start 01/11/17 at 17:00 Escitalopram Oxalate (Lexapro) 10 mg DAILY PO Last administered on 01/20/17 09: 47; Admin Dose 10 MG; Start 01/12/17 at 09:00 Ferrous Sulfate (Ferrous Sulfate (Ec)) 325 mg TID PO Last administered on 13:11; Admin Dose 325 MG; Start 01/11/17 at 21:00 Levofloxacin (Levaquin) 750 mg DAILY@06 PO Last administered on 01/20/17 06:06 ; Admin Dose 750 MG; Start 01/12/17 at 06:00 Memantine (Namenda) 10 mg DAILY PO Last administered on 01/20/17 09:47; Admin Dose 10 MG; Start 01/12/17 at 09:00 Pantoprazole (Protonix Tab) 40 mg DAILY PO Last administered on 01/20/17 09:48 ; Admin Dose 40 MG; Start 01/11/17 at 18:00 Zolpidem Tartrate (Ambien) 5 mg QHS PRN PO INSOMNIA; Start 01/11/17 at 17:00 Allopurinol (Zyloprim) 300 mg HS PO Last administered on 01/19/17 21:03; Admin Dose 300 MG; Start 01/11/17 at 21:00 Lorazepam (Ativan) 1 mg HS PRN IV INSOMNIA Last administered on 01/13/17 21:20 ; Admin Dose 1 MG; Start 01/13/17 at 21:30 Magnesium Hydroxide (Milk Of Mag) 30 ml Q8 PRN PO CONSTIPATION Last administered on 01/16/17 05:19; Admin Dose 30 ML; Start 01/15/17 at 10:30 Prednisone (Prednisone) 30 mg DAILY PO Last administered on 01/20/17 09:43; Admin Dose 30 MG; Start 01/17/17 at 09:00 Furosemide (Lasix) 40 mg DAILY IV Last administered on 01/17/17 17:27; Admin Dose 40 MG; Start 01/17/17 at 09:00 Enoxaparin Sodium (Lovenox) 75 mg Q24H SC Last administered on 01/19/17 17:12; Admin Dose 75 MG; Start 01/17/17 at 16:45 Digoxin (Digoxin) 0.25 mg DAILY@13 PO Last administered on 01/20/17 13:10; Admin Dose 0.25 MG; Start 01/18/17 at 13:00 Potassium Chloride (Potassium Chloride Pwd/Soln) 20 meq DAILY PO Last administered on 01/20/17 09:43; Admin Dose 20 MEQ; Start 01/18/17 at 10:00 Metoprolol Tartrate (Lopressor) 12.5 mg BID PO Last administered on 01/19/17 21 :03; Admin Dose 12.5 MG; Start 01/19/17 at 17:30 Metoprolol Tartrate (Lopressor) 5 mg Q6 PRN IV ELEVATED BLOOD PRESSURE; Start 01/19/17 at 17:30 Guaifenesin (Mucinex) 600 mg BID PO Last administered on 01/20/17 09:48; Admin Dose 600 MG; Start 01/19/17 at 21:00 VANESSA IZAGUIRRE Jan 20, 2017 13:53
[2017-01-20] MEDS ORDERED: VANCOMYCIN IV PER PHARMACY XX SCH (15:00)
[2017-01-20] MEDS ORDERED: VANCOMYCIN 1.5 GM in SOD CHLORIDE 0.9% 250 ML IVPB ONE (16:00)
[2017-01-20] MEDS: MEROPENEM 500 MG/100 ML (PMX) 100 ML IVPB SCH ×2 (16:00→23:24)
[2017-01-20] MEDS: ENOXAPARIN 80 MG/0.8 ML SYG SC SCH (18:13)
[2017-01-20] MEDS ORDERED: DEXAMETHASONE 4 MG/ML 1 ML INJ IV ONE (18:30)
[2017-01-20] MEDS ORDERED: CALCIUM GLUCONATE 10% 1 GM in SOD CHLORIDE 0.9% 100 ML IVPB SCH (19:30)
--- NOTE | 2017-01-20 19:31 | PN ---
DATE: 01/20/2017 PHYSICAL EXAMINATION: GENERAL: The patient is awake and alert, but seems somewhat confused. HEART: Irregular irregularity, patient in atrial fibrillation. CHEST: Clear to A and P. ABDOMEN: Liver, kidneys, spleen are not palpable. Bowel sounds are normal. EXTREMITIES: The patient appears not to have any feeling in his legs bilaterally. He does not know how long this has been present since he seems to be quite confused. The patient also states that victor m hurst is unable to move his legs. Again, he does not know how long this has been going on. The patient has extensor plantars bilaterally, and he has a metastatic involvement of the spinal cord. Neurosu rgical consultation was called yesterday; however, apparently the neurosurgeon never received a noti fication. So, neurosurgical consultation was called again today, and the neurosurgeon, I spoke to victor m huerta personally and he will be in today to see the patient. He has also advised that the patient be p ut on Decadron IV 10 mg today and 4 mg every 4 hours. The patient has been on prednisone orally. P rednisone has been discontinued and Decadron IV has been instituted. It is not known how long nancy gutierrez has had anesthetic of his legs or inability to move his legs. VITAL SIGNS: He is afebrile, temperature 97.7, blood pressure is 110/60, pulse varies from 79 to 13 3 per minute, respiratory rate varies between 18 and 20 per minute. Intake and output: 750 mL inta ke, 1050 output. LABORATORY DATA: White blood cell count is 23,000, hemoglobin is 9.8 grams percent, hematocrit is 3 2.6%, platelet count is normal, 93% neutrophils, 1% lymphocytes. Sodium 139, potassium 3.6, chlorid e 107, carbon dioxide 26, BUN 26, creatinine 0.83, glucose 90, calcium 6.5, uncorrected. Lanoxin le jovanna 0.5. MRSA test is negative. MRI of the thoracic spine reveals interval onset of cord compressi on and cord hyperintensity extending from T1-2 through to the T4-5 level, secondary compression by p osterior displacement and angulation strut graft, diffuse metastatic disease throughout the th oracic spine from T1 to L1, no evidence for abnormal enhancement of the spinal cord or leptomeninges , bilateral left greater than right pleural effusions, multilevel disk desiccation to the thoracic s pine without focal disk herniation. Chest x-ray reveals hazy opacity throughout the left chest and the right lung base, likely due to left greater than right pleural effusion. These are not associat ed atelectasis. Pneumonia could not be excluded. Dictated By: AMANDA PRATER MD WR/NTS Conf#: [id number] DID#: [id number] CC: DESI MCLAIN MD;*EndCC*
[2017-01-20] MEDS: ALLOPURINOL 300 MG TAB PO SCH (20:24)
[2017-01-20] MEDS: ATORVASTATIN 20 MG TAB PO SCH (20:24)
[2017-01-20] MEDS: clonAZEPAM 0.5 MG TAB PO PRN (21:37)
--- NOTE | 2017-01-20 22:30 | QN ---
Documentation Comment Patient s/p thoracic corpectomy and fusion/ fixation in November [address] Gannon. Apparently patient was neurologically intact after surgery but has complained of weakness of bilateral lower extremities this admission (01/11). CT of the thoracic spine on 01/17/17 shows failure of the fixation construct with posterior translocation of the strut graft into the spinal canal and gross spinal canal stenosis. This was re-demonstrated on MRI subsequently. I was called by Dr. Magana this evening to see the patient (01/20/17); apparently earlier attempts to contact neurosurgery were contemplated, but I was never called and no order to consult neurosurgery was placed in the chart prior to today. In any event, on my examination the patient has 0/5 motor strength in bilateral lower extremities, and is anaesthetic to light touch, deep touch/ pressure, pain, and proprioception. 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 I discussed the above exam and imaging findings with Dr. Mark Gannon , the patient's treating neurosurgeon, who will resume the patient's care. TARUN BARNES MD Jan 20, 2017 22:30
[2017-01-20] MEDS: DEXAMETHASONE 4 MG/ML 1 ML INJ IV SCH (23:25)
[2017-01-21] VITALS (12 sets, daily range): BP systolic 91–109; BP diastolic 56–73; PULSE 80–119; RESP 17–20
[2017-01-21] MEDS: ALBUTEROL/IPRATROPIUM (NEB) 3 ML AMP HHN SCH ×6 (01:59→21:03)
--- NOTE | 2017-01-21 03:40 | CONS ---
DATE OF ADMISSION: 01/11/2017 DATE OF CONSULTATION: 01/20/2017 CONSULTING SERVICE: Neurosurgery. HISTORY OF PRESENT ILLNESS: This is an 86-year-old male with past medical history significant for a trial fibrillation, hypertension, chronic kidney disease, chronic anemia, gout, prediabetes who was initially admitted to [facility] through the emergency room in late November of this year after the patient had a fall apparently while he was either sitting or getting out of a chair a nd was having new onset neck pain. The patient was then found to have a probable mass within the od ontoid as was demonstrated based on hypodensity on the CT of the cervical spine. The patient was al so found to have multiple other areas of suspected metastases throughout the spine. However, what a ppeared to be the most significant area of disease was at the T4 area where there was complete infil tration of the T4 vertebral body with extension into the epidural space causing significant cord com pression. The patient was further found to have gait ataxia, hyperreflexia, and hypertonia of his l ower extremity and some difficulty with his gait, and the patient had also reported multiple other f alls while he was at home. The patient, despite his advanced age, appeared to be very independent a nd living on his own. After consulting with oncologist, Dr. Sharma, it was determined that surgica l debulking and stabilization of the T4 lesion causing cord compression can provide some benefit to the patient for palliative treatment that #1. Debulking the tumor would help provide diagnostic bene fit for the diagnosis and determination of the primary source of the tumor, and #2. To be able to mi nimize the chance of the patient developing further lower extremity weakness and possible paraplegia while the patient was being treated for the suspected metastatic disease. The patient underwent mu ltilevel thoracic laminectomy, thoracic corpectomy, placement of structural allograft, and T2-T5 pos terior instrumented fusion in late November. Postoperatively, the patient was neurologically unchanged compared to his preoperative status. He was able to move his upper and lower extremities well. As a matter of fact, the physical therapy notes show that, as far out as at least 2 weeks postoperativ sabino, the patient was noted to have walked 120 feet with a front-wheel walker. The patient also subs equently underwent a lung biopsy during the same hospitalization and was subsequently found to have a small pneumothorax on the side of the lung biopsy that actually started improving without need for surgical intervention. The patient, however, developed further shortness of breath and overall fat igue and malaise and was not able to further cooperate with physical therapy. He was subsequently d ischarged to a shelter facility in late December. However, 1 to 2 days subsequent to discharge, the patient was then readmitted in late December for further shortness of breath. The patient was found to have pneumonia, and after receiving a CT angiogram of the chest, he was also found to have a pulm onary embolism but no deep venous thrombosis in the lower extremities was detected. I was contacted by Dr. Enmanuel Wong, the on-call neurosurgeon, around 10:00 p.m. this evening, Saturday, l etting me know that he was contacted by one of the patient's other physicians letting him know that the patient was unable to move his lower extremities. Dr. Wong was not able to determine when th e patient started feeling weak and when was the last time he was able to move his lower extremities as neither the patient or the nursing staff or the notes were clear in indicating this. Dr. Wong was kind enough to do a neurologic exam where he found complete paraplegia without any sensory alexandro r function in the lower extremities. I have now also examined the patient myself with the presence of the nurse in the room, and my physical exam will be noted below. PAST MEDICAL HISTORY: As noted above. ALLERGIES: 1. PENICILLIN. 2. MORPHINE. MEDICATIONS: The patient's medications are reviewed and noted in the chart. The patient is receivi ng multiple antibiotics. He is receiving Lovenox for the treatment of the newly diagnosed pulmonary embolism. SOCIAL HISTORY: The patient has a remote history of smoking tobacco approximately 40 years ago, but he quit smoking since then. The patient only drinks beer or wine occasionally. He does not use il licit or recreational drugs. He is and lives alone. FAMILY HISTORY: Noncontributory. PHYSICAL EXAMINATION: I have seen the patient at bedside in the presence of the nurse. The patient is awake, alert. He knows his name and the name of his nephew and sister. He knows the year only. He is not clear as to the purpose of him being in the hospital. He also does not have insight int o his current medical conditions. He is not aware of the problems going on with his lungs. He is u naware of his newly diagnosed pulmonary embolism. The patient is also unable to tell me when was th e last time that he was able to move his lower extremities. The patient is unable to tell me when t he difficulty with moving of his lower extremities began, and overall he appears to be very confused . The patient is wearing bilateral boots. His face is symmetric. His tongue is midline. Muscle b ulk is normal, bilateral upper and lower extremities. Muscle tone is normal, bilateral upper extrem ities. Muscle tone is grossly increased bilateral lower extremities. Motor strength in bilateral u pper extremities is 1+. Motor strength in bilateral lower extremities is 3+ proximally and distally . Sensation to light touch, pinprick, and proprioception is intact bilateral upper extremities. Th e patient has no sensation to light touch or pinprick from approximately the nipple line from the T4 area down. The patient has no sensation in the perineal or the saddle area. Motor strength in dasia ateral upper extremities is 4/5 proximally and distally. The patient has no movement in his lower e xtremities proximally or distally. The rectal tone is diminished. The patient has a 5 beat ankle c lonus bilateral lower extremities. IMAGING: The patient had a CT angiogram of the thoracic spine on 01/17/2017 that has reconstruction of the thoracic spine that shows complete migration of the structural allograft from the corpectomy site into the spinal canal, causing severe spinal stenosis and cord compression as well as probable failure of the posterior instrumentation from T2-T6. This is a complete change from the patient's postoperative and intraoperative x-rays. The patient has also had an MRI of the thoracic spine done on 01/18/2017 that also again confirms the severe cord compression, which is again a completely dif ferent finding from the patient's immediate postoperative MRI. ASSESSMENT AND PLAN: This is an 86-year-old male with a very unfortunate set of events that have oc curred. 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 It has been a challenge even determining the type of metastatic cancer that the patie nt has despite having sent tumor specimen from the T4 area as well as a lung biopsy. At this point, the highest likelihood for the site of the metastases remains to be from the lung. The patient, as indicated above, underwent T4 corpectomy, multilevel laminectomy, and T2-T6 posterior instrumented fusion about a month and a half ago. The patient, postoperatively, was at his baseline preoperative neurologic status, and even, according to the physical therapy notes, was able to walk approximatel y 120 feet with a front-wheel walker as far out as 2 weeks postoperatively. The patient, however, s ubsequently developed shortness of breath and overall fatigue that made it difficult for him to get out of bed. The patient eventually was discharged to a shelter facility. The patient has n ot been a candidate to start chemotherapy yet because of his systemic decline. The patient has been readmitted for shortness of breath approximately 9 or 10 days ago and was subsequently found to hav e pneumonia with elevated white blood cell count and started on antibiotics. The patient received a CT angiogram of the chest on 01/17/2017, 3 days ago, where the reconstruction shows complete displa cement of the structural allograft from the corpectomy site into the spinal canal causing severe cor d compression. The patient also had an MRI of the thoracic spine done the day after, on 01/18/2017, 2 days ago, again confirming severe spinal cord compression. It is not clear when the patient bega n having the weakness of his lower extremities. The notes that I have seen prior to 01/17/2017 do n ot indicate any specific weakness or decreased sensation in the lower extremities; however, the prov ider notes from 01/17/2017 indicates "paraesthesia and paraplegia." It appears that the patient's w eakness probably began 3 days ago. Although the notes indicate contemplation for neurosurgical cons ult, it does not appear that neurosurgery was ever contacted. Dr. Wong indicated to me that he w as not contacted either. The patient is also unable to provide any meaningful details as to when hi s weakness began given the patient's overall cognitive decline. 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 The patient is also overall in poor health condition, given his multiple medical problems, his grossly short of breath s tatus on nasal cannula, and the fact that he has now been diagnosed with pulmonary embolism actively receiving anticoagulation. Unfortunately, at this point, I do not believe that the patient would b e a candidate for any further surgical intervention for further decompression and stabilization of h is spine. I am afraid that the patient may not even be able to survive any surgical intervention ev en if surgical intervention was to be done. Furthermore, in light of the fact that the patient now has complete paralysis from the level of T4 down of unknown length, and based on the medical records , it appears that the patient has had, as the note indicates, paraplegia at least from 3 days ago, c hances of being able to regain meaningful sensory motor function at this point, even if the patient is able to survive surgical intervention, remains very grim. I have also tried to contact the patie nt's nephew, Mr. Regis Gillespie, carlos and have left him a voice mail message but have not heard back from him. The patient's sister, who is the mother of Regis Gillespie, is unfortunately hard of hearing from my prior contact with her prior to the operation, and therefore, I have tried to conta ct her son, Regis Gillespie, instead to be able to update him of his uncle's status. Also, the prio r notes indicate that the patient, even prior to this admission, had decided to make himself DO NOT RESUSCITATE, but the patient was agreeable to starting chemotherapy or radiation should his overall medical condition improve. I will also try to contact the patient's primary care physician tomorrow morning to further update the primary care physician of the patient's neurologic condition. Dictated By: RAHEL COELHO MD, SA/MARTINA Conf#: [id number] DID#: [id number]
[2017-01-21] MEDS ORDERED: VANCOMYCIN 750 MG in SOD CHLORIDE 0.9% 150 ML IVPB SCH (04:00)
[2017-01-21] MEDS: PANTOPRAZOLE 40 MG INJ IV SCH (05:35)
[2017-01-21] MEDS: MEROPENEM 500 MG/100 ML (PMX) 100 ML IVPB SCH ×3 (05:35→20:47)
[2017-01-21] MEDS: DEXAMETHASONE 4 MG/ML 1 ML INJ IV SCH ×3 (05:35→16:37)
[2017-01-21 07:27] LABS: CALCIUM 6.6 mg/dl (8.4-10.2); CREATININE 1.12 mg/dl (0.61-1.24)
--- NOTE | 2017-01-21 08:05 | PN ---
DATE: 01/20/2017 INFECTIOUS PROGRESS NOTE SUBJECTIVE: Patient remains tachypneic with increased secretions, per RN's report. Afebrile, in no distress. WBC today 23, platelets 257, neutrophils 93, bands 1, lymphs 1, monos 5. BUN 26, creatinine 0.83. DIAGNOSTICS: Chest x-ray this morning revealed hazy opacity throughout the left chest and the right lung base. The patient also had thoracic spine MRI on 01/18/2017, that revealed diffuse metastatic disease throughout the thoracic spine from T1-L1. INDWELLINGS: Eric catheter. PHYSICAL EXAMINATION: GENERAL: This is a chronically ill-appearing, elderly man who is awake, tachypneic, in no distress. HEENT: Head atraumatic, normocephalic. Sclerae anicteric. Buccal mucosa dry. NECK: Supple, trachea midline. CHEST: Rise symmetrical. Breath sounds with bilateral rhonchi and wheezes. HEART: S1, S2. ABDOMEN: Soft, bowel tones present. EXTREMITIES: Without cyanosis. ASSESSMENT: 1. Eizba-xp-rncpsia respiratory failure. 2. Healthcare-associated pneumonia and chronic obstructive pulmonary disease exacerbation. 3. Klebsiella pneumoniae urinary tract infection on admission. 4. Metastatic cancer. 5. Pulmonary embolism. PLAN: The patient remains unchanged. We will change antibiotics to cefepime and vancomycin. We w ill follow pulmonary and oncology recommendations. Overall, prognosis guarded. Dictated By: KRISTIN SHAIKH LABOR COMMISSIONER for YRIS CARRERO MD NI/NTS Conf#: [id number] DID#: [id number]
[2017-01-21] MEDS: GUAIFENESIN LA 600 MG TABSR PO SCH ×2 (08:48→20:46)
[2017-01-21] MEDS: FERROUS SULFATE (EC) 325 MG TAB PO SCH ×3 (08:48→20:46)
[2017-01-21] MEDS: POTASSIUM CHLORIDE 20 MEQ POWDER FOR ORAL SOLN PO SCH (08:48)
[2017-01-21] MEDS: ESCITALOPRAM 10 MG TAB PO SCH (08:48)
[2017-01-21] MEDS: MEMANTINE 10 MG TAB PO SCH (08:48)
[2017-01-21] MEDS: FUROSEMIDE 20 MG INJ IV SCH ×2 (08:50→20:46)
[2017-01-21] MEDS: METOPROLOL 25 MG TAB PO SCH ×2 (08:50→20:47)
--- NOTE | 2017-01-21 09:10 | PN ---
DATE: 01/18/2017 SUBJECTIVE: The patient is awake and alert. He is oriented x4 and wants to know how he is doing an d what his prognosis as well as treatment options are. OBJECTIVE: VITAL SIGNS: Temperature 98.2, blood pressure 110/54, pulse of 96, respiration rate 22, O2 saturati on 98% to 100% on 4 liters nasal cannula. HEENT: Pupils equally round, reactive to light. Oropharynx clear. CHEST: Lungs are clear to auscultation. CARDIAC: Irregularly irregular. ABDOMEN: Active bowel sounds, soft, nondistended, nontender. EXTREMITIES: No clubbing, cyanosis, or edema. LABORATORY DATA: WBC 12.2, hemoglobin 8.6, hematocrit 28.4, platelet count 247,000. ASSESSMENT AND PLAN: 1. Pulmonary emboli. The patient has been started on Lovenox. Anticipate changing to Eliquis if n o further surgical intervention is planned in the near future. 2. Acute respiratory failure, improving clinically. Continue steroid taper and antibiotics. 3. Atrial fibrillation, rate controlled on digoxin. We will hold diltiazem since the patient's blo od pressure has been running on the low side. 4. 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 The patient still in very weakened status and may not be able to tolerate chemotherapy or radiation at this time. We need to continue working on his strength and nutritiona l status. 5. Malnutrition. Consult dietitian for supplementation and dietary advice, particularly since sinan ent has some aspiration risk. 6. Bilateral lower extremity weakness and paresthesias. Await neurosurgical consultation via Dr. Lorenzo Gannon, who did patient's T4 decompressive surgery last month, and who has been notified. Dictated By: DESI MCLAIN MD DP/NTS Conf#: [id number] DID#: [id number]
--- NOTE | 2017-01-21 11:11 | CONS ---
Date/Time of Note Date/Time of Note DATE: 01/21/17 TIME: 11:09 Assessment/Plan Assessment/Plan Additional Assessment/Plan Assessment recommendations; next 1. Patient admitted for COPD exacerbation and pneumonia currently on broad- spectrum antibiotic coverage. 2. Right upper lobe pulmonary embolism. Patient started on Lovenox. 3. Left pleural effusion. Continue current treatment. Obtain follow-up chest x-ray. Consultation Date/Type/Reason Admit Date/Time January 11, 2017 at 16:25 Type of Consultation: Pulmonary Referring Provider: DESI MCLAIN MD 24 HR Interval Summary Free Text/Dictation Patient condition is stable. Complains of shortness of breath off and on. Complains of chest congestion. Cough. General exam; elderly male, awake alert currently in no distress. Exam/Review of Systems Vital Signs Vitals Vital Signs Date Time Temp Pulse Resp B/P Pulse Ox O2 Delivery O2 Flow Rate FiO2 01/21/17 08:19 119 01/21/17 08:12 21 98 Nasal Cannula 4.0 01/21/17 07:06 97.8 91/58 Intake and Output 01/20/17 01/20/17 01/21/17 15:00 23:00 07:00 Intake Total 550 ml 350 ml Output Total 600 ml Balance -50 ml 350 ml Exam HEENT exam is; supple neck, no JVD. No lymphadenopathy midline trachea. No thyromegaly. Patient has a multiple carious teeth. Chest examination; diminished breath on lung bases bilaterally. Upper lobes are fairly clear. S1-S2 audible, no murmurs. Regular rhythm. Abdomen examination; soft, no organomegaly. Nontender. No distention. Bowel sounds audible. Extremity examination; no peripheral edema. Patient has a multiple ecchymosis involving all 4 extremities. DIVISIONAL MERCHANDISING MANAGER examination; no focal deficit. Results Result Diagram: 01/20/17 0555 01/21/17 0530 Results 24 hrs Laboratory Tests Test 01/21/17 05:30 Sodium Level 138 Potassium Level 4.0 Chloride Level 108 Carbon Dioxide Level 21 Anion Gap 13 Blood Urea Nitrogen 37 #H Creatinine 1.12 Glucose Level 115 Calcium Level 6.6 L Albumin 2.5 L Medications Medications Current Medications Acetaminophen (Tylenol Tab) 650 mg Q6H PRN PO MILD PAIN LEVEL 1-3; Start at 17:00 Atorvastatin Calcium (Lipitor) 20 mg HS PO Last administered on 01/20/17 20:24 ; Admin Dose 20 MG; Start 01/11/17 at 21:00 Clonazepam (Klonopin) 0.5 mg Q6 PRN PO ANXIETY Last administered on 01/20/17 21 :37; Admin Dose 0.5 MG; Start 01/11/17 at 17:00 Clonidine (Catapres) 0.1 mg Q6H PRN PO SBP ABOVE 170; Start 01/11/17 at 17:00 Escitalopram Oxalate (Lexapro) 10 mg DAILY PO Last administered on 01/21/17 08: 48; Admin Dose 10 MG; Start 01/12/17 at 09:00 Ferrous Sulfate (Ferrous Sulfate (Ec)) 325 mg TID PO Last administered on 08:48; Admin Dose 325 MG; Start 01/11/17 at 21:00 Memantine (Namenda) 10 mg DAILY PO Last administered on 01/21/17 08:48; Admin Dose 10 MG; Start 01/12/17 at 09:00 Zolpidem Tartrate (Ambien) 5 mg QHS PRN PO INSOMNIA; Start 01/11/17 at 17:00 Allopurinol (Zyloprim) 300 mg HS PO Last administered on 01/20/17 20:24; Admin Dose 300 MG; Start 01/11/17 at 21:00 Lorazepam (Ativan) 1 mg HS PRN IV INSOMNIA Last administered on 01/13/17 21:20 ; Admin Dose 1 MG; Start 01/13/17 at 21:30 Magnesium Hydroxide (Milk Of Mag) 30 ml Q8 PRN PO CONSTIPATION Last administered on 01/16/17 05:19; Admin Dose 30 ML; Start 01/15/17 at 10:30 Furosemide (Lasix) 40 mg DAILY IV Last administered on 01/17/17 17:27; Admin Dose 40 MG; Start 01/17/17 at 09:00 Enoxaparin Sodium (Lovenox) 75 mg Q24H SC Last administered on 01/20/17 18:13; Admin Dose 75 MG; Start 01/17/17 at 16:45 Digoxin (Digoxin) 0.25 mg DAILY@13 PO Last administered on 01/20/17 13:10; Admin Dose 0.25 MG; Start 01/18/17 at 13:00 Potassium Chloride (Potassium Chloride Pwd/Soln) 20 meq DAILY PO Last administered on 01/21/17 08:48; Admin Dose 20 MEQ; Start 01/18/17 at 10:00 Metoprolol Tartrate (Lopressor) 12.5 mg BID PO Last administered on 01/19/17 21 :03; Admin Dose 12.5 MG; Start 01/19/17 at 17:30 Metoprolol Tartrate (Lopressor) 5 mg Q6 PRN IV ELEVATED BLOOD PRESSURE; Start 01/19/17 at 17:30 Guaifenesin 600 mg 600 mg BID PO Last administered on 01/21/17 08:48; Admin Dose 600 MG; Start 01/19/17 at 21:00 Meropenem 100 ml @ 200 mls/hr Q8 IVPB Last administered on 01/21/17 05:35; Admin Dose 200 MLS/HR; Start 01/20/17 at 15:00 Vancomycin HCl/ Sodium Chloride (Vancocin/NS) 150 ml @ 75 mls/hr Q12H IVPB Last administered on 01/21/17 04:08; Admin Dose 75 MLS/HR; Start 01/21/17 at 04: 00 Dexamethasone (Decadron) 4 mg Q6 IV Last administered on 01/21/17 05:35; Admin Dose 4 MG; Start 01/21/17 at 00:00 Pantoprazole (Protonix Iv) 40 mg DAILY@06 IV Last administered on 01/21/17 05: 35; Admin Dose 40 MG; Start 01/21/17 at 06:00 VANESSA IZAGUIRRE 5, 2017 11:10
[2017-01-21] MEDS: DIGOXIN 0.25 MG TAB PO SCH (13:15)
--- NOTE | 2017-01-21 13:59 | CONS ---
Date/Time of Note Date/Time of Note DATE: 01/21/17 TIME: 13:57 Assessment/Plan Assessment/Plan Chief Complaint/Hosp Course SUBJECTIVE: Patient remains tachypneic with increased secretions, per RN's report. Afebrile, in no distress. Abx: Vanco, Merrem INDWELLINGS: Eric catheter. PHYSICAL EXAMINATION: GENERAL: This is a chronically ill-appearing, elderly man who is awake, tachypneic, in no distress. HEENT: Head atraumatic, normocephalic. Sclerae anicteric. Buccal mucosa dry. NECK: Supple, trachea midline. CHEST: Rise symmetrical. Breath sounds with bilateral rhonchi and wheezes. HEART: S1, S2. ABDOMEN: Soft, bowel tones present. EXTREMITIES: Without cyanosis. ASSESSMENT: 1. Fscml-[id number]-dnqhtrc respiratory failure. 2. Healthcare-associated pneumonia and chronic obstructive pulmonary disease exacerbation. 3. Klebsiella pneumoniae urinary tract infection on admission. 4. Metastatic cancer. 5. Pulmonary embolism. PLAN: The patient remains unchanged. Started on Vanco and Merrem yesterday for worsening leukocytosis and increased secretions. Pulmonary and oncology recommendations. Overall, prognosis guarded. DW staff Problems: Consultation Date/Type/Reason Admit Date/Time January 11, 2017 at 16:25 Type of Consultation: id Referring Provider: DESI MCLAIN MD Exam/Review of Systems Vital Signs Vitals Vital Signs Date Time Temp Pulse Resp B/P Pulse Ox O2 Delivery O2 Flow Rate FiO2 01/21/17 12:49 70 22 97 Nasal Cannula 4.0 01/21/17 11:45 98.1 99/69 Intake and Output 01/20/17 01/20/17 01/21/17 15:00 23:00 07:00 Intake Total 550 ml 350 ml Output Total 600 ml Balance -50 ml 350 ml Results Result Diagram: 01/20/17 0555 01/21/17 0530 Results 24 hrs Laboratory Tests Test 01/21/17 05:30 Sodium Level 138 Potassium Level 4.0 Chloride Level 108 Carbon Dioxide Level 21 Anion Gap 13 Blood Urea Nitrogen 37 #H Creatinine 1.12 Glucose Level 115 Calcium Level 6.6 L Albumin 2.5 L Medications Medications Current Medications Acetaminophen (Tylenol Tab) 650 mg Q6H PRN PO MILD PAIN LEVEL 1-3; Start at 17:00 Atorvastatin Calcium (Lipitor) 20 mg HS PO Last administered on 01/20/17 20:24 ; Admin Dose 20 MG; Start 01/11/17 at 21:00 Clonazepam (Klonopin) 0.5 mg Q6 PRN PO ANXIETY Last administered on 01/20/17 21 :37; Admin Dose 0.5 MG; Start 01/11/17 at 17:00 Clonidine (Catapres) 0.1 mg Q6H PRN PO SBP ABOVE 170; Start 01/11/17 at 17:00 Escitalopram Oxalate (Lexapro) 10 mg DAILY PO Last administered on 01/21/17 08: 48; Admin Dose 10 MG; Start 01/12/17 at 09:00 Ferrous Sulfate (Ferrous Sulfate (Ec)) 325 mg TID PO Last administered on 13:15; Admin Dose 325 MG; Start 01/11/17 at 21:00 Memantine (Namenda) 10 mg DAILY PO Last administered on 01/21/17 08:48; Admin Dose 10 MG; Start 01/12/17 at 09:00 Zolpidem Tartrate (Ambien) 5 mg QHS PRN PO INSOMNIA; Start 01/11/17 at 17:00 Allopurinol (Zyloprim) 300 mg HS PO Last administered on 01/20/17 20:24; Admin Dose 300 MG; Start 01/11/17 at 21:00 Lorazepam (Ativan) 1 mg HS PRN IV INSOMNIA Last administered on 01/13/17 21:20 ; Admin Dose 1 MG; Start 01/13/17 at 21:30 Magnesium Hydroxide (Milk Of Mag) 30 ml Q8 PRN PO CONSTIPATION Last administered on 01/16/17 05:19; Admin Dose 30 ML; Start 01/15/17 at 10:30 Furosemide (Lasix) 40 mg DAILY IV Last administered on 01/17/17 17:27; Admin Dose 40 MG; Start 01/17/17 at 09:00 Enoxaparin Sodium (Lovenox) 75 mg Q24H SC Last administered on 01/20/17 18:13; Admin Dose 75 MG; Start 01/17/17 at 16:45 Digoxin (Digoxin) 0.25 mg DAILY@13 PO Last administered on 01/21/17 13:15; Admin Dose 0.25 MG; Start 01/18/17 at 13:00 Potassium Chloride (Potassium Chloride Pwd/Soln) 20 meq DAILY PO Last administered on 01/21/17 08:48; Admin Dose 20 MEQ; Start 01/18/17 at 10:00 Metoprolol Tartrate (Lopressor) 12.5 mg BID PO Last administered on 01/19/17 21 :03; Admin Dose 12.5 MG; Start 01/19/17 at 17:30 Metoprolol Tartrate (Lopressor) 5 mg Q6 PRN IV ELEVATED BLOOD PRESSURE; Start 01/19/17 at 17:30 Guaifenesin 600 mg 600 mg BID PO Last administered on 01/21/17 08:48; Admin Dose 600 MG; Start 01/19/17 at 21:00 Meropenem (Merrem 500 Mg/ 100 ml (Pmx)) 100 ml @ 200 mls/hr Q8 IVPB Last administered on 01/21/17 05:35; Admin Dose 200 MLS/HR; Start 01/20/17 at 15:00 Dexamethasone (Decadron) 4 mg Q6 IV Last administered on 01/21/17 13:15; Admin Dose 4 MG; Start 01/21/17 at 00:00 Pantoprazole 40 mg 40 mg DAILY@06 IV Last administered on 01/21/17 05:35; Admin Dose 40 MG; Start 01/21/17 at 06:00 Vancomycin HCl (Vancocin) 100 ml @ 100 mls/hr Q12H IVPB ; Start 01/21/17 at 16: 00 Miscellaneous Information (*Rx Drug Level Order Reminder*) 1 ONCE ONCE XX ; Start 01/22/17 at 03:00; Stop 01/22/17 at 03:01 KRISTIN SHAIKH NP Jan 21, 2017 13:59
--- NOTE | 2017-01-21 14:01 | CONS ---
Date/Time of Note Date/Time of Note DATE: 01/21/17 TIME: 13:57 Assessment/Plan Assessment/Plan Chief Complaint/Hosp Course ASSESSMENT: - acute PE- segmental, started on lovenox transition to NOAC - metastatic adenocarcinoma with lung/bone mets. pt with possible spinal cord compression with le weakness. per primary/oncology team. - pneumonia/sepsis- improved, stable bp on abx per id/primary - persistent afib - non valvular, rate controlled on diltiazem. on anticoag given acute PE - h/o cad stable - h/o htn controlled - h/o hld on statin Plan - anticoag per primary team - po digoxin, check level periodically - bp marginal hold off on avn blockers - cont statin given cad hx - neuro mgmt per primary team Problems: Consultation Date/Type/Reason Admit Date/Time January 11, 2017 at 16:25 Initial Consult Date 01/17/17 Type of Consultation: Cardiology Referring Provider: DESI MCLAIN MD 24 HR Interval Summary Free Text/Dictation pt seen this am. no cp/sob. tele reviewed cont with afib, rate controlled. Detailed Summary Respiratory: no complaints Cardiovascular: no complaints Gastrointestinal: no complaints Neurologic: confusion, focal-weakness Exam/Review of Systems Vital Signs Vitals Vital Signs Date Time Temp Pulse Resp B/P Pulse Ox O2 Delivery O2 Flow Rate FiO2 01/21/17 12:49 70 22 97 Nasal Cannula 4.0 01/21/17 11:45 98.1 99/69 Intake and Output 01/20/17 01/20/17 01/21/17 15:00 23:00 07:00 Intake Total 550 ml 350 ml Output Total 600 ml Balance -50 ml 350 ml Exam Constitutional: alert Psych: nl mood/affect, no complaints Head: normocephalic ENMT: mucosa pink and moist Neck: non-tender, supple Respiratory: clear to auscultation, normal air movement Cardiovascular: irregular rhythm, nl pulses Gastrointestinal: non-tender, soft Results Result Diagram: 01/20/17 0555 01/21/17 0530 Results 24 hrs Laboratory Tests Test 01/21/17 05:30 Sodium Level 138 Potassium Level 4.0 Chloride Level 108 Carbon Dioxide Level 21 Anion Gap 13 Blood Urea Nitrogen 37 #H Creatinine 1.12 Glucose Level 115 Calcium Level 6.6 L Albumin 2.5 L Medications Medications Current Medications Acetaminophen (Tylenol Tab) 650 mg Q6H PRN PO MILD PAIN LEVEL 1-3; Start at 17:00 Atorvastatin Calcium (Lipitor) 20 mg HS PO Last administered on 01/20/17 20:24 ; Admin Dose 20 MG; Start 01/11/17 at 21:00 Clonazepam (Klonopin) 0.5 mg Q6 PRN PO ANXIETY Last administered on 01/20/17 21 :37; Admin Dose 0.5 MG; Start 01/11/17 at 17:00 Clonidine (Catapres) 0.1 mg Q6H PRN PO SBP ABOVE 170; Start 01/11/17 at 17:00 Escitalopram Oxalate (Lexapro) 10 mg DAILY PO Last administered on 01/21/17 08: 48; Admin Dose 10 MG; Start 01/12/17 at 09:00 Ferrous Sulfate (Ferrous Sulfate (Ec)) 325 mg TID PO Last administered on 13:15; Admin Dose 325 MG; Start 01/11/17 at 21:00 Memantine (Namenda) 10 mg DAILY PO Last administered on 01/21/17 08:48; Admin Dose 10 MG; Start 01/12/17 at 09:00 Zolpidem Tartrate (Ambien) 5 mg QHS PRN PO INSOMNIA; Start 01/11/17 at 17:00 Allopurinol (Zyloprim) 300 mg HS PO Last administered on 01/20/17 20:24; Admin Dose 300 MG; Start 01/11/17 at 21:00 Lorazepam (Ativan) 1 mg HS PRN IV INSOMNIA Last administered on 01/13/17 21:20 ; Admin Dose 1 MG; Start 01/13/17 at 21:30 Magnesium Hydroxide (Milk Of Mag) 30 ml Q8 PRN PO CONSTIPATION Last administered on 01/16/17 05:19; Admin Dose 30 ML; Start 01/15/17 at 10:30 Furosemide (Lasix) 40 mg DAILY IV Last administered on 01/17/17 17:27; Admin Dose 40 MG; Start 01/17/17 at 09:00 Enoxaparin Sodium (Lovenox) 75 mg Q24H SC Last administered on 01/20/17 18:13; Admin Dose 75 MG; Start 01/17/17 at 16:45 Digoxin (Digoxin) 0.25 mg DAILY@13 PO Last administered on 01/21/17 13:15; Admin Dose 0.25 MG; Start 01/18/17 at 13:00 Potassium Chloride (Potassium Chloride Pwd/Soln) 20 meq DAILY PO Last administered on 01/21/17 08:48; Admin Dose 20 MEQ; Start 01/18/17 at 10:00 Metoprolol Tartrate (Lopressor) 12.5 mg BID PO Last administered on 01/19/17 21 :03; Admin Dose 12.5 MG; Start 01/19/17 at 17:30 Metoprolol Tartrate (Lopressor) 5 mg Q6 PRN IV ELEVATED BLOOD PRESSURE; Start 01/19/17 at 17:30 Guaifenesin 600 mg 600 mg BID PO Last administered on 01/21/17 08:48; Admin Dose 600 MG; Start 01/19/17 at 21:00 Meropenem (Merrem 500 Mg/ 100 ml (Pmx)) 100 ml @ 200 mls/hr Q8 IVPB Last administered on 01/21/17 05:35; Admin Dose 200 MLS/HR; Start 01/20/17 at 15:00 Dexamethasone (Decadron) 4 mg Q6 IV Last administered on 01/21/17 13:15; Admin Dose 4 MG; Start 01/21/17 at 00:00 Pantoprazole 40 mg 40 mg DAILY@06 IV Last administered on 01/21/17 05:35; Admin Dose 40 MG; Start 01/21/17 at 06:00 Vancomycin HCl (Vancocin) 100 ml @ 100 mls/hr Q12H IVPB ; Start 01/21/17 at 16: 00 Miscellaneous Information (*Rx Drug Level Order Reminder*) 1 ONCE ONCE XX ; Start 01/22/17 at 03:00; Stop 01/22/17 at 03:01 DONA LÓPEZ Jan 21, 2017 14:01
--- NOTE | 2017-01-21 14:49 | RADRPT ---
PROCEDURE: XR Chest. CLINICAL INDICATION: chf TECHNIQUE: Single frontal view of the chest was obtained. COMPARISON: Chest x-ray from 01/19/2017 FINDINGS: There is a likely layering left pleural effusion and retrocardiac opacity due to atelectasis, infilt rate, and / or effusion which is not significantly changed compared to the prior chest x-ray from . There is a small right pleural effusion which is minimally increased. There is mild cardiomegaly and minimal pulmonary vascular congestion. Posterior thoracic spinal fusion hardware is again noted. IMPRESSION: Mild cardiomegaly and minimal pulmonary vascular congestion. Left greater than right pleural effusions. RPTAT: EE Physician Fernando Date Time Electronically viewed and signed by Faraz Farrell Physician on 01/21/2017 14:48 /
[2017-01-21] MEDS: ENOXAPARIN 80 MG/0.8 ML SYG SC SCH (16:40)
[2017-01-21] MEDS: VANCOMYCIN 500MG/NS (PMX) 100 ML IVPB SCH (16:42)
[2017-01-21] MEDS: ALLOPURINOL 300 MG TAB PO SCH (20:46)
[2017-01-21] MEDS: ATORVASTATIN 20 MG TAB PO SCH (20:46)
--- NOTE | 2017-01-21 20:51 | PN ---
DATE: 01/21/2017 SUBJECTIVE: The patient is awake and alert, oriented x4, able to converse fully and inquire about t he status of his current condition. OBJECTIVE: VITAL SIGNS: Temperature 98.0, blood pressure 109/59, pulse of 76, respiration rate 17, O2 saturati on 95% on 4 L nasal cannula. HEENT: Anicteric sclerae. Oropharynx clear. CHEST: Lungs are clear to auscultation anteriorly. Bibasilar crackles a quarter of the way up post eriorly. CARDIAC: Irregularly irregular. ABDOMEN: Active bowel sounds. Soft, nondistended, nontender. EXTREMITIES: No clubbing, cyanosis or edema. NEUROLOGIC: The patient reports that he has some sensation on the right knee, but on objective exam , he cannot feel light touch from the waist down to his toes and is unable to lift his toes at this time. LABORATORY DATA: Sodium 138, potassium 4.0, BUN 37, creatinine 1.12, glucose 115, albumin 2.5. ASSESSMENT AND PLAN: Metastatic adenocarcinoma to the bones. The extent of his widespread metastat ic disease is discussed with the patient as well as his niece, Tayler ____. They both feel that since the disease is incurable, there is not an indication for further aggressive treatment including macey tyson, chemotherapy or radiation. I have approached hospice with both of them, and they both are agr eeable for this. The patient is not able to go home since he lives alone. Will need to plan for ei ther retirement placement or a hospice in the hospital. I will ask case picker about this, wh ether patient can go back to [facility] for hospice care or whether he can stay at the hospital . Dictated By: DESI MCLAIN MD DP/NTS Conf#: [id number] DID#: [id number]
--- NOTE | 2017-01-21 20:51 | PN ---
DATE: 01/21/2017 SUBJECTIVE: The patient is not complaining of pain. Does state, however, that he feels that his le ft ear is "clogged." He has no difficulty swallowing. No complaints of right ear discomfort. The patient does state that he "feels like I am on a downward slope." OBJECTIVE: GENERAL: Patient is a well-developed, but chronically appearing tachypneic male who is in no acute distress. VITAL SIGNS: Temperature is 98, pulse 76 per minute, respirations 22, blood pressure 109/59, pulse oximetry 95% on 4 liters. SKIN: No ecchymoses, no petechiae or rashes. HEENT: Normocephalic. No evidence of trauma. Pupils equal, round, react to light and accommodatio n. Sclerae are nonicteric. Oral mucosa is moist without lesions. There is nasal oxygen in place. NECK: Supple, no jugular venous distention or thyroid enlargement. CHEST: Decreased breath sounds on the left side. No rhonchi, wheezes, rales or rubs. HEART: Irregular rate and rhythm with a ventricular response of 76 per minute. ABDOMEN: Soft, no masses, no ascites. EXTREMITIES: No clubbing, edema or cyanosis. The patient is unable to move lower extremities. The re is a Eric catheter in place. LABORATORY DATA: White count today is 23,000, hemoglobin 9.8, hematocrit 32.6, platelet count is 25 7,000. Sodium 138, potassium 4.9, BUN 37, creatinine 1.12. ASSESSMENT: 1. Metastatic adenocarcinoma, probable pulmonary primary. 2. 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 PLAN: It is felt this patient is not a surgical candidate, although MRI of the spine does suggest t hat there is cord compression extending at T1 through T4 secondary compression by posterior displace ment and angulation of fibular strut. It is felt however, this patient is not a surgical candidate. I do not feel that systemic therapy is indicated either. This patient has no "local delivery driver mutations" and is PD-L1 negative. Given the fact that the spinal cord compression is due to the posterior displacement and angulation of the graft, it is not clear that the patient would benefit from either radiation or chemotherapy. I have discussed this briefly with the patient, who actually seems more alert today. Will discuss zahraa goodman with Dr. Dennison as well. Dictated By: JENNIFFER PEREZ MD, SR/MARTINA Conf#: [id number] DID#: [id number]
[2017-01-22] VITALS (12 sets, daily range): BP systolic 89–99; BP diastolic 53–58; PULSE 97–114; RESP 20–22
[2017-01-22] MEDS: ALBUTEROL/IPRATROPIUM (NEB) 3 ML AMP HHN SCH ×6 (00:42→20:00)
[2017-01-22] MEDS: PANTOPRAZOLE 40 MG INJ IV SCH (04:43)
[2017-01-22] MEDS: DEXAMETHASONE 4 MG/ML 1 ML INJ IV SCH ×4 (04:43→16:53)
[2017-01-22] MEDS: MEROPENEM 500 MG/100 ML (PMX) 100 ML IVPB SCH ×2 (04:45→14:04)
[2017-01-22] MEDS: VANCOMYCIN 500MG/NS (PMX) 100 ML IVPB SCH (04:57)
[2017-01-22] MEDS: METOPROLOL 25 MG TAB PO SCH (09:00)
[2017-01-22] MEDS: FUROSEMIDE 20 MG INJ IV SCH (09:00)
[2017-01-22] MEDS: FERROUS SULFATE (EC) 325 MG TAB PO SCH ×3 (09:54→21:06)
[2017-01-22] MEDS: POTASSIUM CHLORIDE 20 MEQ POWDER FOR ORAL SOLN PO SCH (09:54)
[2017-01-22] MEDS: GUAIFENESIN LA 600 MG TABSR PO SCH ×2 (09:55→21:06)
[2017-01-22] MEDS: MEMANTINE 10 MG TAB PO SCH (09:55)
[2017-01-22] MEDS: ESCITALOPRAM 10 MG TAB PO SCH (09:55)
--- NOTE | 2017-01-22 10:47 | CONS ---
Date/Time of Note Date/Time of Note DATE: 01/22/17 TIME: 10:45 Assessment/Plan Assessment/Plan Additional Assessment/Plan Chest x-ray was reviewed from yesterday afternoon which is showing the left mild to moderate pleural effusion. Assessment recommendations; 1. Patient admitted for COPD exacerbation with interval improvement. 2. Left pleural effusion. 3. Right upper lobe pulmonary embolism. 4. Acute bronchitis with interval improvement. Continue current treatment. Consultation Date/Type/Reason Admit Date/Time January 11, 2017 at 16:25 Type of Consultation: Pulmonary Referring Provider: DESI MCLAIN MD 24 HR Interval Summary Free Text/Dictation Patient condition stable. Remains completely awake alert. Denies any shortness of breath at rest. Chest congestion and sputum production is markedly improved. General exam; elderly male, awake alert currently in no distress. Exam/Review of Systems Vital Signs Vitals Vital Signs Date Time Temp Pulse Resp B/P Pulse Ox O2 Delivery O2 Flow Rate FiO2 01/22/17 09:00 100 99/58 01/22/17 07:57 98.3 20 97 01/22/17 07:29 Nasal Cannula 4.0 Intake and Output 01/21/17 01/21/17 01/22/17 15:00 23:00 07:00 Intake Total 100 ml 400 ml 200 ml Output Total 500 ml 400 ml 450 ml Balance -400 ml 0 ml -250 ml Exam HEENT exam; supple neck, no JVD. No lymphadenopathy. Midline trachea. No thyromegaly. Patient has a multiple carious teeth. Chest examined; diminished breath sound left lower lobe. Rest of the lung melvin are clear to auscultation. S1-S2 audible, no murmurs. Regular rhythm. Abdomen examination; soft, no organomegaly. Bowel sounds audible. Extremity exam; no peripheral edema. Patient has a multiple ecchymosis involving all 4 extremities. Next MANUFACTURING RECRUITER examination; no focal deficit. Results Result Diagram: 01/20/17 0555 01/21/17 0530 Results 24 hrs Laboratory Tests Test 01/22/17 03:46 Vancomycin Level Trough 15.4 Medications Medications Current Medications Acetaminophen (Tylenol Tab) 650 mg Q6H PRN PO MILD PAIN LEVEL 1-3; Start at 17:00 Atorvastatin Calcium (Lipitor) 20 mg HS PO Last administered on 01/21/17t 20:46 ; Admin Dose 20 MG; Start 01/11/17 at 21:00 Clonazepam (Klonopin) 0.5 mg Q6 PRN PO ANXIETY Last administered on 01/20/17 21 :37; Admin Dose 0.5 MG; Start 01/11/17 at 17:00 Clonidine (Catapres) 0.1 mg Q6H PRN PO SBP ABOVE 170; Start 01/11/17 at 17:00 Escitalopram Oxalate (Lexapro) 10 mg DAILY PO Last administered on 01/22/17 09: 55; Admin Dose 10 MG; Start 01/12/17 at 09:00 Ferrous Sulfate (Ferrous Sulfate (Ec)) 325 mg TID PO Last administered on 09:54; Admin Dose 325 MG; Start 01/11/17 at 21:00 Memantine (Namenda) 10 mg DAILY PO Last administered on 01/22/17 09:55; Admin Dose 10 MG; Start 01/12/17 at 09:00 Zolpidem Tartrate (Ambien) 5 mg QHS PRN PO INSOMNIA; Start 01/11/17 at 17:00 Allopurinol (Zyloprim) 300 mg HS PO Last administered on 01/21/17 20:46; Admin Dose 300 MG; Start 01/11/17 at 21:00 Lorazepam (Ativan) 1 mg HS PRN IV INSOMNIA Last administered on 01/13/17 21:20 ; Admin Dose 1 MG; Start 01/13/17 at 21:30 Magnesium Hydroxide (Milk Of Mag) 30 ml Q8 PRN PO CONSTIPATION Last administered on 01/16/17 05:19; Admin Dose 30 ML; Start 01/15/17 at 10:30 Enoxaparin Sodium (Lovenox) 75 mg Q24H SC Last administered on 01/21/17 16:40; Admin Dose 75 MG; Start 01/17/17 at 16:45 Digoxin (Digoxin) 0.25 mg DAILY@13 PO Last administered on 01/21/17 13:15; Admin Dose 0.25 MG; Start 01/18/17 at 13:00 Potassium Chloride (Potassium Chloride Pwd/Soln) 20 meq DAILY PO Last administered on 01/22/17 09:54; Admin Dose 20 MEQ; Start 01/18/17 at 10:00 Metoprolol Tartrate (Lopressor) 12.5 mg BID PO Last administered on 01/21/17 20 :47; Admin Dose 12.5 MG; Start 01/19/17 at 17:30 Metoprolol Tartrate (Lopressor) 5 mg Q6 PRN IV ELEVATED BLOOD PRESSURE; Start 01/19/17 at 17:30 Guaifenesin 600 mg 600 mg BID PO Last administered on 01/22/17 09:55; Admin Dose 600 MG; Start 01/19/17 at 21:00 Meropenem (Merrem 500 Mg/ 100 ml (Pmx)) 100 ml @ 200 mls/hr Q8 IVPB Last administered on 01/22/17 04:45; Admin Dose 200 MLS/HR; Start 01/20/17 at 15:00 Dexamethasone (Decadron) 4 mg Q6 IV Last administered on 01/22/17 04:43; Admin Dose 4 MG; Start 01/21/17 at 00:00 Pantoprazole 40 mg 40 mg DAILY@06 IV Last administered on 01/22/17 04:43; Admin Dose 40 MG; Start 01/21/17 at 06:00 Vancomycin HCl (Vancocin) 100 ml @ 100 mls/hr Q12H IVPB Last administered on 04:57; Admin Dose 100 MLS/HR; Start 01/21/17 at 16:00 Furosemide (Lasix) 40 mg DAILY IV Last administered on 01/21/17 20:46; Admin Dose 40 MG; Start 01/21/17 at 20:41 VANESSA IZAGUIRRE Jan 22, 2017 10:47
[2017-01-22] MEDS: DIGOXIN 0.25 MG TAB PO SCH (14:01)
--- NOTE | 2017-01-22 16:28 | CONS ---
Date/Time of Note Date/Time of Note DATE: 01/22/17 TIME: 16:24 Assessment/Plan Assessment/Plan Chief Complaint/Hosp Course ASSESSMENT: - acute PE- segmental, started on lovenox transition to NOAC - metastatic adenocarcinoma with lung/bone mets. pt with possible spinal cord compression with le weakness. per primary/oncology team. agree with hospice care decision - pneumonia/sepsis- improved, stable bp on abx per id/primary - persistent afib - non valvular, unable to cont dilt given low bp. on dig currently. 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 - neuro mgmt per primary team Problems: Consultation Date/Type/Reason Admit Date/Time January 11, 2017 at 16:25 Initial Consult Date 01/17/17 Type of Consultation: cardiology Referring Provider: DESI MCLAIN MD 24 HR Interval Summary Free Text/Dictation pt reported feeling sob this am, unable to obtain bp via auto cuff, with manual was in 100s systolic. denies cp, dizziness, lightheadedness. reports inability to move ble. tele reviewed: afib, variable rate uptrend this am Detailed Summary Respiratory: shortness of breath Cardiovascular: no complaints Gastrointestinal: no complaints Neurologic: confusion, focal-weakness Exam/Review of Systems Vital Signs Vitals Vital Signs Date Time Temp Pulse Resp B/P Pulse Ox O2 Delivery O2 Flow Rate FiO2 01/22/17 16:00 97 01/22/17 12:43 98.0 20 98/55 98 01/22/17 11:24 Nasal Cannula 4.0 Intake and Output 01/21/17 01/21/17 01/22/17 15:00 23:00 07:00 Intake Total 100 ml 400 ml 200 ml Output Total 500 ml 400 ml 450 ml Balance -400 ml 0 ml -250 ml Exam Constitutional: alert Psych: nl mood/affect, no complaints Head: normocephalic ENMT: mucosa pink and moist Neck: non-tender, supple Respiratory: clear to auscultation, normal air movement Cardiovascular: irregular rhythm, nl pulses Gastrointestinal: non-tender, soft Neuro: does not move ble Results Result Diagram: 01/20/17 0555 01/22/17 1421 Results 24 hrs Laboratory Tests Test 01/22/17 03:46 01/22/17 14:21 Vancomycin Level Trough 15.4 Blood Urea Nitrogen 52 H Creatinine 1.16 Medications Medications Current Medications Acetaminophen (Tylenol Tab) 650 mg Q6H PRN PO MILD PAIN LEVEL 1-3; Start at 17:00 Atorvastatin Calcium (Lipitor) 20 mg HS PO Last administered on 01/21/17 20:46 ; Admin Dose 20 MG; Start 01/11/17 at 21:00 Clonazepam (Klonopin) 0.5 mg Q6 PRN PO ANXIETY Last administered on 01/20/17 21 :37; Admin Dose 0.5 MG; Start 01/11/17 at 17:00 Clonidine (Catapres) 0.1 mg Q6H PRN PO SBP ABOVE 170; Start 01/11/17 at 17:00 Escitalopram Oxalate (Lexapro) 10 mg DAILY PO Last administered on 01/22/17 09: 55; Admin Dose 10 MG; Start 01/12/17 at 09:00 Ferrous Sulfate (Ferrous Sulfate (Ec)) 325 mg TID PO Last administered on 14:01; Admin Dose 325 MG; Start 01/11/17 at 21:00 Memantine (Namenda) 10 mg DAILY PO Last administered on 01/22/17 09:55; Admin Dose 10 MG; Start 01/12/17 at 09:00 Zolpidem Tartrate (Ambien) 5 mg QHS PRN PO INSOMNIA; Start 01/11/17 at 17:00 Allopurinol (Zyloprim) 300 mg HS PO Last administered on 01/21/17 20:46; Admin Dose 300 MG; Start 01/11/17 at 21:00 Lorazepam (Ativan) 1 mg HS PRN IV INSOMNIA Last administered on 01/13/17 21:20 ; Admin Dose 1 MG; Start 01/13/17 at 21:30 Magnesium Hydroxide (Milk Of Mag) 30 ml Q8 PRN PO CONSTIPATION Last administered on 01/16/17 05:19; Admin Dose 30 ML; Start 01/15/17 at 10:30 Enoxaparin Sodium (Lovenox) 75 mg Q24H SC Last administered on 01/21/17 16:40; Admin Dose 75 MG; Start 01/17/17 at 16:45 Digoxin (Digoxin) 0.25 mg DAILY@13 PO Last administered on 01/22/17 14:01; Admin Dose 0.25 MG; Start 01/18/17 at 13:00 Potassium Chloride (Potassium Chloride Pwd/Soln) 20 meq DAILY PO Last administered on 01/22/17 09:54; Admin Dose 20 MEQ; Start 01/18/17 at 10:00 Metoprolol Tartrate (Lopressor) 12.5 mg BID PO Last administered on 01/21/17 20 :47; Admin Dose 12.5 MG; Start 01/19/17 at 17:30 Metoprolol Tartrate (Lopressor) 5 mg Q6 PRN IV ELEVATED BLOOD PRESSURE; Start 01/19/17 at 17:30 Guaifenesin (Mucinex) 600 mg BID PO Last administered on 01/22/17 09:55; Admin Dose 600 MG; Start 01/19/17 at 21:00 Dexamethasone (Decadron) 4 mg Q6 IV Last administered on 01/22/17 14:01; Admin Dose 4 MG; Start 01/21/17 at 00:00 Pantoprazole (Protonix Iv) 40 mg DAILY@06 IV Last administered on 01/22/17 04: 43; Admin Dose 40 MG; Start 01/21/17 at 06:00 Furosemide 40 mg 40 mg DAILY IV Last administered on 01/21/17 20:46; Admin Dose 40 MG; Start 01/21/17 at 20:41 Meropenem (Merrem 500 Mg/ 100 ml (Pmx)) 100 ml @ 200 mls/hr Q12 IVPB ; Start at 23:00 Procedures Procedures cxr report reviewed in emr DONA LÓPEZ Jan 22, 2017 16:28
[2017-01-22] MEDS: ENOXAPARIN 80 MG/0.8 ML SYG SC SCH (17:02)
[2017-01-22] MEDS ORDERED: PROMETHAZINE/CODEINE 5ML CUP PO PRN (18:30)
[2017-01-22] MEDS: ATORVASTATIN 20 MG TAB PO SCH (21:06)
[2017-01-22] MEDS: APIXABAN 5 MG TABLET PO SCH (21:07)
--- NOTE | 2017-01-22 21:18 | CONS ---
Date/Time of Note Date/Time of Note DATE: 01/22/17 TIME: 21:16 Assessment/Plan Assessment/Plan Chief Complaint/Hosp Course SUBJECTIVE: Awake, nad, no fevers INDWELLINGS: Eric catheter. PHYSICAL EXAMINATION: GENERAL: This is a chronically ill-appearing, elderly man who is awake, tachypneic, in no distress. HEENT: Head atraumatic, normocephalic. Sclerae anicteric. Buccal mucosa dry. NECK: Supple, trachea midline. CHEST: Rise symmetrical. Breath sounds with bilateral rhonchi and wheezes. HEART: S1, S2. ABDOMEN: Soft, bowel tones present. EXTREMITIES: Without cyanosis. ASSESSMENT: 1. Skjuc-cf-iavyvgy respiratory failure. 2. Healthcare-associated pneumonia and chronic obstructive pulmonary disease exacerbation. 3. Klebsiella pneumoniae urinary tract infection on admission. 4. Metastatic cancer. 5. Pulmonary embolism. PLAN: The patient remains unchanged. Overall prognosis poor, pending SNF with hospice DW staff Problems: Consultation Date/Type/Reason Admit Date/Time January 11, 2017 at 16:25 Type of Consultation: ID Referring Provider: DESI MCLAIN MD Exam/Review of Systems Vital Signs Vitals Vital Signs Date Time Temp Pulse Resp B/P Pulse Ox O2 Delivery O2 Flow Rate FiO2 01/22/17 20:00 114 01/22/17 19:56 4.0 01/22/17 19:56 20 93 Nasal Cannula 01/22/17 19:53 97.7 93/55 Intake and Output 01/21/17 01/21/17 01/22/17 15:00 23:00 07:00 Intake Total 100 ml 400 ml 200 ml Output Total 500 ml 400 ml 450 ml Balance -400 ml 0 ml -250 ml Results Result Diagram: 01/20/17 0555 01/22/17 1421 Results 24 hrs Laboratory Tests Test 01/22/17 03:46 01/22/17 14:21 Vancomycin Level Trough 15.4 Blood Urea Nitrogen 52 H Creatinine 1.16 Medications Medications Current Medications Acetaminophen (Tylenol Tab) 650 mg Q6H PRN PO MILD PAIN LEVEL 1-3; Start at 17:00 Atorvastatin Calcium (Lipitor) 20 mg HS PO Last administered on 01/22/17t 21:06 ; Admin Dose 20 MG; Start 01/11/17 at 21:00 Clonazepam (Klonopin) 0.5 mg Q6 PRN PO ANXIETY Last administered on 01/20/17 21 :37; Admin Dose 0.5 MG; Start 01/11/17 at 17:00 Clonidine (Catapres) 0.1 mg Q6H PRN PO SBP ABOVE 170; Start 01/11/17 at 17:00 Escitalopram Oxalate (Lexapro) 10 mg DAILY PO Last administered on 01/22/17 09: 55; Admin Dose 10 MG; Start 01/12/17 at 09:00 Ferrous Sulfate (Ferrous Sulfate (Ec)) 325 mg TID PO Last administered on 21:06; Admin Dose 325 MG; Start 01/11/17 at 21:00 Zolpidem Tartrate (Ambien) 5 mg QHS PRN PO INSOMNIA; Start 01/11/17 at 17:00 Lorazepam (Ativan) 1 mg HS PRN IV INSOMNIA Last administered on 01/13/17 21:20 ; Admin Dose 1 MG; Start 01/13/17 at 21:30 Magnesium Hydroxide (Milk Of Mag) 30 ml Q8 PRN PO CONSTIPATION Last administered on 01/16/17 05:19; Admin Dose 30 ML; Start 01/15/17 at 10:30 Digoxin (Digoxin) 0.25 mg DAILY@13 PO Last administered on 01/22/17 14:01; Admin Dose 0.25 MG; Start 01/18/17 at 13:00 Potassium Chloride (Potassium Chloride Pwd/Soln) 20 meq DAILY PO Last administered on 01/22/17 09:54; Admin Dose 20 MEQ; Start 01/18/17 at 10:00 Guaifenesin (Mucinex) 600 mg BID PO Last administered on 01/22/17 21:06; Admin Dose 600 MG; Start 01/19/17 at 21:00 Promethazine HCl/ Codeine (Phenergan/ Codeine) 5 ml Q4H PRN PO COUGH; Start 01/22/17 at 18:30 Pantoprazole (Protonix Tab) 40 mg DAILY@06 PO ; Start 01/23/17 at 06:00 Furosemide (Lasix) 20 mg DAILY@06 PO ; Start 01/23/17 at 06:00 Apixaban (Eliquis) 2.5 mg BID PO Last administered on 01/22/17 21:07; Admin Dose 2.5 MG; Start 01/22/17 at 21:00 KRISTIN SHAIKH NP Jan 22, 2017 21:18
[2017-01-22] MEDS ORDERED: MEROPENEM 500 MG/100 ML (PMX) 100 ML IVPB SCH (23:00)
[2017-01-23] VITALS (13 sets, daily range): BP systolic 83–139; BP diastolic 44–84; PULSE 93–121; RESP 16–21
[2017-01-23] MEDS ORDERED: VANCOMYCIN 750 MG in SOD CHLORIDE 0.9% 150 ML IVPB SCH ×2
[2017-01-23] MEDS: ALBUTEROL/IPRATROPIUM (NEB) 3 ML AMP HHN SCH ×7 (00:12→20:53)
[2017-01-23] MEDS: clonAZEPAM 0.5 MG TAB PO PRN (01:30)
[2017-01-23] MEDS: FUROSEMIDE 20 MG TAB PO SCH (05:26)
[2017-01-23] MEDS: PANTOPRAZOLE (EC) 40 MG TAB PO SCH (05:33)
--- NOTE | 2017-01-23 08:27 | PN ---
DATE: 01/22/2017 SUBJECTIVE: The patient is awake and alert. No current active complaints. I have already discusse d plans for hospice with Dr. 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 OBJECTIVE: VITAL SIGNS: Temperature 97.7, blood pressure 93/55, pulse 84, respiration rate 22, O2 saturation 9 3 to 96%. ASSESSMENT AND PLAN: 1. Paraplegia. No further treatment at this point after discussion with oncology and neurosurgery. The patient and family understand that this is due to an incurable disease and has elected for pal liative treatment at this time. Will request case management consult for transfer to a skilled nurs ing facility. We will arrange for hospice placement. 2. Leukocytosis, most likely due to the Decadron. We will discontinue steroids as well as antibiot ics. 3. Hypotension may be due to metoprolol, so will discontinue that at this point. 4. Adenocarcinoma, metastatic to the bones. Will discontinue any unnecessary medications [facility] Dictated By: DESI MCLAIN MD DP/NTS Conf#: [id number] DID#: [id number]
[2017-01-23] MEDS: POTASSIUM CHLORIDE 20 MEQ POWDER FOR ORAL SOLN PO SCH (09:19)
[2017-01-23] MEDS: APIXABAN 5 MG TABLET PO SCH ×2 (09:19→20:37)
[2017-01-23] MEDS: GUAIFENESIN LA 600 MG TABSR PO SCH ×2 (09:19→20:37)
[2017-01-23] MEDS: FERROUS SULFATE (EC) 325 MG TAB PO SCH ×3 (09:19→20:37)
[2017-01-23] MEDS: ESCITALOPRAM 10 MG TAB PO SCH (09:19)
--- NOTE | 2017-01-23 09:23 | PN ---
DATE: 01/23/2017 SUBJECTIVE: The patient has no new complaints. He is becoming increasingly weak. He does not comp zana of chest pain. OBJECTIVE: GENERAL: The patient is a well-developed, chronically ill-appearing male who is in no acute distres s at this time. VITAL SIGNS: Temperature 97.5, pulse 134 and irregular, respirations 20 per minute, blood pressure 83/44, pulse oximetry 98% on 3 liters by nasal cannula. SKIN: No ecchymosis, no petechiae or rashes. HEENT: No mucosal lesions. No scleral icterus, he has nasal oxygen in place. NECK: Supple, no jugular venous distention or thyroid enlargement. CHEST: Decreased breath sounds in the left side but no rhonchi, wheezes, rales or rubs. HEART: Irregularly irregular rate and rhythm with ventricular response of approximately 130 per min troy. ABDOMEN: Soft, no masses, no ascites. EXTREMITIES: No clubbing or cyanosis. There is muscle atrophy in the lower extremities which is sy mmetrical. NEUROLOGIC: The patient does have paraplegia. ASSESSMENT: 1. 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 2. 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 PLAN: The patient is to have hospice evaluation. He is a DNR. I discussed the situation previousl y with the patient as well as Dr. Ruth Dennison and agree with the plan for hospice. The patient is not a candidate for surgery and I do not feel that either radiation or chemotherapy w ould be beneficial as well. Dictated By: JENNIFFER PEREZ MD, SR/NTS Conf#: [id number] DID#: [id number]
--- NOTE | 2017-01-23 11:57 | CONS ---
Date/Time of Note Date/Time of Note DATE: 01/23/17 TIME: 11:55 Assessment/Plan Assessment/Plan Additional Assessment/Plan Assessment and recommendations; next 1. Patient admitted for supra exacerbation with significant clinical improvement. 2. Right upper lobe pulmonary embolism. 3. 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 Continue current treatment. Consider comfort care measures. Patient is not a candidate for any kind of chemotherapy or radiation treatment. Consultation Date/Type/Reason Admit Date/Time January 11, 2017 at 16:25 Type of Consultation: Pulmonary Referring Provider: DESI MCLAIN MD 24 HR Interval Summary Free Text/Dictation Patient condition is stable. Denies any shortness of breath at rest. Chest congestion coughing has improved. General exam; elderly male, awake alert currently in no distress. Exam/Review of Systems Vital Signs Vitals Vital Signs Date Time Temp Pulse Resp B/P Pulse Ox O2 Delivery O2 Flow Rate FiO2 01/23/17 11:33 97.6 113 21 139/84 90 01/23/17 09:00 Nasal Cannula 4.0 Intake and Output 01/22/17 01/22/17 01/23/17 15:00 23:00 07:00 Intake Total 500 ml 250 ml Output Total 200 ml 400 ml Balance 300 ml -150 ml Exam HEENT examination; supple neck, no JVD. No lymphadenopathy. Midline trachea. No thyromegaly. Patient has fair dentition. Pupils are small bilaterally. Chest examination of Regis diminished but clear vessel. S1-S2 audible, no murmurs. Regular rhythm. Abdomen examination; soft, no organomegaly. Bowel sounds audible. Extremity examination; no peripheral edema. Patient has a multiple ecchymosis involving all 4 extremities. 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 Results Result Diagram: 01/20/17 0555 01/22/17 1421 Results 24 hrs Laboratory Tests Test 01/22/17 14:21 Blood Urea Nitrogen 52 H Creatinine 1.16 Medications Medications Current Medications Acetaminophen (Tylenol Tab) 650 mg Q6H PRN PO MILD PAIN LEVEL 1-3; Start at 17:00 Atorvastatin Calcium (Lipitor) 20 mg HS PO Last administered on 01/22/17t 21:06 ; Admin Dose 20 MG; Start 01/11/17 at 21:00 Clonazepam (Klonopin) 0.5 mg Q6 PRN PO ANXIETY Last administered on 01/23/17 01 :30; Admin Dose 0.5 MG; Start 01/11/17 at 17:00 Clonidine (Catapres) 0.1 mg Q6H PRN PO SBP ABOVE 170; Start 01/11/17 at 17:00 Escitalopram Oxalate (Lexapro) 10 mg DAILY PO Last administered on 01/23/17 09: 19; Admin Dose 10 MG; Start 01/12/17 at 09:00 Ferrous Sulfate (Ferrous Sulfate (Ec)) 325 mg TID PO Last administered on 09:19; Admin Dose 325 MG; Start 01/11/17 at 21:00 Zolpidem Tartrate (Ambien) 5 mg QHS PRN PO INSOMNIA; Start 01/11/17 at 17:00 Lorazepam (Ativan) 1 mg HS PRN IV INSOMNIA Last administered on 01/13/17 21:20 ; Admin Dose 1 MG; Start 01/13/17 at 21:30 Magnesium Hydroxide (Milk Of Mag) 30 ml Q8 PRN PO CONSTIPATION Last administered on 01/16/17 05:19; Admin Dose 30 ML; Start 01/15/17 at 10:30 Digoxin (Digoxin) 0.25 mg DAILY@13 PO Last administered on 01/22/17 14:01; Admin Dose 0.25 MG; Start 01/18/17 at 13:00 Potassium Chloride (Potassium Chloride Pwd/Soln) 20 meq DAILY PO Last administered on 01/23/17 09:19; Admin Dose 20 MEQ; Start 01/18/17 at 10:00 Guaifenesin (Mucinex) 600 mg BID PO Last administered on 01/23/17 09:19; Admin Dose 600 MG; Start 01/19/17 at 21:00 Promethazine HCl/ Codeine (Phenergan/ Codeine) 5 ml Q4H PRN PO COUGH; Start 01/22/17 at 18:30 Pantoprazole (Protonix Tab) 40 mg DAILY@06 PO Last administered on 01/23/17 05: 33; Admin Dose 40 MG; Start 01/23/17 at 06:00 Furosemide (Lasix) 20 mg DAILY@06 PO ; Start 01/23/17 at 06:00 Apixaban (Eliquis) 2.5 mg BID PO Last administered on 01/23/17 09:19; Admin Dose 2.5 MG; Start 01/22/17 at 21:00 VANESSA IZAGUIRRE Jan 23, 2017 11:57
[2017-01-23] MEDS: DIGOXIN 0.25 MG TAB PO SCH (12:57)
--- NOTE | 2017-01-23 17:34 | CONS ---
Date/Time of Note Date/Time of Note DATE: 01/23/17 TIME: 17:25 Assessment/Plan Assessment/Plan Chief Complaint/Hosp Course ASSESSMENT: - acute PE- segmental, started on lovenox transition to NOAC - metastatic adenocarcinoma with lung/bone mets. pt with possible spinal cord compression with le weakness. per primary/oncology team. agree with hospice care decision - pneumonia/sepsis- improved, stable bp on abx per id/primary - persistent afib - non valvular, unable to cont dilt given low bp. on dig currently. - h/o cad stable - h/o htn controlled - h/o hld on statin - leukocytosis- likely contributing to tachy Plan - anticoag per primary team, unclear fpc benefit if pursuing hospice care - po digoxin for rate control - if bp remains stable consider adding back diltiazem for rate control - neuro mgmt per primary team - palliative care evaluation per primary team Problems: Consultation Date/Type/Reason Admit Date/Time January 11, 2017 at 16:25 Initial Consult Date 01/17/17 Type of Consultation: Cardiology Referring Provider: DESI MCLAIN MD 24 HR Interval Summary Free Text/Dictation pt confused today, pleasant/alert. plan for placement in hospice. hrs remain elevated while awake with afib, bp improved this afternoon. pt denies any cp/ palpitations tele reviewed: afib with rvr hrs 100s-120s Detailed Summary Respiratory: no complaints Cardiovascular: no complaints Gastrointestinal: no complaints Genitourinary: no complaints Exam/Review of Systems Vital Signs Vitals Vital Signs Date Time Temp Pulse Resp B/P Pulse Ox O2 Delivery O2 Flow Rate FiO2 01/23/17 17:05 88 20 100 Nasal Cannula 4.0 01/23/17 15:48 97.7 116/57 Intake and Output 01/22/17 01/22/17 01/23/17 14:59 22:59 06:59 Intake Total 500 ml 250 ml Output Total 200 ml 400 ml Balance 300 ml -150 ml Exam Constitutional: alert Psych: nl mood/affect, no complaints Head: normocephalic ENMT: mucosa pink and moist Neck: non-tender, supple Respiratory: clear to auscultation, normal air movement Cardiovascular: irregular rhythm, rachy nl pulses Gastrointestinal: non-tender, soft Neuro: does wiggle r toes, not l side Results Result Diagram: 01/20/17 0555 01/22/17 1421 Medications Medications Current Medications Acetaminophen (Tylenol Tab) 650 mg Q6H PRN PO MILD PAIN LEVEL 1-3; Start at 17:00 Atorvastatin Calcium (Lipitor) 20 mg HS PO Last administered on 01/22/17 21:06 ; Admin Dose 20 MG; Start 01/11/17 at 21:00 Clonazepam (Klonopin) 0.5 mg Q6 PRN PO ANXIETY Last administered on 01/23/17 01 :30; Admin Dose 0.5 MG; Start 01/11/17 at 17:00 Clonidine (Catapres) 0.1 mg Q6H PRN PO SBP ABOVE 170; Start 01/11/17 at 17:00 Escitalopram Oxalate (Lexapro) 10 mg DAILY PO Last administered on 01/23/17 09: 19; Admin Dose 10 MG; Start 01/12/17 at 09:00 Ferrous Sulfate (Ferrous Sulfate (Ec)) 325 mg TID PO Last administered on 12:57; Admin Dose 325 MG; Start 01/11/17 at 21:00 Zolpidem Tartrate (Ambien) 5 mg QHS PRN PO INSOMNIA; Start 01/11/17 at 17:00 Lorazepam (Ativan) 1 mg HS PRN IV INSOMNIA Last administered on 01/13/17 21:20 ; Admin Dose 1 MG; Start 01/13/17 at 21:30 Magnesium Hydroxide (Milk Of Mag) 30 ml Q8 PRN PO CONSTIPATION Last administered on 01/16/17 05:19; Admin Dose 30 ML; Start 01/15/17 at 10:30 Digoxin (Digoxin) 0.25 mg DAILY@13 PO Last administered on 01/23/17 12:57; Admin Dose 0.25 MG; Start 01/18/17 at 13:00 Potassium Chloride (Potassium Chloride Pwd/Soln) 20 meq DAILY PO Last administered on 01/23/17 09:19; Admin Dose 20 MEQ; Start 01/18/17 at 10:00 Guaifenesin (Mucinex) 600 mg BID PO Last administered on 01/23/17 09:19; Admin Dose 600 MG; Start 01/19/17 at 21:00 Promethazine HCl/ Codeine (Phenergan/ Codeine) 5 ml Q4H PRN PO COUGH; Start 01/22/17 at 18:30 Pantoprazole (Protonix Tab) 40 mg DAILY@06 PO Last administered on 01/23/17 05: 33; Admin Dose 40 MG; Start 01/23/17 at 06:00 Furosemide (Lasix) 20 mg DAILY@06 PO ; Start 01/23/17 at 06:00 Apixaban (Eliquis) 2.5 mg BID PO Last administered on 01/23/17 09:19; Admin Dose 2.5 MG; Start 01/22/17 at 21:00 DONA LÓPEZ Jan 23, 2017 17:34
--- NOTE | 2017-01-23 18:23 | PN ---
DATE: 01/23/2017 SUBJECTIVE: The patient is awake, alert, happy that he is able to drink water again. OBJECTIVE: VITAL SIGNS: Temperature 97.7, blood pressure 116/57, pulse of 77, respiration rate 16, O2 saturati on 100% on 4 liters nasal cannula. ASSESSMENT AND PLAN: 1. Metastatic adenocarcinoma. Plan for residential facility placement with hospice care as an outpatient. 2. Acute pulmonary emboli. The patient doing well on Eliquis. 3. Status post pneumonia, improved, off all antibiotics today. 4. Atrial fibrillation, rate controlled, on digoxin at this time. His blood pressure is better off of Cardizem and metoprolol. 5. Leukocytosis, most likely due to steroid, which has been discontinued today. We will recheck WB C tomorrow if patient is not placed in a residential home yet. Dictated By: DESI MCLAIN MD DP/NTS Conf#: [id number] DID#: [id number]
[2017-01-23] MEDS: ATORVASTATIN 20 MG TAB PO SCH (20:37)
[2017-01-23] MEDS ORDERED: ONDANSETRON 4 MG INJ IV PRN (23:00)
[2017-01-24] VITALS (16 sets, daily range): BP systolic 69–160; BP diastolic 52–111; PULSE 0–140; RESP 20–28
[2017-01-24] MEDS: ALBUTEROL/IPRATROPIUM (NEB) 3 ML AMP HHN SCH ×4 (00:40→12:21)
[2017-01-24] MEDS ORDERED: DILTIAZEM 25 MG INJ IV ONE (01:30)
[2017-01-24] MEDS ORDERED: DILTIAZEM-D5W 125MG/125ML DRIP 125 ML IV SCH (01:30)
--- NOTE | 2017-01-24 03:39 | RADRPT ---
PROCEDURE: XR Chest. CLINICAL INDICATION: Dyspnea. TECHNIQUE: Single frontal view of the chest. COMPARISON: 01/21/2017. FINDINGS: Cardiac silhouette is unremarkable. Atherosclerotic calcifications in the thoracic aorta. Small ri ght pleural effusion again seen. Decrease left pleural effusion. Improved aeration in the left lung . No signs of pneumothorax are seen. The osseous structures and soft tissues are unremarkable. Air-filled loop of bowel is newly present under the right hemidiaphragm. IMPRESSION: Small stable right pleural effusion and decrease left pleural effusion. RPTAT: [facility] Physician Julian Date Time Electronically viewed and signed by Physician Julian on 01/24/2017 03:39 RS/
[2017-01-24] MEDS: FUROSEMIDE 20 MG TAB PO SCH (06:35)
[2017-01-24] MEDS: PANTOPRAZOLE (EC) 40 MG TAB PO SCH (06:35)
[2017-01-24] MEDS: DEXTROSE 5%-0.45% NACL 1,000 ML IV SCH ×2 (06:35→13:01)
[2017-01-24 08:55] LABS: AADO2 Arterial 165.1 mmHg (7.0-24.0); Allen Test ACCEPTAB; Arterial Base Excess -8.5 mmol/L (-3.0-3); Arterial COHb 0 % (0.0-3.0); Arterial Fraction of Oxyhgb 97.4 % (93.0-99.0); Arterial HCO3 12.5 mmol/L (22.0-26.0); Arterial MetHb 0.3 % (0.0-1.5); Arterial Total Hemglobin 13.1 g/dl (12.0-18.0); Blood Gas PS 7; MODE MASK - BIPAP
[2017-01-24] MEDS: FERROUS SULFATE (EC) 325 MG TAB PO SCH ×2 (09:00→12:10)
[2017-01-24] MEDS: APIXABAN 5 MG TABLET PO SCH (09:00)
[2017-01-24] MEDS: GUAIFENESIN LA 600 MG TABSR PO SCH (09:00)
[2017-01-24] MEDS: POTASSIUM CHLORIDE 20 MEQ POWDER FOR ORAL SOLN PO SCH (09:00)
[2017-01-24] MEDS: ESCITALOPRAM 10 MG TAB PO SCH (09:00)
--- NOTE | 2017-01-24 11:25 | CONS ---
Date/Time of Note Date/Time of Note DATE: 01/24/17 TIME: 11:23 Assessment/Plan Assessment/Plan Additional Assessment/Plan Assessment recommendations; next 1. Patient admitted for COPD exacerbation with bronchopneumonia. 2. Right upper lobe pulmonary embolism. 3. Clinical findings compatible with widely metastatic cancer especially to spinal column. Primary source is indeterminate at this point. Continue current supportive care. Patient on comfort care measures. We will sign off. Thanks for the referral. Consultation Date/Type/Reason Admit Date/Time January 11, 2017 at 16:25 Type of Consultation: Pulmonary Referring Provider: DESI MCLAIN MD 24 HR Interval Summary Free Text/Dictation Patient condition is tenuous at best. Currently requiring BiPAP. Patient does complain of shortness of breath and chest congestion. Anastasia; elderly male, on BiPAP, currently in no distress. Exam/Review of Systems Vital Signs Vitals Vital Signs Date Time Temp Pulse Resp B/P Pulse Ox O2 Delivery O2 Flow Rate FiO2 01/24/17 09:04 88 40 01/24/17 08:00 94 01/24/17 07:38 98.2 20 160/111 01/24/17 00:40 6.0 01/24/17 00:40 Simple Mask Intake and Output 01/23/17 01/23/17 01/24/17 15:00 23:00 07:00 Intake Total 640 ml 125 ml Output Total 250 ml 200 ml Balance 390 ml -75 ml Exam HEENT examination; supple neck, positive JVD. No lymphadenopathy. Midline trachea. Patient is currently on full face BiPAP mask. Chest examination; diminished breath sound bilaterally. S1-S2 audible, no murmurs. Regular rhythm. Abdomen examination; soft, no organomegaly. Nondistended. Bowel sounds audible. Extremity exam is; no peripheral edema. Patient does have multiple ecchymosis involving all 4 extremities. BREWING DIRECTOR examination; patient is awake and responsive. Results Result Diagram: 01/20/17 0555 01/22/17 1421 Results 24 hrs Laboratory Tests Test 01/24/17 02:36 Blood Gas Specimen Source Blood arterial Arterial Blood Date Drawn 01/24/2017 3:00:22 AM Arterial Blood pH (Temp corrected) 7.468 H Arterial Blood pCO2 (Temp correct) 17.7 L Arterial Blood pO2 (Temp corrected) 99.7 H Arterial Blood HCO3 12.5 L Arterial Blood Base Excess -8.5 L Arterial Blood Oxygen Saturation 97.7 Nguyễn Test ACCEPTAB Arterial Blood Gas Puncture Site Left Radial Arterial Blood Carboxyhemoglobin 0 Arterial Blood Methemoglobin 0.3 Blood Gas A-a O2 Differential 165.1 H Oxyhemoglobin Percent 97.4 Total Hemoglobin 13.1 Blood Gas Temperature 37.0 Blood Gas Respiration Rate 16.0 Blood Gas Actual Respiration Rate 38 Blood Gas Modality MASK - BIPAP FiO2 40.0 Blood Gas Pressure Support 7 Blood Gas IPAP/EPAP Ratio 07/23 Blood Gas Notified Whom MA Blood Gas Notified Time 01/24/2017 3:10:16 AM Medications Medications Current Medications Acetaminophen (Tylenol Tab) 650 mg Q6H PRN PO MILD PAIN LEVEL 1-3; Start at 17:00 Atorvastatin Calcium (Lipitor) 20 mg HS PO Last administered on 01/23/17 20:37 ; Admin Dose 20 MG; Start 01/11/17 at 21:00 Clonazepam (Klonopin) 0.5 mg Q6 PRN PO ANXIETY Last administered on 01/23/17 01 :30; Admin Dose 0.5 MG; Start 01/11/17 at 17:00 Clonidine (Catapres) 0.1 mg Q6H PRN PO SBP ABOVE 170; Start 01/11/17 at 17:00 Escitalopram Oxalate (Lexapro) 10 mg DAILY PO Last administered on 01/23/17 09: 19; Admin Dose 10 MG; Start 01/12/17 at 09:00 Ferrous Sulfate (Ferrous Sulfate (Ec)) 325 mg TID PO Last administered on 20:37; Admin Dose 325 MG; Start 01/11/17 at 21:00 Zolpidem Tartrate (Ambien) 5 mg QHS PRN PO INSOMNIA; Start 01/11/17 at 17:00 Lorazepam (Ativan) 1 mg HS PRN IV INSOMNIA Last administered on 01/13/17 21:20 ; Admin Dose 1 MG; Start 01/13/17 at 21:30 Magnesium Hydroxide (Milk Of Mag) 30 ml Q8 PRN PO CONSTIPATION Last administered on 01/16/17 05:19; Admin Dose 30 ML; Start 01/15/17 at 10:30 Digoxin (Digoxin) 0.25 mg DAILY@13 PO Last administered on 01/23/17 12:57; Admin Dose 0.25 MG; Start 01/18/17 at 13:00 Potassium Chloride (Potassium Chloride Pwd/Soln) 20 meq DAILY PO Last administered on 01/23/17 09:19; Admin Dose 20 MEQ; Start 01/18/17 at 10:00 Guaifenesin (Mucinex) 600 mg BID PO Last administered on 01/23/17 20:37; Admin Dose 600 MG; Start 01/19/17 at 21:00 Promethazine HCl/ Codeine (Phenergan/ Codeine) 5 ml Q4H PRN PO COUGH; Start 01/22/17 at 18:30 Pantoprazole (Protonix Tab) 40 mg DAILY@06 PO Last administered on 01/24/17 06: 35; Admin Dose 40 MG; Start 01/23/17 at 06:00 Furosemide (Lasix) 20 mg DAILY@06 PO Last administered on 01/24/17 06:35; Admin Dose 20 MG; Start 01/23/17 at 06:00 Apixaban (Eliquis) 2.5 mg BID PO Last administered on 01/23/17 20:37; Admin Dose 2.5 MG; Start 01/22/17 at 21:00 Ondansetron HCl 4 mg 4 mg Q4H PRN IV NAUSEA AND/OR VOMITING Last administered on 01/23/17 23:11; Admin Dose 4 MG; Start 01/23/17 at 23:00 Diltiazem HCl 125 ml @ 5 mls/hr TITRATE IV Last administered on 01/24/17 01:28 ; Admin Dose 5 MLS/HR; Start 01/24/17 at 01:30 Dextrose/Sodium Chloride (D5-1/2ns) 1,000 ml @ 100 mls/hr Q10H IV Last administered on 01/24/17 06:35; Admin Dose 100 MLS/HR; Start 01/24/17 at 05:30 VANESSA IZAGUIRRE Jan 24, 2017 11:25
[2017-01-24] MEDS: DIGOXIN 0.25 MG TAB PO SCH (12:10)
--- NOTE | 2017-01-24 14:41 | PN ---
Date/Time of Note Date/Time of Note DATE: 01/24/17 TIME: 14:38 Assessment/Plan VTE Prophylaxis VTE Prophylaxis Intervention: other Lines/Catheters IV Catheter Type (from Nrsg): Saline Lock Urinary Cath still in place: Yes Reason Cath still needed: other (indicate) Assessment/Plan Assessment/Plan Awaiting hospice involvement. No further oncologic interventions suggested. Focus on comfort care. Subjective 24 Hr Interval Summary Free Text/Dictation Pt is lethargic but does not appear to be in pain or uncomfortable. Respiratory: other Exam/Review of Systems Vital Signs Vitals Vital Signs Date Time Temp Pulse Resp B/P Pulse Ox O2 Delivery O2 Flow Rate FiO2 01/24/17 12:21 40 01/24/17 12:04 81 01/24/17 12:00 28 89 BIPAP 01/24/17 10:30 69/52 01/24/17 07:38 98.2 01/24/17 00:40 6.0 Intake and Output 01/23/17 01/23/17 01/24/17 15:00 23:00 07:00 Intake Total 640 ml 125 ml Output Total 250 ml 200 ml Balance 390 ml -75 ml Exam Respiratory: other Cardiovascular: regular rate and rhythm Gastrointestinal: soft Neurological: other Results Result Diagram: 01/20/17 0555 01/22/17 1421 Results 24 hrs Laboratory Tests Test 01/24/17 02:36 Blood Gas Specimen Source Blood arterial Arterial Blood Date Drawn 01/24/2017 3:00:22 AM Arterial Blood pH (Temp corrected) 7.468 H Arterial Blood pCO2 (Temp correct) 17.7 L Arterial Blood pO2 (Temp corrected) 99.7 H Arterial Blood HCO3 12.5 L Arterial Blood Base Excess -8.5 L Arterial Blood Oxygen Saturation 97.7 Nguyễn Test ACCEPTAB Arterial Blood Gas Puncture Site Left Radial Arterial Blood Carboxyhemoglobin 0 Arterial Blood Methemoglobin 0.3 Blood Gas A-a O2 Differential 165.1 H Oxyhemoglobin Percent 97.4 Total Hemoglobin 13.1 Blood Gas Temperature 37.0 Blood Gas Respiration Rate 16.0 Blood Gas Actual Respiration Rate 38 Blood Gas Modality MASK - BIPAP FiO2 40.0 Blood Gas Pressure Support 7 Blood Gas IPAP/EPAP Ratio 12/5 Blood Gas Notified Whom MA Blood Gas Notified Time 01/24/2017 3:10:16 AM Medications Medications Current Medications Acetaminophen (Tylenol Tab) 650 mg Q6H PRN PO MILD PAIN LEVEL 1-3; Start at 17:00 Atorvastatin Calcium (Lipitor) 20 mg HS PO Last administered on 01/23/17 20:37 ; Admin Dose 20 MG; Start 01/11/17 at 21:00 Clonazepam (Klonopin) 0.5 mg Q6 PRN PO ANXIETY Last administered on 01/23/17 01 :30; Admin Dose 0.5 MG; Start 01/11/17 at 17:00 Clonidine (Catapres) 0.1 mg Q6H PRN PO SBP ABOVE 170; Start 01/11/17 at 17:00 Escitalopram Oxalate (Lexapro) 10 mg DAILY PO Last administered on 01/23/17 09: 19; Admin Dose 10 MG; Start 01/12/17 at 09:00 Ferrous Sulfate (Ferrous Sulfate (Ec)) 325 mg TID PO Last administered on 20:37; Admin Dose 325 MG; Start 01/11/17 at 21:00 Zolpidem Tartrate (Ambien) 5 mg QHS PRN PO INSOMNIA; Start 01/11/17 at 17:00 Lorazepam (Ativan) 1 mg HS PRN IV INSOMNIA Last administered on 01/13/17 21:20 ; Admin Dose 1 MG; Start 01/13/17 at 21:30 Magnesium Hydroxide (Milk Of Mag) 30 ml Q8 PRN PO CONSTIPATION Last administered on 01/16/17 05:19; Admin Dose 30 ML; Start 01/15/17 at 10:30 Digoxin (Digoxin) 0.25 mg DAILY@13 PO Last administered on 01/23/17 12:57; Admin Dose 0.25 MG; Start 01/18/17 at 13:00 Potassium Chloride (Potassium Chloride Pwd/Soln) 20 meq DAILY PO Last administered on 01/23/17 09:19; Admin Dose 20 MEQ; Start 01/18/17 at 10:00 Guaifenesin (Mucinex) 600 mg BID PO Last administered on 01/23/17 20:37; Admin Dose 600 MG; Start 01/19/17 at 21:00 Promethazine HCl/ Codeine (Phenergan/ Codeine) 5 ml Q4H PRN PO COUGH; Start 01/22/17 at 18:30 Pantoprazole (Protonix Tab) 40 mg DAILY@06 PO Last administered on 01/24/17 06: 35; Admin Dose 40 MG; Start 01/23/17 at 06:00 Furosemide (Lasix) 20 mg DAILY@06 PO Last administered on 01/24/17 06:35; Admin Dose 20 MG; Start 01/23/17 at 06:00 Apixaban (Eliquis) 2.5 mg BID PO Last administered on 01/23/17 20:37; Admin Dose 2.5 MG; Start 01/22/17 at 21:00 Ondansetron HCl 4 mg 4 mg Q4H PRN IV NAUSEA AND/OR VOMITING Last administered on 01/23/17 23:11; Admin Dose 4 MG; Start 01/23/17 at 23:00 Diltiazem HCl 125 ml @ 5 mls/hr TITRATE IV Last administered on 01/24/17 01:28 ; Admin Dose 5 MLS/HR; Start 01/24/17 at 01:30 Dextrose/Sodium Chloride (D5-1/2ns) 1,000 ml @ 100 mls/hr Q10H IV Last administered on 01/24/17 13:01; Admin Dose 100 MLS/HR; Start 01/24/17 at 05:30 CASA ANAND MD Jan 24, 2017 14:41
--- NOTE | 2017-01-25 02:28 | DES ---
DATE OF ADMISSION: 01/11/2017 DATE OF : 01/24/2017 DISCHARGE DIAGNOSES 1. Metastatic adenocarcinoma of unknown primary. 2. 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 3. Pulmonary emboli. 4. Aspiration pneumonitis. 5. Atrial fibrillation. 6. Hypertension. 7. Generalized anxiety disorder. HOSPITAL COURSE: This 86-year-old male with history of adenocarcinoma of unknown primary that had metastasized to the vertebra and other osseous structures was [facility] onset shortness of breath. The patient was treated for pneumoni a with IV antibiotics with initial improvement of symptoms; however, he continued to be more dyspnei c then was suggested by his clearing chest x-ray, and a CT angiogram was obtained, which confirmed a right upper lobe pulmonary artery branch filling defect consistent with pulmonary embolism. The carolina jo was placed on Lovenox for anticoagulation initially because it was also noted that he had a ne w-onset lower-extremity weakness, and it was thought that he may be requiring surgical decompression . A myelogram was ordered, but the radiologist suggested ordering an MRI, or await the neurosurgica l consultation. The thoracic spine MRI was done and that showed diffuse osseous metastatic disease with interval onset of cord compression and cord hyperintensity extending from T1-T2, through to the T4-T5 levels secondary to compression by posterior displacement and angulation of the fibular strut graft. There is also diffuse metastatic disease throughout the thoracic spine from T1-L1. The robert page also began to have progressive neurologic symptoms including paralysis of the lower extremity a nd numbness to light touch and pinprick. The neurosurgeon had discussed the issue with the family, and confirmed that more aggressive surgical intervention at this time is not warranted, as the patie nt's metastatic disease is not treatable and curable. Following the decision not to do any further surgery on the patient, we switched the patient's Lovenox to Eliquis. I also discussed with the sony hernandez regarding placing the patient on hospice and starting him on a DO NOT RESUSCITATE status. The zahraa cotter was agreeable and the patient, once his mental status cleared up off of steroids, is also in c omplete agreement with this plan of care. Subsequently, the patient also requested that he be place d on hospice if no further chemotherapy or radiation therapy would be helpful. Once we requested ho spice evaluation, I discontinued the patient's aspiration risk precautions and placed him back on no rmal liquids instead of the nectar-thick liquids. We also discontinued Decadron, metoprolol since h e was hypotensive, and Allopurinol since this was unnecessary. On the morning of 01/24/2017, the carolina jo was found obtunded, nonresponsive, with marked shortness of breath and hypoxia. He was placed on BiPAP at 40% and code status was changed to comfort measures only. The question of whether we s hould workup his acute onset altered mental status was discussed with the family, and the family agr eed that no further treatment should be done except for comfort measures. The patient's vital signs continued to deteriorate and he at 1635 hours on 01/24/2017. Dictated By: DESI MCLAIN MD DP/MARTINA Conf#: [id number] DID#: [id number]
== END 2017-01-24 18:56 | disposition expired | DRG 871 ==
LOC: E/R 13:14 → MS4 16:25 → ICU 01-12 17:50 → TEL 01-14 22:54
PROVIDERS: ADMIT Internal Medicine; ATTEND Internal Medicine
PROC: 5A09557 Assistance with Respiratory Ventilation, Greater than 96 Consecutive Hours, Continuous Positive Airway Pressure (ICD-10-PCS; principal; 2017-01-12)
DX: A41.9 Sepsis, unspecified organism (principal); J18.9 Pneumonia, unspecified organism; J69.0 Pneumonitis due to inhalation of food and vomit; J96.00 Acute respiratory failure, unspecified whether with hypoxia or hypercapnia; I26.99 Other pulmonary embolism without acute cor pulmonale; S24.112A Complete lesion at T2-T6 level of thoracic spinal cord, initial encounter; C78.00 Secondary malignant neoplasm of unspecified lung; C79.51 Secondary malignant neoplasm of bone; T84.028A Dislocation of other internal joint prosthesis, initial encounter; J44.0 Chronic obstructive pulmonary disease with (acute) lower respiratory infection; N39.0 Urinary tract infection, site not specified; J44.1 Chronic obstructive pulmonary disease with (acute) exacerbation; G82.20 Paraplegia, unspecified; E46 Unspecified protein-calorie malnutrition; G95.29 Other cord compression; I95.9 Hypotension, unspecified; C80.1 Malignant (primary) neoplasm, unspecified; D64.9 Anemia, unspecified; E87.6 Hypokalemia; I48.91 Unspecified atrial fibrillation; Z87.891 Personal history of nicotine dependence; J20.9 Acute bronchitis, unspecified; B96.1 Klebsiella pneumoniae [K. pneumoniae] as the cause of diseases classified elsewhere; Z95.5 Presence of coronary angioplasty implant and graft; I11.0 Hypertensive heart disease with heart failure; I50.9 Heart failure, unspecified; Z66 Do not resuscitate; X58.XXXA Exposure to other specified factors, initial encounter; Z68.25 Body mass index [BMI] 25.0-25.9, adult
CPT/HCPCS: 36415; 36600; 71010; 71275; 72157; 80048; 80053; 80162; 80202; 81001; 82040; 82565; 82803; 83605; 83880; 84484; 84520; 85025; 85610; 85730; 87040; 87081; 87086; 92526; 92610; 93005; 93308; 93970; 94640; 94660; 94664; 96374; 96375; 97162; J1940; A4310; C9113; J0610; J0692; J1100; J2060; J2185; J2405; J2920; J3370; J3480; J7030; J7040; J7042; J7050; J7512; P9612; Q9967